=== PATIENT | female | born 1965 | race Caucasian/White ===

== ENCOUNTER 2017-06-06 01:33 | Inpatient (IN) | payer OTHER ==
[~2017-06-06] VITALS: Ht 157.5 cm; Wt 84.0 kg
[~2017-06-06 01:33] MED LIST: ASPI81EC; CLIN150 PO; ENAL10; IBUP600 PO; LOVA40 PO; METH10; METO50; NAPR500ERA; OLAN2.5 PO; TRAZ100 PO; VENL75ER PO; Vibramycin100 MG PO
[2017-06-06 02:34] LABS: Ethanol (Alcohol), Blood, Med 35 mg/dL
[2017-06-06 02:35] LABS: BASOPHILS ABSOLUTE AUTO 0.01 K/mm3 (0.00-0.23); BASOPHILS PERCENT AUTO 0 % (0-2); EOSINOPHILS ABSOLUTE AUTO 0.03 K/mm3 (0.00-0.68); EOSINOPHILS PERCENT AUTO 0 % (0-6); Hematocrit 29.1 % (33.0-51.0); Hemoglobin 10.6 g/dL (11.5-16.0); IMMATURE GRAN ABSOLUTE AUTO 0.11 K/mm3 (0.00-0.10); IMMATURE GRAN PERCENT AUTO 1 % (0-1); LYMPHOCYTES ABSOLUTE AUTO 2.21 K/mm3 (0.84-5.20); LYMPHOCYTES PERCENT AUTO 14 % (21-46); MONOCYTES PERCENT AUTO 8 % (4-13); Mean Corpuscular HGB 36.3 pg (26.0-34.0); Mean Corpuscular HGB Conc 36.4 g/dL (31.5-36.5); Mean Platelet Volume 10.1 fL (9.1-12.4); NEUTROPHILS ABSOLUTE AUTO 12.05 K/mm3 (1.96-9.15); NEUTROPHILS PERCENT AUTO 77 % (41-73); Platelet Count 172 K/mm3 (150-400); RDW Coefficient Variation 13.8 % (11.7-14.2); RDW Standard Deviation 50.2 fL (35.1-46.3); Red Blood Cell Count 2.92 M/mm3 (3.80-5.20); White Blood Cell Count 15.61 K/mm3 (4.00-11.30)
[2017-06-06 02:38] LABS: Mean Corpuscular Volume 100 fL (80-100)
[2017-06-06 02:41] LABS: Alanine Aminotransfer (ALT/SGP 41 U/L (12-78); Albumin, Blood 2.7 g/dL (3.4-5.0); Albumin/Globulin Ratio 0.6 (0.8-1.8); Alk Phos 157 U/L (50-136); Anion Gap 13 mmol/L (6-16); Aspartate Aminotrans (AST/SGOT 81 U/L (12-37); Blood Urea Nitrogen 4 mg/dL (8-24); Bun/Creatinine Ratio 10.6 (12.0-20.0); CO2, Blood 19 mmol/L (21-32); Calcium, Blood 8.1 mg/dL (8.5-10.1); Chloride, Blood 80 mmol/L (98-108); Creatinine, Blood 0.38 mg/dL (0.40-1.00); Globulin, Blood 4.7 g/dL (2.2-4.0); Glomerular Filtration Rate >60 (60-); Glucose, Blood 97 mg/dL (70-99); Potassium, Blood 3.7 mmol/L (3.5-5.5); Sodium, Blood 112 mmol/L (136-145); Total Protein, Blood 7.4 g/dL (6.4-8.2)
[2017-06-06 10:10] LABS: BASOPHILS ABSOLUTE AUTO 0.01 K/mm3 (0.00-0.23); BASOPHILS PERCENT AUTO 0 % (0-2); EOSINOPHILS ABSOLUTE AUTO 0.04 K/mm3 (0.00-0.68); EOSINOPHILS PERCENT AUTO 0 % (0-6); Hematocrit 28.7 % (33.0-51.0); Hemoglobin 10.4 g/dL (11.5-16.0); IMMATURE GRAN PERCENT AUTO 1 % (0-1); LYMPHOCYTES ABSOLUTE AUTO 1.84 K/mm3 (0.84-5.20); LYMPHOCYTES PERCENT AUTO 12 % (21-46); MONOCYTES ABSOLUTE AUTO 1.22 K/mm3 (0.16-1.47); MONOCYTES PERCENT AUTO 8 % (4-13); Mean Corpuscular HGB 36.4 pg (26.0-34.0); Mean Corpuscular HGB Conc 36.2 g/dL (31.5-36.5); Mean Corpuscular Volume 100 fL (80-100); NEUTROPHILS ABSOLUTE AUTO 11.89 K/mm3 (1.96-9.15); NEUTROPHILS PERCENT AUTO 79 % (41-73); NRBC ABSOLUTE 0.02 K/mm3 (0.00-0.02); NRBC Auto 0.1 /100 WBC (0.0-0.2); Platelet Count 170 K/mm3 (150-400); RDW Coefficient Variation 14.1 % (11.7-14.2); Red Blood Cell Count 2.86 M/mm3 (3.80-5.20)
[2017-06-06 10:34] LABS: Alanine Aminotransfer (ALT/SGP 48 U/L (12-78); Albumin, Blood 2.6 g/dL (3.4-5.0); Albumin/Globulin Ratio 0.6 (0.8-1.8); Alk Phos 150 U/L (50-136); Aspartate Aminotrans (AST/SGOT 82 U/L (12-37); Bilirubin, Total 3.1 mg/dL (0.1-1.0); Blood Urea Nitrogen 4 mg/dL (8-24); Bun/Creatinine Ratio 12.1 (12.0-20.0); CO2, Blood 21 mmol/L (21-32); Calcium, Blood 7.7 mg/dL (8.5-10.1); Chloride, Blood 81 mmol/L (98-108); Creatinine, Blood 0.33 mg/dL (0.40-1.00); Globulin, Blood 4.6 g/dL (2.2-4.0); Glomerular Filtration Rate >60 (60-); Glucose, Blood 122 mg/dL (70-99); Potassium, Blood 3.7 mmol/L (3.5-5.5); Total Protein, Blood 7.2 g/dL (6.4-8.2)
[2017-06-06 10:36] LABS: Anion Gap 10 mmol/L (6-16); Sodium, Blood 112 mmol/L (136-145)
[2017-06-06 12:47] LABS: Uric Acid, Blood 2.9 mg/dL (2.6-6.0)
[2017-06-06 13:12] LABS: Source, Urine Clean Catch
[2017-06-06 13:22] LABS: Bilirubin, Urine Neg (Neg); Blood, Urine 1+ (Neg); Glucose Qualitative, Urine Neg (Neg); Ketones, Urine Neg (Neg); Leukocyte Esterase, Urine 2+ (Neg); Nitrite, Urine Pos (Neg); Protein, Urine Neg (Neg); Urobilinogen, Urine 1+ (Normal)
[2017-06-06 13:40] LABS: Urea Nitrogen, Urine, Random 541 mg/dL (350-1000)
[2017-06-06 13:42] LABS: Sodium, Urine, Random <5 mmol/L (20-110)
[2017-06-06 13:50] LABS: Appearance, Urine Hazy (Clear); Color, Urine Yellow (P-Yellow)
[2017-06-06 13:51] LABS: White Blood Cells, Urine 50-100 /hpf (0-5)
[2017-06-06 13:52] LABS: Bacteria Many /hpf; Squamous Epithelial Cells Few /hpf (Few)
[2017-06-06 13:58] LABS: U Amphetamine Screen Not Detected; U Barbituate Screen Not Detected; U Benzodiazapine Screen DETECTED; U Buprenorphine Screen Not Detected; U Cannabinoids Screen Not Detected; U Cocaine Screen Not Detected; U Methadone Screen Not Detected; U Methamphetamine Screen Not Detected; U Opiates Screen Not Detected; U Oxycodone Screen Not Detected; U Phencyclidine Screen Not Detected; U Propoxyphene Screen Not Detected
[2017-06-06 15:09] LABS: Osmolality, Urine 480 mos/kg (15-1400)
[2017-06-06 15:53] LABS: PCO2 Arterial 30.7 mmHg (35-45); PO2 Arterial 83.8 mmHg (80-100); pH Blood Arterial 7.47 (7.35-7.45)
[2017-06-06 17:09] LABS: Anion Gap 9 mmol/L (6-16); Blood Urea Nitrogen 4 mg/dL (8-24); Bun/Creatinine Ratio 11.5 (12.0-20.0); CO2, Blood 20 mmol/L (21-32); Calcium, Blood 7.6 mg/dL (8.5-10.1); Chloride, Blood 84 mmol/L (98-108); Creatinine, Blood 0.35 mg/dL (0.40-1.00); Glomerular Filtration Rate >60 (60-); Glucose, Blood 93 mg/dL (70-99); Potassium, Blood 4.2 mmol/L (3.5-5.5); Sodium, Blood 113 mmol/L (136-145)
[2017-06-07 00:26] LABS: Magnesium, Blood 1.7 mg/dL (1.6-2.4)
[2017-06-07 02:24] LABS: Hematocrit 26.2 % (33.0-51.0); Hemoglobin 9.5 g/dL (11.5-16.0)
[2017-06-07 02:40] LABS: Albumin, Blood 2.2 g/dL (3.4-5.0); Anion Gap 10 mmol/L (6-16); Blood Urea Nitrogen 5 mg/dL (8-24); Bun/Creatinine Ratio 9.7 (12.0-20.0); CO2, Blood 23 mmol/L (21-32); Chloride, Blood 90 mmol/L (98-108); Creatinine, Blood 0.51 mg/dL (0.40-1.00); Glomerular Filtration Rate >60 (60-); Glucose, Blood 81 mg/dL (70-99); Magnesium, Blood 1.8 mg/dL (1.6-2.4); Phosphorus, Blood 1.7 mg/dL (2.5-4.9); Potassium, Blood 3.9 mmol/L (3.5-5.5); Sodium, Blood 123 mmol/L (136-145)
[2017-06-07 08:46] LABS: Anion Gap 9 mmol/L (6-16); Blood Urea Nitrogen 6 mg/dL (8-24); Bun/Creatinine Ratio 11.3 (12.0-20.0); CO2, Blood 23 mmol/L (21-32); Calcium, Blood 7.8 mg/dL (8.5-10.1); Chloride, Blood 92 mmol/L (98-108); Creatinine, Blood 0.53 mg/dL (0.40-1.00); Glomerular Filtration Rate >60 (60-); Glucose, Blood 82 mg/dL (70-99); Potassium, Blood 3.6 mmol/L (3.5-5.5); Sodium, Blood 124 mmol/L (136-145)
[2017-06-07 18:02] LABS: Magnesium, Blood 1.6 mg/dL (1.6-2.4); Phosphorus, Blood 2.9 mg/dL (2.5-4.9); Potassium, Blood 3.4 mmol/L (3.5-5.5)
[2017-06-07 21:24] LABS: Potassium, Blood 3.6 mmol/L (3.5-5.5)
[2017-06-08 04:31] LABS: BASOPHILS ABSOLUTE AUTO 0.01 K/mm3 (0.00-0.23); BASOPHILS PERCENT AUTO 0 % (0-2); EOSINOPHILS ABSOLUTE AUTO 0.09 K/mm3 (0.00-0.68); EOSINOPHILS PERCENT AUTO 1 % (0-6); Hematocrit 25.7 % (33.0-51.0); Hemoglobin 9.1 g/dL (11.5-16.0); IMMATURE GRAN ABSOLUTE AUTO 0.04 K/mm3 (0.00-0.10); IMMATURE GRAN PERCENT AUTO 0 % (0-1); LYMPHOCYTES ABSOLUTE AUTO 2.66 K/mm3 (0.84-5.20); LYMPHOCYTES PERCENT AUTO 25 % (21-46); MONOCYTES ABSOLUTE AUTO 1.29 K/mm3 (0.16-1.47); MONOCYTES PERCENT AUTO 12 % (4-13); Mean Corpuscular HGB 36.1 pg (26.0-34.0); Mean Corpuscular HGB Conc 35.4 g/dL (31.5-36.5); Mean Corpuscular Volume 102 fL (80-100); Mean Platelet Volume 10.2 fL (9.1-12.4); NEUTROPHILS ABSOLUTE AUTO 6.54 K/mm3 (1.96-9.15); NEUTROPHILS PERCENT AUTO 62 % (41-73); Platelet Count 118 K/mm3 (150-400); RDW Coefficient Variation 15.3 % (11.7-14.2); RDW Standard Deviation 55.4 fL (35.1-46.3); Red Blood Cell Count 2.52 M/mm3 (3.80-5.20); White Blood Cell Count 10.63 K/mm3 (4.00-11.30)
[2017-06-08 04:44] LABS: International Normalized Ratio 1.37; Prothrombin Time Results 14.4 Sec (9.7-11.5)
[2017-06-08 04:52] LABS: Alanine Aminotransfer (ALT/SGP 37 U/L (12-78); Albumin, Blood 2.1 g/dL (3.4-5.0); Albumin/Globulin Ratio 0.6 (0.8-1.8); Alk Phos 122 U/L (50-136); Anion Gap 8 mmol/L (6-16); Aspartate Aminotrans (AST/SGOT 77 U/L (12-37); Bilirubin, Total 2.6 mg/dL (0.1-1.0); Blood Urea Nitrogen 8 mg/dL (8-24); Bun/Creatinine Ratio 10.7 (12.0-20.0); CO2, Blood 23 mmol/L (21-32); Chloride, Blood 97 mmol/L (98-108); Creatinine, Blood 0.75 mg/dL (0.40-1.00); Globulin, Blood 3.8 g/dL (2.2-4.0); Glomerular Filtration Rate >60 (60-); Glucose, Blood 71 mg/dL (70-99); Magnesium, Blood 1.7 mg/dL (1.6-2.4); Phosphorus, Blood 2.8 mg/dL (2.5-4.9); Potassium, Blood 3.4 mmol/L (3.5-5.5); Sodium, Blood 128 mmol/L (136-145); Total Protein, Blood 5.9 g/dL (6.4-8.2)
[2017-06-09 03:45] LABS: BASOPHILS ABSOLUTE AUTO 0.02 K/mm3 (0.00-0.23); BASOPHILS PERCENT AUTO 0 % (0-2); EOSINOPHILS ABSOLUTE AUTO 0.05 K/mm3 (0.00-0.68); EOSINOPHILS PERCENT AUTO 1 % (0-6); Hematocrit 26.4 % (33.0-51.0); Hemoglobin 9.3 g/dL (11.5-16.0); IMMATURE GRAN ABSOLUTE AUTO 0.03 K/mm3 (0.00-0.10); IMMATURE GRAN PERCENT AUTO 0 % (0-1); LYMPHOCYTES ABSOLUTE AUTO 2.98 K/mm3 (0.84-5.20); LYMPHOCYTES PERCENT AUTO 29 % (21-46); MONOCYTES ABSOLUTE AUTO 1.74 K/mm3 (0.16-1.47); MONOCYTES PERCENT AUTO 17 % (4-13); Mean Corpuscular HGB Conc 35.2 g/dL (31.5-36.5); Mean Corpuscular Volume 102 fL (80-100); Mean Platelet Volume 9.7 fL (9.1-12.4); NEUTROPHILS ABSOLUTE AUTO 5.56 K/mm3 (1.96-9.15); NEUTROPHILS PERCENT AUTO 54 % (41-73); Platelet Count 120 K/mm3 (150-400); RDW Coefficient Variation 16.3 % (11.7-14.2); RDW Standard Deviation 59.7 fL (35.1-46.3); Red Blood Cell Count 2.58 M/mm3 (3.80-5.20); White Blood Cell Count 10.38 K/mm3 (4.00-11.30)
[2017-06-09 03:58] LABS: International Normalized Ratio 1.38; Prothrombin Time Results 14.5 Sec (9.7-11.5)
[2017-06-09 04:05] LABS: Alanine Aminotransfer (ALT/SGP 42 U/L (12-78); Albumin, Blood 2.3 g/dL (3.4-5.0); Albumin/Globulin Ratio 0.6 (0.8-1.8); Alk Phos 136 U/L (50-136); Anion Gap 9 mmol/L (6-16); Aspartate Aminotrans (AST/SGOT 77 U/L (12-37); Bilirubin, Total 2.3 mg/dL (0.1-1.0); Blood Urea Nitrogen 7 mg/dL (8-24); Bun/Creatinine Ratio 11.2 (12.0-20.0); CO2, Blood 23 mmol/L (21-32); Calcium, Blood 8.9 mg/dL (8.5-10.1); Chloride, Blood 104 mmol/L (98-108); Creatinine, Blood 0.63 mg/dL (0.40-1.00); Globulin, Blood 4.1 g/dL (2.2-4.0); Glomerular Filtration Rate >60 (60-); Glucose, Blood 83 mg/dL (70-99); Lactate Dehydrogenase (Ld),Bld 269 U/L (100-240); Magnesium, Blood 1.6 mg/dL (1.6-2.4); Potassium, Blood 3.6 mmol/L (3.5-5.5); Sodium, Blood 136 mmol/L (136-145); Total Protein, Blood 6.4 g/dL (6.4-8.2)
[2017-06-09 05:20] LABS: PO2 Arterial 74.2 mmHg (80-100); pH Blood Arterial 7.53 (7.35-7.45)
[2017-06-09 12:20] LABS: Automated BF WBC Count 0.116 K/mm3 (0-999); Body Fluid WBC Count 116 /mm3 (0-999)
[2017-06-09 12:30] LABS: Appearance, Body Fluid Clear (Clear); Color, Body Fluid Yellow (None-Yellow); RBC Count, Body Fluid 42 /mm3 (0-0)
[2017-06-09 12:46] LABS: Glucose, Body Fluid 91 mg/dL; Lactate Dehydrogenase, Body Fl 48 U/L; Protein, Body Fluid 0.9 g/dL
[2017-06-09 12:47] LABS: Total Cell Count, Body Fluid 100
[2017-06-09 17:45] LABS: Magnesium, Blood 1.6 mg/dL (1.6-2.4)
[2017-06-09 17:46] LABS: Phosphorus, Blood 3.6 mg/dL (2.5-4.9); Potassium, Blood 3.4 mmol/L (3.5-5.5)
[2017-06-10 04:41] LABS: Hematocrit 26.7 % (33.0-51.0); Hemoglobin 9.2 g/dL (11.5-16.0)
[2017-06-10 04:59] LABS: Albumin, Blood 2.4 g/dL (3.4-5.0); Anion Gap 12 mmol/L (6-16); Blood Urea Nitrogen 5 mg/dL (8-24); CO2, Blood 21 mmol/L (21-32); Calcium, Blood 8.7 mg/dL (8.5-10.1); Chloride, Blood 104 mmol/L (98-108); Creatinine, Blood 0.63 mg/dL (0.40-1.00); Glomerular Filtration Rate >60 (60-); Glucose, Blood 97 mg/dL (70-99); Magnesium, Blood 1.9 mg/dL (1.6-2.4); Sodium, Blood 137 mmol/L (136-145)
[2017-06-11 06:02] LABS: Hematocrit 28.2 % (33.0-51.0); Hemoglobin 9.8 g/dL (11.5-16.0)
[2017-06-11 06:16] LABS: International Normalized Ratio 1.28; Prothrombin Time Results 13.4 Sec (9.7-11.5)
[2017-06-11 06:21] LABS: Alanine Aminotransfer (ALT/SGP 44 U/L (12-78); Albumin, Blood 2.5 g/dL (3.4-5.0); Albumin/Globulin Ratio 0.6 (0.8-1.8); Alk Phos 148 U/L (50-136); Anion Gap 8 mmol/L (6-16); Aspartate Aminotrans (AST/SGOT 78 U/L (12-37); Bilirubin, Direct 1.5 mg/dL (0.0-0.3); Bilirubin, Indirect 1.9 mg/dL (0.1-0.7); Bilirubin, Total 3.4 mg/dL (0.1-1.0); Blood Urea Nitrogen 5 mg/dL (8-24); Bun/Creatinine Ratio 9.2 (12.0-20.0); CO2, Blood 24 mmol/L (21-32); Chloride, Blood 103 mmol/L (98-108); Creatinine, Blood 0.54 mg/dL (0.40-1.00); Globulin, Blood 4.3 g/dL (2.2-4.0); Glomerular Filtration Rate >60 (60-); Glucose, Blood 102 mg/dL (70-99); Phosphorus, Blood 3.6 mg/dL (2.5-4.9); Potassium, Blood 3.9 mmol/L (3.5-5.5); Sodium, Blood 135 mmol/L (136-145); Total Protein, Blood 6.8 g/dL (6.4-8.2)
[2017-06-12 04:55] LABS: Hematocrit 28.1 % (33.0-51.0); Hemoglobin 9.3 g/dL (11.5-16.0)
[2017-06-12 05:17] LABS: Albumin, Blood 2.5 g/dL (3.4-5.0); Anion Gap 10 mmol/L (6-16); Blood Urea Nitrogen 6 mg/dL (8-24); Bun/Creatinine Ratio 10.5 (12.0-20.0); CO2, Blood 24 mmol/L (21-32); Calcium, Blood 8.6 mg/dL (8.5-10.1); Chloride, Blood 101 mmol/L (98-108); Creatinine, Blood 0.57 mg/dL (0.40-1.00); Glomerular Filtration Rate >60 (60-); Glucose, Blood 120 mg/dL (70-99); Phosphorus, Blood 2.8 mg/dL (2.5-4.9); Potassium, Blood 3.7 mmol/L (3.5-5.5); Sodium, Blood 135 mmol/L (136-145)
[2017-06-13 05:25] LABS: Hematocrit 26.2 % (33.0-51.0); Hemoglobin 8.8 g/dL (11.5-16.0)
[2017-06-13 06:00] LABS: Magnesium, Blood 1.9 mg/dL (1.6-2.4)
[2017-06-13 06:01] LABS: Albumin, Blood 2.4 g/dL (3.4-5.0); Anion Gap 9 mmol/L (6-16); Blood Urea Nitrogen 6 mg/dL (8-24); Bun/Creatinine Ratio 11.1 (12.0-20.0); CO2, Blood 25 mmol/L (21-32); Calcium, Blood 8.4 mg/dL (8.5-10.1); Chloride, Blood 101 mmol/L (98-108); Creatinine, Blood 0.54 mg/dL (0.40-1.00); Glomerular Filtration Rate >60 (60-); Glucose, Blood 84 mg/dL (70-99); Phosphorus, Blood 3.3 mg/dL (2.5-4.9); Potassium, Blood 3.6 mmol/L (3.5-5.5); Sodium, Blood 135 mmol/L (136-145)
[2017-06-13] MEDS ORDERED: ALBU90OI INH (14:43)
[2017-06-13] MEDS ORDERED: LISI20 PO (14:44)
[2017-06-13] MEDS ORDERED: Metoprolol Succ25 MG PO (14:44)
[2017-06-13] MEDS ORDERED: LACT10SY PO (14:45)
[2017-06-13] MEDS ORDERED: MAGOXI400 PO (14:46)
[2017-06-13] MEDS ORDERED: NITR100CA PO (14:47)
[2017-09-16] MEDS ORDERED: FURO40 PO (13:14)
[2017-09-16] MEDS ORDERED: MAGOXI400 PO (13:15)
[2017-09-16] MEDS ORDERED: LEVFLO500 PO (13:16)
[2017-09-28] MEDS ORDERED: LORATADINE PO (20:31)
[2017-10-24] MEDS ORDERED: PANT40 PO (15:12)
[2017-10-30] MEDS ORDERED: LOVA40 PO (00:42)
[2017-10-30] MEDS ORDERED: ALBU90OI INH (00:43)
[2017-10-30] MEDS ORDERED: FURO40 PO (00:43)
[2017-11-07] MEDS ORDERED: LISI20 PO (22:50)
[2017-11-07] MEDS ORDERED: Neurontin600 MG PO (22:52)
[2017-11-07] MEDS ORDERED: Dicyclomine HCl10 MG PO (22:52)
[2017-11-07] MEDS ORDERED: Ipratr-Albuterol3 ML UD (22:54)
[2017-11-07] MEDS ORDERED: LACT10SY PO (22:55)
[2017-11-07] MEDS ORDERED: Aldactone50 MG PO (22:56)
[2017-11-07] MEDS ORDERED: POTA20PAC PO (22:59)
[2017-11-11] MEDS ORDERED: LEVFLO500 (08:19)
[2018-01-19] MEDS ORDERED: LOVA40 PO (21:14)
[2018-01-22] MEDS ORDERED: LACTULOSE20 GM/30 M PO (10:54)
[2018-01-22] MEDS ORDERED: DOXY100 PO (10:59)
[2018-03-17] MEDS ORDERED: LISI5 PO (12:45)
[2018-03-17] MEDS ORDERED: ONDA4ODT MM (12:47)
[2018-03-17] MEDS ORDERED: SUMA25 PO (12:49)
== END 2017-06-13 16:19 | disposition home or self-care (01) | DRG 896 ==
LOC: ER 01:33 → ICUW 03:14 → MEDS 03:14 → PCU 03:14 → ICUW 14:17 → ICUE 18:57 → MEDS 06-10 13:42
PROVIDERS: Emergency Medicine; Internal Medicine; Internal Medicine Critical Care Medicine; Internal Medicine Nephrology
PROC: 5A09357 Assistance with Respiratory Ventilation, Less than 24 Consecutive Hours, Continuous Positive Airway Pressure (ICD-10-PCS; 2017-06-06)
PROC: 02HV33Z Insertion of Infusion Device into Superior Vena Cava, Percutaneous Approach (ICD-10-PCS; 2017-06-06)
PROC: 0W993ZX Drainage of Right Pleural Cavity, Percutaneous Approach, Diagnostic (ICD-10-PCS; principal; 2017-06-09)
PROC: 0W993ZZ Drainage of Right Pleural Cavity, Percutaneous Approach (ICD-10-PCS; 2017-06-09)
DX: F10.231 Alcohol dependence with withdrawal delirium (principal); G93.41 Metabolic encephalopathy; J96.01 Acute respiratory failure with hypoxia; I47.2 Ventricular tachycardia; E87.3 Alkalosis; E72.20 Disorder of urea cycle metabolism, unspecified; J90 Pleural effusion, not elsewhere classified; D68.9 Coagulation defect, unspecified; I95.9 Hypotension, unspecified; E87.1 Hypo-osmolality and hyponatremia; N39.0 Urinary tract infection, site not specified; K70.10 Alcoholic hepatitis without ascites; I27.20 Pulmonary hypertension, unspecified; F32.9 Major depressive disorder, single episode, unspecified; N18.2 Chronic kidney disease, stage 2 (mild); E87.6 Hypokalemia; E83.39 Other disorders of phosphorus metabolism; E87.70 Fluid overload, unspecified; R00.1 Bradycardia, unspecified; E88.09 Other disorders of plasma-protein metabolism, not elsewhere classified; D64.9 Anemia, unspecified; R31.29 Other microscopic hematuria; E83.42 Hypomagnesemia; M62.81 Muscle weakness (generalized); D69.6 Thrombocytopenia, unspecified; E66.9 Obesity, unspecified; G47.30 Sleep apnea, unspecified; Z88.1 Allergy status to other antibiotic agents; Z79.899 Other long term (current) drug therapy; Z88.5 Allergy status to narcotic agent; Z88.0 Allergy status to penicillin; Z88.2 Allergy status to sulfonamides; Z68.35 Body mass index [BMI] 35.0-35.9, adult
CPT/HCPCS: 32555; 36415; 36569; 36600; 71045; 76700; 80048; 80053; 80069; 81001; 82140; 82248; 82330; 82570; 82803; 82945; 83615; 83735; 83930; 83935; 84100; 84132; 84157; 84295; 84300; 84540; 84550; 85014; 85018; 85025; 85060; 85610; 85730; 87070; 87077; 87086; 87186; 87205; 89051; 93005; 93010; 93306; 93970; 94640; 94660; 94762; 96360; 97110; 97116; 97162; 99285; C1751; G0480; G8978; G8979; J0360; J0610; J1650; J1940; J1956; J2060; J2405; J3411; J3475; J3480; J7030; J7040; J7042; J7120

== ENCOUNTER 2017-06-25 02:34 | Inpatient (IN) | payer OTHER ==
[~2017-06-25] VITALS: Ht 160 cm; Wt 83.5 kg
[~2017-06-25 02:34] MED LIST changes: +ALBU90OI INH; +LACT10SY PO; +LISI20 PO; +MAGOXI400 PO; +Metoprolol Succ25 MG PO; +NITR100CA PO
[2017-06-25 03:09] LABS: BASOPHILS ABSOLUTE AUTO 0.06 K/mm3 (0.00-0.23); BASOPHILS PERCENT AUTO 0 % (0-2); EOSINOPHILS ABSOLUTE AUTO 0.14 K/mm3 (0.00-0.68); EOSINOPHILS PERCENT AUTO 1 % (0-6); Hematocrit 30.4 % (33.0-51.0); IMMATURE GRAN ABSOLUTE AUTO 0.12 K/mm3 (0.00-0.10); IMMATURE GRAN PERCENT AUTO 1 % (0-1); LYMPHOCYTES ABSOLUTE AUTO 3.34 K/mm3 (0.84-5.20); LYMPHOCYTES PERCENT AUTO 21 % (21-46); MONOCYTES ABSOLUTE AUTO 1.79 K/mm3 (0.16-1.47); MONOCYTES PERCENT AUTO 11 % (4-13); Mean Corpuscular HGB Conc 32.9 g/dL (31.5-36.5); Mean Corpuscular Volume 106 fL (80-100); Mean Platelet Volume 10.2 fL (9.1-12.4); NEUTROPHILS ABSOLUTE AUTO 10.79 K/mm3 (1.96-9.15); NEUTROPHILS PERCENT AUTO 66 % (41-73); Platelet Count 303 K/mm3 (150-400); RDW Coefficient Variation 16.1 % (11.7-14.2); RDW Standard Deviation 62.8 fL (35.1-46.3); Red Blood Cell Count 2.86 M/mm3 (3.80-5.20); White Blood Cell Count 16.24 K/mm3 (4.00-11.30)
[2017-06-25 03:13] LABS: PCO2 Arterial 32.7 mmHg (35-45); PO2 Arterial 66.8 mmHg (80-100); pH Blood Arterial 7.55 (7.35-7.45)
[2017-06-25 03:30] LABS: Alanine Aminotransfer (ALT/SGP 43 U/L (12-78); Albumin, Blood 2.5 g/dL (3.4-5.0); Albumin/Globulin Ratio 0.5 (0.8-1.8); Alk Phos 147 U/L (50-136); Anion Gap 9 mmol/L (6-16); Aspartate Aminotrans (AST/SGOT 54 U/L (12-37); Bilirubin, Total 2.2 mg/dL (0.1-1.0); Blood Urea Nitrogen 6 mg/dL (8-24); Bun/Creatinine Ratio 8.7 (12.0-20.0); CO2, Blood 27 mmol/L (21-32); Chloride, Blood 104 mmol/L (98-108); Creatinine, Blood 0.69 mg/dL (0.40-1.00); Globulin, Blood 4.9 g/dL (2.2-4.0); Glomerular Filtration Rate >60 (60-); Glucose, Blood 90 mg/dL (70-99); Potassium, Blood 3.2 mmol/L (3.5-5.5); Sodium, Blood 140 mmol/L (136-145); Total Protein, Blood 7.4 g/dL (6.4-8.2); Troponin I <0.015 ng/mL (0.000-0.040)
[2017-06-25 05:35] LABS: Hematocrit 30.9 % (33.0-51.0); Hemoglobin 10.3 g/dL (11.5-16.0); Mean Corpuscular HGB 35.2 pg (26.0-34.0); Mean Corpuscular HGB Conc 33.3 g/dL (31.5-36.5); Mean Corpuscular Volume 106 fL (80-100); Mean Platelet Volume 10.4 fL (9.1-12.4); Platelet Count 317 K/mm3 (150-400); RDW Coefficient Variation 16.2 % (11.7-14.2); Red Blood Cell Count 2.93 M/mm3 (3.80-5.20)
[2017-06-25 05:48] LABS: International Normalized Ratio 1.26; Prothrombin Time Results 13.2 Sec (9.7-11.5)
[2017-06-25 12:36] LABS: Albumin, Blood 2.5 g/dL (3.4-5.0)
[2017-06-26 06:00] LABS: BASOPHILS ABSOLUTE AUTO 0.07 K/mm3 (0.00-0.23); BASOPHILS PERCENT AUTO 1 % (0-2); EOSINOPHILS ABSOLUTE AUTO 0.16 K/mm3 (0.00-0.68); EOSINOPHILS PERCENT AUTO 1 % (0-6); Hemoglobin 9.3 g/dL (11.5-16.0); IMMATURE GRAN ABSOLUTE AUTO 0.07 K/mm3 (0.00-0.10); IMMATURE GRAN PERCENT AUTO 1 % (0-1); LYMPHOCYTES ABSOLUTE AUTO 3.81 K/mm3 (0.84-5.20); LYMPHOCYTES PERCENT AUTO 26 % (21-46); MONOCYTES ABSOLUTE AUTO 1.67 K/mm3 (0.16-1.47); MONOCYTES PERCENT AUTO 11 % (4-13); Mean Corpuscular HGB Conc 33.2 g/dL (31.5-36.5); Mean Corpuscular Volume 105 fL (80-100); Mean Platelet Volume 10.2 fL (9.1-12.4); NEUTROPHILS ABSOLUTE AUTO 9.06 K/mm3 (1.96-9.15); NEUTROPHILS PERCENT AUTO 61 % (41-73); Platelet Count 275 K/mm3 (150-400); RDW Coefficient Variation 16.5 % (11.7-14.2); RDW Standard Deviation 62.9 fL (35.1-46.3); Red Blood Cell Count 2.66 M/mm3 (3.80-5.20); White Blood Cell Count 14.84 K/mm3 (4.00-11.30)
[2017-06-26 06:22] LABS: Albumin, Blood 2.2 g/dL (3.4-5.0); Anion Gap 7 mmol/L (6-16); Blood Urea Nitrogen 4 mg/dL (8-24); Bun/Creatinine Ratio 6.2 (12.0-20.0); CO2, Blood 28 mmol/L (21-32); Calcium, Blood 8.6 mg/dL (8.5-10.1); Chloride, Blood 107 mmol/L (98-108); Creatinine, Blood 0.65 mg/dL (0.40-1.00); Glomerular Filtration Rate >60 (60-); Glucose, Blood 75 mg/dL (70-99); Phosphorus, Blood 3.5 mg/dL (2.5-4.9); Potassium, Blood 4.2 mmol/L (3.5-5.5); Sodium, Blood 142 mmol/L (136-145)
[2017-06-26] MEDS ORDERED: SPIR50 PO (11:34)
[2017-06-26] MEDS ORDERED: SACC250C PO (11:35)
[2017-06-26] MEDS ORDERED: FURO40 PO (11:35)
[2017-06-26] MEDS ORDERED: LEVO750 PO (11:37)
[2017-06-26] MEDS ORDERED: POTCHL20ER PO (12:45)
[2017-09-16] MEDS ORDERED: FURO40 PO (13:14)
[2017-09-16] MEDS ORDERED: MAGOXI400 PO (13:15)
[2017-09-16] MEDS ORDERED: LEVFLO500 PO (13:16)
[2017-09-28] MEDS ORDERED: LORATADINE PO (20:31)
[2017-10-24] MEDS ORDERED: PANT40 PO (15:12)
[2017-10-30] MEDS ORDERED: LOVA40 PO (00:42)
[2017-10-30] MEDS ORDERED: ALBU90OI INH (00:43)
[2017-10-30] MEDS ORDERED: FURO40 PO (00:43)
[2017-11-07] MEDS ORDERED: LISI20 PO (22:50)
[2017-11-07] MEDS ORDERED: Dicyclomine HCl10 MG PO (22:52)
[2017-11-07] MEDS ORDERED: Neurontin600 MG PO (22:52)
[2017-11-07] MEDS ORDERED: Ipratr-Albuterol3 ML UD (22:54)
[2017-11-07] MEDS ORDERED: LACT10SY PO (22:55)
[2017-11-07] MEDS ORDERED: Aldactone50 MG PO (22:56)
[2017-11-07] MEDS ORDERED: POTA20PAC PO (22:59)
[2017-11-11] MEDS ORDERED: LEVFLO500 (08:19)
[2018-01-19] MEDS ORDERED: LOVA40 PO (21:14)
[2018-01-22] MEDS ORDERED: LACTULOSE20 GM/30 M PO (10:54)
[2018-01-22] MEDS ORDERED: DOXY100 PO (10:59)
[2018-03-17] MEDS ORDERED: LISI5 PO (12:45)
[2018-03-17] MEDS ORDERED: ONDA4ODT MM (12:47)
[2018-03-17] MEDS ORDERED: SUMA25 PO (12:49)
== END 2017-06-26 16:17 | disposition home or self-care (01) | DRG 871 ==
LOC: ER 02:34 → MEDS 04:00 → ENPENDDIS 06-26 11:00 → MEDS 06-26 16:17
PROVIDERS: Emergency Medicine; Family Medicine; Internal Medicine
PROC: 0W993ZX Drainage of Right Pleural Cavity, Percutaneous Approach, Diagnostic (ICD-10-PCS; principal; 2017-06-25)
DX: A41.9 Sepsis, unspecified organism (principal); J96.01 Acute respiratory failure with hypoxia; I47.2 Ventricular tachycardia; J90 Pleural effusion, not elsewhere classified; L03.115 Cellulitis of right lower limb; K70.30 Alcoholic cirrhosis of liver without ascites; D63.8 Anemia in other chronic diseases classified elsewhere; I27.20 Pulmonary hypertension, unspecified; R65.20 Severe sepsis without septic shock; G47.30 Sleep apnea, unspecified; I10 Essential (primary) hypertension; E66.9 Obesity, unspecified; E87.6 Hypokalemia; F32.9 Major depressive disorder, single episode, unspecified; Z68.32 Body mass index [BMI] 32.0-32.9, adult; Z88.5 Allergy status to narcotic agent; Z88.0 Allergy status to penicillin; Z88.2 Allergy status to sulfonamides; Z88.8 Allergy status to other drugs, medicaments and biological substances; Z79.899 Other long term (current) drug therapy
CPT/HCPCS: 32555; 36415; 36600; 51702; 71045; 71046; 80053; 80069; 82040; 82140; 82803; 82947; 83605; 83615; 83690; 84155; 84484; 85025; 85027; 85610; 87040; 93005; 93010; 93971; 94761; 94762; 96374; 99285; J1940; J1956; J3370; J3480; J7030

== ENCOUNTER 2017-09-05 12:26 | Inpatient (IN) | payer OTHER ==
[~2017-09-05] VITALS: Ht 167.6 cm; Wt 69.1 kg
[~2017-09-05 12:26] MED LIST changes: +FURO40 PO; +LEVO750 PO; +POTCHL20ER PO; +SACC250C PO; +SPIR50 PO; +TRAZ50 PO
[2017-09-05 13:43] LABS: BASOPHILS ABSOLUTE AUTO 0.04 K/mm3 (0.00-0.23); BASOPHILS PERCENT AUTO 1 % (0-2); EOSINOPHILS ABSOLUTE AUTO 0.17 K/mm3 (0.00-0.68); EOSINOPHILS PERCENT AUTO 2 % (0-6); Hematocrit 26.9 % (33.0-51.0); Hemoglobin 9.1 g/dL (11.5-16.0); IMMATURE GRAN ABSOLUTE AUTO 0.02 K/mm3 (0.00-0.10); IMMATURE GRAN PERCENT AUTO 0 % (0-1); LYMPHOCYTES ABSOLUTE AUTO 2.41 K/mm3 (0.84-5.20); LYMPHOCYTES PERCENT AUTO 27 % (21-46); MONOCYTES PERCENT AUTO 13 % (4-13); Mean Corpuscular HGB 31.2 pg (26.0-34.0); Mean Corpuscular HGB Conc 33.8 g/dL (31.5-36.5); Mean Corpuscular Volume 92 fL (80-100); NEUTROPHILS ABSOLUTE AUTO 5.08 K/mm3 (1.96-9.15); NEUTROPHILS PERCENT AUTO 58 % (41-73); Platelet Count 243 K/mm3 (150-400); RDW Coefficient Variation 17.3 % (11.7-14.2); RDW Standard Deviation 58.3 fL (35.1-46.3); Red Blood Cell Count 2.92 M/mm3 (3.80-5.20); White Blood Cell Count 8.82 K/mm3 (4.00-11.30)
[2017-09-05 13:53] LABS: Albumin, Blood 2.2 g/dL (3.4-5.0); Albumin/Globulin Ratio 0.4 (0.8-1.8); Bilirubin, Total 1.7 mg/dL (0.1-1.0); Bun/Creatinine Ratio 14.1 (12.0-20.0); Calcium, Blood 8.7 mg/dL (8.5-10.1); Creatinine, Blood 1.35 mg/dL (0.40-1.00); Potassium, Blood 4.8 mmol/L (3.5-5.5); Total Protein, Blood 7.2 g/dL (6.4-8.2)
[2017-09-05 13:55] LABS: International Normalized Ratio 1.16; Prothrombin Time Results 12.1 Sec (9.7-11.5)
[2017-09-05 15:18] LABS: Source, Urine Catheter
[2017-09-05 15:31] LABS: Appearance, Urine Clear (Clear); Bilirubin, Urine Neg (Neg); Blood, Urine Neg (Neg); Color, Urine Yellow (P-Yellow); Glucose Qualitative, Urine Neg (Neg); Ketones, Urine Neg (Neg); Leukocyte Esterase, Urine Neg (Neg); Nitrite, Urine Neg (Neg); Protein, Urine Neg (Neg); Specific Gravity, Urine 1.005 (1.003-1.022); Urobilinogen, Urine NORM (Normal)
[2017-09-05 15:48] LABS: U Amphetamine Screen Not Detected; U Barbituate Screen Not Detected; U Benzodiazapine Screen Not Detected; U Buprenorphine Screen Not Detected; U Cannabinoids Screen Not Detected; U Cocaine Screen Not Detected; U Methadone Screen Not Detected; U Methamphetamine Screen Not Detected; U Opiates Screen Not Detected; U Oxycodone Screen Not Detected; U Phencyclidine Screen Not Detected; U Propoxyphene Screen Not Detected
[2017-09-06 06:14] LABS: Hematocrit 21.4 % (33.0-51.0); Mean Corpuscular HGB 30.6 pg (26.0-34.0); Mean Corpuscular HGB Conc 32.7 g/dL (31.5-36.5); Mean Corpuscular Volume 93 fL (80-100); Mean Platelet Volume 10.2 fL (9.1-12.4); Platelet Count 223 K/mm3 (150-400); RDW Coefficient Variation 17.5 % (11.7-14.2); RDW Standard Deviation 59.3 fL (35.1-46.3); Red Blood Cell Count 2.29 M/mm3 (3.80-5.20); White Blood Cell Count 12.69 K/mm3 (4.00-11.30)
[2017-09-06 06:39] LABS: Anion Gap 9 mmol/L (6-16); Blood Urea Nitrogen 15 mg/dL (8-24); Bun/Creatinine Ratio 16.4 (12.0-20.0); CO2, Blood 22 mmol/L (21-32); Calcium, Blood 8.8 mg/dL (8.5-10.1); Chloride, Blood 108 mmol/L (98-108); Creatinine, Blood 0.92 mg/dL (0.40-1.00); Glomerular Filtration Rate >60 (60-); Glucose, Blood 81 mg/dL (70-99); Potassium, Blood 4.3 mmol/L (3.5-5.5); Sodium, Blood 139 mmol/L (136-145)
[2017-09-07 08:02] LABS: BASOPHILS ABSOLUTE AUTO 0.05 K/mm3 (0.00-0.23); BASOPHILS PERCENT AUTO 0 % (0-2); EOSINOPHILS ABSOLUTE AUTO 0.44 K/mm3 (0.00-0.68); EOSINOPHILS PERCENT AUTO 4 % (0-6); Hematocrit 25.7 % (33.0-51.0); Hemoglobin 8.9 g/dL (11.5-16.0); IMMATURE GRAN ABSOLUTE AUTO 0.04 K/mm3 (0.00-0.10); IMMATURE GRAN PERCENT AUTO 0 % (0-1); LYMPHOCYTES ABSOLUTE AUTO 3.08 K/mm3 (0.84-5.20); LYMPHOCYTES PERCENT AUTO 27 % (21-46); MONOCYTES ABSOLUTE AUTO 1.53 K/mm3 (0.16-1.47); MONOCYTES PERCENT AUTO 13 % (4-13); Mean Corpuscular HGB Conc 34.6 g/dL (31.5-36.5); Mean Corpuscular Volume 92 fL (80-100); Mean Platelet Volume 9.7 fL (9.1-12.4); NEUTROPHILS ABSOLUTE AUTO 6.35 K/mm3 (1.96-9.15); NEUTROPHILS PERCENT AUTO 55 % (41-73); Platelet Count 192 K/mm3 (150-400); RDW Coefficient Variation 17.7 % (11.7-14.2); RDW Standard Deviation 58.7 fL (35.1-46.3); Red Blood Cell Count 2.78 M/mm3 (3.80-5.20); White Blood Cell Count 11.49 K/mm3 (4.00-11.30)
[2017-09-07] MEDS ORDERED: Ferrous Sulfat325 M2 PO (09:23)
== END 2017-09-07 15:21 | disposition home or self-care (01) | DRG 71 ==
LOC: ER 12:26 → MEDS 16:50
PROVIDERS: Emergency Medicine; Hospitalist; Internal Medicine
DX: G93.40 Encephalopathy, unspecified (principal); J90 Pleural effusion, not elsewhere classified; K70.30 Alcoholic cirrhosis of liver without ascites; B19.20 Unspecified viral hepatitis C without hepatic coma; I10 Essential (primary) hypertension; D50.9 Iron deficiency anemia, unspecified; F10.20 Alcohol dependence, uncomplicated; R33.9 Retention of urine, unspecified
CPT/HCPCS: 36415; 51702; 70450; 71046; 76700; 80048; 80053; 81003; 82140; 83605; 83690; 85025; 85027; 85610; 85730; 86850; 86900; 86901; 86923; 94640; 94760; 96365; 96366; 96368; 99285; G0480; J0696; J1650; J3411; J3475; J7042; P9016

== ENCOUNTER 2017-09-28 19:39 | Observation (INO) | payer OTHER ==
[~2017-09-28] VITALS: Ht 160 cm; Wt 72.0 kg
[~2017-09-28 19:39] MED LIST changes: +Ferrous Sulfat325 M2 PO; +LEVFLO500 PO
[2017-09-28 20:05] LABS: BASOPHILS ABSOLUTE AUTO 0.02 K/mm3 (0.00-0.23); BASOPHILS PERCENT AUTO 0 % (0-2); EOSINOPHILS ABSOLUTE AUTO 0.25 K/mm3 (0.00-0.68); EOSINOPHILS PERCENT AUTO 2 % (0-6); IMMATURE GRAN ABSOLUTE AUTO 0.08 K/mm3 (0.00-0.10); IMMATURE GRAN PERCENT AUTO 1 % (0-1); LYMPHOCYTES ABSOLUTE AUTO 2.07 K/mm3 (0.84-5.20); LYMPHOCYTES PERCENT AUTO 15 % (21-46); MONOCYTES ABSOLUTE AUTO 1.75 K/mm3 (0.16-1.47); MONOCYTES PERCENT AUTO 13 % (4-13); Mean Corpuscular HGB 32.4 pg (26.0-34.0); Mean Corpuscular HGB Conc 34.7 g/dL (31.5-36.5); Mean Platelet Volume 9.4 fL (9.1-12.4); NEUTROPHILS ABSOLUTE AUTO 9.47 K/mm3 (1.96-9.15); NEUTROPHILS PERCENT AUTO 70 % (41-73); Platelet Count 246 K/mm3 (150-400); Red Blood Cell Count 1.85 M/mm3 (3.80-5.20); White Blood Cell Count 13.64 K/mm3 (4.00-11.30)
[2017-09-28 20:06] LABS: Mean Corpuscular Volume 94 fL (80-100)
[2017-09-28 20:09] LABS: Hematocrit 17.3 % (33.0-51.0)
[2017-09-28 20:20] LABS: Albumin, Blood 2.3 g/dL (3.4-5.0); Albumin/Globulin Ratio 0.6 (0.8-1.8); Bilirubin, Total 0.9 mg/dL (0.1-1.0); Bun/Creatinine Ratio 20.8 (12.0-20.0); Calcium, Blood 8.2 mg/dL (8.5-10.1); Creatinine, Blood 1.3 mg/dL (0.40-1.00); Globulin, Blood 3.7 g/dL (2.2-4.0); Potassium, Blood 3.5 mmol/L (3.5-5.5)
[2017-09-28] MEDS ORDERED: BUDE6HFA INH (20:29)
[2017-09-28] MEDS ORDERED: ALBU90OI INH (20:29)
[2017-09-28] MEDS ORDERED: GABA600 PO (20:30)
[2017-09-28] MEDS ORDERED: LORA1SY PO (20:31)
[2017-09-28] MEDS ORDERED: Bentyl10 MG PO (20:32)
[2017-09-28] MEDS ORDERED: OXYB5 PO (20:33)
[2017-09-28] MEDS ORDERED: MONT10T PO (20:33)
[2017-09-28] MEDS ORDERED: PANT40 PO (20:35)
[2017-09-29 01:13] LABS: International Normalized Ratio 1.18
[2017-09-29 03:05] LABS: Source, Urine Clean Catch
[2017-09-29 03:06] LABS: Bilirubin, Urine Neg (Neg); Blood, Urine Neg (Neg); Glucose Qualitative, Urine Neg (Neg); Ketones, Urine Neg (Neg); Leukocyte Esterase, Urine 3+ (Neg); Nitrite, Urine Neg (Neg); Protein, Urine Neg (Neg); Specific Gravity, Urine 1.005 (1.003-1.022); Urobilinogen, Urine NORM (Normal); pH, Urine 6.5 (5.0-8.0)
[2017-09-29 03:20] LABS: Appearance, Urine Clear (Clear); Color, Urine Yellow (P-Yellow); Red Blood Cells, Urine 0-2 /hpf (0-2)
[2017-09-29 03:21] LABS: Bacteria Many /hpf; Squamous Epithelial Cells Few /hpf (Few)
[2017-09-29 07:22] LABS: BASOPHILS ABSOLUTE AUTO 0.04 K/mm3 (0.00-0.23); BASOPHILS PERCENT AUTO 0 % (0-2); EOSINOPHILS ABSOLUTE AUTO 0.23 K/mm3 (0.00-0.68); EOSINOPHILS PERCENT AUTO 2 % (0-6); Hematocrit 26.6 % (33.0-51.0); Hemoglobin 9.4 g/dL (11.5-16.0); IMMATURE GRAN ABSOLUTE AUTO 0.04 K/mm3 (0.00-0.10); IMMATURE GRAN PERCENT AUTO 0 % (0-1); LYMPHOCYTES ABSOLUTE AUTO 2.24 K/mm3 (0.84-5.20); LYMPHOCYTES PERCENT AUTO 21 % (21-46); MONOCYTES ABSOLUTE AUTO 1.22 K/mm3 (0.16-1.47); MONOCYTES PERCENT AUTO 11 % (4-13); Mean Corpuscular HGB 32.3 pg (26.0-34.0); Mean Corpuscular HGB Conc 35.3 g/dL (31.5-36.5); Mean Platelet Volume 9.4 fL (9.1-12.4); NEUTROPHILS ABSOLUTE AUTO 6.89 K/mm3 (1.96-9.15); NEUTROPHILS PERCENT AUTO 65 % (41-73); Platelet Count 229 K/mm3 (150-400); RDW Coefficient Variation 17.3 % (11.7-14.2); RDW Standard Deviation 54.9 fL (35.1-46.3); Red Blood Cell Count 2.91 M/mm3 (3.80-5.20); White Blood Cell Count 10.66 K/mm3 (4.00-11.30)
[2017-09-29 07:25] LABS: Mean Corpuscular Volume 91 fL (80-100)
[2017-09-29 07:37] LABS: Anion Gap 10 mmol/L (6-16); Blood Urea Nitrogen 22 mg/dL (8-24); Bun/Creatinine Ratio 24.7 (12.0-20.0); CO2, Blood 28 mmol/L (21-32); Calcium, Blood 8.6 mg/dL (8.5-10.1); Chloride, Blood 99 mmol/L (98-108); Creatinine, Blood 0.89 mg/dL (0.40-1.00); Glomerular Filtration Rate >60 (60-); Glucose, Blood 100 mg/dL (70-99); Potassium, Blood 3.2 mmol/L (3.5-5.5); Sodium, Blood 137 mmol/L (136-145)
[2017-09-29 17:25] LABS: Hematocrit 28.5 % (33.0-51.0)
[2017-09-30 00:58] LABS: Hematocrit 25.7 % (33.0-51.0); Hemoglobin 8.7 g/dL (11.5-16.0); Mean Corpuscular HGB 31.4 pg (26.0-34.0); Mean Corpuscular HGB Conc 33.9 g/dL (31.5-36.5); Mean Corpuscular Volume 93 fL (80-100); Platelet Count 205 K/mm3 (150-400); RDW Coefficient Variation 18.5 % (11.7-14.2); RDW Standard Deviation 59.5 fL (35.1-46.3); Red Blood Cell Count 2.77 M/mm3 (3.80-5.20); White Blood Cell Count 9.24 K/mm3 (4.00-11.30)
[2017-09-30 01:11] LABS: Anion Gap 8 mmol/L (6-16); Blood Urea Nitrogen 15 mg/dL (8-24); Bun/Creatinine Ratio 18.2 (12.0-20.0); CO2, Blood 30 mmol/L (21-32); Calcium, Blood 8.2 mg/dL (8.5-10.1); Chloride, Blood 101 mmol/L (98-108); Creatinine, Blood 0.82 mg/dL (0.40-1.00); Glomerular Filtration Rate >60 (60-); Glucose, Blood 125 mg/dL (70-99); Sodium, Blood 139 mmol/L (136-145)
[2017-10-01 04:56] LABS: BASOPHILS ABSOLUTE AUTO 0.03 K/mm3 (0.00-0.23); BASOPHILS PERCENT AUTO 0 % (0-2); EOSINOPHILS PERCENT AUTO 3 % (0-6); Hematocrit 26.8 % (33.0-51.0); Hemoglobin 9.1 g/dL (11.5-16.0); IMMATURE GRAN ABSOLUTE AUTO 0.04 K/mm3 (0.00-0.10); IMMATURE GRAN PERCENT AUTO 0 % (0-1); LYMPHOCYTES ABSOLUTE AUTO 1.82 K/mm3 (0.84-5.20); LYMPHOCYTES PERCENT AUTO 17 % (21-46); MONOCYTES ABSOLUTE AUTO 1.38 K/mm3 (0.16-1.47); MONOCYTES PERCENT AUTO 13 % (4-13); Mean Corpuscular HGB 31.8 pg (26.0-34.0); Mean Corpuscular Volume 94 fL (80-100); Mean Platelet Volume 9.2 fL (9.1-12.4); NEUTROPHILS ABSOLUTE AUTO 7.12 K/mm3 (1.96-9.15); NEUTROPHILS PERCENT AUTO 67 % (41-73); Platelet Count 219 K/mm3 (150-400); RDW Coefficient Variation 18.8 % (11.7-14.2); RDW Standard Deviation 61.9 fL (35.1-46.3); Red Blood Cell Count 2.86 M/mm3 (3.80-5.20); White Blood Cell Count 10.69 K/mm3 (4.00-11.30)
[2017-10-01 05:15] LABS: Anion Gap 9 mmol/L (6-16); Blood Urea Nitrogen 9 mg/dL (8-24); Bun/Creatinine Ratio 13.1 (12.0-20.0); CO2, Blood 29 mmol/L (21-32); Calcium, Blood 8.2 mg/dL (8.5-10.1); Chloride, Blood 103 mmol/L (98-108); Creatinine, Blood 0.69 mg/dL (0.40-1.00); Glomerular Filtration Rate >60 (60-); Glucose, Blood 96 mg/dL (70-99); Potassium, Blood 3.8 mmol/L (3.5-5.5); Sodium, Blood 141 mmol/L (136-145)
== END 2017-10-01 11:07 | disposition home or self-care (01) ==
LOC: ER 19:39 → PCU 09-29 00:03 → ER 09-29 00:03 → PCU 09-29 00:03 → MEDS 09-30 17:34 → ENPENDDIS 10-01 10:00 → MEDS 10-01 11:07
PROVIDERS: Emergency Medicine; Family Medicine; Hospitalist; Internal Medicine; Internal Medicine Gastroenterology
PROC: 0DJ08ZZ Inspection of Upper Intestinal Tract, Via Natural or Artificial Opening Endoscopic (ICD-10-PCS; principal; 2017-09-29 16:30)
DX: K26.4 Chronic or unspecified duodenal ulcer with hemorrhage (principal); D50.0 Iron deficiency anemia secondary to blood loss (chronic); B19.20 Unspecified viral hepatitis C without hepatic coma; N17.9 Acute kidney failure, unspecified; K70.30 Alcoholic cirrhosis of liver without ascites; N39.0 Urinary tract infection, site not specified; E87.1 Hypo-osmolality and hyponatremia; E87.6 Hypokalemia; R60.9 Edema, unspecified; L53.9 Erythematous condition, unspecified; F32.9 Major depressive disorder, single episode, unspecified; G47.30 Sleep apnea, unspecified; Z88.0 Allergy status to penicillin; Z88.5 Allergy status to narcotic agent; Z88.6 Allergy status to analgesic agent; Z88.2 Allergy status to sulfonamides; Z79.899 Other long term (current) drug therapy; Z88.1 Allergy status to other antibiotic agents; Z91.041 Radiographic dye allergy status; I10 Essential (primary) hypertension; Z87.01 Personal history of pneumonia (recurrent)
CPT/HCPCS: 36415; 36430; 74176; 76705; 80048; 80053; 81001; 82140; 82272; 83690; 83880; 84145; 85014; 85018; 85025; 85027; 85610; 86850; 86900; 86901; 86923; 87077; 87086; 87186; 93005; 93010; 93971; 94640; 94760; 94762; 96365; 96366; 96367; 96375; 96376; 99285; C9113; G0378; J1940; J1956; J2001; J2250; J2405; J3010; J3480; J7030; J7050; J7120; P9016

== ENCOUNTER 2017-10-13 19:19 | Inpatient (IN) | payer OTHER ==
[~2017-10-13] VITALS: Ht 160 cm; Wt 75.4 kg
[~2017-10-13 19:19] MED LIST changes: +BUDE6HFA INH; +Bentyl10 MG PO; +GABA600 PO; +LORATADINE PO; +MONT10T PO; +OXYB5 PO; +PANT40 PO
[2017-10-13 19:44] LABS: BASOPHILS ABSOLUTE AUTO 0.01 K/mm3 (0.00-0.23); BASOPHILS PERCENT AUTO 0 % (0-2); EOSINOPHILS ABSOLUTE AUTO 0.19 K/mm3 (0.00-0.68); EOSINOPHILS PERCENT AUTO 1 % (0-6); Hematocrit 27.2 % (33.0-51.0); Hemoglobin 9.4 g/dL (11.5-16.0); IMMATURE GRAN PERCENT AUTO 1 % (0-1); LYMPHOCYTES ABSOLUTE AUTO 2.57 K/mm3 (0.84-5.20); LYMPHOCYTES PERCENT AUTO 15 % (21-46); MONOCYTES ABSOLUTE AUTO 2.45 K/mm3 (0.16-1.47); MONOCYTES PERCENT AUTO 15 % (4-13); Mean Corpuscular HGB 32.8 pg (26.0-34.0); Mean Corpuscular HGB Conc 34.6 g/dL (31.5-36.5); Mean Platelet Volume 9.8 fL (9.1-12.4); NEUTROPHILS ABSOLUTE AUTO 11.33 K/mm3 (1.96-9.15); NEUTROPHILS PERCENT AUTO 68 % (41-73); Platelet Count 255 K/mm3 (150-400); RDW Coefficient Variation 16.7 % (11.7-14.2); RDW Standard Deviation 58.1 fL (35.1-46.3); Red Blood Cell Count 2.87 M/mm3 (3.80-5.20); White Blood Cell Count 16.65 K/mm3 (4.00-11.30)
[2017-10-13 19:46] LABS: Mean Corpuscular Volume 95 fL (80-100)
[2017-10-13 20:09] LABS: Alanine Aminotransfer (ALT/SGP 42 U/L (12-78); Albumin, Blood 2.8 g/dL (3.4-5.0); Albumin/Globulin Ratio 0.7 (0.8-1.8); Alk Phos 142 U/L (50-136); Anion Gap 10 mmol/L (6-16); Aspartate Aminotrans (AST/SGOT 65 U/L (12-37); Bilirubin, Total 1.4 mg/dL (0.1-1.0); Blood Urea Nitrogen 28 mg/dL (8-24); Bun/Creatinine Ratio 24.1 (12.0-20.0); CO2, Blood 27 mmol/L (21-32); Calcium, Blood 8.7 mg/dL (8.5-10.1); Chloride, Blood 91 mmol/L (98-108); Creatinine, Blood 1.16 mg/dL (0.40-1.00); Glomerular Filtration Rate 52 (60-); Glucose, Blood 83 mg/dL (70-99); Potassium, Blood 4.2 mmol/L (3.5-5.5); Sodium, Blood 128 mmol/L (136-145); Total Protein, Blood 6.8 g/dL (6.4-8.2); Troponin I <0.015 ng/mL (0.000-0.040)
[2017-10-13 22:06] LABS: Source, Urine Voided
[2017-10-13 22:09] LABS: Bilirubin, Urine Neg (Neg); Blood, Urine Neg (Neg); Glucose Qualitative, Urine Neg (Neg); Ketones, Urine Neg (Neg); Leukocyte Esterase, Urine 1+ (Neg); Nitrite, Urine Neg (Neg); Protein, Urine Neg (Neg); Urobilinogen, Urine NORM (Normal); pH, Urine 6.5 (5.0-8.0)
[2017-10-13 22:14] LABS: Appearance, Urine Hazy (Clear); Color, Urine Yellow (P-Yellow); Red Blood Cells, Urine Not Seen /hpf (0-2)
[2017-10-13 22:15] LABS: Bacteria Many /hpf; Squamous Epithelial Cells Few /hpf (Few)
[2017-10-14] MEDS ORDERED: BENTYL PO (00:07)
[2017-10-14] MEDS ORDERED: LOVA40 PO (01:01)
[2017-10-14] MEDS ORDERED: BUME1 (01:10)
[2017-10-14 04:55] LABS: BASOPHILS ABSOLUTE AUTO 0.01 K/mm3 (0.00-0.23); BASOPHILS PERCENT AUTO 0 % (0-2); EOSINOPHILS ABSOLUTE AUTO 0.34 K/mm3 (0.00-0.68); EOSINOPHILS PERCENT AUTO 2 % (0-6); Hematocrit 24.1 % (33.0-51.0); Hemoglobin 8.2 g/dL (11.5-16.0); IMMATURE GRAN ABSOLUTE AUTO 0.09 K/mm3 (0.00-0.10); IMMATURE GRAN PERCENT AUTO 1 % (0-1); LYMPHOCYTES ABSOLUTE AUTO 2.13 K/mm3 (0.84-5.20); LYMPHOCYTES PERCENT AUTO 15 % (21-46); MONOCYTES ABSOLUTE AUTO 2.37 K/mm3 (0.16-1.47); MONOCYTES PERCENT AUTO 17 % (4-13); Mean Corpuscular Volume 94 fL (80-100); Mean Platelet Volume 9.8 fL (9.1-12.4); NEUTROPHILS ABSOLUTE AUTO 9.38 K/mm3 (1.96-9.15); NEUTROPHILS PERCENT AUTO 65 % (41-73); Platelet Count 207 K/mm3 (150-400); RDW Coefficient Variation 16.8 % (11.7-14.2); Red Blood Cell Count 2.56 M/mm3 (3.80-5.20); White Blood Cell Count 14.32 K/mm3 (4.00-11.30)
[2017-10-14 05:16] LABS: Albumin, Blood 2.2 g/dL (3.4-5.0); Albumin/Globulin Ratio 0.7 (0.8-1.8); Bilirubin, Total 1.3 mg/dL (0.1-1.0); Bun/Creatinine Ratio 25.5 (12.0-20.0); Calcium, Blood 8.1 mg/dL (8.5-10.1); Creatinine, Blood 1.1 mg/dL (0.40-1.00); Globulin, Blood 3.3 g/dL (2.2-4.0); Potassium, Blood 4.2 mmol/L (3.5-5.5); Total Protein, Blood 5.5 g/dL (6.4-8.2)
[2017-10-15 05:12] LABS: BASOPHILS ABSOLUTE AUTO 0.02 K/mm3 (0.00-0.23); BASOPHILS PERCENT AUTO 0 % (0-2); EOSINOPHILS ABSOLUTE AUTO 0.36 K/mm3 (0.00-0.68); EOSINOPHILS PERCENT AUTO 3 % (0-6); Hemoglobin 9.1 g/dL (11.5-16.0); IMMATURE GRAN ABSOLUTE AUTO 0.07 K/mm3 (0.00-0.10); IMMATURE GRAN PERCENT AUTO 1 % (0-1); LYMPHOCYTES ABSOLUTE AUTO 2.06 K/mm3 (0.84-5.20); LYMPHOCYTES PERCENT AUTO 14 % (21-46); MONOCYTES ABSOLUTE AUTO 1.73 K/mm3 (0.16-1.47); MONOCYTES PERCENT AUTO 12 % (4-13); Mean Corpuscular HGB Conc 33.7 g/dL (31.5-36.5); Mean Corpuscular Volume 95 fL (80-100); Mean Platelet Volume 9.7 fL (9.1-12.4); NEUTROPHILS ABSOLUTE AUTO 10.21 K/mm3 (1.96-9.15); NEUTROPHILS PERCENT AUTO 71 % (41-73); Platelet Count 218 K/mm3 (150-400); RDW Coefficient Variation 17.1 % (11.7-14.2); RDW Standard Deviation 58.8 fL (35.1-46.3); Red Blood Cell Count 2.84 M/mm3 (3.80-5.20); White Blood Cell Count 14.45 K/mm3 (4.00-11.30)
[2017-10-15 05:48] LABS: Alanine Aminotransfer (ALT/SGP 37 U/L (12-78); Albumin, Blood 2.5 g/dL (3.4-5.0); Albumin/Globulin Ratio 0.6 (0.8-1.8); Alk Phos 102 U/L (50-136); Anion Gap 8 mmol/L (6-16); Aspartate Aminotrans (AST/SGOT 49 U/L (12-37); Bilirubin, Total 1.5 mg/dL (0.1-1.0); Blood Urea Nitrogen 17 mg/dL (8-24); Bun/Creatinine Ratio 21.5 (12.0-20.0); CO2, Blood 28 mmol/L (21-32); Calcium, Blood 8.9 mg/dL (8.5-10.1); Chloride, Blood 101 mmol/L (98-108); Creatinine, Blood 0.79 mg/dL (0.40-1.00); Globulin, Blood 3.9 g/dL (2.2-4.0); Glomerular Filtration Rate >60 (60-); Glucose, Blood 95 mg/dL (70-99); Potassium, Blood 4.7 mmol/L (3.5-5.5); Sodium, Blood 137 mmol/L (136-145); Total Protein, Blood 6.4 g/dL (6.4-8.2)
[2017-10-16 04:50] LABS: BASOPHILS ABSOLUTE AUTO 0.03 K/mm3 (0.00-0.23); BASOPHILS PERCENT AUTO 0 % (0-2); EOSINOPHILS PERCENT AUTO 3 % (0-6); Hematocrit 25.5 % (33.0-51.0); Hemoglobin 8.6 g/dL (11.5-16.0); IMMATURE GRAN ABSOLUTE AUTO 0.12 K/mm3 (0.00-0.10); IMMATURE GRAN PERCENT AUTO 1 % (0-1); LYMPHOCYTES ABSOLUTE AUTO 1.87 K/mm3 (0.84-5.20); LYMPHOCYTES PERCENT AUTO 12 % (21-46); MONOCYTES ABSOLUTE AUTO 1.74 K/mm3 (0.16-1.47); MONOCYTES PERCENT AUTO 11 % (4-13); Mean Corpuscular HGB 33.1 pg (26.0-34.0); Mean Corpuscular HGB Conc 33.7 g/dL (31.5-36.5); Mean Platelet Volume 9.8 fL (9.1-12.4); NEUTROPHILS ABSOLUTE AUTO 11.73 K/mm3 (1.96-9.15); NEUTROPHILS PERCENT AUTO 73 % (41-73); Platelet Count 206 K/mm3 (150-400); RDW Coefficient Variation 17.6 % (11.7-14.2); RDW Standard Deviation 63.1 fL (35.1-46.3); White Blood Cell Count 15.99 K/mm3 (4.00-11.30)
[2017-10-16 04:52] LABS: Mean Corpuscular Volume 98 fL (80-100)
[2017-10-16 05:09] LABS: Alanine Aminotransfer (ALT/SGP 34 U/L (12-78); Albumin, Blood 2.3 g/dL (3.4-5.0); Albumin/Globulin Ratio 0.6 (0.8-1.8); Alk Phos 98 U/L (50-136); Anion Gap 9 mmol/L (6-16); Aspartate Aminotrans (AST/SGOT 48 U/L (12-37); Bilirubin, Total 1.2 mg/dL (0.1-1.0); Blood Urea Nitrogen 14 mg/dL (8-24); Bun/Creatinine Ratio 17.3 (12.0-20.0); CO2, Blood 26 mmol/L (21-32); Calcium, Blood 8.5 mg/dL (8.5-10.1); Chloride, Blood 102 mmol/L (98-108); Creatinine, Blood 0.81 mg/dL (0.40-1.00); Globulin, Blood 3.6 g/dL (2.2-4.0); Glomerular Filtration Rate >60 (60-); Glucose, Blood 110 mg/dL (70-99); Potassium, Blood 4.9 mmol/L (3.5-5.5); Sodium, Blood 137 mmol/L (136-145); Total Protein, Blood 5.9 g/dL (6.4-8.2)
[2017-10-16] MEDS ORDERED: CLARITIN10 MG PO (14:53)
[2017-10-16] MEDS ORDERED: LEVFLO500 PO (14:53)
== END 2017-10-16 15:29 | disposition home or self-care (01) | DRG 441 ==
LOC: ER 19:19 → MEDS 19:20
PROVIDERS: Emergency Medicine; Family Medicine; Internal Medicine
DX: K72.90 Hepatic failure, unspecified without coma (principal); K65.2 Spontaneous bacterial peritonitis; J18.9 Pneumonia, unspecified organism; N17.9 Acute kidney failure, unspecified; J90 Pleural effusion, not elsewhere classified; E72.20 Disorder of urea cycle metabolism, unspecified; E87.1 Hypo-osmolality and hyponatremia; N39.0 Urinary tract infection, site not specified; B96.1 Klebsiella pneumoniae [K. pneumoniae] as the cause of diseases classified elsewhere; K70.31 Alcoholic cirrhosis of liver with ascites; I10 Essential (primary) hypertension; D63.8 Anemia in other chronic diseases classified elsewhere; S90.32XA Contusion of left foot, initial encounter; F25.9 Schizoaffective disorder, unspecified; F32.9 Major depressive disorder, single episode, unspecified; J44.9 Chronic obstructive pulmonary disease, unspecified; R60.1 Generalized edema; D72.829 Elevated white blood cell count, unspecified; E66.9 Obesity, unspecified; R06.00 Dyspnea, unspecified; Z90.49 Acquired absence of other specified parts of digestive tract; Z88.6 Allergy status to analgesic agent; Z88.1 Allergy status to other antibiotic agents; Z88.5 Allergy status to narcotic agent; Z88.0 Allergy status to penicillin; Z88.2 Allergy status to sulfonamides; Z88.8 Allergy status to other drugs, medicaments and biological substances; Z79.899 Other long term (current) drug therapy; Z86.19 Personal history of other infectious and parasitic diseases; Z68.31 Body mass index [BMI] 31.0-31.9, adult; W19.XXXA Unspecified fall, initial encounter
CPT/HCPCS: 36415; 71046; 73630; 76705; 80053; 81001; 82140; 83605; 83880; 84484; 85025; 87040; 87077; 87081; 87086; 87186; 93005; 93010; 94640; 94760; 96374; 99285-25; J1940; J1956; J2185; J7030

== ENCOUNTER 2017-10-23 14:31 | Observation (INO) | payer OTHER ==
[~2017-10-23] VITALS: Ht 160 cm; Wt 71.2 kg
[~2017-10-23 14:31] MED LIST changes: +BENTYL PO; +BUME1; +CLARITIN10 MG PO; -TRAZ50 PO
[2017-10-23 15:26] LABS: BASOPHILS ABSOLUTE AUTO 0.02 K/mm3 (0.00-0.23); BASOPHILS PERCENT AUTO 0 % (0-2); EOSINOPHILS ABSOLUTE AUTO 0.11 K/mm3 (0.00-0.68); EOSINOPHILS PERCENT AUTO 1 % (0-6); Hematocrit 22.7 % (33.0-51.0); Hemoglobin 7.9 g/dL (11.5-16.0); IMMATURE GRAN ABSOLUTE AUTO 0.05 K/mm3 (0.00-0.10); IMMATURE GRAN PERCENT AUTO 0 % (0-1); LYMPHOCYTES PERCENT AUTO 16 % (21-46); MONOCYTES ABSOLUTE AUTO 2.29 K/mm3 (0.16-1.47); MONOCYTES PERCENT AUTO 20 % (4-13); Mean Corpuscular HGB 32.6 pg (26.0-34.0); Mean Corpuscular HGB Conc 34.8 g/dL (31.5-36.5); Mean Platelet Volume 10.2 fL (9.1-12.4); NEUTROPHILS ABSOLUTE AUTO 7.03 K/mm3 (1.96-9.15); NEUTROPHILS PERCENT AUTO 62 % (41-73); Platelet Count 201 K/mm3 (150-400); RDW Coefficient Variation 16.1 % (11.7-14.2); RDW Standard Deviation 55.4 fL (35.1-46.3); Red Blood Cell Count 2.42 M/mm3 (3.80-5.20)
[2017-10-23 15:29] LABS: Mean Corpuscular Volume 94 fL (80-100)
[2017-10-23 16:01] LABS: Albumin, Blood 2.5 g/dL (3.4-5.0); Albumin/Globulin Ratio 0.7 (0.8-1.8); Bilirubin, Total 1.6 mg/dL (0.1-1.0); Bun/Creatinine Ratio 20.9 (12.0-20.0); Calcium, Blood 8.5 mg/dL (8.5-10.1); Creatinine, Blood 1.82 mg/dL (0.40-1.00); Globulin, Blood 3.6 g/dL (2.2-4.0); Total Protein, Blood 6.1 g/dL (6.4-8.2)
[2017-10-24 00:24] LABS: Source, Urine Catheter
[2017-10-24 00:27] LABS: Bilirubin, Urine Neg (Neg); Blood, Urine Neg (Neg); Glucose Qualitative, Urine Neg (Neg); Ketones, Urine Neg (Neg); Leukocyte Esterase, Urine Neg (Neg); Nitrite, Urine Neg (Neg); Protein, Urine Neg (Neg); Urobilinogen, Urine NORM (Normal)
[2017-10-24 00:29] LABS: Appearance, Urine Clear (Clear); Color, Urine Yellow (P-Yellow)
[2017-10-24 02:27] LABS: BASOPHILS ABSOLUTE AUTO 0.03 K/mm3 (0.00-0.23); BASOPHILS PERCENT AUTO 0 % (0-2); EOSINOPHILS ABSOLUTE AUTO 0.29 K/mm3 (0.00-0.68); EOSINOPHILS PERCENT AUTO 3 % (0-6); Hematocrit 27.3 % (33.0-51.0); Hemoglobin 9.5 g/dL (11.5-16.0); IMMATURE GRAN ABSOLUTE AUTO 0.03 K/mm3 (0.00-0.10); IMMATURE GRAN PERCENT AUTO 0 % (0-1); LYMPHOCYTES ABSOLUTE AUTO 1.75 K/mm3 (0.84-5.20); LYMPHOCYTES PERCENT AUTO 20 % (21-46); MONOCYTES PERCENT AUTO 18 % (4-13); Mean Corpuscular HGB 32.8 pg (26.0-34.0); Mean Corpuscular HGB Conc 34.8 g/dL (31.5-36.5); Mean Corpuscular Volume 94 fL (80-100); Mean Platelet Volume 9.8 fL (9.1-12.4); NEUTROPHILS ABSOLUTE AUTO 5.04 K/mm3 (1.96-9.15); NEUTROPHILS PERCENT AUTO 58 % (41-73); Platelet Count 177 K/mm3 (150-400); RDW Standard Deviation 54.6 fL (35.1-46.3); White Blood Cell Count 8.74 K/mm3 (4.00-11.30)
[2017-10-24 02:44] LABS: Albumin, Blood 2.4 g/dL (3.4-5.0); Albumin/Globulin Ratio 0.6 (0.8-1.8); Bilirubin, Total 2.9 mg/dL (0.1-1.0); Bun/Creatinine Ratio 23.8 (12.0-20.0); Calcium, Blood 8.8 mg/dL (8.5-10.1); Creatinine, Blood 1.26 mg/dL (0.40-1.00); Globulin, Blood 3.7 g/dL (2.2-4.0); Potassium, Blood 4.6 mmol/L (3.5-5.5); Total Protein, Blood 6.1 g/dL (6.4-8.2)
[2017-10-24 07:43] LABS: Hematocrit 27.4 % (33.0-51.0); Hemoglobin 9.5 g/dL (11.5-16.0)
[2017-10-24] MEDS ORDERED: PANT40 (15:12)
[2017-10-24 15:49] LABS: Hematocrit 27.3 % (33.0-51.0); Hemoglobin 9.4 g/dL (11.5-16.0)
[2017-10-30] MEDS ORDERED: ALBU90OI61 (00:43)
== END 2017-10-24 16:31 | disposition home or self-care (01) ==
LOC: ER 14:31 → MEDS 14:32 → ER 19:13 → MEDS 19:13 → EDPENDDIS 10-24 14:02 → ENPENDDIS 10-24 14:02 → MEDS 10-24 16:31
PROVIDERS: Emergency Medicine; Internal Medicine
PROC: 30233N1 Transfusion of Nonautologous Red Blood Cells into Peripheral Vein, Percutaneous Approach (ICD-10-PCS; principal; 2017-10-23)
DX: K72.90 Hepatic failure, unspecified without coma (principal); K25.4 Chronic or unspecified gastric ulcer with hemorrhage; N17.9 Acute kidney failure, unspecified; E87.0 Hyperosmolality and hypernatremia; K70.9 Alcoholic liver disease, unspecified; F32.9 Major depressive disorder, single episode, unspecified; B18.2 Chronic viral hepatitis C; K70.30 Alcoholic cirrhosis of liver without ascites; Z91.81 History of falling; R33.9 Retention of urine, unspecified; G47.30 Sleep apnea, unspecified; J45.909 Unspecified asthma, uncomplicated; E86.0 Dehydration; I10 Essential (primary) hypertension; F25.9 Schizoaffective disorder, unspecified; R34 Anuria and oliguria
CPT/HCPCS: 36415; 36430; 51798; 73620; 80053; 81003; 82140; 82272; 83690; 85014; 85018; 85025; 86850; 86900; 86901; 86923; 87493; 94640; 94760; 96361; 96374; 97162; 97166; 97530; 97535; 99285-25; C9113; G0378; G8978; G8979; G8987; G8988; J7030; J7120; P9016

== ENCOUNTER 2017-10-29 23:02 | Observation (INO) | payer OTHER ==
[~2017-10-29] VITALS: Ht 162.6 cm; Wt 72.0 kg
[~2017-10-29 23:02] MED LIST changes: +PANT40
[2017-10-29 23:40] LABS: BASOPHILS ABSOLUTE AUTO 0.04 K/mm3 (0.00-0.23); BASOPHILS PERCENT AUTO 0 % (0-2); EOSINOPHILS ABSOLUTE AUTO 0.58 K/mm3 (0.00-0.68); EOSINOPHILS PERCENT AUTO 6 % (0-6); Hematocrit 28.6 % (33.0-51.0); Hemoglobin 9.6 g/dL (11.5-16.0); IMMATURE GRAN ABSOLUTE AUTO 0.04 K/mm3 (0.00-0.10); IMMATURE GRAN PERCENT AUTO 0 % (0-1); LYMPHOCYTES ABSOLUTE AUTO 1.82 K/mm3 (0.84-5.20); LYMPHOCYTES PERCENT AUTO 18 % (21-46); MONOCYTES ABSOLUTE AUTO 1.27 K/mm3 (0.16-1.47); MONOCYTES PERCENT AUTO 13 % (4-13); Mean Corpuscular HGB 32.5 pg (26.0-34.0); Mean Corpuscular HGB Conc 33.6 g/dL (31.5-36.5); Mean Corpuscular Volume 97 fL (80-100); Mean Platelet Volume 10.1 fL (9.1-12.4); NEUTROPHILS ABSOLUTE AUTO 6.32 K/mm3 (1.96-9.15); NEUTROPHILS PERCENT AUTO 63 % (41-73); Platelet Count 172 K/mm3 (150-400); RDW Coefficient Variation 15.7 % (11.7-14.2); RDW Standard Deviation 55.6 fL (35.1-46.3); Red Blood Cell Count 2.95 M/mm3 (3.80-5.20); White Blood Cell Count 10.07 K/mm3 (4.00-11.30)
[2017-10-29 23:58] LABS: Albumin, Blood 2.6 g/dL (3.4-5.0); Albumin/Globulin Ratio 0.7 (0.8-1.8); Bilirubin, Total 0.9 mg/dL (0.1-1.0); Bun/Creatinine Ratio 15.8 (12.0-20.0); Calcium, Blood 8.5 mg/dL (8.5-10.1); Creatinine, Blood 1.58 mg/dL (0.40-1.00); Globulin, Blood 3.8 g/dL (2.2-4.0); Potassium, Blood 5.1 mmol/L (3.5-5.5); Total Protein, Blood 6.4 g/dL (6.4-8.2)
[2017-10-30] MEDS ORDERED: SPIR50 PO (00:40)
[2017-10-30] MEDS ORDERED: METO25ER PO (00:41)
[2017-10-30] MEDS ORDERED: POTBIC25 PO (00:41)
[2017-10-30] MEDS ORDERED: CLARITIN10 MG PO (00:42)
[2017-10-30] MEDS ORDERED: LOVA40 (00:42)
[2017-10-30] MEDS ORDERED: ALBU90OI61 INH (00:43)
[2017-10-30] MEDS ORDERED: GABA600 (00:43)
[2017-10-30] MEDS ORDERED: LISI20 PO (00:43)
[2017-10-30] MEDS ORDERED: FURO40 (00:43)
[2017-10-30 02:01] LABS: Source, Urine Clean Catch
[2017-10-30 02:22] LABS: Appearance, Urine Clear (Clear); Bilirubin, Urine Neg (Neg); Blood, Urine Neg (Neg); Color, Urine Pale Yellow (P-Yellow); Glucose Qualitative, Urine Neg (Neg); Ketones, Urine Neg (Neg); Leukocyte Esterase, Urine 1+ (Neg); Nitrite, Urine Neg (Neg); Protein, Urine Neg (Neg); Specific Gravity, Urine 1.005 (1.003-1.022); Urobilinogen, Urine NORM (Normal)
[2017-10-30 02:23] LABS: Bacteria Few /hpf; Red Blood Cells, Urine Not Seen /hpf (0-2); Squamous Epithelial Cells Not Seen /hpf (Few); White Blood Cells, Urine 0-2 /hpf (0-5)
[2017-10-30 05:33] LABS: Bun/Creatinine Ratio 20.2 (12.0-20.0); Calcium, Blood 8.8 mg/dL (8.5-10.1); Creatinine, Blood 1.14 mg/dL (0.40-1.00); Potassium, Blood 4.9 mmol/L (3.5-5.5)
[2017-10-30] MEDS ORDERED: MELO7.5 PO (17:46)
[2017-10-30] MEDS ORDERED: VITAMIN D50000 UNIT PO (17:47)
[2017-10-30] MEDS ORDERED: Imitrex100 MG PO (17:49)
[2017-10-30] MEDS ORDERED: ONDA4ODT MM (17:50)
[2017-10-30] MEDS ORDERED: DOK100 MG PO (17:50)
[2017-10-30] MEDS ORDERED: Vitamin D2000 UNIT PO (17:51)
[2017-10-30] MEDS ORDERED: BUME2 PO (17:52)
== END 2017-10-31 13:23 | disposition home or self-care (01) ==
LOC: ER 23:02 → MEDS 23:03 → ENPENDDIS 10-31 10:25 → MEDS 10-31 13:23
PROVIDERS: Emergency Medicine; Internal Medicine
DX: K72.90 Hepatic failure, unspecified without coma (principal); K59.00 Constipation, unspecified; K70.30 Alcoholic cirrhosis of liver without ascites; D64.9 Anemia, unspecified; N17.9 Acute kidney failure, unspecified; R33.9 Retention of urine, unspecified; G47.33 Obstructive sleep apnea (adult) (pediatric); F32.9 Major depressive disorder, single episode, unspecified; E66.9 Obesity, unspecified; J45.909 Unspecified asthma, uncomplicated; Z88.5 Allergy status to narcotic agent; Z88.1 Allergy status to other antibiotic agents; Z88.6 Allergy status to analgesic agent; Z88.8 Allergy status to other drugs, medicaments and biological substances; Z88.2 Allergy status to sulfonamides; Z79.899 Other long term (current) drug therapy
CPT/HCPCS: 36415; 74019; 74176; 80048; 80053; 81001; 82140; 82947; 85025; 87077; 87086; 87186; 94640; 94760; 99285-25; G0378; J7030

== ENCOUNTER 2017-11-26 20:15 | Observation (INO) | payer OTHER ==
[~2017-11-26] VITALS: Ht 160 cm; Wt 69.9 kg
[~2017-11-26 20:15] MED LIST changes: +ALBU90OI61 INH; +Aldactone50 MG PO; +BUME2 PO; +DOK100 MG PO; +Dicyclomine HCl10 MG PO; +GABA600; +Imitrex100 MG PO; +Ipratr-Albuterol3 ML UD; +LEVFLO500; +MELO7.5 PO; +METO25ER PO; +Neurontin600 MG PO; +ONDA4ODT MM; -PANT40; +POTA20PAC PO; +POTBIC25 PO; +VITAMIN D50000 UNIT PO; +Vitamin D2000 UNIT PO
[2017-11-26 20:43] LABS: BASOPHILS ABSOLUTE AUTO 0.03 K/mm3 (0.00-0.23); BASOPHILS PERCENT AUTO 0 % (0-2); EOSINOPHILS ABSOLUTE AUTO 0.52 K/mm3 (0.00-0.68); EOSINOPHILS PERCENT AUTO 5 % (0-6); Hematocrit 25.5 % (33.0-51.0); Hemoglobin 8.4 g/dL (11.5-16.0); IMMATURE GRAN ABSOLUTE AUTO 0.03 K/mm3 (0.00-0.10); IMMATURE GRAN PERCENT AUTO 0 % (0-1); LYMPHOCYTES ABSOLUTE AUTO 1.94 K/mm3 (0.84-5.20); LYMPHOCYTES PERCENT AUTO 20 % (21-46); MONOCYTES ABSOLUTE AUTO 1.31 K/mm3 (0.16-1.47); MONOCYTES PERCENT AUTO 14 % (4-13); Mean Corpuscular HGB 33.1 pg (26.0-34.0); Mean Corpuscular HGB Conc 32.9 g/dL (31.5-36.5); Mean Corpuscular Volume 100 fL (80-100); Mean Platelet Volume 10.3 fL (9.1-12.4); NEUTROPHILS ABSOLUTE AUTO 5.76 K/mm3 (1.96-9.15); NEUTROPHILS PERCENT AUTO 60 % (41-73); Platelet Count 197 K/mm3 (150-400); RDW Coefficient Variation 15.3 % (11.7-14.2); RDW Standard Deviation 55.7 fL (35.1-46.3); Red Blood Cell Count 2.54 M/mm3 (3.80-5.20); White Blood Cell Count 9.59 K/mm3 (4.00-11.30)
[2017-11-26 21:08] LABS: Alanine Aminotransfer (ALT/SGP 32 U/L (12-78); Albumin, Blood 2.6 g/dL (3.4-5.0); Albumin/Globulin Ratio 0.6 (0.8-1.8); Alk Phos 114 U/L (50-136); Anion Gap 8 mmol/L (6-16); Aspartate Aminotrans (AST/SGOT 51 U/L (12-37); Bilirubin, Total 0.8 mg/dL (0.1-1.0); Blood Urea Nitrogen 27 mg/dL (8-24); Bun/Creatinine Ratio 15.3 (12.0-20.0); CO2, Blood 22 mmol/L (21-32); Calcium, Blood 8.8 mg/dL (8.5-10.1); Chloride, Blood 104 mmol/L (98-108); Creatinine, Blood 1.77 mg/dL (0.40-1.00); Globulin, Blood 4.1 g/dL (2.2-4.0); Glomerular Filtration Rate 32 (60-); Glucose, Blood 85 mg/dL (70-99); Potassium, Blood 5.1 mmol/L (3.5-5.5); Sodium, Blood 134 mmol/L (136-145); Total Protein, Blood 6.7 g/dL (6.4-8.2)
[2017-11-26 23:32] LABS: Troponin I <0.015 ng/mL (0.000-0.040)
[2017-11-27 00:21] LABS: Source, Urine Clean Catch
[2017-11-27 00:31] LABS: Bilirubin, Urine Neg (Neg); Blood, Urine Neg (Neg); Glucose Qualitative, Urine Neg (Neg); Ketones, Urine Neg (Neg); Leukocyte Esterase, Urine Neg (Neg); Nitrite, Urine Neg (Neg); Protein, Urine Neg (Neg); Specific Gravity, Urine 1.015 (1.003-1.022); Urobilinogen, Urine NORM (Normal)
[2017-11-27 00:37] LABS: Appearance, Urine Clear (Clear); Color, Urine Yellow (P-Yellow)
[2017-11-27] MEDS ORDERED: BUME1 PO (04:06)
[2017-11-27] MEDS ORDERED: SUMA25 PO (04:10)
[2017-11-27 10:06] LABS: Hematocrit 25.6 % (33.0-51.0); Hemoglobin 8.3 g/dL (11.5-16.0); Mean Corpuscular HGB Conc 32.4 g/dL (31.5-36.5); Mean Corpuscular Volume 99 fL (80-100); Mean Platelet Volume 10.5 fL (9.1-12.4); Platelet Count 180 K/mm3 (150-400); RDW Coefficient Variation 15.2 % (11.7-14.2); RDW Standard Deviation 54.9 fL (35.1-46.3); Red Blood Cell Count 2.59 M/mm3 (3.80-5.20); White Blood Cell Count 8.26 K/mm3 (4.00-11.30)
[2017-11-27 10:23] LABS: Alanine Aminotransfer (ALT/SGP 35 U/L (12-78); Albumin, Blood 2.2 g/dL (3.4-5.0); Albumin/Globulin Ratio 0.5 (0.8-1.8); Alk Phos 104 U/L (50-136); Anion Gap 8 mmol/L (6-16); Aspartate Aminotrans (AST/SGOT 45 U/L (12-37); Bilirubin, Total 1.1 mg/dL (0.1-1.0); Blood Urea Nitrogen 21 mg/dL (8-24); Bun/Creatinine Ratio 21.8 (12.0-20.0); CO2, Blood 20 mmol/L (21-32); Calcium, Blood 8.4 mg/dL (8.5-10.1); Chloride, Blood 110 mmol/L (98-108); Creatinine, Blood 0.96 mg/dL (0.40-1.00); Globulin, Blood 4.3 g/dL (2.2-4.0); Glomerular Filtration Rate >60 (60-); Glucose, Blood 116 mg/dL (70-99); Potassium, Blood 5.1 mmol/L (3.5-5.5); Sodium, Blood 138 mmol/L (136-145); Total Protein, Blood 6.5 g/dL (6.4-8.2)
[2017-11-27] MEDS ORDERED: Aluminum H320 MG/5 M PO (16:02)
== END 2017-11-27 17:28 | disposition home or self-care (01) ==
LOC: ER 20:15 → MEDS 20:16 → ENPENDDIS 11-27 13:30 → MEDS 11-27 17:28
PROVIDERS: Emergency Medicine; Internal Medicine
DX: N17.9 Acute kidney failure, unspecified (principal); E86.0 Dehydration; I95.9 Hypotension, unspecified; R09.1 Pleurisy; G93.40 Encephalopathy, unspecified; K74.60 Unspecified cirrhosis of liver; Z79.899 Other long term (current) drug therapy; Z88.1 Allergy status to other antibiotic agents; Z88.5 Allergy status to narcotic agent; Z88.6 Allergy status to analgesic agent; Z88.8 Allergy status to other drugs, medicaments and biological substances
CPT/HCPCS: 36415; 71046; 80053; 81003; 83605; 84145; 84484; 85025; 85027; 87040; 93005; 93010; 94640; 94760; 96361; 96372; 96374; 99285-25; G0378; J1650; J1956; J7030

== ENCOUNTER 2017-12-14 10:53 | Emergency (ER) | payer OTHER ==
[~2017-12-14] VITALS: Ht 162.6 cm; Wt 99.8 kg
[~2017-12-14 10:53] MED LIST changes: +Aluminum H320 MG/5 M PO; +BUME1 PO; +SUMA25 PO
[2017-12-14] MEDS ORDERED: Kristalose20 GM PO (11:07)
[2017-12-15] MEDS ORDERED: FERSU90EL PO (15:10)
== END 2017-12-14 11:14 | disposition home or self-care (01) ==
LOC: ER 10:53
DX: Z76.0 Encounter for issue of repeat prescription (principal); F32.9 Major depressive disorder, single episode, unspecified; Z88.1 Allergy status to other antibiotic agents; Z88.0 Allergy status to penicillin; Z91.018 Allergy to other foods; Z88.5 Allergy status to narcotic agent; Z88.6 Allergy status to analgesic agent; Z88.8 Allergy status to other drugs, medicaments and biological substances; Z79.899 Other long term (current) drug therapy
CPT/HCPCS: 99281

== ENCOUNTER 2017-12-15 14:48 | Observation (INO) | payer OTHER ==
[~2017-12-15] VITALS: Ht 160 cm; Wt 69.2 kg
[~2017-12-15 14:48] MED LIST changes: +Kristalose20 GM PO
[2017-12-15] MEDS ORDERED: FERSU90EL PO (15:10)
[2017-12-15 15:30] LABS: BASOPHILS ABSOLUTE AUTO 0.03 K/mm3 (0.00-0.23); BASOPHILS PERCENT AUTO 0 % (0-2); EOSINOPHILS PERCENT AUTO 3 % (0-6); Hematocrit 29.1 % (33.0-51.0); Hemoglobin 9.5 g/dL (11.5-16.0); IMMATURE GRAN ABSOLUTE AUTO 0.02 K/mm3 (0.00-0.10); IMMATURE GRAN PERCENT AUTO 0 % (0-1); LYMPHOCYTES ABSOLUTE AUTO 1.04 K/mm3 (0.84-5.20); LYMPHOCYTES PERCENT AUTO 10 % (21-46); MONOCYTES ABSOLUTE AUTO 1.23 K/mm3 (0.16-1.47); MONOCYTES PERCENT AUTO 12 % (4-13); Mean Corpuscular HGB 31.6 pg (26.0-34.0); Mean Corpuscular HGB Conc 32.6 g/dL (31.5-36.5); Mean Corpuscular Volume 97 fL (80-100); Mean Platelet Volume 10.4 fL (9.1-12.4); NEUTROPHILS ABSOLUTE AUTO 7.53 K/mm3 (1.96-9.15); NEUTROPHILS PERCENT AUTO 74 % (41-73); Platelet Count 193 K/mm3 (150-400); RDW Coefficient Variation 17.4 % (11.7-14.2); RDW Standard Deviation 60.1 fL (35.1-46.3); Red Blood Cell Count 3.01 M/mm3 (3.80-5.20); White Blood Cell Count 10.15 K/mm3 (4.00-11.30)
[2017-12-15 15:51] LABS: Albumin, Blood 2.6 g/dL (3.4-5.0); Albumin/Globulin Ratio 0.6 (0.8-1.8); Bilirubin, Total 1.1 mg/dL (0.1-1.0); Calcium, Blood 8.5 mg/dL (8.5-10.1); Creatinine, Blood 1.74 mg/dL (0.40-1.00); Globulin, Blood 4.1 g/dL (2.2-4.0); Potassium, Blood 4.6 mmol/L (3.5-5.5); Total Protein, Blood 6.7 g/dL (6.4-8.2)
[2017-12-15 18:01] LABS: Source, Urine Clean Catch
[2017-12-15 18:20] LABS: Appearance, Urine Clear (Clear); Bilirubin, Urine Neg (Neg); Blood, Urine Neg (Neg); Color, Urine Yellow (P-Yellow); Glucose Qualitative, Urine Neg (Neg); Ketones, Urine Neg (Neg); Leukocyte Esterase, Urine Neg (Neg); Nitrite, Urine Neg (Neg); Protein, Urine Neg (Neg); Urobilinogen, Urine NORM (Normal)
[2017-12-16 05:15] LABS: Bun/Creatinine Ratio 24.3 (12.0-20.0); Calcium, Blood 8.1 mg/dL (8.5-10.1); Creatinine, Blood 1.11 mg/dL (0.40-1.00); Potassium, Blood 4.7 mmol/L (3.5-5.5)
[2017-12-16] MEDS ORDERED: BUDE6HFA INH (13:54)
== END 2017-12-16 14:55 | disposition short-term general hospital (02) ==
LOC: ER 14:48 → MEDS 14:49
PROVIDERS: Emergency Medicine; Internal Medicine
DX: K72.90 Hepatic failure, unspecified without coma (principal); N17.9 Acute kidney failure, unspecified; K70.30 Alcoholic cirrhosis of liver without ascites; D64.9 Anemia, unspecified; I10 Essential (primary) hypertension; G47.33 Obstructive sleep apnea (adult) (pediatric); F32.9 Major depressive disorder, single episode, unspecified; J45.909 Unspecified asthma, uncomplicated; I47.1 Supraventricular tachycardia; E66.9 Obesity, unspecified; Z91.018 Allergy to other foods; Z88.0 Allergy status to penicillin; Z88.2 Allergy status to sulfonamides; Z86.19 Personal history of other infectious and parasitic diseases; Z88.1 Allergy status to other antibiotic agents; Z88.5 Allergy status to narcotic agent; Z91.041 Radiographic dye allergy status; Z88.8 Allergy status to other drugs, medicaments and biological substances; Z79.899 Other long term (current) drug therapy
CPT/HCPCS: 36415; 51701; 80048; 80053; 81003; 82140; 85025; 93005; 93010; 94640; 94760; 96360; 96361; 99285-25; G0378; J7030

== ENCOUNTER 2018-01-05 15:33 | Inpatient (IN) | payer OTHER ==
[~2018-01-05] VITALS: Ht 160 cm; Wt 68.1 kg
[~2018-01-05 15:33] MED LIST changes: +FERSU90EL PO
[2018-01-05 16:38] LABS: BASOPHILS ABSOLUTE AUTO 0.03 K/mm3 (0.00-0.23); BASOPHILS PERCENT AUTO 0 % (0-2); EOSINOPHILS ABSOLUTE AUTO 0.12 K/mm3 (0.00-0.68); EOSINOPHILS PERCENT AUTO 1 % (0-6); Hematocrit 21.9 % (33.0-51.0); Hemoglobin 6.5 g/dL (11.5-16.0); IMMATURE GRAN ABSOLUTE AUTO 0.03 K/mm3 (0.00-0.10); IMMATURE GRAN PERCENT AUTO 0 % (0-1); LYMPHOCYTES ABSOLUTE AUTO 1.36 K/mm3 (0.84-5.20); LYMPHOCYTES PERCENT AUTO 13 % (21-46); MONOCYTES ABSOLUTE AUTO 1.57 K/mm3 (0.16-1.47); MONOCYTES PERCENT AUTO 15 % (4-13); Mean Corpuscular HGB 31.9 pg (26.0-34.0); Mean Corpuscular HGB Conc 29.7 g/dL (31.5-36.5); Mean Corpuscular Volume 107 fL (80-100); Mean Platelet Volume 9.9 fL (9.1-12.4); NEUTROPHILS ABSOLUTE AUTO 7.28 K/mm3 (1.96-9.15); NEUTROPHILS PERCENT AUTO 70 % (41-73); Platelet Count 276 K/mm3 (150-400); RDW Coefficient Variation 17.4 % (11.7-14.2); RDW Standard Deviation 69.1 fL (35.1-46.3); Red Blood Cell Count 2.04 M/mm3 (3.80-5.20); White Blood Cell Count 10.39 K/mm3 (4.00-11.30)
[2018-01-05 17:12] LABS: Albumin, Blood 2.7 g/dL (3.4-5.0); Albumin/Globulin Ratio 0.6 (0.8-1.8); Bilirubin, Total 0.9 mg/dL (0.1-1.0); Bun/Creatinine Ratio 15.7 (12.0-20.0); Calcium, Blood 8.9 mg/dL (8.5-10.1); Creatinine, Blood 1.27 mg/dL (0.40-1.00); Globulin, Blood 4.5 g/dL (2.2-4.0); Potassium, Blood 4.7 mmol/L (3.5-5.5); Total Protein, Blood 7.2 g/dL (6.4-8.2)
[2018-01-05 18:39] LABS: International Normalized Ratio 1.18
[2018-01-05] MEDS ORDERED: MELO7.5 PO (19:46)
[2018-01-05] MEDS ORDERED: DOK100 MG PO (19:47)
[2018-01-05 23:39] LABS: Source, Urine Catheter
[2018-01-05 23:41] LABS: Bilirubin, Urine Neg (Neg); Blood, Urine Neg (Neg); Glucose Qualitative, Urine Neg (Neg); Ketones, Urine Neg (Neg); Leukocyte Esterase, Urine 1+ (Neg); Nitrite, Urine Neg (Neg); Protein, Urine Neg (Neg); Specific Gravity, Urine 1.015 (1.003-1.022); Urobilinogen, Urine NORM (Normal)
[2018-01-05 23:53] LABS: Appearance, Urine Clear (Clear); Color, Urine Yellow (P-Yellow)
[2018-01-05 23:54] LABS: Bacteria Many /hpf; Hyaline Casts 0-2 /lpf (0-2); Red Blood Cells, Urine 0-2 /hpf (0-2); Squamous Epithelial Cells Few /hpf (Few)
[2018-01-06 04:38] LABS: BASOPHILS ABSOLUTE AUTO 0.04 K/mm3 (0.00-0.23); BASOPHILS PERCENT AUTO 0 % (0-2); EOSINOPHILS ABSOLUTE AUTO 0.55 K/mm3 (0.00-0.68); EOSINOPHILS PERCENT AUTO 5 % (0-6); Hematocrit 25.3 % (33.0-51.0); IMMATURE GRAN ABSOLUTE AUTO 0.03 K/mm3 (0.00-0.10); IMMATURE GRAN PERCENT AUTO 0 % (0-1); LYMPHOCYTES ABSOLUTE AUTO 1.41 K/mm3 (0.84-5.20); LYMPHOCYTES PERCENT AUTO 14 % (21-46); MONOCYTES ABSOLUTE AUTO 1.97 K/mm3 (0.16-1.47); MONOCYTES PERCENT AUTO 19 % (4-13); Mean Corpuscular HGB 30.2 pg (26.0-34.0); Mean Corpuscular HGB Conc 31.6 g/dL (31.5-36.5); Mean Platelet Volume 10.9 fL (9.1-12.4); NEUTROPHILS ABSOLUTE AUTO 6.44 K/mm3 (1.96-9.15); NEUTROPHILS PERCENT AUTO 62 % (41-73); Platelet Count 217 K/mm3 (150-400); RDW Coefficient Variation 21.1 % (11.7-14.2); RDW Standard Deviation 72.1 fL (35.1-46.3); Red Blood Cell Count 2.65 M/mm3 (3.80-5.20); White Blood Cell Count 10.44 K/mm3 (4.00-11.30)
[2018-01-06 04:42] LABS: Mean Corpuscular Volume 96 fL (80-100)
[2018-01-06 05:55] LABS: Albumin, Blood 2.2 g/dL (3.4-5.0); Albumin/Globulin Ratio 0.6 (0.8-1.8); Bilirubin, Direct 0.7 mg/dL (0.0-0.3); Bilirubin, Indirect 4.7 mg/dL (0.1-0.7); Bilirubin, Total 5.4 mg/dL (0.1-1.0); Globulin, Blood 3.6 g/dL (2.2-4.0); Total Protein, Blood 5.8 g/dL (6.4-8.2)
[2018-01-06 11:43] LABS: Alanine Aminotransfer (ALT/SGP 43 U/L (12-78); Albumin, Blood 2.8 g/dL (3.4-5.0); Albumin/Globulin Ratio 0.8 (0.8-1.8); Alk Phos 113 U/L (50-136); Anion Gap 11 mmol/L (6-16); Aspartate Aminotrans (AST/SGOT 56 U/L (12-37); Blood Urea Nitrogen 17 mg/dL (8-24); Bun/Creatinine Ratio 18.9 (12.0-20.0); CO2, Blood 16 mmol/L (21-32); Calcium, Blood 8.2 mg/dL (8.5-10.1); Chloride, Blood 113 mmol/L (98-108); Globulin, Blood 3.7 g/dL (2.2-4.0); Glomerular Filtration Rate >60 (60-); Glucose, Blood 86 mg/dL (70-99); Potassium, Blood 4.4 mmol/L (3.5-5.5); Sodium, Blood 140 mmol/L (136-145); Total Protein, Blood 6.5 g/dL (6.4-8.2)
[2018-01-07 05:24] LABS: BASOPHILS ABSOLUTE AUTO 0.02 K/mm3 (0.00-0.23); BASOPHILS PERCENT AUTO 0 % (0-2); EOSINOPHILS ABSOLUTE AUTO 0.32 K/mm3 (0.00-0.68); EOSINOPHILS PERCENT AUTO 4 % (0-6); Hematocrit 22.9 % (33.0-51.0); Hemoglobin 7.3 g/dL (11.5-16.0); IMMATURE GRAN ABSOLUTE AUTO 0.03 K/mm3 (0.00-0.10); IMMATURE GRAN PERCENT AUTO 0 % (0-1); LYMPHOCYTES ABSOLUTE AUTO 1.16 K/mm3 (0.84-5.20); LYMPHOCYTES PERCENT AUTO 15 % (21-46); MONOCYTES PERCENT AUTO 15 % (4-13); Mean Corpuscular HGB 30.9 pg (26.0-34.0); Mean Corpuscular HGB Conc 31.9 g/dL (31.5-36.5); Mean Corpuscular Volume 97 fL (80-100); Mean Platelet Volume 10.1 fL (9.1-12.4); NEUTROPHILS ABSOLUTE AUTO 5.07 K/mm3 (1.96-9.15); NEUTROPHILS PERCENT AUTO 65 % (41-73); Platelet Count 162 K/mm3 (150-400); RDW Coefficient Variation 21.2 % (11.7-14.2); RDW Standard Deviation 73.7 fL (35.1-46.3); Red Blood Cell Count 2.36 M/mm3 (3.80-5.20)
[2018-01-08 06:28] LABS: Hematocrit 27.9 % (33.0-51.0); Hemoglobin 8.9 g/dL (11.5-16.0); Mean Corpuscular HGB 30.2 pg (26.0-34.0); Mean Corpuscular HGB Conc 31.9 g/dL (31.5-36.5); Mean Corpuscular Volume 95 fL (80-100); Mean Platelet Volume 10.3 fL (9.1-12.4); Platelet Count 178 K/mm3 (150-400); RDW Coefficient Variation 21.1 % (11.7-14.2); RDW Standard Deviation 72.5 fL (35.1-46.3); Red Blood Cell Count 2.95 M/mm3 (3.80-5.20); White Blood Cell Count 10.59 K/mm3 (4.00-11.30)
[2018-01-08 07:02] LABS: Anion Gap 8 mmol/L (6-16); Blood Urea Nitrogen 15 mg/dL (8-24); CO2, Blood 19 mmol/L (21-32); Calcium, Blood 8.5 mg/dL (8.5-10.1); Chloride, Blood 116 mmol/L (98-108); Creatinine, Blood 0.63 mg/dL (0.40-1.00); Glomerular Filtration Rate >60 (60-); Glucose, Blood 86 mg/dL (70-99); Potassium, Blood 4.6 mmol/L (3.5-5.5); Sodium, Blood 143 mmol/L (136-145)
[2018-01-08] MEDS ORDERED: Ferrous Sulfat325 M2 PO (11:24)
[2018-01-08] MEDS ORDERED: CIPR500 PO (11:28)
[2018-01-08] MEDS ORDERED: Inderal 20 mg T20 MG PO (11:31)
== END 2018-01-08 13:51 | disposition home or self-care (01) | DRG 442 ==
LOC: ER 15:33 → ICUW 18:05 → PCU 18:05 → ICUW 18:57 → ICUE 01-06 17:00 → MEDS 01-06 22:05 → ENPENDDIS 01-08 12:00 → MEDS 01-08 13:51
PROVIDERS: Emergency Medicine; Internal Medicine; Internal Medicine Gastroenterology; Nurse Practitioner Acute Care
PROC: 30233N1 Transfusion of Nonautologous Red Blood Cells into Peripheral Vein, Percutaneous Approach (ICD-10-PCS; 2018-01-05)
PROC: 0W994ZX Drainage of Right Pleural Cavity, Percutaneous Endoscopic Approach, Diagnostic (ICD-10-PCS; 2018-01-06)
PROC: 0DJ08ZZ Inspection of Upper Intestinal Tract, Via Natural or Artificial Opening Endoscopic (ICD-10-PCS; principal; 2018-01-06 17:00)
DX: K76.6 Portal hypertension (principal); J90 Pleural effusion, not elsewhere classified; D62 Acute posthemorrhagic anemia; N17.9 Acute kidney failure, unspecified; G47.30 Sleep apnea, unspecified; J45.909 Unspecified asthma, uncomplicated; K70.30 Alcoholic cirrhosis of liver without ascites; F10.20 Alcohol dependence, uncomplicated; B19.20 Unspecified viral hepatitis C without hepatic coma; I10 Essential (primary) hypertension; F32.9 Major depressive disorder, single episode, unspecified; M79.7 Fibromyalgia; F25.9 Schizoaffective disorder, unspecified
CPT/HCPCS: 32555; 36415; 36430; 51702; 71046; 80048; 80053; 80076; 81001; 82140; 82272; 85025; 85027; 85610; 86850; 86900; 86901; 86923; 87077; 87081; 87086; 87186; 93005; 93010; 94640; 94644; 94760; 96374; 99285-25; C1751; C9113; J2250; J2370; J7040; J7120; P9016; P9041

== ENCOUNTER 2018-02-14 19:02 | Inpatient (IN) | payer OTHER ==
[~2018-02-14] VITALS: Ht 162.6 cm; Wt 71.7 kg
[~2018-02-14 19:02] MED LIST changes: -ALBU90OI61 INH; +CIPR500 PO; +DOXY100 PO; +Inderal 20 mg T20 MG PO; +LACTULOSE20 GM/30 M PO
[2018-02-14 19:44] LABS: BASOPHILS ABSOLUTE AUTO 0.04 K/mm3 (0.00-0.23); BASOPHILS PERCENT AUTO 0 % (0-2); EOSINOPHILS ABSOLUTE AUTO 0.46 K/mm3 (0.00-0.68); EOSINOPHILS PERCENT AUTO 4 % (0-6); Hematocrit 26.8 % (33.0-51.0); Hemoglobin 7.9 g/dL (11.5-16.0); IMMATURE GRAN ABSOLUTE AUTO 0.03 K/mm3 (0.00-0.10); IMMATURE GRAN PERCENT AUTO 0 % (0-1); LYMPHOCYTES PERCENT AUTO 14 % (21-46); MONOCYTES ABSOLUTE AUTO 1.32 K/mm3 (0.16-1.47); MONOCYTES PERCENT AUTO 12 % (4-13); Mean Corpuscular HGB 32.6 pg (26.0-34.0); Mean Corpuscular HGB Conc 29.5 g/dL (31.5-36.5); Mean Corpuscular Volume 111 fL (80-100); Mean Platelet Volume 11.1 fL (9.1-12.4); NEUTROPHILS ABSOLUTE AUTO 7.51 K/mm3 (1.96-9.15); NEUTROPHILS PERCENT AUTO 69 % (41-73); Platelet Count 204 K/mm3 (150-400); RDW Coefficient Variation 18.3 % (11.7-14.2); RDW Standard Deviation 75.7 fL (35.1-46.3); Red Blood Cell Count 2.42 M/mm3 (3.80-5.20); White Blood Cell Count 10.86 K/mm3 (4.00-11.30)
[2018-02-14 19:45] LABS: Calcium, Ionized (POC) 1.26 mmol/L (1.10-1.46); Chloride (POC) 115 mmol/L (98-108); Creatinine (POC) 3.1 mg/dL (0.6-1.0); Glucose (ISTAT POC) 96 mg/dL (70-99); Hemoglobin (POC) 8.2 g/dL (12.0-16.0); Potassium (POC) 4.8 mmol/L (3.5-5.5); Sodium (POC) 136 mmol/L (135-148); Total CO2 (POC) 12 mmol/L (21-32)
[2018-02-14 20:00] LABS: Albumin, Blood 2.7 g/dL (3.4-5.0); Albumin/Globulin Ratio 0.7 (0.8-1.8); Bilirubin, Total 0.5 mg/dL (0.1-1.0); Bun/Creatinine Ratio 17.4 (12.0-20.0); Calcium, Blood 8.5 mg/dL (8.5-10.1); Creatinine, Blood 2.87 mg/dL (0.40-1.00); Globulin, Blood 3.8 g/dL (2.2-4.0); Potassium, Blood 4.9 mmol/L (3.5-5.5); Total Protein, Blood 6.5 g/dL (6.4-8.2)
[2018-02-14] MEDS ORDERED: METO25ER PO (22:59)
[2018-02-14] MEDS ORDERED: TRAZ100 PO (23:01)
[2018-02-14] MEDS ORDERED: LISI20 PO (23:04)
[2018-02-14] MEDS ORDERED: LORPSEER24 (23:07)
[2018-02-14] MEDS ORDERED: Bentyl10 MG PO (23:08)
[2018-02-14] MEDS ORDERED: PANT40 PO (23:12)
[2018-02-14] MEDS ORDERED: SPIR50 PO (23:14)
[2018-02-14] MEDS ORDERED: FURO40 PO (23:16)
[2018-02-14] MEDS ORDERED: OXYB5 PO (23:16)
[2018-02-14] MEDS ORDERED: POTA20PAC PO (23:17)
[2018-02-14] MEDS ORDERED: MAGOXI400 PO (23:17)
[2018-02-14 23:46] LABS: Source, Urine Clean Catch
[2018-02-14 23:49] LABS: Bilirubin, Urine Neg (Neg); Blood, Urine Neg (Neg); Glucose Qualitative, Urine Neg (Neg); Ketones, Urine Neg (Neg); Leukocyte Esterase, Urine 1+ (Neg); Nitrite, Urine Neg (Neg); Protein, Urine Neg (Neg); Specific Gravity, Urine 1.015 (1.003-1.022); Urobilinogen, Urine NORM (Normal)
[2018-02-14 23:55] LABS: Appearance, Urine Clear (Clear); Color, Urine Yellow (P-Yellow)
[2018-02-14 23:57] LABS: Bacteria Rare /hpf; Red Blood Cells, Urine Rare /hpf (0-2); Squamous Epithelial Cells Few /hpf (Few); White Blood Cells, Urine 0-2 /hpf (0-5)
[2018-02-15 01:38] LABS: Adenovirus F 40/41 Not Detected (NOT DETECT); Astrovirus Not Detected (NOT DETECT); Campylobacter Sp Not Detected (NOT DETECT); Cryptosporidium Not Detected (NOT DETECT); Cyclospora Cayetanensis Not Detected (NOT DETECT); E. Coli O157 Not Detected (NOT DETECT); Entamoeba Histolytica Not Detected (NOT DETECT); Enteroaggregative E. coli-EAEC Not Detected (NOT DETECT); Enteropathogenic E. coli-EPEC Not Detected (NOT DETECT); Enterotoxigenic E. coli-ETEC Not Detected (NOT DETECT); Giardia Lamblia Not Detected (NOT DETECT); Norovirus GI/GII Not Detected (NOT DETECT); Plesiomonas Shigelloides Not Detected (NOT DETECT); Rotavirus A Not Detected (NOT DETECT); Salmonella Sp Not Detected (NOT DETECT); Sapovirus Not Detected (NOT DETECT); Shiga Toxin-prod E. coli-STEC Not Detected (NOT DETECT); Shigella/Enteroin E. coli-EIEC Not Detected (NOT DETECT); Vibrio Cholerae Not Detected (NOT DETECT); Vibrio Sp Not Detected (NOT DETECT); Yersinia Enterocolitica Not Detected (NOT DETECT)
[2018-02-15 05:26] LABS: Hematocrit 25.6 % (33.0-51.0); Hemoglobin 7.7 g/dL (11.5-16.0); Mean Corpuscular HGB 32.1 pg (26.0-34.0); Mean Corpuscular HGB Conc 30.1 g/dL (31.5-36.5); Mean Corpuscular Volume 107 fL (80-100); Mean Platelet Volume 11.1 fL (9.1-12.4); Platelet Count 169 K/mm3 (150-400); RDW Coefficient Variation 18.2 % (11.7-14.2); RDW Standard Deviation 71.5 fL (35.1-46.3); White Blood Cell Count 9.97 K/mm3 (4.00-11.30)
[2018-02-15 05:52] LABS: Albumin, Blood 2.9 g/dL (3.4-5.0); Albumin/Globulin Ratio 0.8 (0.8-1.8); Bilirubin, Total 0.5 mg/dL (0.1-1.0); Bun/Creatinine Ratio 20.5 (12.0-20.0); Calcium, Blood 8.1 mg/dL (8.5-10.1); Globulin, Blood 3.8 g/dL (2.2-4.0); Potassium, Blood 5.4 mmol/L (3.5-5.5); Total Protein, Blood 6.7 g/dL (6.4-8.2)
[2018-02-15 08:31] LABS: PCO2 Arterial 28.6 mmHg (35-45); PO2 Arterial 90.8 mmHg (80-100)
[2018-02-15 08:32] LABS: pH Blood Arterial 7.24 (7.35-7.45)
[2018-02-16 05:58] LABS: BASOPHILS ABSOLUTE AUTO 0.02 K/mm3 (0.00-0.23); BASOPHILS PERCENT AUTO 0 % (0-2); EOSINOPHILS ABSOLUTE AUTO 0.25 K/mm3 (0.00-0.68); EOSINOPHILS PERCENT AUTO 4 % (0-6); Hematocrit 22.9 % (33.0-51.0); Hemoglobin 7.5 g/dL (11.5-16.0); IMMATURE GRAN ABSOLUTE AUTO 0.02 K/mm3 (0.00-0.10); IMMATURE GRAN PERCENT AUTO 0 % (0-1); LYMPHOCYTES ABSOLUTE AUTO 1.19 K/mm3 (0.84-5.20); LYMPHOCYTES PERCENT AUTO 17 % (21-46); MONOCYTES ABSOLUTE AUTO 0.81 K/mm3 (0.16-1.47); MONOCYTES PERCENT AUTO 11 % (4-13); Mean Corpuscular HGB 32.8 pg (26.0-34.0); Mean Corpuscular HGB Conc 32.8 g/dL (31.5-36.5); Mean Platelet Volume 11.1 fL (9.1-12.4); NEUTROPHILS ABSOLUTE AUTO 4.91 K/mm3 (1.96-9.15); NEUTROPHILS PERCENT AUTO 68 % (41-73); Platelet Count 138 K/mm3 (150-400); RDW Coefficient Variation 18.6 % (11.7-14.2); RDW Standard Deviation 68.2 fL (35.1-46.3); Red Blood Cell Count 2.29 M/mm3 (3.80-5.20)
[2018-02-16 06:09] LABS: Mean Corpuscular Volume 100 fL (80-100)
[2018-02-16 06:24] LABS: Alanine Aminotransfer (ALT/SGP 36 U/L (12-78); Albumin, Blood 2.4 g/dL (3.4-5.0); Albumin/Globulin Ratio 0.8 (0.8-1.8); Alk Phos 98 U/L (50-136); Anion Gap 6 mmol/L (6-16); Aspartate Aminotrans (AST/SGOT 37 U/L (12-37); Bilirubin, Total 1.4 mg/dL (0.1-1.0); Blood Urea Nitrogen 38 mg/dL (8-24); Bun/Creatinine Ratio 23.6 (12.0-20.0); CO2, Blood 22 mmol/L (21-32); Calcium, Blood 7.8 mg/dL (8.5-10.1); Chloride, Blood 109 mmol/L (98-108); Creatinine, Blood 1.61 mg/dL (0.40-1.00); Globulin, Blood 3.1 g/dL (2.2-4.0); Glomerular Filtration Rate 35 (60-); Glucose, Blood 97 mg/dL (70-99); Magnesium, Blood 2.2 mg/dL (1.6-2.4); Phosphorus, Blood 2.4 mg/dL (2.5-4.9); Potassium, Blood 4.7 mmol/L (3.5-5.5); Sodium, Blood 137 mmol/L (136-145); Total Protein, Blood 5.5 g/dL (6.4-8.2)
[2018-02-16 15:54] LABS: Source, Urine Clean Catch
[2018-02-16 15:58] LABS: Appearance, Urine Hazy (Clear); Bilirubin, Urine Neg (Neg); Blood, Urine 2+ (Neg); Color, Urine Yellow (P-Yellow); Glucose Qualitative, Urine Neg (Neg); Ketones, Urine Neg (Neg); Leukocyte Esterase, Urine 2+ (Neg); Nitrite, Urine Neg (Neg); Protein, Urine Neg (Neg); Specific Gravity, Urine 1.015 (1.003-1.022); Urobilinogen, Urine NORM (Normal)
[2018-02-16 16:08] LABS: White Blood Cells, Urine 25-50 /hpf (0-5)
[2018-02-16 16:09] LABS: Bacteria Mod /hpf; Squamous Epithelial Cells Many /hpf (Few)
[2018-02-16 17:41] LABS: Source, Urine Catheter
[2018-02-16 17:48] LABS: Appearance, Urine Clear (Clear); Bilirubin, Urine Neg (Neg); Blood, Urine Neg (Neg); Color, Urine Yellow (P-Yellow); Glucose Qualitative, Urine Neg (Neg); Ketones, Urine Neg (Neg); Leukocyte Esterase, Urine Neg (Neg); Nitrite, Urine Neg (Neg); Protein, Urine Neg (Neg); Urobilinogen, Urine NORM (Normal)
[2018-02-17 04:55] LABS: Hematocrit 24.9 % (33.0-51.0); Hemoglobin 8.1 g/dL (11.5-16.0)
[2018-02-17 05:24] LABS: Albumin, Blood 2.4 g/dL (3.4-5.0); Anion Gap 9 mmol/L (6-16); Blood Urea Nitrogen 29 mg/dL (8-24); Bun/Creatinine Ratio 26.1 (12.0-20.0); CO2, Blood 21 mmol/L (21-32); Calcium, Blood 7.8 mg/dL (8.5-10.1); Chloride, Blood 112 mmol/L (98-108); Creatinine, Blood 1.11 mg/dL (0.40-1.00); Glomerular Filtration Rate 54 (60-); Glucose, Blood 88 mg/dL (70-99); Phosphorus, Blood 2.3 mg/dL (2.5-4.9); Potassium, Blood 5.1 mmol/L (3.5-5.5); Sodium, Blood 142 mmol/L (136-145)
[2018-02-18 05:10] LABS: Hematocrit 25.2 % (33.0-51.0); Hemoglobin 7.9 g/dL (11.5-16.0)
[2018-02-18 05:21] LABS: Albumin, Blood 2.5 g/dL (3.4-5.0); Anion Gap 7 mmol/L (6-16); Blood Urea Nitrogen 23 mg/dL (8-24); CO2, Blood 21 mmol/L (21-32); Calcium, Blood 8.1 mg/dL (8.5-10.1); Chloride, Blood 115 mmol/L (98-108); Creatinine, Blood 0.88 mg/dL (0.40-1.00); Glomerular Filtration Rate >60 (60-); Glucose, Blood 81 mg/dL (70-99); Magnesium, Blood 1.8 mg/dL (1.6-2.4); Phosphorus, Blood 2.5 mg/dL (2.5-4.9); Potassium, Blood 5.1 mmol/L (3.5-5.5); Sodium, Blood 143 mmol/L (136-145)
== END 2018-02-18 15:47 | disposition home or self-care (01) | DRG 683 ==
LOC: ER 19:02 → MEDS 19:03 → ENPENDDIS 02-18 11:14 → MEDS 02-18 15:47
PROVIDERS: Emergency Medicine; Internal Medicine; Internal Medicine Nephrology
PROC: 30233N1 Transfusion of Nonautologous Red Blood Cells into Peripheral Vein, Percutaneous Approach (ICD-10-PCS; principal; 2018-02-15)
DX: N17.9 Acute kidney failure, unspecified (principal); E87.2 Acidosis; K70.30 Alcoholic cirrhosis of liver without ascites; G47.30 Sleep apnea, unspecified; N18.9 Chronic kidney disease, unspecified; E86.9 Volume depletion, unspecified; E87.5 Hyperkalemia; F25.9 Schizoaffective disorder, unspecified; E88.09 Other disorders of plasma-protein metabolism, not elsewhere classified; R19.7 Diarrhea, unspecified; I12.9 Hypertensive chronic kidney disease with stage 1 through stage 4 chronic kidney disease, or unspecified chronic kidney disease; E83.39 Other disorders of phosphorus metabolism; R33.9 Retention of urine, unspecified; K72.90 Hepatic failure, unspecified without coma; B19.20 Unspecified viral hepatitis C without hepatic coma
CPT/HCPCS: 36415; 36600; 71046; 76770; 80047; 80053; 80069; 81001; 81003; 82140; 82803; 83735; 85014; 85018; 85025; 85027; 86850; 86900; 86901; 86923; 87077; 87081; 87086; 87186; 87507; 93005; 93010; 94640; 94760; 96360; 96361; 96365; 96366; 96367; 96372; 96375; 97161; 97530; 99285-25; G0378; G0480; G8978; G8979; G8980; J0881; J1650; J2405; J7030; J7050; J7060; J7070; P9016; P9041

== ENCOUNTER 2018-06-17 01:24 | Inpatient (IN) | payer OTHER ==
[~2018-06-17] VITALS: Ht 162.6 cm; Wt 74.0 kg
[~2018-06-17 01:24] MED LIST changes: +LISI5 PO; +LORPSEER24 PO; -OLAN2.5 PO; +Prinivil10 MG PO; +SUCR1 PO; -VENL75ER PO; +Venlafaxine HCl75 MG PO
[2018-06-17 02:08] LABS: Base Excess Venous -8.6 mmol/L; Bicarbonate Venous 17.5 mmol/L (24.0-30.0); PCO2 Venous 32.7 mmHg (38-42); PO2 Venous 28.7 mmHg (38-42); pH Blood Venous 7.33 (7.34-7.37)
[2018-06-17 02:30] LABS: BASOPHILS ABSOLUTE AUTO 0.01 K/mm3 (0.00-0.23); BASOPHILS PERCENT AUTO 0 % (0-2); EOSINOPHILS ABSOLUTE AUTO 0.22 K/mm3 (0.00-0.68); EOSINOPHILS PERCENT AUTO 2 % (0-6); IMMATURE GRAN ABSOLUTE AUTO 0.03 K/mm3 (0.00-0.10); IMMATURE GRAN PERCENT AUTO 0 % (0-1); LYMPHOCYTES ABSOLUTE AUTO 1.13 K/mm3 (0.84-5.20); LYMPHOCYTES PERCENT AUTO 8 % (21-46); MONOCYTES ABSOLUTE AUTO 1.62 K/mm3 (0.16-1.47); MONOCYTES PERCENT AUTO 12 % (4-13); Mean Corpuscular HGB 32.1 pg (26.0-34.0); Mean Corpuscular Volume 107 fL (80-100); Mean Platelet Volume 10.3 fL (9.1-12.4); NEUTROPHILS ABSOLUTE AUTO 10.65 K/mm3 (1.96-9.15); NEUTROPHILS PERCENT AUTO 78 % (41-73); NRBC ABSOLUTE 0.02 K/mm3 (0.00-0.02); NRBC Auto 0.1 /100 WBC (0.0-0.2); Platelet Count 295 K/mm3 (150-400); RDW Coefficient Variation 22.5 % (11.7-14.2); RDW Standard Deviation 82.3 fL (35.1-46.3); Red Blood Cell Count 1.31 M/mm3 (3.80-5.20); White Blood Cell Count 13.66 K/mm3 (4.00-11.30)
[2018-06-17 02:39] LABS: Hemoglobin 4.2 g/dL (11.5-16.0)
[2018-06-17 02:58] LABS: Alanine Aminotransfer (ALT/SGP 22 U/L (12-78); Albumin, Blood 2.4 g/dL (3.4-5.0); Albumin/Globulin Ratio 0.6 (0.8-1.8); Alk Phos 129 U/L (50-136); Anion Gap 11 mmol/L (6-16); Aspartate Aminotrans (AST/SGOT 40 U/L (12-37); Bilirubin, Total 0.6 mg/dL (0.1-1.0); Blood Urea Nitrogen 23 mg/dL (8-24); Bun/Creatinine Ratio 27.4 (12.0-20.0); CO2, Blood 18 mmol/L (21-32); Calcium, Blood 7.8 mg/dL (8.5-10.1); Chloride, Blood 112 mmol/L (98-108); Creatinine, Blood 0.84 mg/dL (0.40-1.00); Globulin, Blood 3.8 g/dL (2.2-4.0); Glomerular Filtration Rate >60 (60-); Glucose, Blood 114 mg/dL (70-99); Potassium, Blood 4.4 mmol/L (3.5-5.5); Sodium, Blood 141 mmol/L (136-145); Total Protein, Blood 6.2 g/dL (6.4-8.2); Troponin I <0.015 ng/mL (0.000-0.040)
[2018-06-17] MEDS ORDERED: MELO7.5 PO (03:16)
[2018-06-17] MEDS ORDERED: Dicyclomine HCl10 MG PO (03:16)
[2018-06-17] MEDS ORDERED: SPIR50 PO (03:16)
[2018-06-17] MEDS ORDERED: FURO40 PO (03:17)
[2018-06-17] MEDS ORDERED: POTCHL20ER PO (03:17)
[2018-06-17] MEDS ORDERED: BUME2 PO (03:18)
[2018-06-17 04:44] LABS: BASOPHILS PERCENT AUTO 0 % (0-2); EOSINOPHILS ABSOLUTE AUTO 0.18 K/mm3 (0.00-0.68); EOSINOPHILS PERCENT AUTO 1 % (0-6); IMMATURE GRAN ABSOLUTE AUTO 0.06 K/mm3 (0.00-0.10); IMMATURE GRAN PERCENT AUTO 0 % (0-1); LYMPHOCYTES ABSOLUTE AUTO 1.55 K/mm3 (0.84-5.20); LYMPHOCYTES PERCENT AUTO 11 % (21-46); MONOCYTES ABSOLUTE AUTO 1.62 K/mm3 (0.16-1.47); MONOCYTES PERCENT AUTO 11 % (4-13); Mean Corpuscular Volume 107 fL (80-100); Mean Platelet Volume 10.1 fL (9.1-12.4); NEUTROPHILS ABSOLUTE AUTO 10.75 K/mm3 (1.96-9.15); NEUTROPHILS PERCENT AUTO 76 % (41-73); NRBC ABSOLUTE 0.02 K/mm3 (0.00-0.02); NRBC Auto 0.1 /100 WBC (0.0-0.2); Platelet Count 308 K/mm3 (150-400); RDW Coefficient Variation 22.5 % (11.7-14.2); Red Blood Cell Count 1.45 M/mm3 (3.80-5.20); White Blood Cell Count 14.16 K/mm3 (4.00-11.30)
[2018-06-17 04:46] LABS: Hematocrit 15.5 % (33.0-51.0); Hemoglobin 4.5 g/dL (11.5-16.0)
[2018-06-17 06:25] LABS: International Normalized Ratio 1.19; Prothrombin Time Results 12.4 Sec (9.7-11.5)
[2018-06-17 07:51] LABS: Source, Urine Clean Catch
[2018-06-17 07:56] LABS: Appearance, Urine Clear (Clear); Bilirubin, Urine Neg (Neg); Blood, Urine 1+ (Neg); Color, Urine Yellow (P-Yellow); Glucose Qualitative, Urine Neg (Neg); Ketones, Urine Neg (Neg); Leukocyte Esterase, Urine 1+ (Neg); Nitrite, Urine Neg (Neg); Protein, Urine Neg (Neg); Specific Gravity, Urine 1.015 (1.003-1.022); Urobilinogen, Urine NORM (Normal)
[2018-06-17 08:20] LABS: Bacteria Few /hpf; Red Blood Cells, Urine 0-2 /hpf (0-2); Squamous Epithelial Cells Mod /hpf (Few)
[2018-06-17] MEDS ORDERED: ASCO500 PO (13:09)
[2018-06-17] MEDS ORDERED: Imitrex100 MG PO (13:12)
[2018-06-17] MEDS ORDERED: OLAN2.5 PO (13:13)
[2018-06-17] MEDS ORDERED: LOVA40 PO (13:13)
[2018-06-17] MEDS ORDERED: MAGOXI400 PO (13:15)
[2018-06-17] MEDS ORDERED: VITAMIN D250000 UNIT PO (13:33)
[2018-06-17 14:45] LABS: Hematocrit 27.8 % (33.0-51.0); Hemoglobin 8.8 g/dL (11.5-16.0)
--- NOTE | 2018-06-17 17:48 | NUR ---
Initial Visit: Palliative Care Consult for Advance Care Planning. Pt is A&Ox4 and report 7/10 pain in her right abdomen. She also reports 7/7 dyspnea and 7/7 anxiety. Pt reports oxygen is managing her dyspnea and pain is managed with current regimen. Engaged in therapeutic conversation about goals of care. Pt lives at home in [place] with her sons and duaghters (John, Wilver, and Jimena). Pt and family do not have access to transportation. Pt reports that she is of [employer]ae[employer] kunal. Discussed POLST/AD with Pt and she expresses interest in completing a POLST. She states that she would like some assistance completing POLST tomorrow. During visit and educating on POLST Pt demonstrates limited comprehension of education and other topics of discussion. Pt reports her main goals at this time are to received assistance with caregivers at home and assistance with transportation to obtain food boxes. Spoke with Pt's ED nurse and she expresses concerns of Pt's level of understanding as well. No other concerns reported at this time. Plan: Will place social service consult for assistance with caregivers and resources for transportation. F/U will be needed to assist with education of completing POLST.
[2018-06-17] MEDS ORDERED: ACET500 PO (18:44)
--- NOTE | 2018-06-17 19:15 | NUR ---
SHIFT SUMMARY 1800 PT RECEIVED FROM ER. ALERT AND ORIENTED X3. VSS. C/O 11/21 RIGHT SIDE / "LIVER" PAIN, MEDICATED WITH PRN PAIN MEDS. AMBULATED TO BATHROOM WITH 1 PERSON ASSIST. LUNG SOUNDS DIMINISHED THROUGHOUT, NSR RATE 70s PER TELE. 1+ PITTING EDEMA TO BLE. WILL CONTINUE TO MONITOR.
[2018-06-18 04:12] LABS: Hematocrit 23.1 % (33.0-51.0); Hemoglobin 7.4 g/dL (11.5-16.0)
--- NOTE | 2018-06-18 04:43 | NUR ---
SHIFT SUMMARY: GI CONSULT COMPLETED, NEW ORDERS RECIEVED. PATIENTS HGB DROPPED TO 7.4, MD MUNOZ MADE AWARE, ORDERS RECIEVED. PATIENT RECIEVED 2 MORE UNITS OF BLOOD THIS SHIFT, POWERGLIDE PLACED IN JOSE LUIS. PATIENT HAD EPISODES OF BRADYCARDIA WHILE SLEEPING, ONE EPISODE DOCUMENTED IN GRAPHS D/T VERY LOW RATE. PATIENT ASYMPTOMATIC AND VSS. BP DROPPING PERIODICALLY DURING TRANSFUSIONS, SPONTANEOUS RESOLUTION EACH EPISODE, MONITORING CLOSELY.
[2018-06-18 06:44] LABS: Hematocrit 27.6 % (33.0-51.0)
[2018-06-18 10:10] LABS: Hematocrit 29.9 % (33.0-51.0); Hemoglobin 9.7 g/dL (11.5-16.0)
--- NOTE | 2018-06-18 12:41 | NUR ---
Assumed Care: Assumed care of pt at approx 0700. VSS. In no apparent sign of distress. Pt is A&Ox4. Calls appropriately and repositions self. Denies any pain or any acute complaints/requests at this time. Dr. Rocha called this AM and changed NPO start time to 1200 today for EGD later this afternoon. See shift assessment for detailed assessment. Pt on clear liquids this AM until made NPO at 1200. Dr. Hanna in to round on pt this AM and discussed c/o possible sleep apnea and possible need for sleep study prior to DC home, but this will be followed-up on by pt PCP upon DC per Dr. Hanna. No further orders at this time. Pt currently resting in bed with call light within reach. Denies any further questions, complaints or requests at this time.
--- NOTE | 2018-06-18 15:37 | NUR ---
06/18/18 1537 Jaida Samuel PATIENT CONFIRMS NPO STATUS AND AGREES WITH SCHEDULED PROCEDURE. MONITOR INTACT WITH CONTINUOUS PULSE OXIMETRY AND INTERMITTENT BP. O2 VIA N/C INTACT THROUGHOUT SEDATION/PROCEDURE. 3-LEAD EKG REVIEWED WITH PHYSICIAN PRIOR TO START OF PROCEDURE. Bite Block Placed.
--- NOTE | 2018-06-18 20:02 | NUR ---
Shift Summary No acute changes since initial shift assessment. VSS. In no apparent sign of distress. Pt is A&Ox4. Calls appropriately. Denies any pain. Pt felt that her stomach was "on fire", but this sensation resolved after pt had some ice chips. Pt denies any other acute complaints, requests or complaints at this time. Completed EGD today with findings of GAVE and cauterization. Pt currently resting in bed with call light within reach. Report given to isma Barksdale.
[2018-06-19 09:05] LABS: Hematocrit 28.6 % (33.0-51.0); Hemoglobin 9.3 g/dL (11.5-16.0)
--- NOTE | 2018-06-19 13:33 | NUR ---
Pt is in bed repoerts doing well, had a good surgery and responding fdine encouraged pt. and prayed for her.
[2018-06-19] MEDS ORDERED: PANT40 PO (16:32)
[2018-06-19] MEDS ORDERED: Inderal 20 mg T20 MG PO (16:37)
[2018-06-19] MEDS ORDERED: VENL75ER PO (16:52)
[2018-06-19] MEDS ORDERED: SPIR50 PO (16:52)
--- NOTE | 2018-06-19 20:35 | NUR ---
DISCHARGE SUMMARY PT A&Ox4, CALM AND COOPERATIVE WITH CARE. PT 1 PERSON SBA TO BSC. PT RESTING IN BED DURING SHIFT, APPEARS TO BE SLEEPING INTERMITTENTLY. PT HAD THORACENTESIS THIS AM, PER REPORT, 1.4 L DRAINED, PT NOT ABLE TO TOLERATE MORE. PT REPORTS CHEST PAIN WHEN TAKING A DEEP BREATH THIS AFTERNOON, NOTIFIED DR WILSON, NO NEW ORDERS. MEDICATED PT X1 WITH TRAMADOL FOR RIB/BREATHING PAIN. PT DENIES SOB, LS DIM IN BASES, >90% ON RA. PT DENIES N/V DURING SHIFT. VSS. NO OTHER ACUTE CHANGES NOTED DURING SHIFT. PT EDUCATED ON DISCHARGE INSTRUCTIONS, MEDICATIONS, FOLLOW UP LAB DRAW AND FOLLOW UP APPOINTMENTS. MEDICATIONS FAXED TO [facility] PER PT REQUEST. PT LEFT ROOM VIA WHEELCHAIR AT 1813. PT STABLE UPON REQUEST.
== END 2018-06-19 18:13 | disposition home or self-care (01) | DRG 378 ==
LOC: ER 01:24 → ERHOLD 03:10 → PCU 05:34
PROVIDERS: Emergency Medicine; Internal Medicine; ADMIT Hospitalist
PROC: 30233N1 Transfusion of Nonautologous Red Blood Cells into Peripheral Vein, Percutaneous Approach (ICD-10-PCS; principal; 2018-06-17)
PROC: 0W3P8ZZ Control Bleeding in Gastrointestinal Tract, Via Natural or Artificial Opening Endoscopic (ICD-10-PCS; 2018-06-18)
DX: K31.811 Angiodysplasia of stomach and duodenum with bleeding (principal); K76.6 Portal hypertension; D62 Acute posthemorrhagic anemia; R18.8 Other ascites; K70.30 Alcoholic cirrhosis of liver without ascites; F32.9 Major depressive disorder, single episode, unspecified; F20.9 Schizophrenia, unspecified; M79.7 Fibromyalgia; B19.20 Unspecified viral hepatitis C without hepatic coma; N18.9 Chronic kidney disease, unspecified; I12.9 Hypertensive chronic kidney disease with stage 1 through stage 4 chronic kidney disease, or unspecified chronic kidney disease; J44.9 Chronic obstructive pulmonary disease, unspecified; G43.909 Migraine, unspecified, not intractable, without status migrainosus
CPT/HCPCS: 32555; 36415; 36430; 71045; 71046; 71250; 80053; 81001; 82803; 83690; 84484; 85014; 85018; 85025; 85610; 86850; 86900; 86901; 86923; 87077; 87086; 87186; 90686; 93005; 93010; 94640; 94760; 96365; 96375; 96376; 97161; 97530; 99285-25; C1751; C9113; G0008; J1940; J7030; J7120; P9016

== ENCOUNTER 2018-08-04 17:03 | Inpatient (IN) | payer OTHER ==
[~2018-08-04] VITALS: Ht 157.5 cm; Wt 69.5 kg
[~2018-08-04 17:03] MED LIST changes: +ACET500 PO; +ASCO500 PO; +OLAN2.5 PO; +VENL75ER PO; +VITAMIN D250000 UNIT PO
[2018-08-04 17:48] LABS: BASOPHILS ABSOLUTE AUTO 0.04 K/mm3 (0.00-0.23); BASOPHILS PERCENT AUTO 1 % (0-2); EOSINOPHILS ABSOLUTE AUTO 0.32 K/mm3 (0.00-0.68); EOSINOPHILS PERCENT AUTO 5 % (0-6); Hematocrit 21.3 % (33.0-51.0); Hemoglobin 6.1 g/dL (11.5-16.0); IMMATURE GRAN ABSOLUTE AUTO 0.01 K/mm3 (0.00-0.10); IMMATURE GRAN PERCENT AUTO 0 % (0-1); LYMPHOCYTES ABSOLUTE AUTO 1.31 K/mm3 (0.84-5.20); LYMPHOCYTES PERCENT AUTO 20 % (21-46); MONOCYTES ABSOLUTE AUTO 1.09 K/mm3 (0.16-1.47); MONOCYTES PERCENT AUTO 17 % (4-13); Mean Corpuscular HGB 28.8 pg (26.0-34.0); Mean Corpuscular HGB Conc 28.6 g/dL (31.5-36.5); Mean Corpuscular Volume 101 fL (80-100); Mean Platelet Volume 9.6 fL (9.1-12.4); NEUTROPHILS ABSOLUTE AUTO 3.71 K/mm3 (1.96-9.15); NEUTROPHILS PERCENT AUTO 57 % (41-73); Platelet Count 311 K/mm3 (150-400); RDW Coefficient Variation 17.6 % (11.7-14.2); RDW Standard Deviation 63.8 fL (35.1-46.3); Red Blood Cell Count 2.12 M/mm3 (3.80-5.20); White Blood Cell Count 6.48 K/mm3 (4.00-11.30)
[2018-08-04 18:13] LABS: Alanine Aminotransfer (ALT/SGP 17 U/L (12-78); Albumin, Blood 2.5 g/dL (3.4-5.0); Albumin/Globulin Ratio 0.5 (0.8-1.8); Alk Phos 122 U/L (50-136); Anion Gap 6 mmol/L (6-16); Aspartate Aminotrans (AST/SGOT 28 U/L (12-37); Bilirubin, Total 0.7 mg/dL (0.1-1.0); Blood Urea Nitrogen 11 mg/dL (8-24); Bun/Creatinine Ratio 14.1 (12.0-20.0); CO2, Blood 24 mmol/L (21-32); Calcium, Blood 8.3 mg/dL (8.5-10.1); Chloride, Blood 108 mmol/L (98-108); Creatinine, Blood 0.78 mg/dL (0.40-1.00); Globulin, Blood 4.9 g/dL (2.2-4.0); Glomerular Filtration Rate >60 (60-); Glucose, Blood 93 mg/dL (70-99); Potassium, Blood 3.5 mmol/L (3.5-5.5); Sodium, Blood 138 mmol/L (136-145); Total Protein, Blood 7.4 g/dL (6.4-8.2)
[2018-08-04 18:18] LABS: International Normalized Ratio 1.13; Prothrombin Time Results 11.8 Sec (9.7-11.5)
[2018-08-04] MEDS ORDERED: POTCHL20ER PO (19:23)
[2018-08-04] MEDS ORDERED: Inderal 20 mg T20 MG PO (19:24)
[2018-08-04] MEDS ORDERED: Vitamin D2000 UNIT PO (19:25)
[2018-08-04] MEDS ORDERED: LOVA40 PO (19:26)
[2018-08-04] MEDS ORDERED: Prinivil10 MG PO (19:27)
[2018-08-04] MEDS ORDERED: FURO40 PO (19:27)
[2018-08-04] MEDS ORDERED: GABA600 PO (19:28)
[2018-08-04] MEDS ORDERED: Aldactone25 MG PO (19:29)
[2018-08-04] MEDS ORDERED: LACT10SY PO (19:56)
[2018-08-04] MEDS ORDERED: LACT PO (19:57)
[2018-08-04] MEDS ORDERED: PYRI100 PO (20:05)
[2018-08-04] MEDS ORDERED: SUCR1 PO (21:53)
[2018-08-05 01:25] LABS: Hematocrit 25.7 % (33.0-51.0); Hemoglobin 8.1 g/dL (11.5-16.0)
[2018-08-05 01:44] LABS: Alanine Aminotransfer (ALT/SGP 15 U/L (12-78); Albumin, Blood 2.2 g/dL (3.4-5.0); Albumin/Globulin Ratio 0.5 (0.8-1.8); Alk Phos 99 U/L (50-136); Anion Gap 5 mmol/L (6-16); Aspartate Aminotrans (AST/SGOT 26 U/L (12-37); Blood Urea Nitrogen 10 mg/dL (8-24); Bun/Creatinine Ratio 15.3 (12.0-20.0); CO2, Blood 26 mmol/L (21-32); Calcium, Blood 8.3 mg/dL (8.5-10.1); Chloride, Blood 112 mmol/L (98-108); Creatinine, Blood 0.65 mg/dL (0.40-1.00); Globulin, Blood 4.1 g/dL (2.2-4.0); Glomerular Filtration Rate >60 (60-); Glucose, Blood 82 mg/dL (70-99); Potassium, Blood 3.8 mmol/L (3.5-5.5); Sodium, Blood 143 mmol/L (136-145); Total Protein, Blood 6.3 g/dL (6.4-8.2)
--- NOTE | 2018-08-05 02:08 | NUR ---
ASSUMED CARE PT ARRIVED TO UNIT APPROX. 2145 FROM ED VIA GURNEY. PT ABLE TO TRANSFER FROM [facility] TO BED. PT REPORTS SLIGHT DIZZINESS BEFORE TRANSFERING, BUT THIS WENT AWAY AFTER SITTING UP BEFORE MOVING. PT ARRIVED TO UNIT RECIVED FIRST UNIT OF PRBC'S. NO S/SX OF REACTION OR ACUTE DISTRESS. LUNG SOUNDS CLEAR. BLE +2 EDEMA NOTED PT REPORTS THIS TO HAVE BEEN THERE BEFORE COMING TO HOSPITAL. OREITNED PT TO ROOM, UNIT, POLICIES AND PROCEDURES. ADDMISSION PROCESS COMPLETED. ASSESSMENT COMPLETED. VITAL SIGNS STABLE. PT HEART RHYTHM SINUS BRADYCARDIA 48. PT DAUGHTER AT BEDSIDE. BED IN LOW POSITION, CALL LIGHT IN REACH AND PT DENIES ANY NEEDS AT THIS TIME. WILL CONTINUE TO MONITOR.
--- NOTE | 2018-08-05 05:51 | NUR ---
SHIFT SUMMARY PT PLEASANT, COOPERATIVE AND USES CALL LIGHT APPROPRIATELY. PT REMAINS A&O X4. ASSESSMENT FINDINGS REMAIN UNCHANGED SINCE ADMISSION. PT RECEIVED TOTAL OF 2 UNITS PRBC'S PER ORDERS. VITAL SIGNS MONITORED PER PROTOCOL AND REMAINED STABLE. NO S/SX OF ACUTE DISTREE DURING AND AFTER COMPLETION OF BLOOD. PT ABLE TO REST MOST OF SHIFT. PT HAS BEEN NPO SINCE MIDNIGHT. ABLE TO AMUBLATE TO BEDSIDE COMMODE NEEDED. BED IN LOW POSITION, CALL LIGHT IN REACH AND PT DENIES ANY NEEDS AT THI TIME. WILL CONTINUE TO MONITOR UNTIL HANDOFF TO DAYSHIFT RN.
--- NOTE | 2018-08-05 07:53 | NUR ---
ASSUMED CARE AT 0700. PT LYING IN BED WATCHING TV. PT ALERT AND ORIENTED. C/O TINGLING IN TOWS AND FINGERS. ON TELE, NSR AT 66, HEART SOUNDS REGULAR. PULSES STRONG. EDEMA BLE 2+. PT STATES HAVING SOB WHEN LYING AND USED AN EXTRA PILLOW OVER NIGHT. LUNG SONDS ABSENT R SIDE. PLAN FOR THOROCENTESIS TODAY @ 0930. ABDOMEN MILDLY DISTENDED AND SOFT. PT C/O PAIN ON RUQ. SCHEDULED FOR ENDOSCOPY THIS AFTERNOON. IV INFUSING IN BOTH AC'S. PT IS ACTIVE IN CARE. DAUGHTER IN ROOM. WILL CONTINUE TO MONITOR. CALL LIGHT IN REACH, BED IN LOWEST POSTION.
--- NOTE | 2018-08-05 15:42 | NUR ---
[facility]. PT A&0X3. REPORTS 9/10 "HEADACHE" PAIN. PT SOMULENT-DRIFTS OFF TO SLEEP WHEN NOT DISTURBED. LUNGS DIMINISHED IN THE BASES R>L. PT HAD RIGHT THORACENTESIS THIS AM. BAND AIDE IN PLACE. PT REPORTS 9/10 DISCOMFORT "WHEN THEY TOOK THE FLUID FROM MY LUNG." SATS>90% ON RA. NO NOTED SOB. PT STATES THAT IT IS HARD TO TAKE A FULL DEEP BREATH. NPO STATUS CONFIRMED. HISTORY AND ALLERGIES REVIEWED. PT SKIN APPEARS SLIGHTLY JAUNDICED. IN CONTACT ISOLATION FOR HISTORY OF ESBL.
--- NOTE | 2018-08-05 16:28 | NUR ---
08/05/18 1628 Sandor Stern Bite Block Placed3-LEAD EKG REVIEWED WITH PHYSICIAN PRIOR TO START OF PROCEDURE.Patient to ENDO 1History, Chart, Medications and Allergies reviewed before start of procedure.MONITOR INTACT WITH CONTINUOUS PULSE OXIMETRY AND INTERMITTENT BP.O2 VIA N/C INTACT THROUGHOUT SEDATION/PROCEDURE.See Anesthesia record
--- NOTE | 2018-08-05 17:56 | NUR ---
PT HAD HER THOROCENTESIS AT 0930. PT C/O PAIN IN LUNG AFTERWARDS. REQUESTED PAIN MEDICATION FROM PMD AND RECEIVED IT. PT NPO UNTIL ENOSCOPY AT 1600. PT RETURNED FROM ENDO AT 1520. THE BURSE WHO RETURNED HER SAID THAT SHE HAD MANY ABLASIONS. PICTURES IN CHARTS. DOCTOR ORDERED CLEAR LIQUID DIEST. PT LETHARGIC BUT EASILY AWOKEN VS NORMAL. PT CONTINUES TO SLEEP PEACEFULLY. WILL CONTINUE TO MONITOR UNTIL NEXT SHIFT. BED IN [id number] POSITION. CALL LIGHT WITHIN REACH.
--- NOTE | 2018-08-05 22:01 | NUR ---
PCU NIGHTSHIFT ASSUMED CARE OF PT APPROX. 1900. PT A&O X4. PT SITTING UP EATING DINNER AT THIS TIME AND TOLERATING WELL. ASSESMENT COMPLETED. VITAL SIGNS STABLE WITH HEART RATE IN 50'S. BLE +2 EDEMA NOTED. PT REPORTS PAIN IN RT KNEE, RT LUNG AND HEADACHE. PRN PAIN MEDICATION GIVEN FOR THIS. NO S/SX OF ACUTE DISTRESS. BED IN LOW POSITION, CALL LIGHT IN REACH AND PT DENIES ANY NEEDS AT THIS TIME. WILL CONTINUE TO MONITOR.
[2018-08-06 03:54] LABS: BASOPHILS PERCENT AUTO 0 % (0-2); EOSINOPHILS PERCENT AUTO 0 % (0-6); Hematocrit 25.7 % (33.0-51.0); Hemoglobin 7.8 g/dL (11.5-16.0); IMMATURE GRAN ABSOLUTE AUTO 0.02 K/mm3 (0.00-0.10); IMMATURE GRAN PERCENT AUTO 0 % (0-1); LYMPHOCYTES PERCENT AUTO 17 % (21-46); MONOCYTES ABSOLUTE AUTO 0.89 K/mm3 (0.16-1.47); MONOCYTES PERCENT AUTO 15 % (4-13); Mean Corpuscular HGB 28.9 pg (26.0-34.0); Mean Corpuscular HGB Conc 30.4 g/dL (31.5-36.5); Mean Platelet Volume 10.5 fL (9.1-12.4); NEUTROPHILS ABSOLUTE AUTO 4.13 K/mm3 (1.96-9.15); NEUTROPHILS PERCENT AUTO 68 % (41-73); Platelet Count 231 K/mm3 (150-400); RDW Coefficient Variation 17.2 % (11.7-14.2); White Blood Cell Count 6.04 K/mm3 (4.00-11.30)
[2018-08-06 03:58] LABS: Mean Corpuscular Volume 95 fL (80-100)
[2018-08-06 04:14] LABS: Alanine Aminotransfer (ALT/SGP 13 U/L (12-78); Albumin/Globulin Ratio 0.5 (0.8-1.8); Alk Phos 94 U/L (50-136); Anion Gap 5 mmol/L (6-16); Aspartate Aminotrans (AST/SGOT 20 U/L (12-37); Bilirubin, Total 1.2 mg/dL (0.1-1.0); Blood Urea Nitrogen 13 mg/dL (8-24); Bun/Creatinine Ratio 17.6 (12.0-20.0); CO2, Blood 24 mmol/L (21-32); Calcium, Blood 8.1 mg/dL (8.5-10.1); Chloride, Blood 113 mmol/L (98-108); Creatinine, Blood 0.74 mg/dL (0.40-1.00); Globulin, Blood 4.1 g/dL (2.2-4.0); Glomerular Filtration Rate >60 (60-); Glucose, Blood 155 mg/dL (70-99); Sodium, Blood 142 mmol/L (136-145); Total Protein, Blood 6.1 g/dL (6.4-8.2)
--- NOTE | 2018-08-06 05:20 | NUR ---
SHIFT SUMMARY PT PLEASANT, COOPERATIVE AND USES CALL LIGHT APPROPRAITELY. AT TIMES DURING SHIFT PT LETHARGIC AND EXCESSIVELY TIRED BUT REMAINED ARROUSABLE. PT DID FALL ASLEEP WHILE TALKING WITH STAFF A COUPLE OF TIMES. PT REPORTS JUST FEELING SO TIRED FROM EVENTS OF YESTERDAY 08/05/18. PT VITAL SIGNS REMAIN STABLE. PT AWAKE AND MUCH MORE ALERT AT THIS TIME. SHE REPORTS SHE WOULD LIKE TO BE AWAKE FOR THE DAY AT THIS TIME. PT ABLE TO REST MOST OF SHIFT. BED IN LOW POSITION, BED ALARM ON, CALL LIGHT IN REACH AND PT DENIES ANY NEEDS AT THIS TIME. WILL CONTINUE TO MONITOR UNTIL HANDOFF TO DAYSHIFT RN.
--- NOTE | 2018-08-06 07:35 | NUR ---
NURSING PCU DAYSHIFT: Assumed care of pt at approx 0700. A/O, cooperative w/care, mildly anxious. Skin is intact, several healed scars noted to LFA d/t hx of self cutting, no current wounds or breakdown noted. C/O 7/10 pain in knees, R side, and ROSS, treating w/meds and rest. Tele in place, SB, SBP 90's, no c/o CP/pressure, trace to 1+ BLE edema. L/S fairly cta though dim in R mid and lower lobes, O2 sat mid 90's on RA, respirations shallow, occ dry/PRINT MANAGER cough. Abd SNT, BT+, remains in FL diet at this time, voiding w/o difficulty per pt. PIV x2, s/l. No s/s of acute distress at this time. Pt OOB for shower before breakfast, tolerated well. Pt is requesting pain management w/oral medications, will discuss w/PMD. Call light in reach, cont to monitor for any changes.
--- NOTE | 2018-08-06 14:38 | NUR ---
NURSING PCU DAYSHIFT TRANSFER SUMMARY: No acute changes noted t/o the shift. Seen by PMD, new d/o received. PRBC's x1 adminstered, pt tolerated well. Spoke w/GI, cleared from GI standpoint. Diet upgraded to low sodium/soft, pt tolerating diet advances well. Changed to medical status w/o tele, bed assignment received. Telephone report provided to accepting RN, will xfer via w/c. Pt denies any questions/concerns at this time, cont to monitor until xfer is completed.
--- NOTE | 2018-08-06 18:13 | NUR ---
TRANSFER/SHIFT SUMMARY RECEIVED REPORT FROM RICHAR VALLE RN IN PCU. PT TO ROOM VIA WC AT 1542. PT SBA/IND TRANSFERED TO BED. PT ORIENTED TO ROOM AND CALL LIGHT. PT A&O, FORGETFUL AT TIMES. PT RESTING IN BED DUIRNG SHIFT. UP IND TO ROOM. PT REPORTS PAIN IN R SIDE, KNEES AND ROSS, MEDICATED PER EMAR. PT DENIES SOB AND N/V DURING SHIFT. LS DIM IN RML AND RLL. HEART SOUNDS REGULAR. VSS. ESBL R/O SPECIMEN SENT, RECTAL SPECIMEN, NO CATH AND NO WOUNDS PRESENT. VSS. NO OTHER ACUTE CHANGES NOTED DURING SHIFT. WILL CONTINUE TO MONITOR UNTIL REPORT GIVEN TO ONCOMING RN.
--- NOTE | 2018-08-07 04:07 | NUR ---
SHIFT SUMMARY PATIENT HAD NO ACUTE CHANGES OBSERVED DURING THE SHIFT. AXO X 3 BUT FORGETFUL AT TIMES. INDEPENDENT IN THE ROOM. LOOSE STOOLS ON ENULOSE. VSS/AFEBRILE. REPORTS RS CHEST AND BACK PAIN AND RECEIVED OXY 10 MG PER EMAR PRN. PIV REMAINS INTACT. DENIES SOB AND N/V. CONTACT PRECAUTIONS. COOPERATIVE WITH CARE. CALL LIGHT IN REACH. BED IN LOWEST POSITION. WILL CONTINUE TO MONITOR UNTIL DAY SHIFT NURSE ASSUMES CARE.
[2018-08-07 05:07] LABS: BASOPHILS ABSOLUTE AUTO 0.02 K/mm3 (0.00-0.23); BASOPHILS PERCENT AUTO 0 % (0-2); EOSINOPHILS ABSOLUTE AUTO 0.14 K/mm3 (0.00-0.68); EOSINOPHILS PERCENT AUTO 1 % (0-6); Hematocrit 31.2 % (33.0-51.0); Hemoglobin 9.5 g/dL (11.5-16.0); IMMATURE GRAN ABSOLUTE AUTO 0.03 K/mm3 (0.00-0.10); IMMATURE GRAN PERCENT AUTO 0 % (0-1); LYMPHOCYTES ABSOLUTE AUTO 1.47 K/mm3 (0.84-5.20); LYMPHOCYTES PERCENT AUTO 13 % (21-46); MONOCYTES ABSOLUTE AUTO 1.63 K/mm3 (0.16-1.47); MONOCYTES PERCENT AUTO 15 % (4-13); Mean Corpuscular HGB 28.9 pg (26.0-34.0); Mean Corpuscular HGB Conc 30.4 g/dL (31.5-36.5); Mean Corpuscular Volume 95 fL (80-100); Mean Platelet Volume 10.7 fL (9.1-12.4); NEUTROPHILS ABSOLUTE AUTO 7.78 K/mm3 (1.96-9.15); NEUTROPHILS PERCENT AUTO 70 % (41-73); Platelet Count 244 K/mm3 (150-400); RDW Coefficient Variation 17.6 % (11.7-14.2); RDW Standard Deviation 59.9 fL (35.1-46.3); Red Blood Cell Count 3.29 M/mm3 (3.80-5.20); White Blood Cell Count 11.07 K/mm3 (4.00-11.30)
[2018-08-07 05:51] LABS: Alanine Aminotransfer (ALT/SGP 15 U/L (12-78); Albumin, Blood 2.3 g/dL (3.4-5.0); Albumin/Globulin Ratio 0.5 (0.8-1.8); Alk Phos 102 U/L (50-136); Anion Gap 5 mmol/L (6-16); Aspartate Aminotrans (AST/SGOT 25 U/L (12-37); Bilirubin, Total 1.8 mg/dL (0.1-1.0); Blood Urea Nitrogen 9 mg/dL (8-24); Bun/Creatinine Ratio 11.8 (12.0-20.0); CO2, Blood 24 mmol/L (21-32); Calcium, Blood 8.6 mg/dL (8.5-10.1); Chloride, Blood 112 mmol/L (98-108); Creatinine, Blood 0.77 mg/dL (0.40-1.00); Globulin, Blood 4.4 g/dL (2.2-4.0); Glomerular Filtration Rate >60 (60-); Glucose, Blood 96 mg/dL (70-99); Potassium, Blood 3.8 mmol/L (3.5-5.5); Sodium, Blood 141 mmol/L (136-145); Total Protein, Blood 6.7 g/dL (6.4-8.2)
--- NOTE | 2018-08-07 14:21 | NUR ---
Metn pt lying in bed resting Pt. is doing much btter from P C U to 3rd floorm , encouraged pt. and prayed for her.
[2018-08-07] MEDS ORDERED: OMEPRAZOLE MAGN20 MG PO (15:08)
[2018-08-07] MEDS ORDERED: ROXICODONE5 MG PO (15:09)
--- NOTE | 2018-08-07 17:27 | NUR ---
DISCHARGE SUMMARY PATIENT HAS BEEN GIVEN ALL INFORMATION. TRANSPORTATION HAS BEEN SET UP FOR THE PATIENT. IVS HAVE BEEN REMOVED.
== END 2018-08-07 17:06 | disposition home or self-care (01) | DRG 812 ==
LOC: ER 17:03 → PCU 18:37 → MEDS 08-06 15:38
PROVIDERS: Emergency Medicine; Internal Medicine; Internal Medicine Gastroenterology; Nurse Practitioner Acute Care; ADMIT Hospitalist
PROC: 0W993ZZ Drainage of Right Pleural Cavity, Percutaneous Approach (ICD-10-PCS; 2018-08-05)
PROC: 0D568ZZ Destruction of Stomach, Via Natural or Artificial Opening Endoscopic (ICD-10-PCS; 2018-08-05)
PROC: 0DD68ZX Extraction of Stomach, Via Natural or Artificial Opening Endoscopic, Diagnostic (ICD-10-PCS; 2018-08-05)
PROC: 30233N1 Transfusion of Nonautologous Red Blood Cells into Peripheral Vein, Percutaneous Approach (ICD-10-PCS; principal; 2018-08-05 16:00)
DX: D62 Acute posthemorrhagic anemia (principal); J94.8 Other specified pleural conditions; K76.6 Portal hypertension; J90 Pleural effusion, not elsewhere classified; K31.819 Angiodysplasia of stomach and duodenum without bleeding; R13.10 Dysphagia, unspecified; B19.20 Unspecified viral hepatitis C without hepatic coma; F20.9 Schizophrenia, unspecified; M79.7 Fibromyalgia; G47.33 Obstructive sleep apnea (adult) (pediatric); K70.30 Alcoholic cirrhosis of liver without ascites; J45.40 Moderate persistent asthma, uncomplicated; F41.8 Other specified anxiety disorders; Z87.891 Personal history of nicotine dependence
CPT/HCPCS: 32555; 36415; 36430; 71045; 80053; 82140; 82272; 83735; 85014; 85018; 85025; 85610; 86850; 86900; 86901; 86923; 87081; 88305; 88342; 93005; 93010; 94640; 94760; 96365; 96366; 99285-25; C9113; J2250; J2704; J2930; J3010; J7030; J7120; P9016

== ENCOUNTER 2018-09-03 13:47 | Day surgery (SDC) | payer OTHER ==
[~2018-09-03] VITALS: Ht 157.5 cm; Wt 63.7 kg
[~2018-09-03 13:47] MED LIST changes: +Aldactone25 MG PO; +LACT PO; +OMEPRAZOLE MAGN20 MG PO; +POTCHL10ER PO; +PYRI100 PO; +ROXICODONE5 MG PO
--- NOTE | 2018-09-03 15:22 | NUR ---
09/03/18 1522 Mera Arreaga 1ST IV ATTEMPT IN RIGHT HAND BY RN 2ND IV ATTEMPT IN RIGHT FOREARM BY CIRILO
--- NOTE | 2018-09-03 17:02 | NUR ---
09/03/18 1702 Mary Mcgraw (Debby 10ML SALINE INJECTED FOR EMR/POLYPECTOMY.
== END 2018-09-03 16:51 | disposition home or self-care (01) ==
LOC: ORSCSDS 13:47
PROVIDERS: Internal Medicine Gastroenterology
PROC: 0DBL8ZX Excision of Transverse Colon, Via Natural or Artificial Opening Endoscopic, Diagnostic (ICD-10-PCS; principal; 2018-09-03 15:15)
PROC: 0DBM8ZX Excision of Descending Colon, Via Natural or Artificial Opening Endoscopic, Diagnostic (ICD-10-PCS; principal; 2018-09-03 15:15)
PROC: 0DBH8ZX Excision of Cecum, Via Natural or Artificial Opening Endoscopic, Diagnostic (ICD-10-PCS; principal; 2018-09-03 15:15)
DX: R19.4 Change in bowel habit (principal); R10.9 Unspecified abdominal pain; D12.0 Benign neoplasm of cecum; D12.3 Benign neoplasm of transverse colon; D12.4 Benign neoplasm of descending colon; J44.9 Chronic obstructive pulmonary disease, unspecified; G47.33 Obstructive sleep apnea (adult) (pediatric); I12.9 Hypertensive chronic kidney disease with stage 1 through stage 4 chronic kidney disease, or unspecified chronic kidney disease; N18.9 Chronic kidney disease, unspecified; K74.60 Unspecified cirrhosis of liver; Z79.899 Other long term (current) drug therapy
CPT/HCPCS: 88305; J2704; J7120

== ENCOUNTER 2018-09-09 09:46 | Observation (INO) | payer OTHER ==
[~2018-09-09] VITALS: Ht 157.5 cm; Wt 64.4 kg
[2018-09-09 10:22] LABS: BASOPHILS ABSOLUTE AUTO 0.02 K/mm3 (0.00-0.23); BASOPHILS PERCENT AUTO 0 % (0-2); EOSINOPHILS ABSOLUTE AUTO 0.29 K/mm3 (0.00-0.68); EOSINOPHILS PERCENT AUTO 5 % (0-6); Hematocrit 20.8 % (33.0-51.0); IMMATURE GRAN ABSOLUTE AUTO 0.01 K/mm3 (0.00-0.10); IMMATURE GRAN PERCENT AUTO 0 % (0-1); LYMPHOCYTES ABSOLUTE AUTO 1.53 K/mm3 (0.84-5.20); LYMPHOCYTES PERCENT AUTO 25 % (21-46); MONOCYTES ABSOLUTE AUTO 1.24 K/mm3 (0.16-1.47); MONOCYTES PERCENT AUTO 21 % (4-13); Mean Corpuscular HGB 29.1 pg (26.0-34.0); Mean Corpuscular HGB Conc 28.8 g/dL (31.5-36.5); Mean Corpuscular Volume 101 fL (80-100); Mean Platelet Volume 10.9 fL (9.1-12.4); NEUTROPHILS ABSOLUTE AUTO 2.96 K/mm3 (1.96-9.15); NEUTROPHILS PERCENT AUTO 49 % (41-73); Platelet Count 229 K/mm3 (150-400); RDW Coefficient Variation 17.5 % (11.7-14.2); RDW Standard Deviation 64.2 fL (35.1-46.3); Red Blood Cell Count 2.06 M/mm3 (3.80-5.20); White Blood Cell Count 6.05 K/mm3 (4.00-11.30)
[2018-09-09 10:58] LABS: Alanine Aminotransfer (ALT/SGP 17 U/L (12-78); Albumin, Blood 2.4 g/dL (3.4-5.0); Albumin/Globulin Ratio 0.6 (0.8-1.8); Alk Phos 132 U/L (50-136); Anion Gap 6 mmol/L (6-16); Aspartate Aminotrans (AST/SGOT 28 U/L (12-37); Bilirubin, Total 0.6 mg/dL (0.1-1.0); Blood Urea Nitrogen 10 mg/dL (8-24); Bun/Creatinine Ratio 12.7 (12.0-20.0); CO2, Blood 25 mmol/L (21-32); Calcium, Blood 8.4 mg/dL (8.5-10.1); Chloride, Blood 109 mmol/L (98-108); Creatinine, Blood 0.79 mg/dL (0.40-1.00); Globulin, Blood 4.2 g/dL (2.2-4.0); Glomerular Filtration Rate >60 (60-); Glucose, Blood 102 mg/dL (70-99); Potassium, Blood 3.9 mmol/L (3.5-5.5); Sodium, Blood 140 mmol/L (136-145); Total Protein, Blood 6.6 g/dL (6.4-8.2)
[2018-09-09 11:30] LABS: International Normalized Ratio 1.07; Prothrombin Time Results 11.3 Sec (9.7-11.5)
--- NOTE | 2018-09-09 13:15 | NUR ---
ASSUMED CARE OF PATIENT RECEIVED REPORT FROM CELSO KERR, ED. PATIENT A/O AND SETTLED TO ROOM WITH FIRST UNIT OF BLOOD GOING. WILL CONTINUE TO MONITOR.
[2018-09-09] MEDS ORDERED: Bentyl10 MG PO (13:35)
[2018-09-09] MEDS ORDERED: SUCR1 PO (14:49)
[2018-09-09] MEDS ORDERED: OXYC5 PO (14:58)
--- NOTE | 2018-09-09 17:57 | NUR ---
Shift Summary A/O and cooperative with care. 1 SBA to bathroom. Steady gait. Pt received 2 units of blood this shift, tolerated well, VSS t/o transfusion, lung sounds have been cleared. C/O of chronic pain in bilateral lower joints, no N/V/D. Will continue to monitor until shift report handed off to abbey KERR.
--- NOTE | 2018-09-09 18:02 | NUR ---
STUDENT HAD PT CARE TODAY,PLEASE REFER TO STUDENT NOTES FOR SHIFT SUMMARY.
--- NOTE | 2018-09-10 01:53 | NUR ---
SHIFT SUMMARY PT WAS AWAKE DURING SHIFT REPORT; A&O, PLEASANT. ADMITTED FOR GIB, BUT CAME INTO ER AFTER RUNNING OUT OF PAIN MEDICATION FOR SHOULDER AND KNEE D/T FALL AT HOME. RADIOLOGY TO AT HS FOR XRAY. PER SHIFT REPORT, PT RECEIVED 2 UNITS PRBC'S FOR H&H AT 6.0. PT WITH HX OF CIRRHOSIS, ASCITES, HEP C+, CKD, AND GIB'S. DR CROWE CONSULTED FOR ANEMIA. PT HAS BEEN RESTING QUIETLY MOST OF SHIFT. REPORTED MIGRAINE AT HS. MEDICATED PER EMAR. NO FURTHER C/O PAIN. PT CALLS FOR ASSIST TO BTHRM NEEDED WITH IV PUMP. LOOSE STOOL SINCE LACTULOSE AT HS. IN CONTACT ISO FOR HX OF ESBL IN URINE. HX OF SCHIZOPHRENIA. SCD'S ON SINCE START OF SHIFT; PT TOLERATING WELL. CALL LT IN REACH. ABLE TO MAKE NEEDS KNOWN.
[2018-09-10 05:33] LABS: Hematocrit 25.9 % (33.0-51.0); Hemoglobin 8.3 g/dL (11.5-16.0); Mean Platelet Volume 10.6 fL (9.1-12.4); Platelet Count 206 K/mm3 (150-400); RDW Coefficient Variation 19.2 % (11.7-14.2); RDW Standard Deviation 64.4 fL (35.1-46.3); Red Blood Cell Count 2.86 M/mm3 (3.80-5.20); White Blood Cell Count 6.23 K/mm3 (4.00-11.30)
[2018-09-10 05:45] LABS: Mean Corpuscular Volume 91 fL (80-100)
[2018-09-10 06:17] LABS: Anion Gap 8 mmol/L (6-16); Blood Urea Nitrogen 7 mg/dL (8-24); Bun/Creatinine Ratio 10.2 (12.0-20.0); CO2, Blood 23 mmol/L (21-32); Calcium, Blood 8.6 mg/dL (8.5-10.1); Chloride, Blood 114 mmol/L (98-108); Creatinine, Blood 0.69 mg/dL (0.40-1.00); Glomerular Filtration Rate >60 (60-); Glucose, Blood 76 mg/dL (70-99); Potassium, Blood 3.8 mmol/L (3.5-5.5); Sodium, Blood 145 mmol/L (136-145)
[2018-09-10 11:13] LABS: Stool Occult Bld Immuno 1 Positive (NEGATIVE)
--- NOTE | 2018-09-10 14:03 | NUR ---
BROUGHT TO [facility] FROM MED FLOOR. ADMISSION TO UNIT STARTED PATIENT VERIFIES NPO
--- NOTE | 2018-09-10 14:29 | NUR ---
09/10/18 1429 Sandor Stern Bite Block Placed3-LEAD EKG REVIEWED WITH PHYSICIAN PRIOR TO START OF PROCEDURE.Patient to ENDO 1. MONITOR INTACT WITH CONTINUOUS PULSE OXIMETRY AND INTERMITTENT BP.O2 VIA N/C INTACT THROUGHOUT SEDATION/PROCEDURE.See Anesthesia record.
--- NOTE | 2018-09-10 16:27 | NUR ---
PATIENT A/OX3, FORGETFUL AT TIMES. VSS THIS SHIFT. HAD A R THORACENTESIS WITH BAND-AID IN PLACE THAT REMAINS C/D/I. PATIENT ALSO HAD AN ENDOSCOPY THIS AFTERNOON WITH NO SIGNIFICANT FINDINGS. DIET HAS BEEN ADVANCED TO LOW NA+ DIET. PATIENT IS CONTINENT OF URINE AND STOOL THIS SHIFT. REPORTS ROSS AND TYLENOL GIVEN TO TREAT. UP WITH SBA TO RESTROOM. LUNGS CLEAR, ON RA.
--- NOTE | 2018-09-10 17:11 | NUR ---
Per admit trigger, I attmepted to meet with Nic regarding an Advanced Directive for her. This trigger is placed on nearly every one of Nic's admissions. In the past she has been quite clear about her desire to remain a full code. She is still legally (although ) and she would like her spouse to remain as her MPOA. Today, Nic is far too groggy from conversation. In fact, she could not stay awake enough to complete a sentence. [employer] will remain available. Father Mike will continue to visit Nic as she is Shinto.
--- NOTE | 2018-09-11 07:36 | NUR ---
SUMMARY: POD 1 ENDOSCOPY, EGD WITH ABLATION AND THORACENTESIS FOLLOWED BY DR. CROWE AND ON HOSPITALIST SERVICE. NO ACUTE CHANGES THIS SHIFT. VSS, AFEBRILE, ROOM AIR, TOLERATING PO INTAKE, VOIDING AND HAVING LOOSE STOOLS. PT DENIES REFLUX, OR ABD PAIN. MILD THROAT IRRITATION WELL CONTROLLED WITH PO TYLENOL. PT REMAINS IN [facility] [employer] AND ANTICIPATE DC HOME LATER THIS DAY.
[2018-09-11 09:12] LABS: Hematocrit 29.5 % (33.0-51.0)
[2018-09-11] MEDS ORDERED: LACTULOSE20 GM/30 M PO (12:57)
--- NOTE | 2018-09-11 15:17 | NUR ---
Pt. is doing much better and is sent home ,
--- NOTE | 2018-09-11 15:29 | NUR ---
DISCHARGE NOTE IV DC'D WNL. DISCHARGE PRESCRIPTIONS FAXED TO PREFERED PHARMACY. PT PROVIDED WITH HARDCOPY AND VERBAL INSTRUCTIONS FOR DISCHARGE INCLUDING: DIAGNOSES, MEDICATIONS, FOLLOW UP APPOINTMENTS. PT HAD NO FURTHER QUESTIONS. TRANSPORTATION ARRANGED FOR BY CHARGE NURSE. PT ACCOMPANIED TO TRANSPORT BY [employer] VIA WHEELCHAIR.
== END 2018-09-11 14:49 | disposition home or self-care (01) ==
LOC: ER 09:46 → MEDS 09:47 → ER 13:35 → ENPENDDIS 09-11 11:18 → MEDS 09-11 14:49
PROVIDERS: Emergency Medicine; Internal Medicine Gastroenterology; Physician Assistant; ADMIT Internal Medicine
PROC: 0W3P8ZZ Control Bleeding in Gastrointestinal Tract, Via Natural or Artificial Opening Endoscopic (ICD-10-PCS; principal; 2018-09-10 14:30)
DX: K31.819 Angiodysplasia of stomach and duodenum without bleeding (principal); K44.9 Diaphragmatic hernia without obstruction or gangrene; D50.0 Iron deficiency anemia secondary to blood loss (chronic); M19.90 Unspecified osteoarthritis, unspecified site; K76.6 Portal hypertension; K70.31 Alcoholic cirrhosis of liver with ascites; K31.89 Other diseases of stomach and duodenum; B18.2 Chronic viral hepatitis C; K59.00 Constipation, unspecified; I12.9 Hypertensive chronic kidney disease with stage 1 through stage 4 chronic kidney disease, or unspecified chronic kidney disease; N18.3 Chronic kidney disease, stage 3 (moderate); F20.9 Schizophrenia, unspecified; F32.9 Major depressive disorder, single episode, unspecified; F41.9 Anxiety disorder, unspecified; G43.909 Migraine, unspecified, not intractable, without status migrainosus; Z88.0 Allergy status to penicillin; Z88.1 Allergy status to other antibiotic agents; Z91.041 Radiographic dye allergy status; Z88.2 Allergy status to sulfonamides; Z79.899 Other long term (current) drug therapy
CPT/HCPCS: 32555; 36415; 36430; 71045; 73030; 73562-RT; 73700; 74018; 76705; 80048; 80053; 82105; 82140; 82274; 83690; 85014; 85018; 85025; 85027; 85610; 86850; 86900; 86901; 86923; 94640; 94760; 96361; 96374; 96375; 96376; 99285-25; C9113; G0378; J0744; J1200; J2704; J2765; J7030; J7120; P9016

== ENCOUNTER 2018-10-25 09:34 | Inpatient (IN) | payer OTHER ==
[~2018-10-25] VITALS: Ht 157.5 cm; Wt 65.0 kg
[~2018-10-25 09:34] MED LIST changes: +OXYC5 PO
[2018-10-25 10:32] LABS: BASOPHILS ABSOLUTE AUTO 0.03 K/mm3 (0.00-0.23); BASOPHILS PERCENT AUTO 0 % (0-2); EOSINOPHILS ABSOLUTE AUTO 0.15 K/mm3 (0.00-0.68); EOSINOPHILS PERCENT AUTO 2 % (0-6); Hematocrit 22.8 % (33.0-51.0); Hemoglobin 6.4 g/dL (11.5-16.0); IMMATURE GRAN ABSOLUTE AUTO 0.02 K/mm3 (0.00-0.10); IMMATURE GRAN PERCENT AUTO 0 % (0-1); LYMPHOCYTES ABSOLUTE AUTO 1.57 K/mm3 (0.84-5.20); LYMPHOCYTES PERCENT AUTO 21 % (21-46); MONOCYTES ABSOLUTE AUTO 1.08 K/mm3 (0.16-1.47); MONOCYTES PERCENT AUTO 15 % (4-13); Mean Corpuscular HGB 25.1 pg (26.0-34.0); Mean Corpuscular HGB Conc 28.1 g/dL (31.5-36.5); Mean Corpuscular Volume 89 fL (80-100); Mean Platelet Volume 9.7 fL (9.1-12.4); NEUTROPHILS PERCENT AUTO 62 % (41-73); Platelet Count 241 K/mm3 (150-400); RDW Coefficient Variation 17.7 % (11.7-14.2); RDW Standard Deviation 58.4 fL (35.1-46.3); Red Blood Cell Count 2.55 M/mm3 (3.80-5.20); White Blood Cell Count 7.45 K/mm3 (4.00-11.30)
[2018-10-25 10:44] LABS: International Normalized Ratio 1.14; Prothrombin Time Results 11.9 Sec (9.7-11.5)
[2018-10-25 10:49] LABS: Alanine Aminotransfer (ALT/SGP 23 U/L (12-78); Albumin, Blood 2.3 g/dL (3.4-5.0); Albumin/Globulin Ratio 0.5 (0.8-1.8); Alk Phos 113 U/L (50-136); Anion Gap 5 mmol/L (6-16); Aspartate Aminotrans (AST/SGOT 22 U/L (12-37); Bilirubin, Total 0.6 mg/dL (0.1-1.0); Blood Urea Nitrogen 10 mg/dL (8-24); Bun/Creatinine Ratio 13.4 (12.0-20.0); CO2, Blood 25 mmol/L (21-32); Calcium, Blood 8.3 mg/dL (8.5-10.1); Chloride, Blood 113 mmol/L (98-108); Creatinine, Blood 0.75 mg/dL (0.40-1.00); Globulin, Blood 4.6 g/dL (2.2-4.0); Glomerular Filtration Rate >60 (60-); Glucose, Blood 88 mg/dL (70-99); Potassium, Blood 4.1 mmol/L (3.5-5.5); Sodium, Blood 143 mmol/L (136-145); Total Protein, Blood 6.9 g/dL (6.4-8.2)
[2018-10-25] MEDS ORDERED: Colace100 MG PO (12:05)
[2018-10-25] MEDS ORDERED: MAGOXI400 PO (12:08)
--- NOTE | 2018-10-25 14:30 | NUR ---
Patient arrived from ER post report from Stevenson KERR. She ambulated from gurney to bathroom when getting into PCU 6, she then independently ambulated to bed. She arrived with Cipro infusing and 1 unit PRBC infusing. VS done and admission assessment. Started new IV in RFA as the one in her LAC was bothering her. VSS Patient alert and oriented and independent in room . Call light within reach of patient.
[2018-10-25 17:35] LABS: Source, Urine Voided
[2018-10-25 17:45] LABS: Bilirubin, Urine Neg (Neg); Blood, Urine 3+ (Neg); Glucose Qualitative, Urine Neg (Neg); Ketones, Urine Neg (Neg); Leukocyte Esterase, Urine Neg (Neg); Nitrite, Urine Neg (Neg); Protein, Urine Neg (Neg); Specific Gravity, Urine 1.005 (1.003-1.022); Urobilinogen, Urine NORM (Normal)
--- NOTE | 2018-10-25 17:50 | NUR ---
[place] done by Elmer KERR. She has been up with one assist to bathroom. @nd unit blood started and about and just finished. She is alert and oriented. Called Dr Gu and got order fro Cortisporin for ear pain in right ear. Dr Villavicencio called and he will follow up. LR at 75ml/hr started.
[2018-10-25 17:58] LABS: Appearance, Urine Clear (Clear); Color, Urine Yellow (P-Yellow)
[2018-10-25 17:59] LABS: Squamous Epithelial Cells Few /hpf (Few)
[2018-10-25 18:02] LABS: Bacteria Mod /hpf; White Blood Cells, Urine Rare /hpf (0-5)
[2018-10-25 18:03] LABS: Hematocrit 29.4 % (33.0-51.0); Mean Corpuscular HGB 27.3 pg (26.0-34.0); Mean Corpuscular HGB Conc 30.6 g/dL (31.5-36.5); Mean Corpuscular Volume 89 fL (80-100); Mean Platelet Volume 10.4 fL (9.1-12.4); Platelet Count 219 K/mm3 (150-400); RDW Coefficient Variation 16.9 % (11.7-14.2)
[2018-10-26 04:59] LABS: Hematocrit 29.2 % (33.0-51.0); Mean Corpuscular HGB 26.6 pg (26.0-34.0); Mean Corpuscular HGB Conc 30.8 g/dL (31.5-36.5); Mean Corpuscular Volume 86 fL (80-100); Mean Platelet Volume 10.4 fL (9.1-12.4); Platelet Count 228 K/mm3 (150-400); RDW Coefficient Variation 17.4 % (11.7-14.2); Red Blood Cell Count 3.38 M/mm3 (3.80-5.20); White Blood Cell Count 8.06 K/mm3 (4.00-11.30)
[2018-10-26 05:20] LABS: Alanine Aminotransfer (ALT/SGP 21 U/L (12-78); Albumin, Blood 2.3 g/dL (3.4-5.0); Albumin/Globulin Ratio 0.6 (0.8-1.8); Alk Phos 104 U/L (50-136); Anion Gap 6 mmol/L (6-16); Aspartate Aminotrans (AST/SGOT 21 U/L (12-37); Bilirubin, Total 2.3 mg/dL (0.1-1.0); Blood Urea Nitrogen 8 mg/dL (8-24); Bun/Creatinine Ratio 11.7 (12.0-20.0); CO2, Blood 22 mmol/L (21-32); Calcium, Blood 8.2 mg/dL (8.5-10.1); Chloride, Blood 114 mmol/L (98-108); Creatinine, Blood 0.68 mg/dL (0.40-1.00); Globulin, Blood 4.1 g/dL (2.2-4.0); Glomerular Filtration Rate >60 (60-); Glucose, Blood 67 mg/dL (70-99); Potassium, Blood 4.2 mmol/L (3.5-5.5); Sodium, Blood 142 mmol/L (136-145); Total Protein, Blood 6.4 g/dL (6.4-8.2)
--- NOTE | 2018-10-26 06:54 | NUR ---
SHIFT SUMMARY PT HAS REMAINED AOX4 THROUGHOUT SHIFT. VSS. PLEASANT AND COOPERATIVE WITH CARE. PT CONTINUES TO AMBULATE WITH STANDBY ASSIST TO RESTROOM WITH MINIMAL DIFFICULTY. MEDICATED MULTIPLE TIMES FOR PAIN THROUGHOUT THE NIGHT THAT DECREASES WITH ORDERED MEDICATIONS. PT CONTINUES TO REPORT PAIN TO R LOWER ABDOMEN. PT HAS HAD NO S/SX OF BLEEDING, STOOL HAS BEEN BROWN, NO BLOOD PRESENT. HAS REMAINED NPO EXCEPT FOR SIPS OF WATER WITH MEDICATIONS AND ICE CHIPS. NO OTHER CHANGES FROM INITIAL ASSESSMENT. WILL CONTINUE TO MONITOR AND REPORT TO ONCOMING SHIFT RN. BED IN LOW POSITION, CALL LIGHT IN REACH.
--- NOTE | 2018-10-26 07:30 | NUR ---
PCU DAYSHIFT ASSUMED CARE OF PT APPROX. 0700. PT A&OX4. ASSESSMENT COMPLETED. VITAL SIGNS STABLE. PT REPROTS PAIN IN RIGHT SIDE OF ABDOMEN. PT REPORTS THIS IS NORMALLY THERE BUT NOT SEVERE. PT REPROTS IT IS CURRENLTY TOLERABLE AT THIS TIME. WILL GIVE PRN PAIN MEDICATION NEEDED. PT DENIES ANY N/V/ AT THIS TIME. PT ABLE TO AMBULATE TO BATHROOM AND TOELRATED WELL. SPOKE WITH Karin PHYSICIAN THIS AM AND PHYSICIAN WILL BE IN TO SEE PT THIS AFTER NOON. PHYSICIAN STATES PT CAN HAVE CLEAR LIQUID DIET FOR BREAKFAST AND LUNCH. BED IN LOW POSITION, CALL LIGHT IN REACH AND PT DENIES ANY NEEDS AT THIS TIME.
--- NOTE | 2018-10-26 14:30 | NUR ---
NOTE DAY SURGERY RN ARRIVED WITH RAFAELA TO TAKE PT TO DAY SURGERY FOR ENDOSCOPY TO BE DONE BY DR. CROWE. PT ABLE TO AMBUALTE TO BATHROOM BEFORE PROCEDURE. PT DENIES N/V AND PAIN CURRENTLY TOERABLE. PT ESCORTED BY DAY SURGERY RN VIA RAFA[facility]A TO DAY SURGERY.
--- NOTE | 2018-10-26 14:32 | NUR ---
Ambulatory in PCU FROM BED TO GURNEY, GAIT STABLE, History, Chart, Medications and Allergies reviewed before start of procedure.Lungs clear T/O to Auscultation. Patient confirms NPO status and agrees with scheduled surgery. Pre-Op teaching done. Pt verbalizes understanding.
--- NOTE | 2018-10-26 15:17 | NUR ---
10/26/18 1517 Joni Mayo 3-LEAD EKG REVIEWED WITH PHYSICIAN PRIOR TO START OF PROCEDURE.PATIENT CONFIRMS NPO STATUS AND AGREES WITH SCHEDULED PROCEDURE.History, Chart, Medications and Allergies reviewed before start of procedure. MONITOR INTACT WITH CONTINUOUS PULSE OXIMETRY AND INTERMITTENT BP. O2 VIA N/C INTACT THROUGHOUT SEDATION/PROCEDURE. Bite Block Placed
--- NOTE | 2018-10-26 16:23 | NUR ---
NOTE PT RETURNED BACK FROM DAY SURGERY. PT TRANSFER FROM [facility] TO BED VIA STAFF. APPROX. 15 MINUTES AFTER RETURNING PT AMBULATED TO BATHROOM AND TOELRATED WELL. PT DENIES ANY DIZZINESS AND LIGHTHEADEDNESS WITH THIS. ASSESSED PT. VTIAL SIGNS STABLE. BEGAN MONTIORING PER PROTOCOL. PT REPORTS FEELING HUNGRY. PHYSCIAN OKAYED PT TO EAT TOLERATED. PT CURRENTLY SITTING UP IN BED EATING AT THIS TIME. G.I. PHYSICIAN REPROTS PT CAN GO HOME FAR HE IS CONCERNED. NOTIFIED HOSPITALIST OF THIS.
--- NOTE | 2018-10-26 16:32 | NUR ---
NOTE RECIEVED DISCHARGE ORDERS. WILL BEGIN TO COMPLETE PROCESS. NEW MEDICIAOTNS TO BE CALLED INTO PHARMACY.
--- NOTE | 2018-10-26 17:31 | NUR ---
DISCHARGE REVIEWED DISCHARGE INFORMATION WITH PATIENT. ANSWERED QUESTIONS. REMOVED IV'S. PT AWAITING RIDE FROM [facility]. WILL CONTINUE TO MONITOR [facility] PT TO BE ESCORTS BY [facility] STAFF AND TAKEN HOME.
== END 2018-10-26 17:48 | disposition home or self-care (01) | DRG 378 ==
LOC: ER 09:34 → ERHOLD 12:00 → PCU 12:00
PROVIDERS: Emergency Medicine; Internal Medicine Gastroenterology; ADMIT Internal Medicine
PROC: 30233N1 Transfusion of Nonautologous Red Blood Cells into Peripheral Vein, Percutaneous Approach (ICD-10-PCS; 2018-10-26)
PROC: 0W3P8ZZ Control Bleeding in Gastrointestinal Tract, Via Natural or Artificial Opening Endoscopic (ICD-10-PCS; principal; 2018-10-26 07:30)
DX: K31.811 Angiodysplasia of stomach and duodenum with bleeding (principal); K76.6 Portal hypertension; D62 Acute posthemorrhagic anemia; K70.30 Alcoholic cirrhosis of liver without ascites; B18.2 Chronic viral hepatitis C; M79.7 Fibromyalgia; J44.9 Chronic obstructive pulmonary disease, unspecified; N18.3 Chronic kidney disease, stage 3 (moderate); G43.909 Migraine, unspecified, not intractable, without status migrainosus; F20.9 Schizophrenia, unspecified; K44.9 Diaphragmatic hernia without obstruction or gangrene; G31.84 Mild cognitive impairment of uncertain or unknown etiology; I12.9 Hypertensive chronic kidney disease with stage 1 through stage 4 chronic kidney disease, or unspecified chronic kidney disease
CPT/HCPCS: 36415; 36430; 71046; 74176; 80053; 81001; 83690; 85025; 85027; 85610; 86850; 86900; 86901; 86923; 87086; 93005; 93010; 94640; 94760; 96374; 99285-25; C1751; C9113; J0171; J0744; J2250; J2704; J3010; J7030; J7120; P9016

== ENCOUNTER 2018-11-09 14:34 | Emergency (ER) | payer OTHER ==
[~2018-11-09] VITALS: Ht 152.4 cm; Wt 63.5 kg
[~2018-11-09 14:34] MED LIST changes: +Colace100 MG PO
[2018-11-09 15:24] LABS: BASOPHILS ABSOLUTE AUTO 0.01 K/mm3 (0.00-0.23); BASOPHILS PERCENT AUTO 0 % (0-2); EOSINOPHILS ABSOLUTE AUTO 0.39 K/mm3 (0.00-0.68); EOSINOPHILS PERCENT AUTO 3 % (0-6); Hematocrit 36.8 % (33.0-51.0); Hemoglobin 10.8 g/dL (11.5-16.0); IMMATURE GRAN ABSOLUTE AUTO 0.07 K/mm3 (0.00-0.10); IMMATURE GRAN PERCENT AUTO 1 % (0-1); LYMPHOCYTES ABSOLUTE AUTO 1.01 K/mm3 (0.84-5.20); LYMPHOCYTES PERCENT AUTO 7 % (21-46); MONOCYTES ABSOLUTE AUTO 1.41 K/mm3 (0.16-1.47); MONOCYTES PERCENT AUTO 10 % (4-13); Mean Corpuscular HGB 27.8 pg (26.0-34.0); Mean Corpuscular HGB Conc 29.3 g/dL (31.5-36.5); Mean Corpuscular Volume 95 fL (80-100); Mean Platelet Volume 10.2 fL (9.1-12.4); NEUTROPHILS ABSOLUTE AUTO 10.94 K/mm3 (1.96-9.15); NEUTROPHILS PERCENT AUTO 79 % (41-73); Platelet Count 242 K/mm3 (150-400); RDW Coefficient Variation 21.2 % (11.7-14.2); RDW Standard Deviation 72.3 fL (35.1-46.3); Red Blood Cell Count 3.89 M/mm3 (3.80-5.20); White Blood Cell Count 13.83 K/mm3 (4.00-11.30)
[2018-11-09 15:42] LABS: Alanine Aminotransfer (ALT/SGP 41 U/L (12-78); Albumin/Globulin Ratio 0.7 (0.8-1.8); Alk Phos 125 U/L (50-136); Anion Gap 4 mmol/L (6-16); Aspartate Aminotrans (AST/SGOT 36 U/L (12-37); Bilirubin, Total 1.2 mg/dL (0.1-1.0); Blood Urea Nitrogen 13 mg/dL (8-24); Bun/Creatinine Ratio 16.7 (12.0-20.0); CO2, Blood 27 mmol/L (21-32); Calcium, Blood 8.5 mg/dL (8.5-10.1); Chloride, Blood 107 mmol/L (98-108); Creatinine, Blood 0.78 mg/dL (0.40-1.00); Globulin, Blood 4.3 g/dL (2.2-4.0); Glomerular Filtration Rate >60 (60-); Glucose, Blood 126 mg/dL (70-99); Potassium, Blood 3.5 mmol/L (3.5-5.5); Sodium, Blood 138 mmol/L (136-145); Total Protein, Blood 7.3 g/dL (6.4-8.2)
[2018-11-09 17:10] LABS: Source, Urine Clean Catch
[2018-11-09 17:29] LABS: Bilirubin, Urine Neg (Neg); Blood, Urine 4+ (Neg); Glucose Qualitative, Urine Neg (Neg); Ketones, Urine 1+ (Neg); Leukocyte Esterase, Urine Neg (Neg); Nitrite, Urine Neg (Neg); Protein, Urine Neg (Neg); Urobilinogen, Urine NORM (Normal); pH, Urine 6.5 (5.0-8.0)
[2018-11-09 18:03] LABS: Appearance, Urine Clear (Clear); Color, Urine Yellow (P-Yellow)
[2018-11-09 18:04] LABS: Bacteria Not Seen /hpf; Squamous Epithelial Cells Rare /hpf (Few); White Blood Cells, Urine 0-2 /hpf (0-5)
== END 2018-11-09 18:45 | disposition home or self-care (01) ==
LOC: ER 14:34
PROVIDERS: Physician Assistant
DX: K92.2 Gastrointestinal hemorrhage, unspecified (principal); K59.00 Constipation, unspecified; R51 Headache; Z88.0 Allergy status to penicillin; Z88.1 Allergy status to other antibiotic agents; Z88.8 Allergy status to other drugs, medicaments and biological substances; Z88.6 Allergy status to analgesic agent; Z79.899 Other long term (current) drug therapy; F32.9 Major depressive disorder, single episode, unspecified; N18.3 Chronic kidney disease, stage 3 (moderate); J44.9 Chronic obstructive pulmonary disease, unspecified
CPT/HCPCS: 36415; 74022; 80053; 81001; 82272; 85025; 85730; 86850; 86900; 86901; 93005; 93010; 96374; 96375; 99284-25; J0780; J1200; J3010; J7030; P9612

== ENCOUNTER 2018-11-25 10:25 | Emergency (ER) | payer OTHER ==
[~2018-11-25] VITALS: Ht 157.5 cm; Wt 64.4 kg
[2018-11-25] MEDS ORDERED: CLIN300 PO (10:56)
== END 2018-11-25 11:03 | disposition home or self-care (01) ==
LOC: ER 10:25
DX: K08.89 Other specified disorders of teeth and supporting structures (principal); Z88.8 Allergy status to other drugs, medicaments and biological substances; Z88.0 Allergy status to penicillin; Z88.1 Allergy status to other antibiotic agents; Z88.2 Allergy status to sulfonamides; Z88.6 Allergy status to analgesic agent; Z79.899 Other long term (current) drug therapy; F32.9 Major depressive disorder, single episode, unspecified; J44.9 Chronic obstructive pulmonary disease, unspecified; I12.9 Hypertensive chronic kidney disease with stage 1 through stage 4 chronic kidney disease, or unspecified chronic kidney disease; N18.3 Chronic kidney disease, stage 3 (moderate)
CPT/HCPCS: 99282

== ENCOUNTER 2018-12-04 16:20 | Emergency (ER) | payer OTHER ==
[~2018-12-04] VITALS: Ht 157.5 cm; Wt 64.0 kg
[~2018-12-04 16:20] MED LIST changes: +CLIN300 PO
[2018-12-04] MEDS ORDERED: HYDR1TAB94 PO (18:58)
[2018-12-04 19:05] LABS: Source, Urine Clean Catch
[2018-12-04 19:07] LABS: Bilirubin, Urine Neg (Neg); Blood, Urine 4+ (Neg); Glucose Qualitative, Urine Neg (Neg); Ketones, Urine Neg (Neg); Leukocyte Esterase, Urine Neg (Neg); Nitrite, Urine Neg (Neg); Protein, Urine Neg (Neg); Urobilinogen, Urine 1+ (Normal)
[2018-12-04 19:14] LABS: Appearance, Urine Clear (Clear); Bacteria Rare /hpf; Color, Urine Yellow (P-Yellow); Squamous Epithelial Cells Mod /hpf (Few); White Blood Cells, Urine 0-2 /hpf (0-5)
== END 2018-12-04 19:14 | disposition home or self-care (01) ==
LOC: ER 16:20
PROVIDERS: Physician Assistant
DX: S20.221A Contusion of right back wall of thorax, initial encounter (principal); F32.9 Major depressive disorder, single episode, unspecified; J44.9 Chronic obstructive pulmonary disease, unspecified; I10 Essential (primary) hypertension; G43.909 Migraine, unspecified, not intractable, without status migrainosus; Z79.899 Other long term (current) drug therapy; Z88.0 Allergy status to penicillin; Z88.2 Allergy status to sulfonamides; W18.30XA Fall on same level, unspecified, initial encounter
CPT/HCPCS: 71100; 71250; 74176; 81001; 99284-25

== ENCOUNTER 2019-01-08 15:08 | Emergency (ER) | payer OTHER ==
[~2019-01-08] VITALS: Ht 157.5 cm; Wt 64.0 kg
[~2019-01-08 15:08] MED LIST changes: +HYDR1TAB94 PO
[2019-01-08] MEDS ORDERED: Norco 5-325 Ta1 EACH PO (17:36)
== END 2019-01-08 18:00 | disposition home or self-care (01) ==
LOC: ER 15:08
DX: S80.01XA Contusion of right knee, initial encounter (principal); F32.9 Major depressive disorder, single episode, unspecified; J44.9 Chronic obstructive pulmonary disease, unspecified; I12.9 Hypertensive chronic kidney disease with stage 1 through stage 4 chronic kidney disease, or unspecified chronic kidney disease; N18.3 Chronic kidney disease, stage 3 (moderate); D50.9 Iron deficiency anemia, unspecified; Z88.8 Allergy status to other drugs, medicaments and biological substances; Z88.0 Allergy status to penicillin; Z88.1 Allergy status to other antibiotic agents; Z88.2 Allergy status to sulfonamides; Z88.5 Allergy status to narcotic agent; Z79.899 Other long term (current) drug therapy; W50.0XXA Accidental hit or strike by another person, initial encounter
CPT/HCPCS: 73562-RT; 99283-25; A9270-GY

== ENCOUNTER 2019-01-22 09:28 | Emergency (ER) | payer OTHER ==
[~2019-01-22] VITALS: Ht 157.5 cm; Wt 64.0 kg
[~2019-01-22 09:28] MED LIST changes: +Norco 5-325 Ta1 EACH PO
[2019-01-22] MEDS ORDERED: Voltaren100 GM TOP (10:27)
[2019-01-22] MEDS ORDERED: Roxicodone5 MG PO (10:27)
== END 2019-01-22 10:42 | disposition home or self-care (01) ==
LOC: ER 09:28
DX: M17.11 Unilateral primary osteoarthritis, right knee (principal); I12.9 Hypertensive chronic kidney disease with stage 1 through stage 4 chronic kidney disease, or unspecified chronic kidney disease; N18.3 Chronic kidney disease, stage 3 (moderate); J44.9 Chronic obstructive pulmonary disease, unspecified; F32.9 Major depressive disorder, single episode, unspecified; D50.9 Iron deficiency anemia, unspecified; Z88.8 Allergy status to other drugs, medicaments and biological substances; Z88.1 Allergy status to other antibiotic agents; Z88.0 Allergy status to penicillin; Z88.2 Allergy status to sulfonamides; Z79.899 Other long term (current) drug therapy
CPT/HCPCS: 99283-25

== ENCOUNTER 2019-02-04 13:04 | Inpatient (IN) | payer OTHER ==
[~2019-02-04] VITALS: Ht 157.5 cm; Wt 68.5 kg
[~2019-02-04 13:04] MED LIST changes: -ACIDOPHILUS1 EACH PO; -Altoprev40 MG PO; -BENADRYL25 MG PO; -GRALISE600 MG PO; -OLAN7.5 PO; -VENLAFAXINE HCL75 MG PO; -VOLTAREN100 GM TOP
[2019-02-04 13:58] LABS: BASOPHILS ABSOLUTE AUTO 0.05 K/mm3 (0.00-0.23); BASOPHILS PERCENT AUTO 1 % (0-2); EOSINOPHILS ABSOLUTE AUTO 0.27 K/mm3 (0.00-0.68); EOSINOPHILS PERCENT AUTO 3 % (0-6); Hematocrit 23.4 % (33.0-51.0); Hemoglobin 7.1 g/dL (11.5-16.0); IMMATURE GRAN ABSOLUTE AUTO 0.04 K/mm3 (0.00-0.10); IMMATURE GRAN PERCENT AUTO 0 % (0-1); LYMPHOCYTES ABSOLUTE AUTO 1.59 K/mm3 (0.84-5.20); LYMPHOCYTES PERCENT AUTO 15 % (21-46); MONOCYTES ABSOLUTE AUTO 1.68 K/mm3 (0.16-1.47); MONOCYTES PERCENT AUTO 16 % (4-13); Mean Corpuscular HGB 28.9 pg (26.0-34.0); Mean Corpuscular HGB Conc 30.3 g/dL (31.5-36.5); Mean Corpuscular Volume 95 fL (80-100); Mean Platelet Volume 9.8 fL (9.1-12.4); NEUTROPHILS ABSOLUTE AUTO 7.22 K/mm3 (1.96-9.15); NEUTROPHILS PERCENT AUTO 66 % (41-73); Platelet Count 259 K/mm3 (150-400); RDW Coefficient Variation 16.5 % (11.7-14.2); RDW Standard Deviation 57.4 fL (35.1-46.3); Red Blood Cell Count 2.46 M/mm3 (3.80-5.20); White Blood Cell Count 10.85 K/mm3 (4.00-11.30)
[2019-02-04 14:17] LABS: Alanine Aminotransfer (ALT/SGP 17 U/L (12-78); Albumin, Blood 2.5 g/dL (3.4-5.0); Albumin/Globulin Ratio 0.6 (0.8-1.8); Alk Phos 127 U/L (50-136); Anion Gap 4 mmol/L (6-16); Aspartate Aminotrans (AST/SGOT 25 U/L (12-37); Bilirubin, Total 0.7 mg/dL (0.1-1.0); Blood Urea Nitrogen 10 mg/dL (8-24); Bun/Creatinine Ratio 11.9 (12.0-20.0); CO2, Blood 27 mmol/L (21-32); Calcium, Blood 8.2 mg/dL (8.5-10.1); Chloride, Blood 109 mmol/L (98-108); Creatinine, Blood 0.84 mg/dL (0.40-1.00); Globulin, Blood 4.1 g/dL (2.2-4.0); Glomerular Filtration Rate >60 (60-); Glucose, Blood 65 mg/dL (70-99); Potassium, Blood 3.4 mmol/L (3.5-5.5); Sodium, Blood 140 mmol/L (136-145); Total Protein, Blood 6.6 g/dL (6.4-8.2)
[2019-02-04] MEDS ORDERED: Altoprev40 MG PO (15:11)
[2019-02-04] MEDS ORDERED: VENLAFAXINE HCL75 MG PO (15:21)
[2019-02-04] MEDS ORDERED: OLAN7.5 PO (15:21)
[2019-02-04] MEDS ORDERED: TRAZ100 PO (15:28)
[2019-02-04] MEDS ORDERED: GRALISE600 MG PO (15:29)
[2019-02-04 16:06] LABS: IMMATURE RETIC FRACTION 28.6 % (2.3-16.0); RETIC HGB EQUIVALENT 22.3 pg (28.20-36.60); RETICULOCYTE COUNT PERCENT 3.31 % (0.50-2.50)
[2019-02-04 17:56] LABS: International Normalized Ratio 1.08; Prothrombin Time Results 11.4 Sec (9.7-11.5)
--- NOTE | 2019-02-04 18:25 | NUR ---
PATIENT ADMITTED TO ROOM FROM ER AT THIS TIME. PATIENT RECENTLY D/C'D FROM THIS FACILITY; STATES UNDERSTANDING OF ROOM, CALL LIGHT, ETC. VSS. DENIES NAUSEA, CP, SOB. STATES HX OF R KNEE PAIN, "I'M SUPPOSED TO HAVE KNEE SURGERY IN FEBRUARY." MEDICATIONS INFUSING TO PIV X 3 AT THIS TIME. PT STATES IV WITH POTASSIUM INFUSING IS 'BURNING.' IV INFUSION SLOWED WITH GOOD RESULTS PER PATIENT. CONT TO MONITOR.
--- NOTE | 2019-02-04 19:15 | NUR ---
Assumed care Pt presenting in bed, breathing easy and unlabored, appears comfortable. Pt jovial and conversive with staff. Alert and oriented, VSS, able to make needs known. Plan is to give 1 unit of PRBC per orders, pt aware, consent signed, pt educated on blood transfusion. Will continue to assess and monitor
--- NOTE | 2019-02-04 19:20 | NUR ---
PATIENT UP TO BS, HAD XL BROWN FORMED BM, NO EVIDENCE OF BLOOD. VOIDED. BACK TO BED. REPORT TO NOC RN.
--- NOTE | 2019-02-04 22:00 | NUR ---
Blood Transfusion Lungs clear, diminished to bilat bases before transfusion. VSS and as documented. Will continue to monitor. Pt educated on s/sx allergic rxn. Denies s/sx at this time.
[2019-02-04] MEDS ORDERED: ACIDOPHILUS1 EACH PO (22:25)
[2019-02-04] MEDS ORDERED: OXYC5 PO (22:26)
--- NOTE | 2019-02-04 22:40 | NUR ---
Dr Rocha at bedside Blood currently infusing. Protonix gtt to be DC per orders, Sandostatin to be DC per orders. Plan for EGD 02/05. Pt regular diet until 0800; at 0800 water and ice chips; [address] Rocha. Pt with no further questions or concerns about plan of care
--- NOTE | 2019-02-05 02:00 | NUR ---
Blood transfusion complete Lung sounds remain unchanged from initial assessment, VSS, pt denies s/sx allergic rxn. Pt breathing remain easy, even and unlabored, denies SOB. Pt s/l at this time. Lasix given per orders and H&H to be collected in 1 hour per orders. Will continue to monitor.
[2019-02-05 03:10] LABS: BASOPHILS ABSOLUTE AUTO 0.05 K/mm3 (0.00-0.23); BASOPHILS PERCENT AUTO 1 % (0-2); EOSINOPHILS ABSOLUTE AUTO 0.25 K/mm3 (0.00-0.68); EOSINOPHILS PERCENT AUTO 3 % (0-6); Hematocrit 26.6 % (33.0-51.0); Hemoglobin 8.2 g/dL (11.5-16.0); IMMATURE GRAN ABSOLUTE AUTO 0.02 K/mm3 (0.00-0.10); IMMATURE GRAN PERCENT AUTO 0 % (0-1); LYMPHOCYTES ABSOLUTE AUTO 1.84 K/mm3 (0.84-5.20); LYMPHOCYTES PERCENT AUTO 19 % (21-46); MONOCYTES ABSOLUTE AUTO 1.58 K/mm3 (0.16-1.47); MONOCYTES PERCENT AUTO 16 % (4-13); Mean Corpuscular HGB 28.6 pg (26.0-34.0); Mean Corpuscular HGB Conc 30.8 g/dL (31.5-36.5); Mean Corpuscular Volume 93 fL (80-100); Mean Platelet Volume 10.1 fL (9.1-12.4); NEUTROPHILS ABSOLUTE AUTO 6.22 K/mm3 (1.96-9.15); NEUTROPHILS PERCENT AUTO 62 % (41-73); Platelet Count 262 K/mm3 (150-400); RDW Coefficient Variation 16.8 % (11.7-14.2); RDW Standard Deviation 57.4 fL (35.1-46.3); Red Blood Cell Count 2.87 M/mm3 (3.80-5.20); White Blood Cell Count 9.96 K/mm3 (4.00-11.30)
[2019-02-05 03:36] LABS: Alanine Aminotransfer (ALT/SGP 18 U/L (12-78); Albumin, Blood 2.3 g/dL (3.4-5.0); Albumin/Globulin Ratio 0.6 (0.8-1.8); Alk Phos 120 U/L (50-136); Anion Gap 6 mmol/L (6-16); Aspartate Aminotrans (AST/SGOT 23 U/L (12-37); Blood Urea Nitrogen 11 mg/dL (8-24); Bun/Creatinine Ratio 11.7 (12.0-20.0); CO2, Blood 26 mmol/L (21-32); Calcium, Blood 8.1 mg/dL (8.5-10.1); Chloride, Blood 107 mmol/L (98-108); Creatinine, Blood 0.94 mg/dL (0.40-1.00); Glomerular Filtration Rate >60 (60-); Glucose, Blood 137 mg/dL (70-99); Magnesium, Blood 1.6 mg/dL (1.6-2.4); Potassium, Blood 3.6 mmol/L (3.5-5.5); Sodium, Blood 139 mmol/L (136-145); Total Protein, Blood 6.3 g/dL (6.4-8.2)
--- NOTE | 2019-02-05 07:23 | NUR ---
Shift Summary No acute declines to note this shift. Events as previously documented. 1 unit of PRBC infused this shift. VSS, no apparent sign of distress. breathing remains easy, even, unlabored on RA. Pt able to sleep on and off for the second half of the shift. Calm and cooperative with cares. Up to BSC with SBA. Pt with one complaint of pain, medicated per emar and pain resolved with no further needs for pharmacological management. pt remains alert and oriented, no events noted on tele. Pt able to make needs known, uses call light appropriately, educated this shift on plan of care. EGD to be done this afternoon. Pt is to be water and ice chips only after 0800 and NPO after 1400. Handoff given to day RN who assumes care.
--- NOTE | 2019-02-05 11:21 | NUR ---
Spiritual care visit attempted. Patient is sitting up in bed and struggles to be alert, to focus and to articulate. I was able to steel pickler that patient did not want a spiritual care visit "at this time, but maybe later." I will continue to remain available to patient and family.
--- NOTE | 2019-02-05 16:24 | NUR ---
History, Chart, Medications and Allergies reviewed before start of procedure. Patient confirms NPO status and agrees with scheduled surgery.
--- NOTE | 2019-02-05 16:24 | NUR ---
PT TO DAY SURGERY
--- NOTE | 2019-02-05 16:51 | NUR ---
02/05/19 1651 Candi Soria PROCEDURE ROOM ENDO ROOM #1. MONITOR INTACT WITH CONTINUOUS PULSE OXIMETRY AND INTERMITTENT BP.
--- NOTE | 2019-02-05 17:00 | NUR ---
SHIFT NOTE PT INDEPENDANT AND AMBULATING TO AND FROM BATHROOM T/O THE DAY. PT HAS COMPLAINED OF PAIN TWICE DURING THIS SHIFT THAT WAS RELIEVED WELL WITH OXYCODONE. PT HAS BEEN RESTING WELL IN ROOM, AND HAS SLEPT T/O THE DAY. PT WAS TAKEN TO DAY SURGERY WHERE SHE REMAINS AT THIS TIME FOR ENDOSCOPY
[2019-02-05] MEDS ORDERED: VOLTAREN100 GM TOP ×2 (21:22→21:24)
[2019-02-05] MEDS ORDERED: BENADRYL25 MG PO (21:23)
--- NOTE | 2019-02-05 22:16 | NUR ---
ASSUMED CARE OF PATIENT AT APPROXIMATELY 1910 FROM STUART Mcadams RN. PATIENT ALERT AND ORIENTED X4; INDEPENDENT IN ROOM; PATIENT USES CANE AT BASELINE. PATIENT REPORTS CHRONIC PAIN IN RIGHT KNEE; WILL MEDICATE PER EMAR; REFUSES OTHER INTERVENTIONS; REPORTS USES CREAM AT HOME (VOLTAREN GEL NSAID); MED REC; PATIENT GI BLEED; PRINTED EDUCATED INFORMATION GIVEN TO PATIENT. PATIENT DENIES NUMBNESS, TINGLING, DIZZINESS AND NAUSEA; TOLERATING 2G LOW SODIUM DIET WELL; S/P EGD W/ REPORTED INTERVENTIONS. 2X PIV S/L. PATIENT HAS RED BECKIE ON LEFT FOREARM THAT PATIENT REPORTS IS A BUG BITE PROBABLY A SPIDER BITE; CALLED QING HARE; ORDERS FOR BENADRYL CREAM RECIEVED. PATIENT CURRENTLY RESTING IN BED; CALL LIGHT IN REACH; BED IN LOWEST POSISTION; WILL CONTINUE TO MONITOR AND ASSESS UNTIL END OF SHIFT.
[2019-02-06 03:25] LABS: Hematocrit 28.5 % (33.0-51.0); Hemoglobin 8.8 g/dL (11.5-16.0); Mean Corpuscular HGB 28.2 pg (26.0-34.0); Mean Corpuscular HGB Conc 30.9 g/dL (31.5-36.5); Mean Corpuscular Volume 91 fL (80-100); Mean Platelet Volume 10.1 fL (9.1-12.4); Platelet Count 272 K/mm3 (150-400); RDW Coefficient Variation 16.7 % (11.7-14.2); RDW Standard Deviation 55.6 fL (35.1-46.3); Red Blood Cell Count 3.12 M/mm3 (3.80-5.20); White Blood Cell Count 9.73 K/mm3 (4.00-11.30)
[2019-02-06 03:44] LABS: Albumin, Blood 2.5 g/dL (3.4-5.0); Anion Gap 5 mmol/L (6-16); Blood Urea Nitrogen 13 mg/dL (8-24); Bun/Creatinine Ratio 14.2 (12.0-20.0); CO2, Blood 30 mmol/L (21-32); Calcium, Blood 8.2 mg/dL (8.5-10.1); Chloride, Blood 103 mmol/L (98-108); Creatinine, Blood 0.92 mg/dL (0.40-1.00); Glomerular Filtration Rate >60 (60-); Glucose, Blood 96 mg/dL (70-99); Phosphorus, Blood 2.9 mg/dL (2.5-4.9); Potassium, Blood 3.2 mmol/L (3.5-5.5); Sodium, Blood 138 mmol/L (136-145)
--- NOTE | 2019-02-06 06:58 | NUR ---
PATIENT SLEPT ABOUT NINE HOURS; VSS. NO ACUTE CHANGES TO REPORT. WILL CONTINUE TO MONITOR AND ASSESS UNTIL END OF SHIFT.
--- NOTE | 2019-02-06 13:30 | NUR ---
PT D/C HOME AFTER EXTENSIVE EDUCATION ABOUT D/C PLAN, AND MEDICATION CHANGE PT DENIES FURTHER NEEDS OR QUESTIONS. PT WHEELED TO WHATTI VIA PCT. PT OTD c ALL BELONGINGS
== END 2019-02-06 13:22 | disposition home or self-care (01) | DRG 378 ==
LOC: ER 13:04 → PCU 17:19
PROVIDERS: Emergency Medicine; Internal Medicine Gastroenterology; Nurse Practitioner Acute Care; ADMIT Internal Medicine
PROC: 0W3P8ZZ Control Bleeding in Gastrointestinal Tract, Via Natural or Artificial Opening Endoscopic (ICD-10-PCS; principal; 2019-02-05 16:15)
DX: K31.811 Angiodysplasia of stomach and duodenum with bleeding (principal); K76.6 Portal hypertension; D62 Acute posthemorrhagic anemia; J44.9 Chronic obstructive pulmonary disease, unspecified; F32.9 Major depressive disorder, single episode, unspecified; I12.9 Hypertensive chronic kidney disease with stage 1 through stage 4 chronic kidney disease, or unspecified chronic kidney disease; N18.3 Chronic kidney disease, stage 3 (moderate); G43.909 Migraine, unspecified, not intractable, without status migrainosus; K74.60 Unspecified cirrhosis of liver; J45.40 Moderate persistent asthma, uncomplicated; E78.5 Hyperlipidemia, unspecified; F20.9 Schizophrenia, unspecified; Z87.891 Personal history of nicotine dependence; K44.9 Diaphragmatic hernia without obstruction or gangrene; B19.20 Unspecified viral hepatitis C without hepatic coma
CPT/HCPCS: 36415; 71045; 80053; 80069; 82140; 82272; 82947; 83735; 85025; 85027; 85045; 85610; 86850; 86900; 86901; 86923; 94640; 94760; 96365; 96366; 96368; 96375; 96376; 99285-25; C9113; J1940; J2354; J2704; J3480; J7030; J7050; J7120; P9016

== ENCOUNTER → 2019-02-04 | Outpatient (CLI) | payer OTHER ==
[~2019-02-04] MED LIST changes: +ACIDOPHILUS1 EACH PO; +Altoprev40 MG PO; +BENADRYL25 MG PO; +GRALISE600 MG PO; +OLAN7.5 PO; +Roxicodone5 MG PO; +VENLAFAXINE HCL75 MG PO; +VOLTAREN100 GM TOP; +Voltaren100 GM TOP
[2019-02-04 09:48] LABS: Hemoglobin 7.6 g/dL (11.5-16.0)
[2019-02-04 10:01] LABS: Percent Saturation 4.9 % (15.0-50.0)
== END | disposition home or self-care (01) ==
LOC: LAB 08:18 → LAB SHORT 08:18
PROVIDERS: Nurse Practitioner Family
DX: D64.9 Anemia, unspecified (principal)
CPT/HCPCS: 82607; 82728; 82746; 83540; 83550; 85014; 85018

== ENCOUNTER 2019-02-21 07:39 | Inpatient (IN) | payer OTHER ==
[~2019-02-21] VITALS: Ht 157.5 cm; Wt 68.8 kg
[~2019-02-21 07:39] MED LIST changes: +ACIDOPHILUS1 EACH PO; +Altoprev40 MG PO; +BENADRYL25 MG PO; +GRALISE600 MG PO; +OLAN7.5 PO; +VENLAFAXINE HCL75 MG PO; +VOLTAREN100 GM TOP
[2019-02-21 09:13] LABS: BASOPHILS ABSOLUTE AUTO 0.02 K/mm3 (0.00-0.23); BASOPHILS PERCENT AUTO 0 % (0-2); EOSINOPHILS ABSOLUTE AUTO 0.02 K/mm3 (0.00-0.68); EOSINOPHILS PERCENT AUTO 0 % (0-6); Hematocrit 25.4 % (33.0-51.0); Hemoglobin 7.7 g/dL (11.5-16.0); IMMATURE GRAN ABSOLUTE AUTO 0.06 K/mm3 (0.00-0.10); IMMATURE GRAN PERCENT AUTO 1 % (0-1); LYMPHOCYTES ABSOLUTE AUTO 1.03 K/mm3 (0.84-5.20); LYMPHOCYTES PERCENT AUTO 9 % (21-46); MONOCYTES ABSOLUTE AUTO 1.35 K/mm3 (0.16-1.47); MONOCYTES PERCENT AUTO 11 % (4-13); Mean Corpuscular HGB 28.7 pg (26.0-34.0); Mean Corpuscular HGB Conc 30.3 g/dL (31.5-36.5); Mean Corpuscular Volume 95 fL (80-100); Mean Platelet Volume 9.4 fL (9.1-12.4); NEUTROPHILS ABSOLUTE AUTO 9.48 K/mm3 (1.96-9.15); NEUTROPHILS PERCENT AUTO 79 % (41-73); NRBC ABSOLUTE 0.02 K/mm3 (0.00-0.02); NRBC Auto 0.2 /100 WBC (0.0-0.2); Platelet Count 304 K/mm3 (150-400); RDW Coefficient Variation 18.3 % (11.7-14.2); Red Blood Cell Count 2.68 M/mm3 (3.80-5.20); White Blood Cell Count 11.96 K/mm3 (4.00-11.30)
[2019-02-21 09:31] LABS: Alanine Aminotransfer (ALT/SGP 38 U/L (12-78); Albumin, Blood 2.5 g/dL (3.4-5.0); Albumin/Globulin Ratio 0.7 (0.8-1.8); Alk Phos 103 U/L (50-136); Anion Gap 7 mmol/L (6-16); Aspartate Aminotrans (AST/SGOT 38 U/L (12-37); Bilirubin, Total 1.1 mg/dL (0.1-1.0); Blood Urea Nitrogen 15 mg/dL (8-24); Bun/Creatinine Ratio 16.2 (12.0-20.0); CO2, Blood 24 mmol/L (21-32); Calcium, Blood 8.4 mg/dL (8.5-10.1); Chloride, Blood 107 mmol/L (98-108); Creatinine, Blood 0.93 mg/dL (0.40-1.00); Globulin, Blood 3.6 g/dL (2.2-4.0); Glomerular Filtration Rate >60 (60-); Glucose, Blood 86 mg/dL (70-99); Potassium, Blood 3.7 mmol/L (3.5-5.5); Sodium, Blood 138 mmol/L (136-145); Total Protein, Blood 6.1 g/dL (6.4-8.2)
[2019-02-21 11:16] LABS: International Normalized Ratio 1.08; Prothrombin Time Results 11.4 Sec (9.7-11.5)
[2019-02-21 11:24] LABS: Acetaminophen, Random <2.0 ug/mL (10.0-30.0); Magnesium, Blood 1.6 mg/dL (1.6-2.4)
[2019-02-21 11:25] LABS: Thyroid Stimulating Hormone 0.624 uIU/mL (0.360-4.800)
[2019-02-21] MEDS ORDERED: VENL150ER PO (12:04)
[2019-02-21] MEDS ORDERED: IRON150C PO (12:05)
[2019-02-21] MEDS ORDERED: LOSARTAN POTASS25 M2 PO (12:05)
[2019-02-21] MEDS ORDERED: Protonix40 MG PO (12:07)
[2019-02-21] MEDS ORDERED: MAGOX 400400 MG PO (12:10)
[2019-02-21] MEDS ORDERED: TRAZ100 PO (12:10)
[2019-02-21] MEDS ORDERED: D3-20002000 UNIT PO (12:11)
[2019-02-21] MEDS ORDERED: Minipress1 MG PO (12:11)
[2019-02-21] MEDS ORDERED: FURO40 PO (12:11)
[2019-02-21] MEDS ORDERED: GABA300 PO (12:12)
[2019-02-21] MEDS ORDERED: OXYC5 PO (12:17)
--- NOTE | 2019-02-21 12:26 | NUR ---
ASSUMED CARE PT. ARRIVES FROM ER, TRANSFERRED TO ICU BED. PT. ABLE TO ANSWER QUESTIONS. UNSURE ON LAST HOME MEDICATION DOSES. PT. REPORTS THAT SHE IS A RECOVERING ALCOHOLIC AND DID HAVE 2 SHOTS OF VODKA TODAY.PT. REPORTS FEELING WEAK AT HOME WITH MULTIPLE FALLS RECENTLY. PT. CHEEKS FLUSHED, LOW GRADE TEMP NOTED, PT. BLANKETS REMOVED AND FAN PLACED AT BEDSIDE. PT.PROVIDED WITH GLASSES AND PHONE. PT. REPORTS PAIN TO LEFT SIDE SINCE FALL, REPORTS PAIN TO LEFT RIBS AND LEFT FOREARM. ABRASION NOTED TO LEFT ARM AND SCATTERED SCABS ON FOREHEAD AND T/O BODY. PT. VSS UPON ARRIVAL, CURRENTLY ON RA. PT. ABD DISTENDED, SOFT PT STATES NORMAL. CALL LIGHT IN REACH, BED IN LOW POSITION.
--- NOTE | 2019-02-21 12:53 | NUR ---
CALL TO DR. MONK FOR ORDER CLARIFICATION PT ALERT AND ORIENTED. HAVING FULL CONVERSATIONS WITH THIS RN. PT. ASSISTED UP TO BEDSIDE TOILET. PT WEAK, HOWEVER ABLE TO TRANSFER WITH STAND BY ASSIST. PER DR. MONK D/C LACTULOSE ENEMA AT THIS TIME. PT TO TRANSFER TO PCU STATUS. PT. PROVIDED WITH WATER PER REQUEST. CRYPTOLOGIC TECHNICIAN OPERATOR/ANALYST CALLED TO ARRANGE TIME FOR XRAY AND CT
[2019-02-21 16:18] LABS: Source, Urine Catheter
[2019-02-21 16:20] LABS: Bilirubin, Urine Neg (Neg); Blood, Urine 2+ (Neg); Glucose Qualitative, Urine Neg (Neg); Ketones, Urine Neg (Neg); Leukocyte Esterase, Urine Neg (Neg); Nitrite, Urine Pos (Neg); Protein, Urine Neg (Neg); Urobilinogen, Urine NORM (Normal)
--- NOTE | 2019-02-21 16:20 | NUR ---
UPDATE PT. UP TO BEDSIDE COMMODE WITH STAND BY ASSIST. URINE SAMPLE COLLECTED AND SENT TO LAB. TONA LONGO IN TO ASSESS PT. PLANS FOR TRANSFER TO MEDICAL FLOOR WITH TELE. PT. REMAINS ALERT AND ORIENTED. TOLERATING PO FLUIDS WELL, ADVANCING TO REGULAR DIET FOR DINNER. ORAL TEMP TAKEN, 98.3. PT. VITALS REMAIN STABLE.
[2019-02-21 16:24] LABS: Appearance, Urine Clear (Clear); Color, Urine Yellow (P-Yellow)
[2019-02-21 16:28] LABS: Bacteria Many /hpf; Red Blood Cells, Urine 0-2 /hpf (0-2); Squamous Epithelial Cells Rare /hpf (Few); White Blood Cells, Urine 0-2 /hpf (0-5)
[2019-02-21 16:31] LABS: U Amphetamine Screen Not Detected; U Barbituate Screen Not Detected; U Benzodiazapine Screen DETECTED; U Buprenorphine Screen Not Detected; U Cannabinoids Screen Not Detected; U Cocaine Screen Not Detected; U Methadone Screen Not Detected; U Methamphetamine Screen Not Detected; U Opiates Screen Not Detected; U Oxycodone Screen Not Detected; U Phencyclidine Screen Not Detected; U Propoxyphene Screen Not Detected
--- NOTE | 2019-02-21 17:48 | NUR ---
REPORT CALLED TO CHARLEEN KERR PT. TAKEN TO MEDICAL FLOOR VIA WHEELCHAIR. VSS UPON TRANSFER, ALL BELONGINGS SENT WITH PT.
--- NOTE | 2019-02-21 18:48 | NUR ---
SHIFT SUMMARY PT ARRIVED TO ROOM AT ABOUT 1750. PT TOLERATING REGULAR DIET. REQUESTING PAIN MEDICATION THOUGH THERE IS NOT PAIN COVERAGE AT ON EMAR AT THIS TIME. BED IN LOW POSITION, CALL LIGHT WITHIN REACH, BED ALARM ON.
[2019-02-22 03:56] LABS: BASOPHILS ABSOLUTE AUTO 0.02 K/mm3 (0.00-0.23); BASOPHILS PERCENT AUTO 0 % (0-2); EOSINOPHILS ABSOLUTE AUTO 0.08 K/mm3 (0.00-0.68); EOSINOPHILS PERCENT AUTO 1 % (0-6); Hematocrit 23.2 % (33.0-51.0); Hemoglobin 7.1 g/dL (11.5-16.0); IMMATURE GRAN ABSOLUTE AUTO 0.16 K/mm3 (0.00-0.10); IMMATURE GRAN PERCENT AUTO 1 % (0-1); LYMPHOCYTES ABSOLUTE AUTO 1.22 K/mm3 (0.84-5.20); LYMPHOCYTES PERCENT AUTO 9 % (21-46); MONOCYTES ABSOLUTE AUTO 1.87 K/mm3 (0.16-1.47); MONOCYTES PERCENT AUTO 14 % (4-13); Mean Corpuscular HGB 28.9 pg (26.0-34.0); Mean Corpuscular HGB Conc 30.6 g/dL (31.5-36.5); Mean Corpuscular Volume 94 fL (80-100); Mean Platelet Volume 9.7 fL (9.1-12.4); NEUTROPHILS ABSOLUTE AUTO 10.28 K/mm3 (1.96-9.15); NEUTROPHILS PERCENT AUTO 75 % (41-73); Platelet Count 236 K/mm3 (150-400); RDW Coefficient Variation 17.9 % (11.7-14.2); Red Blood Cell Count 2.46 M/mm3 (3.80-5.20); White Blood Cell Count 13.63 K/mm3 (4.00-11.30)
[2019-02-22 04:15] LABS: Alanine Aminotransfer (ALT/SGP 30 U/L (12-78); Albumin, Blood 2.1 g/dL (3.4-5.0); Albumin/Globulin Ratio 0.6 (0.8-1.8); Alk Phos 97 U/L (50-136); Anion Gap 9 mmol/L (6-16); Aspartate Aminotrans (AST/SGOT 38 U/L (12-37); Bilirubin, Total 0.8 mg/dL (0.1-1.0); Blood Urea Nitrogen 13 mg/dL (8-24); Bun/Creatinine Ratio 14.7 (12.0-20.0); CO2, Blood 21 mmol/L (21-32); Chloride, Blood 105 mmol/L (98-108); Creatinine, Blood 0.89 mg/dL (0.40-1.00); Globulin, Blood 3.4 g/dL (2.2-4.0); Glomerular Filtration Rate >60 (60-); Glucose, Blood 110 mg/dL (70-99); Sodium, Blood 135 mmol/L (136-145); Total Protein, Blood 5.5 g/dL (6.4-8.2)
--- NOTE | 2019-02-22 05:06 | NUR ---
PAIN PT HAS BEEN COMPLAINING OF PAIN IN HER FACE, AND SIDE R/T TO FALL. SHE IS ALSO COMPLAINING OF A HEADACHE 7 (0-10). HEATING PAD PROVIDED AN ALTERNATIVE TO PHARM INTERVENTION, BUT THIS HAS NOT BEEN ADEQUATE FOR PAIN CONTROL. PT REQUESTS PHARM INTERVENTION FOR PAIN. DR. REYES CALLED AND NOTIFIED. DR. REYES NOTIFIED OF PT BACKGROUND AND REASON FOR ADMISSION. HER HX OF OPIOD ABUSE, ESLD, AND GI BLEEDING/ESOPHOGEAL VARICES. TRAMODOL 50 MG Q6HR ORDERED.
--- NOTE | 2019-02-22 05:55 | NUR ---
SHIFT SUMMARY PT ICU TRANSFER SHORTLY BEFORE CHANGE OF SHIFT. SHE HAS RESTED ON AND OFF T/O THE NIGHT. PT IS A/OX4. CIWA'S HAVE REMAINED UNDER 8. SHE COMPLAINS OF RIB PAIN, AND FACIAL PAIN RELATED TO FALL. SHE ALSO COMPLAINS OF ROSS. TRAMADOL ORDERED FOR PAIN RELIEF. VITALS HAVE BEEN STABLE. PT NSR ON TELE. HGB 7.1 THIS AM, A DROP FROM 7.7 DR. TO BE CALLED AND NOTIFIED. NO BM PRODUCED TO SEND SAMPLE THIS SHIFT. NO S/S OF BLEEDING THIS SHIFT, OR COFFEE GROUND EMESIS. PT DENIES N/V. ABD DISTENDED FIRM, AND NON TENDER. PT 1 PA OOB. BANANA BAG INFUSING ORDERED. IV ABX INFUSED. NO OTHER CHANGES TO REPORT. BED IN LOWEST POSITION, CALL LIGHT WITHIN REACH. WILL CONTINUE TO MONITOR AND REPORT TO ONCOMING RN.
--- NOTE | 2019-02-22 10:31 | NUR ---
PATIENT FINISHED RECIEVING ONE UNIT OF BLOOD. NO TRANSFUSION REACTIONS NOTED. FREQUESNT VITALS CHECKED DURING ADMINISTRATION.
--- NOTE | 2019-02-22 13:55 | NUR ---
SENT A REQUEST TO [employer] REGARDING PATIENTS VURRENT MEDICATION LIST. AWAITING REPLY.
--- NOTE | 2019-02-22 15:23 | NUR ---
PATIENT'S MED REQ COMPLETED USING [employer] PRESCRIPTION LIST FAXED OVER.
--- NOTE | 2019-02-22 15:51 | NUR ---
SHIFT SUMMARY THE PATIENT HAS BEEN PLEASANT AND COOPERATIVE WITH STAFF. VITALS STABLE, EVEN DURING BLOOD TRANSFUSION. PATIENT IS ALERT AND ORIENTED WITH NOTED CONFUSION. CONTINUES ON IV ABX WITHOUT NOTED ADVERSE REACTIONS. THE PATIENT HAS HAD NO OTHER ACUTE CHANGES TO REPORT ON THIS SHIFT. WILL CONTINUE TO MONITOR AND PROVIDE CARE NEEDED.
--- NOTE | 2019-02-22 15:53 | NUR ---
Spiritual Care inital note: Nic is well-known to me from previous hospitalizations over the years. She is sleepy today, but pleasant. She has been estranged from her for many years. They are still legally maried. Nic's adult children live with her and "try to help out." Per admit trigger, I was tasked to speak to Nic about advanced care planning. I have attempted this conversation on many of her previous admissions. I don't beleive Nic is mentally capable of understanding the implications of these decisions. When asked who she trusts to make decisions for her when she cannot, she says, "I don't know." When asked about CPR and mechanical interventions, "I don't know." These questions do not appear to bother her, she simply is unable to answer. No family was present at time of visit. Nic does appreciate prayer and spiritual encouragement, and I was happy to provide these. I will remain available.
[2019-02-22 21:29] LABS: Hematocrit 28.6 % (33.0-51.0); Hemoglobin 9.1 g/dL (11.5-16.0)
[2019-02-23 01:15] LABS: Hematocrit 29.1 % (33.0-51.0); Hemoglobin 9.1 g/dL (11.5-16.0)
[2019-02-23 04:42] LABS: BASOPHILS ABSOLUTE AUTO 0.03 K/mm3 (0.00-0.23); BASOPHILS PERCENT AUTO 0 % (0-2); EOSINOPHILS ABSOLUTE AUTO 0.16 K/mm3 (0.00-0.68); EOSINOPHILS PERCENT AUTO 1 % (0-6); Hematocrit 28.3 % (33.0-51.0); Hemoglobin 8.7 g/dL (11.5-16.0); IMMATURE GRAN ABSOLUTE AUTO 0.07 K/mm3 (0.00-0.10); IMMATURE GRAN PERCENT AUTO 1 % (0-1); LYMPHOCYTES PERCENT AUTO 10 % (21-46); MONOCYTES ABSOLUTE AUTO 1.81 K/mm3 (0.16-1.47); MONOCYTES PERCENT AUTO 14 % (4-13); Mean Corpuscular HGB 28.3 pg (26.0-34.0); Mean Corpuscular HGB Conc 30.7 g/dL (31.5-36.5); Mean Corpuscular Volume 92 fL (80-100); Mean Platelet Volume 9.6 fL (9.1-12.4); NEUTROPHILS ABSOLUTE AUTO 9.97 K/mm3 (1.96-9.15); NEUTROPHILS PERCENT AUTO 75 % (41-73); Platelet Count 206 K/mm3 (150-400); RDW Coefficient Variation 18.8 % (11.7-14.2); RDW Standard Deviation 63.2 fL (35.1-46.3); Red Blood Cell Count 3.07 M/mm3 (3.80-5.20); White Blood Cell Count 13.34 K/mm3 (4.00-11.30)
[2019-02-23 05:12] LABS: Albumin, Blood 2.3 g/dL (3.4-5.0); Anion Gap 8 mmol/L (6-16); Blood Urea Nitrogen 10 mg/dL (8-24); Bun/Creatinine Ratio 11.4 (12.0-20.0); CO2, Blood 22 mmol/L (21-32); Calcium, Blood 8.4 mg/dL (8.5-10.1); Chloride, Blood 110 mmol/L (98-108); Creatinine, Blood 0.87 mg/dL (0.40-1.00); Glomerular Filtration Rate >60 (60-); Glucose, Blood 85 mg/dL (70-99); Phosphorus, Blood 3.4 mg/dL (2.5-4.9); Potassium, Blood 3.8 mmol/L (3.5-5.5); Sodium, Blood 140 mmol/L (136-145)
--- NOTE | 2019-02-23 06:27 | NUR ---
SHIFT SUMMARY PT HAS RESTED MOST OF THE NIGHT. PT PAIN HAS BEEN MUCH BETTER CONTROLLED THIS SHIFT. PT STILL HAS SOME FACIAL SWELLING BUT IT HAS DECREASED SINCE ADMISSION. PT HAS REMAINED A/0X4, CIWA AT 0, PT HAS NO S/S OF WITHDRAWAL. PT RECEIVED LACTULOSE THIS SHIFT AND STILL HAS NOT BEEN ABLE TO PRODUCE A BOWEL MOVEMENT FOR SAMPLE. THERE HAVE BEEN NO S/S OF BLEEDING THIS SHIFT. SERIAL H&H HAS BEEN PERFORMED THIS SHIFT, HGB HAS REMAINED ABOVE 8. UNIT OF PRBC'S READY FOR HGB BELOW 8. VITALS ARE STABLE. PLAN IS FOR SCOPE TODAY. CLEAR LIQUID DIET, NPO AFTER BREAKFAST FOR PROCEDURE AT 1300. PT IS AWARE OF CURRENT PLAN. PT EXPRESSED TO ME THAT SHE HOPES TO DC TODAY AFTER SCOPE, SHE HAS TIME SENSITIVE PAPERWORK REGARDING HER HOUSING THAT NEEDS TO BE TURNED IN. PT AMBULATING WITH A 1 PA. ASSESSMENT OTHERWISE UNCHANGED. BED IN LOWEST POSITON, CALL LIGHT WITHIN REACH. WILL CONTINUE TO MONITOR AND REPORT TO ONCOMING RN.
--- NOTE | 2019-02-23 11:59 | NUR ---
FACIAL REDDNESS REPORTED TO DR. CALZADA NEW ORDERS RECEIVED FOR COOL WASH CLOTHES.
--- NOTE | 2019-02-23 12:36 | NUR ---
History, Chart, Medications and Allergies reviewed before start of procedure. Patient confirms NPO status and agrees with scheduled surgery. Alert and oriented x4. Breathing RA. FACE FLUSHED TO CHEEKS BILAT AND UPPER LIP. REPORT FROM MEDICAL FLOOR RN THAT IT IS KNOWN TO PHYSICIAN OVERSEEING PATIENT CARE.
--- NOTE | 2019-02-23 13:11 | NUR ---
02/23/19 1311 Candi Soria MONITOR INTACT WITH CONTINUOUS PULSE OXIMETRY AND INTERMITTENT BP.
--- NOTE | 2019-02-23 13:12 | NUR ---
TRANSFER OF CARE REPORT GIVEN TO CIRILO RIVERA.
--- NOTE | 2019-02-23 13:41 | NUR ---
PATIENT CARE TRANSFERED TO DONNA TAM RN FOR TRANSPORT BACK TO ROOM 312. REPORT TO MEDICAL FLOOR RN, MIGUEL SMITH RN, TO BE GIVEN AT BEDSIDE.
--- NOTE | 2019-02-23 14:44 | NUR ---
BACK FROM EGD AND PER RN NO ACTIVE BLEED. PER DR. EDWARDS CAN EAT NOW. PATIENT CONFUSED. TAKES OFF CLOTHES AND PUTS ON HOME CLOTHES AND SAYS"I HAVE TO GO HOME AND HELP CLEAN." CHANGED BACK INTO HOSPITAL CLOTHES AND TELE ON. LEFT ARM CLEANED WITH SHURCLENS, ANTIBIOTIC OINTMENT PLACED, 4X4 THEN KERLIX. COBAN AND TUBEX PLACED. NOT COOPERATIVE.. COMBATIVE.
--- NOTE | 2019-02-23 15:15 | NUR ---
CODE GENNARO CALLED. PATIENT TALKS TO FRIEND , MIGUEL GLASS,[phone] AND SEEMS TO BE WILLING TO STAY TILL SOMEONE COMES IN AND TALKS TO HER. SON'S # [phone], LEFT MESSAGE ANS HUSBANDS # [phone], SANTIAGO ALSO LEFT MESSAGE.
--- NOTE | 2019-02-23 16:46 | NUR ---
PATIENT LEFT AMA AT 1630. IV TAKEN OUT BY KANIKA. REVIEWS AMA WITH PATIENT. AMBULATORY WITH BELONGINGS BAG.
[2019-02-23] MEDS ORDERED: Mupirocin22 GM TOP (19:40)
== END 2019-02-23 16:28 | disposition left against medical advice (07) | DRG 689 ==
LOC: ER 07:39 → MEDS 07:40 → ICUW 07:40 → MEDS 07:40 → ICUE 12:00 → MEDS 17:47
PROVIDERS: Emergency Medicine; Internal Medicine; Nurse Practitioner Acute Care; Student in an Organized Health Care Education/Training Program; ADMIT Internal Medicine
PROC: 0DJ08ZZ Inspection of Upper Intestinal Tract, Via Natural or Artificial Opening Endoscopic (ICD-10-PCS; principal; 2019-02-23 13:00)
DX: N39.0 Urinary tract infection, site not specified (principal); G92 Toxic encephalopathy; K76.6 Portal hypertension; L03.114 Cellulitis of left upper limb; I85.00 Esophageal varices without bleeding; J44.9 Chronic obstructive pulmonary disease, unspecified; N18.3 Chronic kidney disease, stage 3 (moderate); I10 Essential (primary) hypertension; I12.9 Hypertensive chronic kidney disease with stage 1 through stage 4 chronic kidney disease, or unspecified chronic kidney disease; G43.909 Migraine, unspecified, not intractable, without status migrainosus; F10.20 Alcohol dependence, uncomplicated; K70.30 Alcoholic cirrhosis of liver without ascites; F20.9 Schizophrenia, unspecified; Z87.891 Personal history of nicotine dependence; S09.90XA Unspecified injury of head, initial encounter; B19.20 Unspecified viral hepatitis C without hepatic coma; G47.33 Obstructive sleep apnea (adult) (pediatric); E78.5 Hyperlipidemia, unspecified; T14.8XXA Other injury of unspecified body region, initial encounter; K31.819 Angiodysplasia of stomach and duodenum without bleeding; R45.1 Restlessness and agitation; B95.62 Methicillin resistant Staphylococcus aureus infection as the cause of diseases classified elsewhere; W19.XXXA Unspecified fall, initial encounter; Y92.9 Unspecified place or not applicable
CPT/HCPCS: 36415; 70450; 71100; 80053; 80069; 81001; 82140; 82550; 83735; 84443; 85014; 85018; 85025; 85610; 86850; 86900; 86901; 86923; 87077; 87086; 87147; 87186; 93005; 93010; 94640; 94760; 94762; 96365; 96366; 96374; 96375; 96376; 99284-25; C9113; G0378; G0480; J1200; J1940; J1956; J2001; J2310; J2704; J3411; J3475; J7042; J7120; P9016

== ENCOUNTER 2019-02-27 15:33 | Observation (INO) | payer OTHER ==
[~2019-02-27] VITALS: Ht 160 cm; Wt 73.4 kg
[~2019-02-27 15:33] MED LIST changes: +D3-20002000 UNIT PO; +GABA300 PO; +IRON150C PO; +LOSARTAN POTASS25 M2 PO; +MAGOX 400400 MG PO; +Minipress1 MG PO; +Mupirocin22 GM TOP; -POTCHL10ER PO; +Protonix40 MG PO; +VENL150ER PO
[2019-02-27 16:03] LABS: BASOPHILS ABSOLUTE AUTO 0.06 K/mm3 (0.00-0.23); BASOPHILS PERCENT AUTO 0 % (0-2); EOSINOPHILS ABSOLUTE AUTO 0.54 K/mm3 (0.00-0.68); EOSINOPHILS PERCENT AUTO 3 % (0-6); Hematocrit 29.2 % (33.0-51.0); Hemoglobin 8.4 g/dL (11.5-16.0); IMMATURE GRAN ABSOLUTE AUTO 0.26 K/mm3 (0.00-0.10); IMMATURE GRAN PERCENT AUTO 2 % (0-1); LYMPHOCYTES ABSOLUTE AUTO 1.79 K/mm3 (0.84-5.20); LYMPHOCYTES PERCENT AUTO 11 % (21-46); MONOCYTES ABSOLUTE AUTO 1.61 K/mm3 (0.16-1.47); MONOCYTES PERCENT AUTO 10 % (4-13); Mean Corpuscular HGB 27.9 pg (26.0-34.0); Mean Corpuscular HGB Conc 28.8 g/dL (31.5-36.5); NEUTROPHILS ABSOLUTE AUTO 11.94 K/mm3 (1.96-9.15); NEUTROPHILS PERCENT AUTO 74 % (41-73); Platelet Count 230 K/mm3 (150-400); RDW Coefficient Variation 19.7 % (11.7-14.2); RDW Standard Deviation 68.4 fL (35.1-46.3); Red Blood Cell Count 3.01 M/mm3 (3.80-5.20)
[2019-02-27 16:12] LABS: Mean Corpuscular Volume 97 fL (80-100)
[2019-02-27 16:18] LABS: International Normalized Ratio 1.08; Prothrombin Time Results 11.4 Sec (9.7-11.5)
[2019-02-27 16:30] LABS: Alanine Aminotransfer (ALT/SGP 31 U/L (12-78); Albumin, Blood 2.3 g/dL (3.4-5.0); Albumin/Globulin Ratio 0.6 (0.8-1.8); Alk Phos 151 U/L (50-136); Anion Gap 9 mmol/L (6-16); Aspartate Aminotrans (AST/SGOT 31 U/L (12-37); Bilirubin, Total 0.5 mg/dL (0.1-1.0); Blood Urea Nitrogen 10 mg/dL (8-24); Bun/Creatinine Ratio 11.9 (12.0-20.0); CO2, Blood 17 mmol/L (21-32); Calcium, Blood 7.8 mg/dL (8.5-10.1); Chloride, Blood 114 mmol/L (98-108); Creatinine, Blood 0.84 mg/dL (0.40-1.00); Ethanol (Alcohol), Blood, Med 213 mg/dL; Globulin, Blood 3.6 g/dL (2.2-4.0); Glomerular Filtration Rate >60 (60-); Glucose, Blood 133 mg/dL (70-99); Potassium, Blood 3.4 mmol/L (3.5-5.5); Sodium, Blood 140 mmol/L (136-145); Total Protein, Blood 5.9 g/dL (6.4-8.2)
[2019-02-27 17:29] LABS: Source, Urine Clean Catch
[2019-02-27 17:40] LABS: Appearance, Urine Clear (Clear); Bilirubin, Urine Neg (Neg); Blood, Urine Neg (Neg); Color, Urine Yellow (P-Yellow); Glucose Qualitative, Urine Neg (Neg); Ketones, Urine Neg (Neg); Leukocyte Esterase, Urine 1+ (Neg); Nitrite, Urine Neg (Neg); Protein, Urine Neg (Neg); Urobilinogen, Urine NORM (Normal)
[2019-02-27] MEDS ORDERED: CYCL10 PO (17:48)
[2019-02-27] MEDS ORDERED: Mupirocin22 GM TOP (17:49)
[2019-02-27] MEDS ORDERED: OXYC5 PO (17:50)
[2019-02-27] MEDS ORDERED: IRON150C PO (17:50)
[2019-02-27] MEDS ORDERED: LOSARTAN POTASS25 M2 PO (17:51)
[2019-02-27] MEDS ORDERED: VENLAFAXINE HCL75 MG PO (17:52)
[2019-02-27] MEDS ORDERED: Spironolactone25 MG PO (17:53)
[2019-02-27] MEDS ORDERED: POTCHL10ER PO (17:53)
[2019-02-27 17:54] LABS: U Amphetamine Screen Not Detected; U Barbituate Screen Not Detected; U Benzodiazapine Screen DETECTED; U Buprenorphine Screen Not Detected; U Cannabinoids Screen Not Detected; U Cocaine Screen Not Detected; U Methadone Screen Not Detected; U Methamphetamine Screen Not Detected; U Opiates Screen Not Detected; U Oxycodone Screen Not Detected; U Phencyclidine Screen Not Detected; U Propoxyphene Screen Not Detected
[2019-02-27] MEDS ORDERED: PANTOPRAZOLE SO40 M2 PO (17:55)
[2019-02-27] MEDS ORDERED: BUDE6HFA INH (17:56)
[2019-02-27] MEDS ORDERED: Ventolin/Prove6.7 GM INH (17:56)
[2019-02-27] MEDS ORDERED: MONTELUKAST SOD10 MG PO (17:58)
[2019-02-27 18:03] LABS: Bacteria Mod /hpf; Red Blood Cells, Urine 0-2 /hpf (0-2); Squamous Epithelial Cells Mod /hpf (Few)
[2019-02-27 18:04] LABS: Hyaline Casts 0-2 /lpf (0-2)
[2019-02-27] MEDS ORDERED: OLAN7.5 PO (18:06)
[2019-02-27] MEDS ORDERED: MAGNESIUM OXID400 M2 PO (18:07)
[2019-02-27] MEDS ORDERED: TRAZ100 PO (18:07)
[2019-02-27] MEDS ORDERED: IMITREX100 MG PO (19:15)
[2019-02-27] MEDS ORDERED: VITAMIN D350 MCG PO (19:17)
[2019-02-27] MEDS ORDERED: SUCRALFATE1 GM PO (19:17)
[2019-02-27] MEDS ORDERED: PRAZOSIN HCL1 MG PO (19:18)
[2019-02-27] MEDS ORDERED: LOVASTATIN40 MG PO (19:20)
--- NOTE | 2019-02-27 20:14 | NUR ---
DENIES SUICIDAL THOUGHTS
--- NOTE | 2019-02-28 03:22 | NUR ---
53 YR OLD FEMALE ADMITTED TO FLOOR FROM THE ED POST FALL AND POSSIBLE ANEBRIATED FROM HOME. IVF INFUSING PER ME ORDERS. ALERT AND ORIENTED. NOTE CONTUSIONS AND ABRASIONS - SEE DOC FLOW SHEETS FOR DETAILS. CALL LIGHT IN REACH.
[2019-02-28 04:51] LABS: BASOPHILS ABSOLUTE AUTO 0.06 K/mm3 (0.00-0.23); BASOPHILS PERCENT AUTO 0 % (0-2); EOSINOPHILS ABSOLUTE AUTO 0.58 K/mm3 (0.00-0.68); EOSINOPHILS PERCENT AUTO 4 % (0-6); Hematocrit 28.1 % (33.0-51.0); Hemoglobin 8.4 g/dL (11.5-16.0); IMMATURE GRAN ABSOLUTE AUTO 0.16 K/mm3 (0.00-0.10); IMMATURE GRAN PERCENT AUTO 1 % (0-1); LYMPHOCYTES ABSOLUTE AUTO 1.58 K/mm3 (0.84-5.20); LYMPHOCYTES PERCENT AUTO 10 % (21-46); MONOCYTES ABSOLUTE AUTO 1.44 K/mm3 (0.16-1.47); MONOCYTES PERCENT AUTO 9 % (4-13); Mean Corpuscular HGB 29.1 pg (26.0-34.0); Mean Corpuscular HGB Conc 29.9 g/dL (31.5-36.5); Mean Corpuscular Volume 97 fL (80-100); NEUTROPHILS ABSOLUTE AUTO 11.95 K/mm3 (1.96-9.15); NEUTROPHILS PERCENT AUTO 76 % (41-73); Platelet Count 223 K/mm3 (150-400); RDW Coefficient Variation 19.6 % (11.7-14.2); RDW Standard Deviation 67.9 fL (35.1-46.3); Red Blood Cell Count 2.89 M/mm3 (3.80-5.20); White Blood Cell Count 15.77 K/mm3 (4.00-11.30)
[2019-02-28 05:12] LABS: Alanine Aminotransfer (ALT/SGP 28 U/L (12-78); Albumin, Blood 2.2 g/dL (3.4-5.0); Albumin/Globulin Ratio 0.6 (0.8-1.8); Alk Phos 161 U/L (50-136); Anion Gap 7 mmol/L (6-16); Aspartate Aminotrans (AST/SGOT 28 U/L (12-37); Bilirubin, Total 0.7 mg/dL (0.1-1.0); Blood Urea Nitrogen 11 mg/dL (8-24); Bun/Creatinine Ratio 14.5 (12.0-20.0); CO2, Blood 21 mmol/L (21-32); Calcium, Blood 7.7 mg/dL (8.5-10.1); Chloride, Blood 114 mmol/L (98-108); Creatinine, Blood 0.76 mg/dL (0.40-1.00); Globulin, Blood 3.7 g/dL (2.2-4.0); Glomerular Filtration Rate >60 (60-); Glucose, Blood 83 mg/dL (70-99); Potassium, Blood 4.4 mmol/L (3.5-5.5); Sodium, Blood 142 mmol/L (136-145); Total Protein, Blood 5.9 g/dL (6.4-8.2)
--- NOTE | 2019-02-28 06:21 | NUR ---
NEURO CHECK DONE, PUPILS 3MM BILAT AND ROUND. HAND CONTINUOUS IMPROVEMENT BLACK BELT EQUAL AND STRONG. PLANTER AND DORSI FLEXION STRONG. SENSATION REMAINS DECREASED IN LLE. PT STATES THIS IS NORMAL FOR HER.
--- NOTE | 2019-02-28 17:28 | NUR ---
SHIFT SUMMARY: NO ACUTE CHANGES TO REPORT THIS SHIFT. PT A&O; CALM AND COOPERATIVE WITH CARE. MEDICATED FOR NECK & L SIDE PAIN PER EMAR. TELE IN PLACE; SR @ 68 PER BUSINESS MANAGER.GONZALEZ IN PLACE; PATENT AND DRAINING. ABRASIONS TO L FA; DRESSING CHANGED THIS SHIFT; HEALING WNL. IV FLUIDS & IV ABX CONTINUING. WCTM.
[2019-02-28 19:20] LABS: Vancomycin, Trough 21.3 ug/mL (5.0-10.0)
--- NOTE | 2019-03-01 05:14 | NUR ---
REGIONAL TRAINER SUMMARY NO ACUTE CHANGES THIS SHIFT. PT AAOX3 AND PLEASANT/COOPERATIVE. 1 ASSIST TO BSC. PT REFUSED NIGHT TIME DOSE OF LACTULOSE, PT STATED "I'VE HAD PROBABLY 4-5 BOWEL MOVEMENTS ALREADY TODAY". HAD CRITICAL HIGH VANCO TROUGH AT START OF SHIFT SO DID NOT RECIEVE BEDTIME DOSE OF VANCO. VANCO MANAGED BY PHARMACY, NEXT DOSE AT 0600 TODAY. NO OTHER COMPLAINTS FROM PT. WILL CONTINUE TO MONITOR.
--- NOTE | 2019-03-01 08:00 | NUR ---
PT PLEASANT COOP A/O X3. STATES SOME PAIN IN NECK, NO MEDS AVAIL. WILL ASK DR WHEN IN. H/R REG, NO MURMER NOTED. NOTE THAT HEART IS LOUD AND IS NOTICEABLE FULL UPPER CHEST LEFT TO RIGHT. DR NOTIFIED. PER TELE NSR AT 77. LUNGS CLEAR, RESP EASY, UNLABORED. ON R.A. BT X4 LAST BM YEST. SOFT. ABD IS SOFT NONTENDER, LARGE. VOIDS PER GONZALEZ CATH,. IS CLEAR YELLOW FLUID DRAINING. 1 ASST WITH FWW. BED IN LOW POSITION, CALL LITE IN REACH, CALLS APPROP
[2019-03-01 08:11] LABS: BASOPHILS ABSOLUTE AUTO 0.04 K/mm3 (0.00-0.23); BASOPHILS PERCENT AUTO 0 % (0-2); EOSINOPHILS ABSOLUTE AUTO 0.38 K/mm3 (0.00-0.68); EOSINOPHILS PERCENT AUTO 4 % (0-6); Hematocrit 25.3 % (33.0-51.0); Hemoglobin 7.6 g/dL (11.5-16.0); IMMATURE GRAN ABSOLUTE AUTO 0.07 K/mm3 (0.00-0.10); IMMATURE GRAN PERCENT AUTO 1 % (0-1); LYMPHOCYTES ABSOLUTE AUTO 1.24 K/mm3 (0.84-5.20); LYMPHOCYTES PERCENT AUTO 12 % (21-46); MONOCYTES ABSOLUTE AUTO 1.32 K/mm3 (0.16-1.47); MONOCYTES PERCENT AUTO 12 % (4-13); Mean Corpuscular HGB 28.3 pg (26.0-34.0); Mean Corpuscular Volume 94 fL (80-100); Mean Platelet Volume 9.9 fL (9.1-12.4); NEUTROPHILS ABSOLUTE AUTO 7.66 K/mm3 (1.96-9.15); NEUTROPHILS PERCENT AUTO 72 % (41-73); Platelet Count 189 K/mm3 (150-400); RDW Coefficient Variation 19.7 % (11.7-14.2); RDW Standard Deviation 66.9 fL (35.1-46.3); Red Blood Cell Count 2.69 M/mm3 (3.80-5.20); White Blood Cell Count 10.71 K/mm3 (4.00-11.30)
[2019-03-01 08:29] LABS: Anion Gap 6 mmol/L (6-16); Blood Urea Nitrogen 15 mg/dL (8-24); Bun/Creatinine Ratio 19.5 (12.0-20.0); CO2, Blood 22 mmol/L (21-32); Calcium, Blood 8.2 mg/dL (8.5-10.1); Chloride, Blood 112 mmol/L (98-108); Creatinine, Blood 0.77 mg/dL (0.40-1.00); Glomerular Filtration Rate >60 (60-); Glucose, Blood 100 mg/dL (70-99); Magnesium, Blood 2.1 mg/dL (1.6-2.4); Potassium, Blood 4.3 mmol/L (3.5-5.5); Sodium, Blood 140 mmol/L (136-145)
[2019-03-01] MEDS ORDERED: FOLI1 PO (11:11)
[2019-03-01] MEDS ORDERED: LACT10SY PO (11:12)
[2019-03-01] MEDS ORDERED: B-1100 MG PO (11:15)
[2019-03-01] MEDS ORDERED: DOXY100 PO (11:17)
--- NOTE | 2019-03-01 12:00 | NUR ---
D/Beny GONZALEZ PRIOR TO D.C
--- NOTE | 2019-03-01 12:53 | NUR ---
DISCHARGE REVIEWED WITH PT. SHE VERBALIZED UNDERSTANDING OF MEDS AND INSTR. DR BARBOZA TOMORROW. IV REMOVED INTACT. TELE REMOVED. TP DRESSED AND PREPARED TO GO HOME.
--- NOTE | 2019-03-01 13:59 | NUR ---
PT OUT DOOR WITH AIDE AT 4218
== END 2019-03-01 14:12 | disposition home or self-care (01) ==
LOC: ER 15:33 → MEDS 15:34 → ENPENDDIS 03-01 11:07 → MEDS 03-01 14:12
PROVIDERS: Emergency Medicine; Physician Assistant; ADMIT Internal Medicine
DX: A41.02 Sepsis due to Methicillin resistant Staphylococcus aureus (principal); R65.21 Severe sepsis with septic shock; N39.0 Urinary tract infection, site not specified; E87.6 Hypokalemia; K74.60 Unspecified cirrhosis of liver; B18.2 Chronic viral hepatitis C; G47.33 Obstructive sleep apnea (adult) (pediatric); J44.9 Chronic obstructive pulmonary disease, unspecified; I10 Essential (primary) hypertension; E78.5 Hyperlipidemia, unspecified; F10.10 Alcohol abuse, uncomplicated; K72.90 Hepatic failure, unspecified without coma; D50.0 Iron deficiency anemia secondary to blood loss (chronic); F25.1 Schizoaffective disorder, depressive type; Z90.49 Acquired absence of other specified parts of digestive tract; Z88.6 Allergy status to analgesic agent; Z88.1 Allergy status to other antibiotic agents; Z88.0 Allergy status to penicillin; Z88.4 Allergy status to anesthetic agent; Z88.2 Allergy status to sulfonamides; Z91.041 Radiographic dye allergy status; Z88.8 Allergy status to other drugs, medicaments and biological substances; Z91.19 Patient's noncompliance with other medical treatment and regimen; Z79.51 Long term (current) use of inhaled steroids; Z79.899 Other long term (current) drug therapy; Y90.7 Blood alcohol level of 200-239 mg/100 ml
CPT/HCPCS: 36415; 51702; 70450; 72125; 80048; 80053; 80202; 81001; 82140; 83605; 83735; 85025; 85610; 87040; 87077; 87086; 87186; 93005; 93010; 94640; 94760; 96361; 96361-59; 96365; 96366; 96374; 96374-59; 96375; 96376; 97161; 97165; 97530; 97535; 99285-25; G0378; G0480; J1885; J3370; J7030; J7050; J7120

== ENCOUNTER 2019-03-19 13:02 | Emergency (ER) | payer OTHER ==
[~2019-03-19] VITALS: Ht 167.6 cm; Wt 68.0 kg
[~2019-03-19 13:02] MED LIST changes: +B-1100 MG PO; +CYCL10 PO; +FOLI1 PO; +IMITREX100 MG PO; +LOVASTATIN40 MG PO; +MAGNESIUM OXID400 M2 PO; +MONTELUKAST SOD10 MG PO; +PANTOPRAZOLE SO40 M2 PO; +POTCHL10ER PO; +PRAZOSIN HCL1 MG PO; +SUCRALFATE1 GM PO; +Spironolactone25 MG PO; +VITAMIN D350 MCG PO; +Ventolin/Prove6.7 GM INH
[2019-03-19] MEDS ORDERED: CYCL10 PO (15:31)
[2019-03-19] MEDS ORDERED: SPIRONOLACTONE25 MG PO (15:31)
[2019-03-19] MEDS ORDERED: FUROSEMIDE40 MG PO (15:32)
[2019-03-19] MEDS ORDERED: Inderal 20 mg T20 MG PO (15:32)
== END 2019-03-19 21:26 | disposition home or self-care (01) ==
LOC: ER 13:02
DX: K92.2 Gastrointestinal hemorrhage, unspecified (principal); J90 Pleural effusion, not elsewhere classified; D64.9 Anemia, unspecified; F32.9 Major depressive disorder, single episode, unspecified; J44.9 Chronic obstructive pulmonary disease, unspecified; I10 Essential (primary) hypertension; G43.909 Migraine, unspecified, not intractable, without status migrainosus; I12.9 Hypertensive chronic kidney disease with stage 1 through stage 4 chronic kidney disease, or unspecified chronic kidney disease; N18.3 Chronic kidney disease, stage 3 (moderate); Z88.0 Allergy status to penicillin; Z88.2 Allergy status to sulfonamides; Z79.899 Other long term (current) drug therapy; R06.02 Shortness of breath
CPT/HCPCS: 36415; 36430; 71046; 80053; 83880; 84484; 85025; 86850; 86900; 86901; 86923; 93005; 93010; 99284-25; J7030; P9016

== ENCOUNTER 2019-04-01 23:32 | Emergency (ER) | payer OTHER ==
[~2019-04-01] VITALS: Ht 157.5 cm; Wt 68.5 kg
[~2019-04-01 23:32] MED LIST changes: +FUROSEMIDE40 MG PO; +SPIRONOLACTONE25 MG PO
[2019-04-01] MEDS ORDERED: Robaxin-750750 MG PO (23:48)
== END 2019-04-02 01:27 | disposition home or self-care (01) ==
LOC: ER 23:32
DX: S16.1XXA Strain of muscle, fascia and tendon at neck level, initial encounter (principal); G89.29 Other chronic pain; M54.6 Pain in thoracic spine; F32.9 Major depressive disorder, single episode, unspecified; Z79.899 Other long term (current) drug therapy; X58.XXXA Exposure to other specified factors, initial encounter
CPT/HCPCS: 99283

== ENCOUNTER 2019-04-15 00:41 | Observation (INO) | payer OTHER ==
[~2019-04-15] VITALS: Ht 157.5 cm; Wt 76.4 kg
[~2019-04-15 00:41] MED LIST changes: +Robaxin-750750 MG PO
[2019-04-15 01:59] LABS: BASOPHILS ABSOLUTE AUTO 0.04 K/mm3 (0.00-0.23); BASOPHILS PERCENT AUTO 0 % (0-2); EOSINOPHILS ABSOLUTE AUTO 0.08 K/mm3 (0.00-0.68); EOSINOPHILS PERCENT AUTO 1 % (0-6); Hematocrit 24.7 % (33.0-51.0); Hemoglobin 7.3 g/dL (11.5-16.0); IMMATURE GRAN ABSOLUTE AUTO 0.03 K/mm3 (0.00-0.10); IMMATURE GRAN PERCENT AUTO 0 % (0-1); LYMPHOCYTES ABSOLUTE AUTO 1.19 K/mm3 (0.84-5.20); LYMPHOCYTES PERCENT AUTO 8 % (21-46); MONOCYTES ABSOLUTE AUTO 0.84 K/mm3 (0.16-1.47); MONOCYTES PERCENT AUTO 6 % (4-13); Mean Corpuscular HGB 31.3 pg (26.0-34.0); Mean Corpuscular HGB Conc 29.6 g/dL (31.5-36.5); Mean Corpuscular Volume 106 fL (80-100); Mean Platelet Volume 10.1 fL (9.1-12.4); NEUTROPHILS ABSOLUTE AUTO 13.08 K/mm3 (1.96-9.15); NEUTROPHILS PERCENT AUTO 86 % (41-73); Platelet Count 267 K/mm3 (150-400); RDW Coefficient Variation 24.3 % (11.7-14.2); RDW Standard Deviation 90.2 fL (35.1-46.3); Red Blood Cell Count 2.33 M/mm3 (3.80-5.20); White Blood Cell Count 15.26 K/mm3 (4.00-11.30)
[2019-04-15 02:11] LABS: Alanine Aminotransfer (ALT/SGP 32 U/L (12-78); Albumin, Blood 2.4 g/dL (3.4-5.0); Albumin/Globulin Ratio 0.6 (0.8-1.8); Alk Phos 107 U/L (50-136); Anion Gap 8 mmol/L (6-16); Aspartate Aminotrans (AST/SGOT 40 U/L (12-37); Bilirubin, Total 1.1 mg/dL (0.1-1.0); Blood Urea Nitrogen 16 mg/dL (8-24); Bun/Creatinine Ratio 17.8 (12.0-20.0); CO2, Blood 23 mmol/L (21-32); Calcium, Blood 8.4 mg/dL (8.5-10.1); Chloride, Blood 109 mmol/L (98-108); Globulin, Blood 3.9 g/dL (2.2-4.0); Glomerular Filtration Rate >60 (60-); Glucose, Blood 100 mg/dL (70-99); Potassium, Blood 4.2 mmol/L (3.5-5.5); Sodium, Blood 140 mmol/L (136-145); Total Protein, Blood 6.3 g/dL (6.4-8.2)
[2019-04-15 04:43] LABS: Lactate Dehydrogenase (Ld),Bld 293 U/L (100-240)
--- NOTE | 2019-04-15 06:17 | NUR ---
ADMISSION: PATIENT IS RECIEVED FROM ER VIA STRETCHER, ALERT AND ORIENTED TO SELF, PLACE, SITUATION, DISORIENTED TO TIME. VS ARE STABLE, PATIENT IS ASSISTED TO BSC X2 FOR LIQUID STOOL AND URINE. LAB HAS CALLED AND REPORTED NO UNRINE SAMPLE WAS OBTAINED IN ER. UNABLE TO SEND THIS VOID, MIXED WITH STOOL. PATIENT IS ORIENTED TO ROOM AND CALL FAITH. BED ALARM IS ON FOR SAFETY.
[2019-04-15 07:02] LABS: International Normalized Ratio 1.07; Prothrombin Time Results 11.3 Sec (9.7-11.5)
--- NOTE | 2019-04-15 07:42 | NUR ---
HOME SAFETY: DURING ADMISSION PATIENT REPORTS TO AUTOCAD OPERATOR THAT IF HER DAUGHTER, WHO IS HER PRIMARY SEWING MACHINE OPERATOR FLOORPERSON, GETS MAD AT HER SHE DOES NOT GIVE HER HER MEDICATIONS. "BUT I DON'T WANT TO GET HER IN TROUBLE".
--- NOTE | 2019-04-15 18:02 | NUR ---
PATIENT HAD 2 UNITS PRBC THIS SHIFT. TOLERATED WELL. PATIENT HAS CONTINUED TO HAVE SWELLING TO ABDOMEN THIS SHIFT WITH 2+ PITTING EDEMA TO BI LAT LOWER EXTREMITIES. PATIENT HAD BLADDER SCAN DONE AFTER REPORTING NO OUTPUT. 134 NOTED ON SCAN. DOCTOR NOTIFIED OF CHANGES. CALL LIGHT WITHIN REACH.
[2019-04-15] MEDS ORDERED: Voltaren100 GM TOP (22:50)
--- NOTE | 2019-04-16 01:24 | NUR ---
PAIN: PATIENT REPORTS R KNEE PAIN AND THAT SHE USES DICLOFENAC OITMENT FOR KNEE PAIN AT HOME, PATIENT HAS THIS MEDICATION AT BEDSIDE. PAYAM MINAYA NP IS NOTIFIED AND AN ORDER FOR PATIENT TO USE OWN MEDICATION FOR KNEE PAIN IS OBTAINED. MEDICATION IS SENT TO PHARMACY FOR VERIFICATION.
[2019-04-16 05:22] LABS: Hematocrit 25.8 % (33.0-51.0); Hemoglobin 8.2 g/dL (11.5-16.0); Mean Corpuscular HGB 30.6 pg (26.0-34.0); Mean Corpuscular HGB Conc 31.8 g/dL (31.5-36.5); Platelet Count 135 K/mm3 (150-400); Red Blood Cell Count 2.68 M/mm3 (3.80-5.20); White Blood Cell Count 12.64 K/mm3 (4.00-11.30)
[2019-04-16 05:27] LABS: Mean Corpuscular Volume 96 fL (80-100)
[2019-04-16 05:44] LABS: Albumin, Blood 1.9 g/dL (3.4-5.0); Anion Gap 8 mmol/L (6-16); Blood Urea Nitrogen 19 mg/dL (8-24); Bun/Creatinine Ratio 20.6 (12.0-20.0); CO2, Blood 21 mmol/L (21-32); Chloride, Blood 109 mmol/L (98-108); Creatinine, Blood 0.92 mg/dL (0.40-1.00); Glomerular Filtration Rate >60 (60-); Glucose, Blood 87 mg/dL (70-99); Phosphorus, Blood 2.8 mg/dL (2.5-4.9); Potassium, Blood 3.6 mmol/L (3.5-5.5); Sodium, Blood 138 mmol/L (136-145)
--- NOTE | 2019-04-16 06:05 | NUR ---
SHIFT SUMMARY: PATIENT HAS SLEPT WELL THIS SHIFT AFTER SCHEDULED TRAZADONE WAS GIVEN. AT TIMES PATIENT DOES NOT USE CALL FAITH FOR ASSIST OOB. A STEADY GAIT IS OBSERVED, PATIENT IS A SBA WITH WALKER. BED ALARM IS ON FOR SAFETY, PATIENT HAS A HISTORY OF MULTIPLE FALLS.
--- NOTE | 2019-04-16 17:39 | NUR ---
NO ACUTE CHANGES TO PT. HER STOMACH IS LESS DISTENDED THAN LAST SHIFT. SHE HAS BEEN ABLE TO PASS URINE. SHE HAS SLEPT MOST OF THE AFTERNOON AFTER BEING GIVEN PAIN MEDICATION. SHE HAS HAD NO COMPLAINTS. PT HAS BEEN AMBULATING TO THE RESTROOM ON HER OWN THIS SHIFT. SHE IS ALERT AND ORIENTED AND ABLE TO EXPRESS HER NEEDS.
--- NOTE | 2019-04-17 04:42 | NUR ---
SHIFT SUMMARY- PT. A&OX3, INDEPENDENT IN ROOM. SLEPT WELL DURING THE NIGHT, NO APPARENT DISTRESS NOTED. DENIED ANY PAIN OR DISCOMFORT T/O THE SHIFT. PT. ANTICIPATING D/C TODAY. NO ACUTE CHANGES TO CONDITION. CALL LIGHT WITHIN REACH, SIDE RAILS UP X2, AND BED IN LOW POSITION. WILL CONT TO MONITOR.
[2019-04-17 05:19] LABS: Hematocrit 23.4 % (33.0-51.0); Hemoglobin 7.2 g/dL (11.5-16.0); Mean Corpuscular HGB 30.1 pg (26.0-34.0); Mean Corpuscular HGB Conc 30.8 g/dL (31.5-36.5); Mean Corpuscular Volume 98 fL (80-100); Mean Platelet Volume 10.1 fL (9.1-12.4); Platelet Count 140 K/mm3 (150-400); RDW Coefficient Variation 23.9 % (11.7-14.2); Red Blood Cell Count 2.39 M/mm3 (3.80-5.20)
[2019-04-17 05:44] LABS: Albumin, Blood 1.8 g/dL (3.4-5.0); Anion Gap 7 mmol/L (6-16); Blood Urea Nitrogen 13 mg/dL (8-24); Bun/Creatinine Ratio 18.1 (12.0-20.0); CO2, Blood 21 mmol/L (21-32); Calcium, Blood 8.1 mg/dL (8.5-10.1); Chloride, Blood 110 mmol/L (98-108); Creatinine, Blood 0.72 mg/dL (0.40-1.00); Glomerular Filtration Rate >60 (60-); Glucose, Blood 95 mg/dL (70-99); Phosphorus, Blood 3.1 mg/dL (2.5-4.9); Sodium, Blood 138 mmol/L (136-145)
[2019-04-17 10:06] LABS: Hemoglobin 7.5 g/dL (11.5-16.0)
[2019-04-17 16:47] LABS: Hematocrit 30.6 % (33.0-51.0); Hemoglobin 9.8 g/dL (11.5-16.0)
--- NOTE | 2019-04-17 17:01 | NUR ---
DISCHARGE SUMMARY PT DISCHARGED TO HOME, A HOTEL. PT LEFT ROOM VIA WHEELCHAIR AT THIS TIME WITH SHRIMPING BOAT CAPTAIN ESCORT. [facility] TRANSPORTING PT HOME. IV DC'D AND BELONGINGS RETURNED. PT EDUCATED ON DISCHARGE INSTRUCTIONS AND MEDICATIONS. PT AGREES TO FOLLOW UP WITH PCP ORDERED.
--- NOTE | 2019-04-18 19:48 | NUR ---
LOOKED AT PT'S CONTACT INFO AND CALLED AND LEFT MESSAGE REGARDING HOME MEDICATION LEFT BEHIND. MED IS NOW IN PHARMACY FOR PT TO GLUE JOINTER OPERATOR.
== END 2019-04-17 17:06 | disposition home or self-care (01) ==
LOC: ER 00:41 → MEDS 00:42
PROVIDERS: Emergency Medicine; Internal Medicine; ADMIT Internal Medicine
PROC: 30243N1 Transfusion of Nonautologous Red Blood Cells into Central Vein, Percutaneous Approach (ICD-10-PCS; principal; 2019-04-15)
DX: K72.90 Hepatic failure, unspecified without coma (principal); K70.31 Alcoholic cirrhosis of liver with ascites; K76.6 Portal hypertension; K31.89 Other diseases of stomach and duodenum; D72.829 Elevated white blood cell count, unspecified; D63.8 Anemia in other chronic diseases classified elsewhere; F25.1 Schizoaffective disorder, depressive type; G47.33 Obstructive sleep apnea (adult) (pediatric); K70.10 Alcoholic hepatitis without ascites; I10 Essential (primary) hypertension; E78.5 Hyperlipidemia, unspecified; Z90.49 Acquired absence of other specified parts of digestive tract; Z88.0 Allergy status to penicillin; Z88.1 Allergy status to other antibiotic agents; Z88.2 Allergy status to sulfonamides; Z88.4 Allergy status to anesthetic agent; Z88.6 Allergy status to analgesic agent; Z88.8 Allergy status to other drugs, medicaments and biological substances; Z91.041 Radiographic dye allergy status; Z79.51 Long term (current) use of inhaled steroids; Z79.899 Other long term (current) drug therapy
CPT/HCPCS: 36415; 36430; 71046; 74176; 76705; 80053; 80069; 82140; 83615; 83690; 85014; 85018; 85025; 85027; 85610; 86850; 86900; 86901; 86923; 87081; 93005; 93010; 94640; 94760; 97162; 97165; 97530; 97535; 99285-25; G0378; J7050; P9016

== ENCOUNTER 2019-04-29 00:33 | Observation (INO) | payer OTHER ==
[~2019-04-29] VITALS: Ht 157.5 cm; Wt 67.7 kg
[2019-04-29 01:53] LABS: Source, Urine Clean Catch
[2019-04-29 01:56] LABS: Bilirubin, Urine Neg (Neg); Blood, Urine 2+ (Neg); Glucose Qualitative, Urine Neg (Neg); Ketones, Urine Neg (Neg); Leukocyte Esterase, Urine Neg (Neg); Nitrite, Urine Neg (Neg); Protein, Urine Neg (Neg); Urobilinogen, Urine NORM (Normal)
[2019-04-29 02:03] LABS: Appearance, Urine Clear (Clear); Color, Urine Yellow (P-Yellow)
[2019-04-29 02:05] LABS: Bacteria Rare /hpf; Squamous Epithelial Cells Few /hpf (Few); White Blood Cells, Urine Not Seen /hpf (0-5)
[2019-04-29 02:12] LABS: BASOPHILS ABSOLUTE AUTO 0.09 K/mm3 (0.00-0.23); BASOPHILS PERCENT AUTO 1 % (0-2); EOSINOPHILS ABSOLUTE AUTO 0.38 K/mm3 (0.00-0.68); EOSINOPHILS PERCENT AUTO 3 % (0-6); Hematocrit 37.1 % (33.0-51.0); Hemoglobin 11.4 g/dL (11.5-16.0); IMMATURE GRAN ABSOLUTE AUTO 0.04 K/mm3 (0.00-0.10); IMMATURE GRAN PERCENT AUTO 0 % (0-1); LYMPHOCYTES ABSOLUTE AUTO 1.94 K/mm3 (0.84-5.20); LYMPHOCYTES PERCENT AUTO 17 % (21-46); MONOCYTES ABSOLUTE AUTO 0.94 K/mm3 (0.16-1.47); MONOCYTES PERCENT AUTO 8 % (4-13); Mean Corpuscular HGB 31.1 pg (26.0-34.0); Mean Corpuscular HGB Conc 30.7 g/dL (31.5-36.5); Mean Platelet Volume 10.9 fL (9.1-12.4); NEUTROPHILS ABSOLUTE AUTO 8.23 K/mm3 (1.96-9.15); NEUTROPHILS PERCENT AUTO 71 % (41-73); Platelet Count 460 K/mm3 (150-400); RDW Coefficient Variation 19.8 % (11.7-14.2); RDW Standard Deviation 73.3 fL (35.1-46.3); Red Blood Cell Count 3.67 M/mm3 (3.80-5.20); White Blood Cell Count 11.62 K/mm3 (4.00-11.30)
[2019-04-29 02:13] LABS: Mean Corpuscular Volume 101 fL (80-100)
[2019-04-29 02:28] LABS: International Normalized Ratio 1.03
[2019-04-29 03:21] LABS: Alanine Aminotransfer (ALT/SGP 39 U/L (12-78); Albumin, Blood 2.8 g/dL (3.4-5.0); Albumin/Globulin Ratio 0.5 (0.8-1.8); Alk Phos 130 U/L (50-136); Anion Gap 5 mmol/L (6-16); Aspartate Aminotrans (AST/SGOT 85 U/L (12-37); Bilirubin, Total 0.8 mg/dL (0.1-1.0); Blood Urea Nitrogen 16 mg/dL (8-24); Bun/Creatinine Ratio 16.8 (12.0-20.0); CO2, Blood 27 mmol/L (21-32); Calcium, Blood 9.1 mg/dL (8.5-10.1); Chloride, Blood 107 mmol/L (98-108); Creatinine, Blood 0.95 mg/dL (0.40-1.00); Globulin, Blood 5.2 g/dL (2.2-4.0); Glomerular Filtration Rate >60 (60-); Glucose, Blood 71 mg/dL (70-99); Potassium, Blood 5.5 mmol/L (3.5-5.5); Sodium, Blood 139 mmol/L (136-145)
--- NOTE | 2019-04-29 06:24 | NUR ---
PATIENT IS A NEW ADMIT FROM THE ED. SBA TRANSFER FROM [facility] TO BED. AXOX 3 ON ROOM AIR. REPORTS TENDER ABDOMEN AND GENERAL BACK AND RIGHT KNEE PAIN. PIV INTACT. IV PROTONIX BROUGHT UP FROM ED AND STARTED HERE AT 10 mL/HR. PATIENT ORIENTED TO ROOM AND CALL LIGHT SYSTEM. USES A CANE SBA TO BR. REPORTS RECEIVING FLU VACCINE PRIOR TO ADMIT. CLEAR LIQUID DIET. CALL LIGHT IN REACH. WILL CONTINUE TO MONITOR UNTIL DAY RN ASSUMES CARE. BED IN LOWEST POSITION.
[2019-04-29 08:27] LABS: Hematocrit 32.7 % (33.0-51.0); Hemoglobin 10.2 g/dL (11.5-16.0); Mean Corpuscular HGB 31.4 pg (26.0-34.0); Mean Corpuscular HGB Conc 31.2 g/dL (31.5-36.5); Mean Corpuscular Volume 101 fL (80-100); Mean Platelet Volume 10.2 fL (9.1-12.4); Platelet Count 420 K/mm3 (150-400); RDW Coefficient Variation 19.7 % (11.7-14.2); RDW Standard Deviation 72.5 fL (35.1-46.3); Red Blood Cell Count 3.25 M/mm3 (3.80-5.20); White Blood Cell Count 11.79 K/mm3 (4.00-11.30)
[2019-04-29 08:47] LABS: Alanine Aminotransfer (ALT/SGP 30 U/L (12-78); Albumin, Blood 2.5 g/dL (3.4-5.0); Albumin/Globulin Ratio 0.6 (0.8-1.8); Alk Phos 109 U/L (50-136); Anion Gap 6 mmol/L (6-16); Aspartate Aminotrans (AST/SGOT 30 U/L (12-37); Bilirubin, Total 0.9 mg/dL (0.1-1.0); Blood Urea Nitrogen 18 mg/dL (8-24); CO2, Blood 26 mmol/L (21-32); Calcium, Blood 8.8 mg/dL (8.5-10.1); Chloride, Blood 109 mmol/L (98-108); Creatinine, Blood 0.95 mg/dL (0.40-1.00); Globulin, Blood 4.1 g/dL (2.2-4.0); Glomerular Filtration Rate >60 (60-); Glucose, Blood 74 mg/dL (70-99); Sodium, Blood 141 mmol/L (136-145); Total Protein, Blood 6.6 g/dL (6.4-8.2)
[2019-04-29 13:33] LABS: Hematocrit 28.9 % (33.0-51.0); Hemoglobin 8.9 g/dL (11.5-16.0)
--- NOTE | 2019-04-29 17:47 | NUR ---
SHIFT SUMMARY PT HAS HAD A DECREASE IN H&H DURING THIS SHIFT (SEE LABS). PT REPORTS HAVING MULTIPLE LOOSE STOOLS THIS SHIFT, TOLORATED CLEAR LIQUIDS. MEDICATED X1 FOR MUSCLE SPASMS. BED ALARM ON AND CALL LIGHT WITH IN REACH FOR SAFETY WILL REPORT TO ON COMING RN.
[2019-04-29 20:38] LABS: Hematocrit 28.7 % (33.0-51.0); Hemoglobin 8.7 g/dL (11.5-16.0)
--- NOTE | 2019-04-30 04:03 | NUR ---
SHIFT SUMMARY PATIENT HAD NO ACUTE CHANGES OBSERVED THIS SHIFT. AXO X 3 AND SBA W/CANE TO BR. PIV REMAINS INTACT. IV PROTONIX CONTINUOUS DC'D. REPORTED MUSCLE SPASM/PAIN AND ROBAXIN 750 MG GIVEN PER EMAR. VSS/AFBERILE. DENIES SOB AND N/V. COOPERATIVE WITH CARE. CALL LIGHT IN REACH. BED IN LOWEST POSITION. WILL CONTINUE TO MONITOR UNTIL DAY SHIFT NURSE ASSUMES CARE.
[2019-04-30 05:17] LABS: Hematocrit 26.7 % (33.0-51.0); Hemoglobin 8.3 g/dL (11.5-16.0)
[2019-04-30 10:21] LABS: BASOPHILS ABSOLUTE AUTO 0.06 K/mm3 (0.00-0.23); BASOPHILS PERCENT AUTO 1 % (0-2); EOSINOPHILS ABSOLUTE AUTO 0.26 K/mm3 (0.00-0.68); EOSINOPHILS PERCENT AUTO 3 % (0-6); Hematocrit 26.5 % (33.0-51.0); Hemoglobin 8.3 g/dL (11.5-16.0); IMMATURE GRAN ABSOLUTE AUTO 0.04 K/mm3 (0.00-0.10); IMMATURE GRAN PERCENT AUTO 0 % (0-1); LYMPHOCYTES ABSOLUTE AUTO 1.53 K/mm3 (0.84-5.20); LYMPHOCYTES PERCENT AUTO 16 % (21-46); MONOCYTES ABSOLUTE AUTO 1.05 K/mm3 (0.16-1.47); MONOCYTES PERCENT AUTO 11 % (4-13); Mean Corpuscular HGB 31.4 pg (26.0-34.0); Mean Corpuscular HGB Conc 31.3 g/dL (31.5-36.5); Mean Corpuscular Volume 100 fL (80-100); Mean Platelet Volume 9.9 fL (9.1-12.4); NEUTROPHILS ABSOLUTE AUTO 6.75 K/mm3 (1.96-9.15); NEUTROPHILS PERCENT AUTO 70 % (41-73); Platelet Count 350 K/mm3 (150-400); RDW Coefficient Variation 19.5 % (11.7-14.2); RDW Standard Deviation 71.6 fL (35.1-46.3); Red Blood Cell Count 2.64 M/mm3 (3.80-5.20); White Blood Cell Count 9.69 K/mm3 (4.00-11.30)
[2019-04-30 14:35] LABS: Hematocrit 29.8 % (33.0-51.0); Hemoglobin 9.2 g/dL (11.5-16.0)
--- NOTE | 2019-04-30 16:54 | NUR ---
DISCHARGE SUMMARY PATIENT TRANSPORT FACILITATED THROUGH CARE MANAGEMENT. NO ACUTE CONCERNS AT THIS TIME. ALL MEDICATIONS ARE TALKED ABOUT. PATIENT SETTLED WITH DISCHARGED. WALKED DOWN TO AWAIT TAX[facility] BY RN. CURRENTLY [facility] DID NOT SHOW UP. CARE MANAGEMENT IS CALLING THE TRANSPORT COMPANY.
== END 2019-04-30 16:06 | disposition home or self-care (01) ==
LOC: ER 00:33 → MEDS 00:34
PROVIDERS: Emergency Medicine; Hospitalist; ADMIT Internal Medicine
DX: K64.9 Unspecified hemorrhoids (principal); K31.819 Angiodysplasia of stomach and duodenum without bleeding; R19.7 Diarrhea, unspecified; K70.30 Alcoholic cirrhosis of liver without ascites; I12.9 Hypertensive chronic kidney disease with stage 1 through stage 4 chronic kidney disease, or unspecified chronic kidney disease; N18.9 Chronic kidney disease, unspecified; D63.1 Anemia in chronic kidney disease; J44.9 Chronic obstructive pulmonary disease, unspecified; G47.33 Obstructive sleep apnea (adult) (pediatric); F41.9 Anxiety disorder, unspecified; F32.9 Major depressive disorder, single episode, unspecified; G89.29 Other chronic pain; M54.9 Dorsalgia, unspecified; M79.7 Fibromyalgia; F20.9 Schizophrenia, unspecified; E78.5 Hyperlipidemia, unspecified; G47.00 Insomnia, unspecified; E66.3 Overweight; Z68.25 Body mass index [BMI] 25.0-25.9, adult; Z90.49 Acquired absence of other specified parts of digestive tract; Z88.0 Allergy status to penicillin; Z88.1 Allergy status to other antibiotic agents; Z88.2 Allergy status to sulfonamides; Z88.4 Allergy status to anesthetic agent; Z88.8 Allergy status to other drugs, medicaments and biological substances; Z91.041 Radiographic dye allergy status; Z79.899 Other long term (current) drug therapy; Z87.891 Personal history of nicotine dependence; Z79.51 Long term (current) use of inhaled steroids
CPT/HCPCS: 36415; 80053; 81001; 85014; 85018; 85025; 85027; 85610; 85730; 86850; 86900; 86901; 93005; 93010; 94640; 94760; 96365; 96376; 99285-25; C9113; G0378

== ENCOUNTER 2019-05-29 23:49 | Inpatient (IN) | payer OTHER ==
[~2019-05-29] VITALS: Ht 157.5 cm; Wt 72.1 kg
[~2019-05-29 23:49] MED LIST changes: +POTA10T PO; -POTCHL10ER PO; +Venlafaxine HC150 MG PO
[2019-05-30 00:55] LABS: BASOPHILS ABSOLUTE AUTO 0.01 K/mm3 (0.00-0.23); BASOPHILS PERCENT AUTO 0 % (0-2); EOSINOPHILS ABSOLUTE AUTO 0.28 K/mm3 (0.00-0.68); EOSINOPHILS PERCENT AUTO 4 % (0-6); IMMATURE GRAN ABSOLUTE AUTO 0.02 K/mm3 (0.00-0.10); IMMATURE GRAN PERCENT AUTO 0 % (0-1); LYMPHOCYTES ABSOLUTE AUTO 1.33 K/mm3 (0.84-5.20); LYMPHOCYTES PERCENT AUTO 16 % (21-46); MONOCYTES ABSOLUTE AUTO 1.35 K/mm3 (0.16-1.47); MONOCYTES PERCENT AUTO 17 % (4-13); Mean Corpuscular HGB 27.1 pg (26.0-34.0); Mean Corpuscular HGB Conc 28.1 g/dL (31.5-36.5); Mean Corpuscular Volume 97 fL (80-100); Mean Platelet Volume 11.1 fL (9.1-12.4); NEUTROPHILS PERCENT AUTO 63 % (41-73); Platelet Count 216 K/mm3 (150-400); RDW Coefficient Variation 17.6 % (11.7-14.2); RDW Standard Deviation 62.3 fL (35.1-46.3); Red Blood Cell Count 1.44 M/mm3 (3.80-5.20); White Blood Cell Count 8.09 K/mm3 (4.00-11.30)
[2019-05-30 00:56] LABS: Hematocrit 13.9 % (33.0-51.0); Hemoglobin 3.9 g/dL (11.5-16.0)
[2019-05-30 01:03] LABS: Source, Urine Clean Catch
[2019-05-30 01:04] LABS: Appearance, Urine Clear (Clear); Bilirubin, Urine Neg (Neg); Blood, Urine 1+ (Neg); Color, Urine Yellow (P-Yellow); Glucose Qualitative, Urine Neg (Neg); Ketones, Urine Neg (Neg); Leukocyte Esterase, Urine 2+ (Neg); Nitrite, Urine Neg (Neg); Protein, Urine Neg (Neg); Urobilinogen, Urine NORM (Normal); pH, Urine 6.5 (5.0-8.0)
[2019-05-30 01:10] LABS: Albumin, Blood 2.2 g/dL (3.4-5.0); Albumin/Globulin Ratio 0.7 (0.8-1.8); Bilirubin, Total 0.5 mg/dL (0.1-1.0); Bun/Creatinine Ratio 11.7 (12.0-20.0); Calcium, Blood 8.2 mg/dL (8.5-10.1); Creatinine, Blood 1.2 mg/dL (0.40-1.00); Globulin, Blood 3.3 g/dL (2.2-4.0); Potassium, Blood 3.8 mmol/L (3.5-5.5); Total Protein, Blood 5.5 g/dL (6.4-8.2)
[2019-05-30 01:12] LABS: Bacteria Many /hpf; Red Blood Cells, Urine 0-2 /hpf (0-2); Squamous Epithelial Cells Few /hpf (Few)
[2019-05-30 01:14] LABS: Magnesium, Blood 1.8 mg/dL (1.6-2.4); Troponin I <0.015 ng/mL (0.000-0.040)
[2019-05-30 02:51] LABS: International Normalized Ratio 1.07; Prothrombin Time Results 11.4 Sec (9.7-11.5)
[2019-05-30 09:22] LABS: Hematocrit 20.8 % (33.0-51.0); Hemoglobin 6.3 g/dL (11.5-16.0); Mean Corpuscular HGB 27.6 pg (26.0-34.0); Mean Corpuscular HGB Conc 30.3 g/dL (31.5-36.5); Mean Platelet Volume 10.7 fL (9.1-12.4); Platelet Count 176 K/mm3 (150-400); RDW Coefficient Variation 16.3 % (11.7-14.2); RDW Standard Deviation 53.4 fL (35.1-46.3); Red Blood Cell Count 2.28 M/mm3 (3.80-5.20)
[2019-05-30 09:24] LABS: Mean Corpuscular Volume 91 fL (80-100)
[2019-05-30 09:56] LABS: Alanine Aminotransfer (ALT/SGP 22 U/L (12-78); Albumin, Blood 2.1 g/dL (3.4-5.0); Albumin/Globulin Ratio 0.7 (0.8-1.8); Alk Phos 86 U/L (50-136); Anion Gap 4 mmol/L (6-16); Aspartate Aminotrans (AST/SGOT 28 U/L (12-37); Bilirubin, Total 2.9 mg/dL (0.1-1.0); Blood Urea Nitrogen 11 mg/dL (8-24); Bun/Creatinine Ratio 11.8 (12.0-20.0); CO2, Blood 25 mmol/L (21-32); Calcium, Blood 7.6 mg/dL (8.5-10.1); Chloride, Blood 106 mmol/L (98-108); Creatinine, Blood 0.93 mg/dL (0.40-1.00); Glomerular Filtration Rate >60 (60-); Glucose, Blood 162 mg/dL (70-99); Potassium, Blood 4.2 mmol/L (3.5-5.5); Sodium, Blood 135 mmol/L (136-145); Total Protein, Blood 5.1 g/dL (6.4-8.2)
[2019-05-30 13:15] LABS: Hematocrit 22.3 % (33.0-51.0); Hemoglobin 6.9 g/dL (11.5-16.0)
--- NOTE | 2019-05-30 18:26 | NUR ---
SHIFT SUMMARY PT ADMITTED TO PCU 6 THIS AFTERNOON AFTER C/O INCREASED WEAKNESS. PT FOUND TO HAVE SEVERE ANEMIA. IN THE ER PT RECEIVED 2 UNITS PRBC'S. ONE ADDITIONAL UNIT OF PRBC'S ORDERED AND STARTED. WILL CONTINUE TO INFUSE INTO NOC SHIFT. PT IS PALE AND REPORTING FEELING TIRED. TELEMETRY SHOWS PT TO BE IN NSR RATE IN 70'S. ALL VITALS HAVE REMAINED STABLE.
[2019-05-30 22:31] LABS: Hematocrit 25.6 % (33.0-51.0)
--- NOTE | 2019-05-31 03:52 | NUR ---
SHIFT SUMMARY PT A&O; COMPLIANT W/ CARE; 3RD UNIT RBC COMPLETE APPROXIMATELY @ 2109; HGB INCREASED TO 8.0; PROTONTIX AND OCLEOTIDE GTT INFUSING APPROPRIATELY; PT DENIES SOB; DENIES CHEST PAIN; VSS; O2 SATS >93 ON RA; PT SLEPT A FEW HOURS AND CURRENTLY AWAKE AND STATES SHE IS "BORED"; MAGAZINE AND NEWSPAPER BROUGHT TO PT; SBA TO BSC FOR CORD MANAGEMENT; PT TELEPHONED DAUGHTER THIS AM; DENIES NEEDS AT THIS TIME; CALL LIGHT IN REACH; BED IN LOWEST POSITION; WILL CONTINUE TO MONITOR CLOSELY UNTIL HAND OFF TO DAY SHIFT RN.
[2019-05-31 04:38] LABS: Hematocrit 22.9 % (33.0-51.0); Hemoglobin 7.1 g/dL (11.5-16.0)
[2019-05-31 11:21] LABS: Hematocrit 27.2 % (33.0-51.0); Hemoglobin 8.6 g/dL (11.5-16.0)
--- NOTE | 2019-05-31 15:02 | NUR ---
REPORT CALLED TO UZMA KERR ON MEDICAL. ALL QUESTIONS ANSWERED. BELONGINGS GATHERED AND SENT WITH PT. PT ESCORTED BY URBAN VELAZQUEZ VIA WHEELCHAIR.
--- NOTE | 2019-05-31 15:56 | NUR ---
History, Chart, Medications and Allergies reviewed before start of procedure.Patient confirms NPO status and agrees with scheduled surgery.
[2019-05-31] MEDS ORDERED: PRAZ1 PO (16:01)
[2019-05-31] MEDS ORDERED: Robaxin750 MG PO (16:05)
[2019-05-31] MEDS ORDERED: ONDA4ODT PO (16:05)
--- NOTE | 2019-05-31 16:06 | NUR ---
05/31/19 1606 Claudia Zee History, Chart, Medications and Allergies reviewed before start of procedure.MAC CASE WITH DR. ONEILL. SEE ANETHESIA RECORD FOR CARE
[2019-05-31] MEDS ORDERED: GABA600 PO (16:07)
[2019-05-31] MEDS ORDERED: MONT10T PO (16:08)
[2019-05-31] MEDS ORDERED: MAGNESIUM OXID500 MG PO (16:08)
--- NOTE | 2019-05-31 17:07 | NUR ---
SHIFT SUMMARY PT WAS ORIGINALLY A PCU TRANSFER BUT BEFORE SHE ARRIVED TO THE FLOOR SHE WAS TAKEN TO DAY SURGERY FOR A PROCEDURE. PT JUST NOW CAME TO THE FLOOR AFTER HER PROCEDURE. SHE IS A/O X 4 AND HAS NO C/O PAIN OR DISTRESS. PT WAS ORIENTED TO ROOM, CALL LIGHT AND NURSING STAFF. IV FLUIDS/MEDS INFUSING ORDERED WITH NO ISSUES OBSERVED. PT IS PLESANT AND COOPERATIVE WITH HER CARE. SHE IS ABLE TO MAKE HER NEEDS KNOWN AND CALLS FOR HELP WHEN NEEDED. CALL LIGHT IN REACH.
--- NOTE | 2019-06-01 02:51 | NUR ---
53 year old female with severe anemia ongoing problem since illness at ago 2 per PT report transferred to medical floor from PCU and had EGD which shwed no active bleeding on sandostatin GTT. PT in contact isolation for MRSA in [facility] 2019 visit. PT tolerating diet good appetite. PT has schitzoaffective disorder depressive type and alcoholic cirrhosis of the liver. CKD. She is pale and skin appears fragile. . Up to BSC with standby assist. On lactulose and had large liquid non bloody stool. Sleeping most of shift, cooperative when awake. Cooperative with medications.
[2019-06-01 05:03] LABS: BASOPHILS ABSOLUTE AUTO 0.04 K/mm3 (0.00-0.23); BASOPHILS PERCENT AUTO 1 % (0-2); EOSINOPHILS ABSOLUTE AUTO 0.24 K/mm3 (0.00-0.68); EOSINOPHILS PERCENT AUTO 4 % (0-6); Hematocrit 24.6 % (33.0-51.0); Hemoglobin 7.4 g/dL (11.5-16.0); IMMATURE GRAN ABSOLUTE AUTO 0.02 K/mm3 (0.00-0.10); IMMATURE GRAN PERCENT AUTO 0 % (0-1); LYMPHOCYTES ABSOLUTE AUTO 0.94 K/mm3 (0.84-5.20); LYMPHOCYTES PERCENT AUTO 15 % (21-46); MONOCYTES ABSOLUTE AUTO 1.12 K/mm3 (0.16-1.47); MONOCYTES PERCENT AUTO 18 % (4-13); Mean Corpuscular HGB 27.6 pg (26.0-34.0); Mean Corpuscular HGB Conc 30.1 g/dL (31.5-36.5); Mean Corpuscular Volume 92 fL (80-100); Mean Platelet Volume 10.6 fL (9.1-12.4); NEUTROPHILS ABSOLUTE AUTO 3.79 K/mm3 (1.96-9.15); NEUTROPHILS PERCENT AUTO 62 % (41-73); NRBC ABSOLUTE 0.02 K/mm3 (0.00-0.02); NRBC Auto 0.3 /100 WBC (0.0-0.2); Platelet Count 148 K/mm3 (150-400); RDW Coefficient Variation 17.2 % (11.7-14.2); RDW Standard Deviation 57.6 fL (35.1-46.3); Red Blood Cell Count 2.68 M/mm3 (3.80-5.20); White Blood Cell Count 6.15 K/mm3 (4.00-11.30)
[2019-06-01 05:33] LABS: Albumin, Blood 2.1 g/dL (3.4-5.0); Albumin/Globulin Ratio 0.7 (0.8-1.8); Bilirubin, Direct 0.5 mg/dL (0.0-0.3); Bilirubin, Indirect 0.5 mg/dL (0.1-0.7); Globulin, Blood 3.2 g/dL (2.2-4.0); Total Protein, Blood 5.3 g/dL (6.4-8.2)
--- NOTE | 2019-06-01 06:09 | NUR ---
Called DR CLAROS with [facility] and he ordered transfuse 1 unit PRBC now. There was a exhisting order from 05/30/19 and called blood bank to verify blood available. DC old order new order to transfuse . PT has alcoholic cirrosis stopped ETOH use 3 years ago. PT had hemiglobin of 3.9 on admit. She says she will be seeing DR Springer for iron transfusions.
[2019-06-01] MEDS ORDERED: Inderal 20 mg T20 MG PO (13:14)
[2019-06-01] MEDS ORDERED: TRAZ100 PO (13:16)
[2019-06-01] MEDS ORDERED: OMEP20ER PO (13:16)
--- NOTE | 2019-06-01 14:21 | NUR ---
PT DISCHARGED AT 1330 WITH TRANSPORT VIA [facility]. PT AO X4 AND COOPERATIVE OF CARE. PT RECIEVED ONE UNIT OF BLOOD TODAY PRIOR TO DISCHARGE. PT TOLERATED WELL. PT INDEPENDENT IN ROOM. NO DISTRESS NOTED. ALL PAPERWORK REVIEWED AND EDUCATIONAL MATERIAL SENT WITH PT. MEDICATION FAXED TO [facility] ON [facility]CEPC[facility]. ESCORTED OUT TO N ENTRANCE VIA WHEELCHAIR.
== END 2019-06-01 13:29 | disposition home or self-care (01) | DRG 442 ==
LOC: ER 23:49 → ERHOLD 05-30 01:28 → ER 05-30 01:28 → ERHOLD 05-30 01:59 → PCU 05-30 01:59 → ERHOLD 05-30 01:59 → PCU 05-30 14:30 → MEDS 05-31 15:20
PROVIDERS: Emergency Medicine; Hospitalist; Student in an Organized Health Care Education/Training Program; ADMIT Internal Medicine
PROC: 30233N1 Transfusion of Nonautologous Red Blood Cells into Peripheral Vein, Percutaneous Approach (ICD-10-PCS; 2019-05-30)
PROC: 0DJ08ZZ Inspection of Upper Intestinal Tract, Via Natural or Artificial Opening Endoscopic (ICD-10-PCS; principal; 2019-05-31 16:00)
DX: K76.6 Portal hypertension (principal); D62 Acute posthemorrhagic anemia; N17.9 Acute kidney failure, unspecified; K31.819 Angiodysplasia of stomach and duodenum without bleeding; Z87.891 Personal history of nicotine dependence; Z90.5 Acquired absence of kidney; G47.33 Obstructive sleep apnea (adult) (pediatric); F20.9 Schizophrenia, unspecified; B18.2 Chronic viral hepatitis C; I10 Essential (primary) hypertension; E78.5 Hyperlipidemia, unspecified; K70.30 Alcoholic cirrhosis of liver without ascites
CPT/HCPCS: 36415; 36430; 80053; 80076; 81001; 82140; 82272; 83690; 83735; 84484; 85014; 85018; 85025; 85027; 85610; 86850; 86900; 86901; 86923; 87086; 93005; 93010; 94640; 94760; 96365; 96366; 96367; 96376; 99285-25; C9113; G0378; J2354; J2704; J2916; J7030; J7040; J7050; J7120; P9016

== ENCOUNTER 2019-06-23 11:47 | Inpatient (IN) | payer OTHER ==
[~2019-06-23] VITALS: Ht 157.5 cm; Wt 69.4 kg
[~2019-06-23 11:47] MED LIST changes: -FUROSEMIDE40 MG PO; -IMITREX100 MG PO; -LOVASTATIN40 MG PO; -POTA10T PO; -SPIRONOLACTONE25 MG PO; -VITAMIN D350 MCG PO; -Venlafaxine HC150 MG PO; -Ventolin/Prove6.7 GM INH
[2019-06-23 12:56] LABS: BASOPHILS ABSOLUTE AUTO 0.02 K/mm3 (0.00-0.23); BASOPHILS PERCENT AUTO 0 % (0-2); EOSINOPHILS ABSOLUTE AUTO 0.19 K/mm3 (0.00-0.68); EOSINOPHILS PERCENT AUTO 2 % (0-6); Hemoglobin 6.9 g/dL (11.5-16.0); IMMATURE GRAN ABSOLUTE AUTO 0.02 K/mm3 (0.00-0.10); IMMATURE GRAN PERCENT AUTO 0 % (0-1); LYMPHOCYTES ABSOLUTE AUTO 1.12 K/mm3 (0.84-5.20); LYMPHOCYTES PERCENT AUTO 14 % (21-46); MONOCYTES ABSOLUTE AUTO 0.84 K/mm3 (0.16-1.47); MONOCYTES PERCENT AUTO 11 % (4-13); Mean Corpuscular HGB 30.9 pg (26.0-34.0); Mean Corpuscular Volume 103 fL (80-100); Mean Platelet Volume 10.7 fL (9.1-12.4); NEUTROPHILS PERCENT AUTO 72 % (41-73); Platelet Count 221 K/mm3 (150-400); RDW Coefficient Variation 20.9 % (11.7-14.2); RDW Standard Deviation 78.5 fL (35.1-46.3); Red Blood Cell Count 2.23 M/mm3 (3.80-5.20); White Blood Cell Count 7.79 K/mm3 (4.00-11.30)
[2019-06-23 13:18] LABS: International Normalized Ratio 1.07; Prothrombin Time Results 11.4 Sec (9.7-11.5)
[2019-06-23 13:19] LABS: Albumin, Blood 2.5 g/dL (3.4-5.0); Bun/Creatinine Ratio 17.1 (12.0-20.0); Calcium, Blood 8.7 mg/dL (8.5-10.1); Creatinine, Blood 1.17 mg/dL (0.40-1.00); Potassium, Blood 4.3 mmol/L (3.5-5.5)
[2019-06-23 13:21] LABS: Albumin/Globulin Ratio 0.6 (0.8-1.8); Bilirubin, Total 0.8 mg/dL (0.1-1.0); Total Protein, Blood 6.5 g/dL (6.4-8.2)
[2019-06-23] MEDS ORDERED: LOSARTAN POTASS25 M2 PO (13:46)
[2019-06-23] MEDS ORDERED: MAGNESIUM OXID500 MG PO (13:47)
[2019-06-23] MEDS ORDERED: SPIRONOLACTONE25 MG PO (13:47)
[2019-06-23] MEDS ORDERED: MONT10T PO (13:47)
[2019-06-23] MEDS ORDERED: LOVASTATIN40 MG PO (13:47)
[2019-06-23] MEDS ORDERED: PANT40 PO (13:48)
[2019-06-23] MEDS ORDERED: VENL75ER PO (13:51)
[2019-06-23] MEDS ORDERED: FUROSEMIDE40 MG PO (13:52)
[2019-06-23] MEDS ORDERED: TRAZ100 PO (13:52)
[2019-06-23] MEDS ORDERED: IMITREX100 MG PO (13:52)
[2019-06-23] MEDS ORDERED: OLAN7.5 PO (13:55)
[2019-06-23] MEDS ORDERED: Bentyl10 MG PO (13:56)
[2019-06-23] MEDS ORDERED: POTA10T PO (14:00)
[2019-06-23] MEDS ORDERED: BUDE6HFA INH (14:00)
[2019-06-23] MEDS ORDERED: Robaxin750 MG PO (14:01)
[2019-06-23] MEDS ORDERED: ONDA4ODT SL (14:01)
[2019-06-23] MEDS ORDERED: PRAZ1 PO (14:01)
[2019-06-23] MEDS ORDERED: Inderal 20 mg T20 MG PO (14:02)
[2019-06-23] MEDS ORDERED: GABA600 PO (14:04)
[2019-06-23] MEDS ORDERED: Ventolin/Prove6.7 GM INH (14:04)
[2019-06-23] MEDS ORDERED: VITAMIN D350 MCG PO (14:06)
--- NOTE | 2019-06-23 15:48 | NUR ---
ADMISSION PT TO BE ADMITTED TO ICU 16. REPORT RECEIVED FROM HOLLY ZAVALA RN.
--- NOTE | 2019-06-23 19:22 | NUR ---
SUMMARY PT ARRIVED TO ICU 16 THIS AFTERNOON WITH BLOOD INFUSING WELL PROTONIX DRIP. VITALS STABLE. PT SLEEPY, FORGETFUL. HAS TO THINK ABOUT QUESTIONS FOR LONG PERIODS OF TIMES AND SOMETIMES ANSWERS THEM AND OTHER TIMES DOESN'T SAY ANYTHING. AT ONE POINT PATIENT ABLE TO SAY SHE WAS AT [facility], AND SHE KNOWS HER NAME AND BIRTHDAY CONSISTENTLY, BUT OTHERWISE STATES, "I DON'T KNOW" TO QUESTIONS. PT ABLE TO ARTICULATE THAT SHE NEEDS TO USE BEDPAN. PT HAS HAD ONE STOOL AND URINE, LARGE, BUT UNMEASURED MIXED IN BEDPAN. SINCE THEN, PT HAS BEEN EXTREMELY DROWSY, WAKING UP AND FOLLOWING COMMANDS, BUT UNSAFE TO SWALLOW MEDS THIS AFTERNOON DUE TO DROWSINESS. SPOKE WITH DR. RITCHIE REGARDING BANANA BAG AND ELEVATED MAG, OK TO GIVE. REPORT TO CIRILO LOPEZ TO ASSUME CARE.
[2019-06-23 19:27] LABS: Hematocrit 21.9 % (33.0-51.0); Hemoglobin 6.6 g/dL (11.5-16.0)
--- NOTE | 2019-06-23 20:00 | NUR ---
ASSUMED CARE NOTE: ASSUMED CARE OF PT AT 1900, RECEVIED REPORT FROM DON KERR. PT IS DROWSY AND ORIENTED TO SELF AND PLACE . PT IS UNABLE TO RECALL DATE/TIME/RECENT EVENTS. PT IS HAVING EXPRESSIVE DYSPHASIA, AND IS SLOW TO RESPOND. ORAL MEDS WERE HELD DUE TO PT'S INABILTY TO STAY ALERT FOR 15 MINUTES AND HER INABILITY TO DEMONSTRATE A STRONG COUGH. CALLED REGARDING ORAL LACTALOSE MED, ORDERS GIVEN TO SWITCH TO RECTAL ENEMAS UNTIL MENTATION IMPROVES. PT IS ON RA WITH SPO2 ABOVE 90%, NO SOB NOTED. PT IS IN NSR WITH HR @ 68. PT DENIES ANY PAIN AT THIS TIME. ACTIVE BOWEL TONES HEARD IN ALL FOUR QUADRANTS. VITALS STABLE. SHANTI. WILL CONTINUE TO MONITOR PT T/O SHIFT. BED AT LOWEST LEVEL, CALL LIGHT WITHIN REACH
--- NOTE | 2019-06-23 22:17 | NUR ---
AT BEDSIDE. PT IS MORE ALERT AND ABLE TO ANSWER QUESTIONS. PT WAS ABLE TO SWALLOW WATER SAFELY. ADMINISTERED 20GM OF LACTOLOSE ORALLY. WANTS LACTOLOSE TO BE GIVEN BY MOUTH LONG PT IS ALERT ENOUGH TO SWALLOW SAFELY.
[2019-06-24 03:44] LABS: BASOPHILS ABSOLUTE AUTO 0.04 K/mm3 (0.00-0.23); BASOPHILS PERCENT AUTO 0 % (0-2); EOSINOPHILS ABSOLUTE AUTO 0.21 K/mm3 (0.00-0.68); EOSINOPHILS PERCENT AUTO 2 % (0-6); Hematocrit 23.9 % (33.0-51.0); Hemoglobin 7.1 g/dL (11.5-16.0); IMMATURE GRAN ABSOLUTE AUTO 0.04 K/mm3 (0.00-0.10); IMMATURE GRAN PERCENT AUTO 0 % (0-1); LYMPHOCYTES ABSOLUTE AUTO 1.54 K/mm3 (0.84-5.20); LYMPHOCYTES PERCENT AUTO 16 % (21-46); MONOCYTES ABSOLUTE AUTO 1.53 K/mm3 (0.16-1.47); MONOCYTES PERCENT AUTO 15 % (4-13); Mean Corpuscular HGB 30.7 pg (26.0-34.0); Mean Corpuscular HGB Conc 29.7 g/dL (31.5-36.5); Mean Corpuscular Volume 104 fL (80-100); Mean Platelet Volume 10.7 fL (9.1-12.4); NEUTROPHILS ABSOLUTE AUTO 6.58 K/mm3 (1.96-9.15); NEUTROPHILS PERCENT AUTO 66 % (41-73); NRBC ABSOLUTE 0.02 K/mm3 (0.00-0.02); NRBC Auto 0.2 /100 WBC (0.0-0.2); Platelet Count 194 K/mm3 (150-400); RDW Coefficient Variation 19.9 % (11.7-14.2); RDW Standard Deviation 75.8 fL (35.1-46.3); Red Blood Cell Count 2.31 M/mm3 (3.80-5.20); White Blood Cell Count 9.94 K/mm3 (4.00-11.30)
[2019-06-24 04:06] LABS: Alanine Aminotransfer (ALT/SGP 20 U/L (12-78); Albumin, Blood 2.1 g/dL (3.4-5.0); Albumin/Globulin Ratio 0.6 (0.8-1.8); Alk Phos 89 U/L (50-136); Anion Gap 6 mmol/L (6-16); Aspartate Aminotrans (AST/SGOT 28 U/L (12-37); Bilirubin, Total 2.9 mg/dL (0.1-1.0); Blood Urea Nitrogen 17 mg/dL (8-24); CO2, Blood 22 mmol/L (21-32); Calcium, Blood 8.1 mg/dL (8.5-10.1); Chloride, Blood 117 mmol/L (98-108); Creatinine, Blood 0.95 mg/dL (0.40-1.00); Globulin, Blood 3.6 g/dL (2.2-4.0); Glomerular Filtration Rate >60 (60-); Glucose, Blood 92 mg/dL (70-99); Magnesium, Blood 2.2 mg/dL (1.6-2.4); Potassium, Blood 3.9 mmol/L (3.5-5.5); Sodium, Blood 145 mmol/L (136-145); Total Protein, Blood 5.7 g/dL (6.4-8.2)
--- NOTE | 2019-06-24 05:44 | NUR ---
SHIFT SUMMARY: SEE PREVIOUS NOTES. PT'S MENTATION HAS IMPROVED T/O SHIFT, PT IS ALERT AND ORIENTED TO SELF, FAMILY, PLACE AND ABLE TO FOLLOW DIRECTIONS AND ADDRESS NEEDS W/O DIFICULITY. PT HAS BEEN DRINKING WATER W/O DIFFICULTY. PT REMAINS ON RA WITH SPO2 AT 99. PT DENIES ANY SOB AT THIS TIME. PT HAS BEEN IN SINUS RHYTHM WITH HR IN THE 80'S. PT BECOMING HYPERTENSIVE WILL GIVE BP MEDS SHORTLY. PT ALSO REPORT NAUSEA, MEDICATED PER EMAR. RECTAL TUBE IN PLACE DRAINING DARK BROWN STOOL, SMALL AMOUNTS OF ROLAND BLOOD NOTED. PT IS INCONTINENT OF URINE, ATTENDS IN PLACE, SKIN CARE PROVIDED. SPOKE TO REGARDING Hgb, ORDERS TO RECHECK AT 0800. WILL CONTINUE TO MONITOR PT UNTIL REPORT IS GIVEN TO ONCOMING SHIFT. BED AT LOWEST LEVEL, CALL LIGHT WITHIN REACH.
[2019-06-24 09:03] LABS: Hematocrit 24.3 % (33.0-51.0); Hemoglobin 7.4 g/dL (11.5-16.0)
[2019-06-24 13:11] LABS: Hematocrit 26.5 % (33.0-51.0)
--- NOTE | 2019-06-24 13:49 | NUR ---
ICU DAYSHIFT PATIENT REMAINED ALERT TO SELF AND LOCATION - CONFUSED TO SITUATION AND TIME/DATE. PATIENT HAS DIFFICULTY FOLLOWING DIRECTIONS DUE TO LETHARGY AND CONFUSION. PATIENT KEPT BEDREST WITH Q2 TURNS PERFORMED AND TOILETING ASSISTANCE IN BED. PATIENT HAS FLEXISEAL IN PLACE DRAINING LIQUID DARK GREEN STOOL - NO BLEEDING NOTED PER THIS RN RECTALLY OR OTHER. PATIENT ABLE TO SWALLOW PILLS WHOLE WITH THIN LIQUIDS AND TOLERATED WELL. VSS - NSR W/ NO CARDIAC EVENTS. ROOM AIR WITH NO RESPIRTORY ISSUES NOTED. PATIENT REMAINS DROWSY T/O SHIFT. NO ACUTE DISTRESS - VERY RESTFUL. REPORTED OFF TO SABINO Patiño [employer] DEVEL[employer]. CALL LIGHT W/I REACH AND BED ALARM ON.
--- NOTE | 2019-06-24 14:31 | NUR ---
ASSUMED CARE: RECEIVED REPORT FROM CIRILO SPIVEY. PT RESTING IN BED WITH EYES CLOSED. RECTAL TUBE DRAINING DARK GREEN FLUID. NO REQUESTS FROM PT AT THIS TIME. CONTINUE TO MONITOR.
--- NOTE | 2019-06-24 16:19 | NUR ---
SHIFT SUMMARY: PT HAS BEEN RESTING IN BED THIS AFTERNOON. SHE IS ALERT, ORIENTED TO PERSON ONLY. SHE GETS EASILY CONFUSED ON TIMES, BUT REMEMBERS SHE IS SUPPOSED TO HAVE AN EGD THIS EVENING. LUNGS CLEAR, RA. SR, BP STABLE. RECTAL TUBE PUTTING OUT GREEN FLUID. ATTENDS ON, INCONTINENT OF URINE. VOMITING, NAUSEA MEDS GIVEN. WAITING FOR EGD. CONTINUE TO MONITOR.
--- NOTE | 2019-06-24 18:34 | NUR ---
EGD PT HAD HER SCOPE WITH DR. VINES, TOLERATED WELL. RESTING QUIETLY ON HER L SIDE CURRENTLY. DR. VINES GAVE OK FOR PT TO BE MEDICAL FLOOR STATUS AFTER PT RECOVERS. CONTINUE TO MONITOR.
--- NOTE | 2019-06-24 20:13 | NUR ---
ASSUMED CARE NOTE: ASSUMED CARE OF PT @ 1900, RECEVIED REPORT FROM SABINO KERR. PT IS ALERT AND ORIENTED TO SELF, AND PLACE. PT IS ABLE TO FOLLOW DIRECTIONS. PT IS ON RA WITH SPO2 @ 97%, NO RESPRIATORY DISTRESS NOTED. PT IN SINUS RHYTHM WITH HR IN THE 80'S. PT IS C/O ABDOMINAL CRAMPING, HELD THE LACTULOSE MEDICATIO UNTIL MORNING. PT DENIES NAUSEA AT THIS TIME. RECTAL TUBE IN PLACE, DRAINING GREEN/BROWN LIQUID STOOL. PT TEMP 100.0, BLANKETS REMOVED, ORAL FLUIDS GIVEN. AT BEDSIDE, REGARDING FINDINGS OF THE EGD. ORDERS TO TRANSFER PT TO MED NO TELE GIVEN. WILL CONTINUE TO MONITOR PT T/O SHIFT. BED AT LOWEST LEVEL, BED ALARM ON.
--- NOTE | 2019-06-24 20:31 | NUR ---
06/24/192030 LUCA KIM LATE ENTRY 1800 History, Chart, Medications and Allergies reviewed before start of procedure. 3-LEAD EKG REVIEWED WITH PHYSICIAN PRIOR TO START OF PROCEDURE. O2 VIA N/C INTACT THROUGHOUT SEDATION/PROCEDURE. MONITOR INTACT WITH CONTINUOUS PULSE OXIMETRY AND INTERMITTENT BP.PATIENT DETERMINED TO BE ASA APPROPRIATE FOR PROPOFOL SEDATION PRIOR TO START OF PROCEDURE BY DR. VINES. DR. VINES WAS ADVISED BY RN THAT ACCORDING TO PROTOCOL THIS PT FITS THE CRITERIA FOR MODERATE SEDATION WITH VERSED AND FENTANYL OR SEDATION/CONSULT BY AN ANESTHESIOLOGIST. STATED ABOVE, DR. VINES DETERMINED PT TO BE APPROPRIATE FOR PROPOFOL SEDATION. AFTER ASSESSMENT, RN FELT COMFORTABLE ADMINISTERING PROPOFOL ORDERED BY DR. VINES. CLINICAL COORDINATOR INFORMED OF CASE. DR. VINES . DR. VINES
--- NOTE | 2019-06-24 22:27 | NUR ---
PT TRANSFERD TO MEDICAL FLOOR, RM 355 VIA BED. REPORT GIVEN TO JULITO KERR.
--- NOTE | 2019-06-24 22:30 | NUR ---
REPORT RECIEVED FROM SVITLANA LUCIANO AT 2150 AND PT T/F VIA BED AT 2215. PT DENIED PAIN AND ALL OTHER COMPLAINTS. PT ORIENTED TO ROOM AND CALL SYSTEM W/BED ALARM ARMED. RECTAL TUBE NOTED TO BE PATENT W/BROWN/GREEN LIQ STOOL OBSERVED. IV IS SL TO ALVARO. THIS RN AGREES TO PREVIOUS SHIFT ASSESSMENT FINDINGS. NO ACUTE CHANGES. WCTM AND MEDICATE PRN.
[2019-06-25 04:49] LABS: BASOPHILS ABSOLUTE AUTO 0.04 K/mm3 (0.00-0.23); BASOPHILS PERCENT AUTO 0 % (0-2); EOSINOPHILS ABSOLUTE AUTO 0.01 K/mm3 (0.00-0.68); EOSINOPHILS PERCENT AUTO 0 % (0-6); Hematocrit 21.3 % (33.0-51.0); Hemoglobin 6.6 g/dL (11.5-16.0); IMMATURE GRAN ABSOLUTE AUTO 0.21 K/mm3 (0.00-0.10); IMMATURE GRAN PERCENT AUTO 1 % (0-1); LYMPHOCYTES PERCENT AUTO 6 % (21-46); MONOCYTES PERCENT AUTO 8 % (4-13); Mean Corpuscular HGB 30.8 pg (26.0-34.0); Mean Corpuscular Volume 100 fL (80-100); Mean Platelet Volume 10.7 fL (9.1-12.4); NEUTROPHILS ABSOLUTE AUTO 21.41 K/mm3 (1.96-9.15); NEUTROPHILS PERCENT AUTO 84 % (41-73); NRBC ABSOLUTE 0.02 K/mm3 (0.00-0.02); NRBC Auto 0.1 /100 WBC (0.0-0.2); Platelet Count 215 K/mm3 (150-400); RDW Coefficient Variation 20.2 % (11.7-14.2); RDW Standard Deviation 73.4 fL (35.1-46.3); Red Blood Cell Count 2.14 M/mm3 (3.80-5.20); White Blood Cell Count 25.37 K/mm3 (4.00-11.30)
[2019-06-25 05:07] LABS: Anion Gap 8 mmol/L (6-16); Blood Urea Nitrogen 18 mg/dL (8-24); Bun/Creatinine Ratio 15.5 (12.0-20.0); CO2, Blood 20 mmol/L (21-32); Chloride, Blood 111 mmol/L (98-108); Creatinine, Blood 1.16 mg/dL (0.40-1.00); Glomerular Filtration Rate 51 (60-); Glucose, Blood 98 mg/dL (70-99); Phosphorus, Blood 3.6 mg/dL (2.5-4.9); Potassium, Blood 3.9 mmol/L (3.5-5.5); Sodium, Blood 139 mmol/L (136-145)
--- NOTE | 2019-06-25 05:30 | NUR ---
PT BECAME SUDDENLY NAUSEOUS W/BILE COLORED EMESIS. L.THUMB IV IS ONLY IV ACCESS AND PT ONLY HAS COMPAZINE IV. ALERTED AND ZOFRAN 4MG ODT RX'D AND RECIEVED AT 0524. PT CLEANED UP AND NEW LINEN PROVIDED.
--- NOTE | 2019-06-25 06:03 | NUR ---
SUMMARY: A/OX3 BUT HAS DELAYED RESPONSES AND SLOW SPEECH. SHE USES CALL LIGHT APPROPRIATELY TO SPECIFY NEEDS AND BED ALARM ON FOR POSSIBLE FORGETFULLNESS. RECTAL TUBE REMAINS INTACT W/GREEN/BROWN LIQUID STOOL OBSERVED. LACTULOSE WAS RECIEVED IN ICU PRIOR TO T/F FOR ELEVATED AMMONIA LEVEL IN ER. SHE CONT'S TO HAVE INTERMITTENT NAUSEA W/EMESIS WELL W/X1 EPISODE OCCURING AND NEW ORDER RECIEVED THIS SHIFT FOR ZOFRAN ODT, X1 DOSE RECIEVED FOR GOOD EFFECT. PT HAS IV TO L.THUMB AND WHILE APPEARING PATENT, IT'S EXTREMELY PAINFUL W/SMALL AMT OF NS FLUSH. THIS RN ATTEMPTED NEW IV BUT SHE IS A VERY DIFFICULT IV START W/LIMITED ACCESS. PG OR PICC MAY BE NEEDED IF ADDITIONAL BLOOD IS REQUIRED, AM LABS ARE PENDING. NO S/S OF ACTIVE BLEEDING OBSERVED AT THIS TIME. PROTONIX PO RECIEVED THIS AM AND PT DENIES DIZZYNESS/LIGHTHEADEDNESS AND S/S CARDIAC DISTRESS. ABDO IS SOFT/NONTENDER. VSS/AFEBRILE. WCTM AND REPORT TO DAY RN.
--- NOTE | 2019-06-25 06:44 | NUR ---
ALERTED OF HGB/HCT NOW 6.6 AND 21.3, WAS 8.0 AND 26.5. NEW ORDER RECIEVED FOR 1UNIT PRBC'S. PT WILL LIKELY NEED NEW IV ACCESS FOR TRANSFUSION. INSECTICIDE MAKER, JOE MONTILLA MADE AWARE.
--- NOTE | 2019-06-25 17:24 | NUR ---
PT IS AOX3 WITH SOME CONFUSION. PT HAS BEEN IN BED MOST OF THE DAY, BUT CAN AMBULATE ON HER OWN. PT RECTAL TUBE AT THIS TIME AND WOULD LIKE IT OUT, BUT HAS BEEN EXPLAIN TO WHY SHE NEEDS IT AT THIS TIME WITH HER EXTREMELY WATERY STOOL. PT WAS IMPULSIVE TWICE AND TRIED AMBULATE TO RESTROOM WITH RECTAL TUBE ATTACHED TO BED. RECTAL TUBE HAS BEEN READJUSTED X2 TODAY AND STOOL IS FLOWING WELL AT THIS TIME. PT RECIEVED ONE UNIT OF BLOOD TODAY AND DID WELL. PT RESTING COMFORTABLE AT THIS TIME, WILL CONTINUE TO MONITOR.
--- NOTE | 2019-06-25 20:29 | NUR ---
AMMONIA HAS IMPROVED TODAY, NOW 52 FROM 147 AND SHE'S HAD PERSISTENT DIARRHEA W/BROWN/GREEN LIQUID STOOL OBSERVED ENTIRETY OF THE DAY. LACTULOSE HELD AT THIS TIME RESULT.
--- NOTE | 2019-06-25 22:31 | NUR ---
ALERTED OF DIZZYNESS W/MOVEMENT AND HYPOTENSION, SBP WAS 80'S INITIALLY THEN RECHECKED TO BE SBP 120'S. PT ALSO DIDN'T HAVE LABS RECHECKED AFTER RECIEVING 1 UNIT PRBC'S ON DAY SHIFT FOR AM H&H THAT WAS 6.6/21.3. NEW ORDER RECIEVED FOR H&H NOW.
--- NOTE | 2019-06-25 23:50 | NUR ---
ALERTED TO HGB/HCT RESULTS NOW 7.. NEW ORDERS RECIEVED TO TRANSFUSE 1 UNIT PRBC'S.
--- NOTE | 2019-06-26 00:42 | NUR ---
1 UNIT PRBC'S VERIFIED W/RAHUL OLIVAREZ (2ND RN) AND COMMENCED AT 0039. VSS AND PT ASYMPTOMATIC OF ANY ACUTE DISTRESS UPON STARTING TRANSFUSION. SHE DENIED PAIN, SOB, DYSPNEA, NAUSEA AND ALL OTHER COMPLAINTS. WCTM FOR S/S ADVERSE REACTION AND NOTIFY PROVIDER PRN.
--- NOTE | 2019-06-26 03:40 | NUR ---
PT TOLERATED PRBC TRANSFUSION W/O ANY ADVERSE EVENT AND REMAINED AFEBRILE W/ STABLE VITALS T/O.
--- NOTE | 2019-06-26 04:40 | NUR ---
SUMMARY: PT A/OX3 BUT FORGETFULL AT TIMES AND OFTEN REQUIRES REMINDERS RE:SITUATION. MENTATION LIKELY BASELINE. BED ALARM ON FOR OCCASIONAL IMPULSIVITY. SHE USED BEDPAN FOR VOIDS AND CHUCKS CHANGED PRN FOR SELDOM RECTAL TUBE LEAKING. AMMONIA LEVEL HAD IMPROVED SO LACTULOSE WAS HELD FOR CONT'D DIARRHEA VIA RECTAL TUBE. BM OUTPUT SLOWED T/O SHIFT. PT BEGAN SHIFT SLIGHTLY HYPOTENSIVE W/COMPLAINTS OF DIZZYNESS DURING MOVEMENT. STAT H&H OBTAINED AFTER OBSERVING ONE HADN'T BEEN COMLETED FOLLOWING TRANSFUSION ON DAY SHIFT. H&H REMAINED LOW (7.0/22) W/NEW RX RECIEVED FOR 1 UNIT PRBC'S AND TRANSFUSION COMPLETED W/O ADVERSE REACTION. AM LABS PENDING. NO ACUTE CHANGES, VSS/AFEBRILE. WCTM AND REPORT TO DAY RN.
[2019-06-26 04:55] LABS: BASOPHILS ABSOLUTE AUTO 0.03 K/mm3 (0.00-0.23); BASOPHILS PERCENT AUTO 0 % (0-2); EOSINOPHILS ABSOLUTE AUTO 0.37 K/mm3 (0.00-0.68); EOSINOPHILS PERCENT AUTO 3 % (0-6); Hematocrit 23.8 % (33.0-51.0); Hemoglobin 7.7 g/dL (11.5-16.0); IMMATURE GRAN ABSOLUTE AUTO 0.06 K/mm3 (0.00-0.10); IMMATURE GRAN PERCENT AUTO 0 % (0-1); LYMPHOCYTES ABSOLUTE AUTO 1.25 K/mm3 (0.84-5.20); LYMPHOCYTES PERCENT AUTO 9 % (21-46); MONOCYTES ABSOLUTE AUTO 2.11 K/mm3 (0.16-1.47); MONOCYTES PERCENT AUTO 15 % (4-13); Mean Corpuscular HGB 30.4 pg (26.0-34.0); Mean Corpuscular HGB Conc 32.4 g/dL (31.5-36.5); Mean Platelet Volume 10.6 fL (9.1-12.4); NEUTROPHILS ABSOLUTE AUTO 9.85 K/mm3 (1.96-9.15); NEUTROPHILS PERCENT AUTO 72 % (41-73); NRBC ABSOLUTE 0.02 K/mm3 (0.00-0.02); NRBC Auto 0.1 /100 WBC (0.0-0.2); Platelet Count 134 K/mm3 (150-400); RDW Coefficient Variation 20.5 % (11.7-14.2); RDW Standard Deviation 67.6 fL (35.1-46.3); Red Blood Cell Count 2.53 M/mm3 (3.80-5.20); White Blood Cell Count 13.67 K/mm3 (4.00-11.30)
[2019-06-26 04:57] LABS: Mean Corpuscular Volume 94 fL (80-100)
--- NOTE | 2019-06-26 05:10 | NUR ---
H&H IMPROVED TO 7.7/23.8 AFTER 1 UNIT PRBC'S RECIEVED TONIGHT.
[2019-06-26 05:17] LABS: Albumin, Blood 1.7 g/dL (3.4-5.0); Anion Gap 6 mmol/L (6-16); Blood Urea Nitrogen 16 mg/dL (8-24); Bun/Creatinine Ratio 16.2 (12.0-20.0); CO2, Blood 22 mmol/L (21-32); Calcium, Blood 7.5 mg/dL (8.5-10.1); Chloride, Blood 111 mmol/L (98-108); Creatinine, Blood 0.99 mg/dL (0.40-1.00); Glomerular Filtration Rate >60 (60-); Glucose, Blood 73 mg/dL (70-99); Phosphorus, Blood 2.4 mg/dL (2.5-4.9); Potassium, Blood 3.3 mmol/L (3.5-5.5); Sodium, Blood 139 mmol/L (136-145)
--- NOTE | 2019-06-26 09:14 | NUR ---
RECTAL TUBE PT HAD A LARGE LOOSE STOOL AROUND THE RECTAL TUBE, PT UP TO THE COMMODE WITH 1P ASSIST, RECTAL TUBE REMOVED
[2019-06-26 12:33] LABS: Hemoglobin 7.8 g/dL (11.5-16.0)
--- NOTE | 2019-06-26 17:17 | NUR ---
SUMMARY PT RESTING IN BED WATCHING TV, PT'S RECTAL TUBE REMOVED FIRST THING THIS MORNING, PT HAS BEEN UP TO THE BEDSIDE COMMODE WITH ASSIST THEN INDEPENDENTLY, PT USES THE CALL LIGHT APPROPRIATELY, NO COMPLAINTS, HOPEFUL TO DC TO HOME IN AM, WILL CONT TO MONITOR
[2019-06-27 05:00] LABS: BASOPHILS ABSOLUTE AUTO 0.02 K/mm3 (0.00-0.23); BASOPHILS PERCENT AUTO 0 % (0-2); EOSINOPHILS PERCENT AUTO 4 % (0-6); Hematocrit 23.9 % (33.0-51.0); Hemoglobin 7.7 g/dL (11.5-16.0); IMMATURE GRAN ABSOLUTE AUTO 0.06 K/mm3 (0.00-0.10); IMMATURE GRAN PERCENT AUTO 1 % (0-1); LYMPHOCYTES PERCENT AUTO 13 % (21-46); MONOCYTES ABSOLUTE AUTO 1.82 K/mm3 (0.16-1.47); MONOCYTES PERCENT AUTO 18 % (4-13); Mean Corpuscular HGB Conc 32.2 g/dL (31.5-36.5); Mean Corpuscular Volume 96 fL (80-100); Mean Platelet Volume 10.8 fL (9.1-12.4); NEUTROPHILS ABSOLUTE AUTO 6.68 K/mm3 (1.96-9.15); NEUTROPHILS PERCENT AUTO 65 % (41-73); Platelet Count 143 K/mm3 (150-400); RDW Coefficient Variation 20.6 % (11.7-14.2); RDW Standard Deviation 69.2 fL (35.1-46.3); Red Blood Cell Count 2.48 M/mm3 (3.80-5.20); White Blood Cell Count 10.28 K/mm3 (4.00-11.30)
--- NOTE | 2019-06-27 05:30 | NUR ---
SHIFT SUMMARY PT DID NOT SLEEP AT ALL THIS EVENING. PT STATED THAT SHE HAD SLEPT MOST OF THE DAY AND THIS WAS WHY SHE WAS HAVING DIFFICULTY SLEEPING. PT DID BECOME INCREASINGLY CONFUSED THE NIGHT PROGRESSED. PERHAPS FROM LACTULOSE BEING HELD. LACTULOSE WAS HELD DUE TO PT REPORTING 4 BOWEL MOVEMENTS DURING THE DAY AND 1 MORE BEFORE EVENING MEDS, STOOL WAS LOOSE. NO BLOOD IN STOOL. PT FOUND WANDERING IN ROOM AT ONE POINT, WHEN ASKED IF WE COULD HELP SHE STATED THAT SHE WAS JUST LOOKING FOR HER COIN PURSE AND THAT SHE WAS HOPING THAT "ONE OF US GIRLS COULD GO GET HER A STEEL RESERVE". WHEN THIS RN TOLD THE PT SHE COULD NOT DRINK BEER IN THE HOSPITAL SHE SAID "I FIGURED YOU COULD SNEAK IT IN". PT STEADY ON HER FEET. AMBULATED INDEPENDENTLY IN HER ROOM TO THE BSC. VITAL SIGNS STABLE. WILL CONTINUE TO MONITOR.
[2019-06-27 05:35] LABS: Albumin, Blood 1.8 g/dL (3.4-5.0); Anion Gap 7 mmol/L (6-16); Blood Urea Nitrogen 13 mg/dL (8-24); Bun/Creatinine Ratio 14.5 (12.0-20.0); CO2, Blood 21 mmol/L (21-32); Calcium, Blood 7.5 mg/dL (8.5-10.1); Chloride, Blood 109 mmol/L (98-108); Glomerular Filtration Rate >60 (60-); Glucose, Blood 87 mg/dL (70-99); Phosphorus, Blood 2.8 mg/dL (2.5-4.9); Potassium, Blood 3.4 mmol/L (3.5-5.5); Sodium, Blood 137 mmol/L (136-145)
[2019-06-27] MEDS ORDERED: LACT10SY PO (13:13)
[2019-06-27] MEDS ORDERED: CIPR500 PO (13:13)
[2019-06-27] MEDS ORDERED: Florastor250 MG PO (13:14)
--- NOTE | 2019-06-27 14:57 | NUR ---
SUMMARY/DISCHARGE PT DISCHARGED TO HOME, PT VERBALIZED UNDERSTANDING OF DISCHARGE INSTRUCTIONS, PT STATES SHE WILL MAKE A FOLLOW UP APPOINTMENT WITH HER PCP ON FRIDAY, MEDS FAXED TO [facility], [facility]SP[facility], PT TAKEN DOWN SAFELY VIA WHEELCHAIR
== END 2019-06-27 14:59 | disposition home or self-care (01) | DRG 378 ==
LOC: ER 11:47 → ICUW 14:44 → MEDS 06-24 22:15 → ENPENDDIS 06-27 14:24 → MEDS 06-27 14:59
PROVIDERS: Emergency Medicine; Family Medicine; Hospitalist; Internal Medicine; Internal Medicine Gastroenterology; Nurse Practitioner Acute Care; ADMIT Internal Medicine
PROC: 0DJ08ZZ Inspection of Upper Intestinal Tract, Via Natural or Artificial Opening Endoscopic (ICD-10-PCS; principal; 2019-06-24 14:00)
DX: K31.811 Angiodysplasia of stomach and duodenum with bleeding (principal); D62 Acute posthemorrhagic anemia; N17.9 Acute kidney failure, unspecified; K76.6 Portal hypertension; K74.60 Unspecified cirrhosis of liver; B18.2 Chronic viral hepatitis C; F20.9 Schizophrenia, unspecified; D69.59 Other secondary thrombocytopenia; K31.89 Other diseases of stomach and duodenum
CPT/HCPCS: 36415; 36430; 71045; 80053; 80069; 82140; 82947; 83690; 83735; 85014; 85018; 85025; 85610; 86850; 86900; 86901; 86923; 93005; 93010; 94640; 94760; 96365; 96375; 96376; 99285-25; A9270; A9270-GY; C9113; G0480; J0171; J0780; J1430; J2250; J2310; J2405; J2704; J3010; J3411; J3475; J7030; J7042; P9016

== ENCOUNTER 2019-07-19 07:12 | Inpatient (IN) | payer OTHER ==
[~2019-07-19] VITALS: Ht 157.5 cm; Wt 74.4 kg
[~2019-07-19 07:12] MED LIST changes: +FUROSEMIDE40 MG PO; +Florastor250 MG PO; +IMITREX100 MG PO; +LOVASTATIN40 MG PO; +MAGNESIUM OXID500 MG PO; +ONDA4ODT SL; +POTA10T PO; +PRAZ1 PO; +Robaxin750 MG PO; +SPIRONOLACTONE25 MG PO; +VITAMIN D350 MCG PO; +Ventolin/Prove6.7 GM INH
[2019-07-19] MEDS ORDERED: ZOLP5 PO (08:22)
[2019-07-19] MEDS ORDERED: CIPR500 PO (08:22)
[2019-07-19] MEDS ORDERED: Probiotic (08:22)
[2019-07-19 08:25] LABS: BASOPHILS ABSOLUTE AUTO 0.01 K/mm3 (0.00-0.23); BASOPHILS PERCENT AUTO 0 % (0-2); EOSINOPHILS ABSOLUTE AUTO 0.27 K/mm3 (0.00-0.68); EOSINOPHILS PERCENT AUTO 4 % (0-6); IMMATURE GRAN ABSOLUTE AUTO 0.02 K/mm3 (0.00-0.10); IMMATURE GRAN PERCENT AUTO 0 % (0-1); LYMPHOCYTES ABSOLUTE AUTO 0.79 K/mm3 (0.84-5.20); LYMPHOCYTES PERCENT AUTO 12 % (21-46); MONOCYTES ABSOLUTE AUTO 0.88 K/mm3 (0.16-1.47); MONOCYTES PERCENT AUTO 14 % (4-13); Mean Corpuscular HGB 30.2 pg (26.0-34.0); Mean Corpuscular HGB Conc 29.6 g/dL (31.5-36.5); Mean Corpuscular Volume 102 fL (80-100); Mean Platelet Volume 10.8 fL (9.1-12.4); NEUTROPHILS ABSOLUTE AUTO 4.45 K/mm3 (1.96-9.15); NEUTROPHILS PERCENT AUTO 69 % (41-73); Platelet Count 174 K/mm3 (150-400); RDW Coefficient Variation 17.4 % (11.7-14.2); Red Blood Cell Count 1.59 M/mm3 (3.80-5.20); White Blood Cell Count 6.42 K/mm3 (4.00-11.30)
[2019-07-19 08:36] LABS: Hemoglobin 4.8 g/dL (11.5-16.0)
[2019-07-19 08:37] LABS: Bun/Creatinine Ratio 16.7 (12.0-20.0); Calcium, Blood 7.9 mg/dL (8.5-10.1); Creatinine, Blood 1.2 mg/dL (0.40-1.00); Hematocrit 16.2 % (33.0-51.0); Potassium, Blood 4.1 mmol/L (3.5-5.5)
[2019-07-19 10:54] LABS: Hematocrit 16.5 % (33.0-51.0)
[2019-07-19 21:44] LABS: Hematocrit 24.5 % (33.0-51.0); Hemoglobin 7.4 g/dL (11.5-16.0)
[2019-07-20 04:19] LABS: BASOPHILS ABSOLUTE AUTO 0.04 K/mm3 (0.00-0.23); BASOPHILS PERCENT AUTO 0 % (0-2); EOSINOPHILS ABSOLUTE AUTO 0.09 K/mm3 (0.00-0.68); EOSINOPHILS PERCENT AUTO 0 % (0-6); Hemoglobin 7.2 g/dL (11.5-16.0); IMMATURE GRAN ABSOLUTE AUTO 0.12 K/mm3 (0.00-0.10); IMMATURE GRAN PERCENT AUTO 1 % (0-1); LYMPHOCYTES ABSOLUTE AUTO 0.49 K/mm3 (0.84-5.20); LYMPHOCYTES PERCENT AUTO 2 % (21-46); MONOCYTES ABSOLUTE AUTO 1.08 K/mm3 (0.16-1.47); MONOCYTES PERCENT AUTO 5 % (4-13); Mean Corpuscular HGB 28.7 pg (26.0-34.0); Mean Corpuscular HGB Conc 31.3 g/dL (31.5-36.5); Mean Corpuscular Volume 92 fL (80-100); Mean Platelet Volume 10.8 fL (9.1-12.4); NEUTROPHILS ABSOLUTE AUTO 19.02 K/mm3 (1.96-9.15); NEUTROPHILS PERCENT AUTO 91 % (41-73); NRBC ABSOLUTE 0.05 K/mm3 (0.00-0.02); NRBC Auto 0.2 /100 WBC (0.0-0.2); Platelet Count 177 K/mm3 (150-400); RDW Coefficient Variation 21.1 % (11.7-14.2); RDW Standard Deviation 69.3 fL (35.1-46.3); Red Blood Cell Count 2.51 M/mm3 (3.80-5.20); White Blood Cell Count 20.84 K/mm3 (4.00-11.30)
[2019-07-20 04:40] LABS: Albumin, Blood 1.8 g/dL (3.4-5.0); Albumin/Globulin Ratio 0.7 (0.8-1.8); Bilirubin, Total 4.1 mg/dL (0.1-1.0); Bun/Creatinine Ratio 19.2 (12.0-20.0); Calcium, Blood 7.4 mg/dL (8.5-10.1); Creatinine, Blood 1.2 mg/dL (0.40-1.00); Globulin, Blood 2.7 g/dL (2.2-4.0); Potassium, Blood 4.6 mmol/L (3.5-5.5); Total Protein, Blood 4.5 g/dL (6.4-8.2)
[2019-07-20 10:09] LABS: Hematocrit 22.9 % (33.0-51.0); Hemoglobin 7.1 g/dL (11.5-16.0)
[2019-07-20 16:02] LABS: Hematocrit 21.8 % (33.0-51.0); Hemoglobin 6.8 g/dL (11.5-16.0)
[2019-07-20 21:44] LABS: Hematocrit 25.4 % (33.0-51.0)
[2019-07-21 04:10] LABS: BASOPHILS ABSOLUTE AUTO 0.04 K/mm3 (0.00-0.23); BASOPHILS PERCENT AUTO 0 % (0-2); EOSINOPHILS ABSOLUTE AUTO 0.43 K/mm3 (0.00-0.68); EOSINOPHILS PERCENT AUTO 4 % (0-6); Hematocrit 24.5 % (33.0-51.0); Hemoglobin 7.7 g/dL (11.5-16.0); IMMATURE GRAN ABSOLUTE AUTO 0.04 K/mm3 (0.00-0.10); IMMATURE GRAN PERCENT AUTO 0 % (0-1); LYMPHOCYTES ABSOLUTE AUTO 0.99 K/mm3 (0.84-5.20); LYMPHOCYTES PERCENT AUTO 10 % (21-46); MONOCYTES ABSOLUTE AUTO 1.62 K/mm3 (0.16-1.47); MONOCYTES PERCENT AUTO 17 % (4-13); Mean Corpuscular HGB 27.8 pg (26.0-34.0); Mean Corpuscular HGB Conc 31.4 g/dL (31.5-36.5); Mean Corpuscular Volume 88 fL (80-100); Mean Platelet Volume 10.9 fL (9.1-12.4); NEUTROPHILS ABSOLUTE AUTO 6.66 K/mm3 (1.96-9.15); NEUTROPHILS PERCENT AUTO 68 % (41-73); Platelet Count 130 K/mm3 (150-400); RDW Standard Deviation 68.4 fL (35.1-46.3); Red Blood Cell Count 2.77 M/mm3 (3.80-5.20); White Blood Cell Count 9.78 K/mm3 (4.00-11.30)
[2019-07-21 04:26] LABS: Anion Gap 5 mmol/L (6-16); Blood Urea Nitrogen 16 mg/dL (8-24); Bun/Creatinine Ratio 18.5 (12.0-20.0); CO2, Blood 24 mmol/L (21-32); Calcium, Blood 7.6 mg/dL (8.5-10.1); Chloride, Blood 114 mmol/L (98-108); Creatinine, Blood 0.87 mg/dL (0.40-1.00); Glomerular Filtration Rate >60 (60-); Glucose, Blood 99 mg/dL (70-99); Magnesium, Blood 1.6 mg/dL (1.6-2.4); Potassium, Blood 3.9 mmol/L (3.5-5.5); Sodium, Blood 143 mmol/L (136-145)
[2019-07-22 01:00] LABS: Hematocrit 31.5 % (33.0-51.0); Hemoglobin 10.2 g/dL (11.5-16.0)
[2019-07-22 08:24] LABS: Hematocrit 31.7 % (33.0-51.0); Hemoglobin 10.3 g/dL (11.5-16.0)
[2019-07-22 08:44] LABS: Creatinine, Blood 0.63 mg/dL (0.40-1.00); Vancomycin, Trough 5.9 ug/mL (5.0-10.0)
[2019-07-23 08:09] LABS: BASOPHILS ABSOLUTE AUTO 0.02 K/mm3 (0.00-0.23); BASOPHILS PERCENT AUTO 0 % (0-2); EOSINOPHILS PERCENT AUTO 0 % (0-6); IMMATURE GRAN ABSOLUTE AUTO 0.04 K/mm3 (0.00-0.10); IMMATURE GRAN PERCENT AUTO 0 % (0-1); LYMPHOCYTES ABSOLUTE AUTO 0.74 K/mm3 (0.84-5.20); LYMPHOCYTES PERCENT AUTO 7 % (21-46); MONOCYTES PERCENT AUTO 9 % (4-13); Mean Corpuscular HGB 28.6 pg (26.0-34.0); Mean Corpuscular HGB Conc 33.3 g/dL (31.5-36.5); Mean Corpuscular Volume 86 fL (80-100); Mean Platelet Volume 10.6 fL (9.1-12.4); NEUTROPHILS ABSOLUTE AUTO 9.51 K/mm3 (1.96-9.15); NEUTROPHILS PERCENT AUTO 84 % (41-73); Platelet Count 139 K/mm3 (150-400); RDW Coefficient Variation 19.6 % (11.7-14.2); RDW Standard Deviation 56.5 fL (35.1-46.3); White Blood Cell Count 11.31 K/mm3 (4.00-11.30)
[2019-07-23 08:19] LABS: Anion Gap 7 mmol/L (6-16); Blood Urea Nitrogen 13 mg/dL (8-24); Bun/Creatinine Ratio 17.6 (12.0-20.0); CO2, Blood 25 mmol/L (21-32); Calcium, Blood 7.7 mg/dL (8.5-10.1); Chloride, Blood 107 mmol/L (98-108); Creatinine, Blood 0.74 mg/dL (0.40-1.00); Glomerular Filtration Rate >60 (60-); Glucose, Blood 120 mg/dL (70-99); Magnesium, Blood 1.6 mg/dL (1.6-2.4); Potassium, Blood 3.6 mmol/L (3.5-5.5); Sodium, Blood 139 mmol/L (136-145)
[2019-07-24 05:01] LABS: Hematocrit 27.8 % (33.0-51.0); Hemoglobin 8.9 g/dL (11.5-16.0)
[2019-07-25 05:05] LABS: BASOPHILS ABSOLUTE AUTO 0.02 K/mm3 (0.00-0.23); BASOPHILS PERCENT AUTO 0 % (0-2); EOSINOPHILS ABSOLUTE AUTO 0.33 K/mm3 (0.00-0.68); EOSINOPHILS PERCENT AUTO 2 % (0-6); Hemoglobin 9.9 g/dL (11.5-16.0); IMMATURE GRAN ABSOLUTE AUTO 0.14 K/mm3 (0.00-0.10); IMMATURE GRAN PERCENT AUTO 1 % (0-1); LYMPHOCYTES ABSOLUTE AUTO 1.55 K/mm3 (0.84-5.20); LYMPHOCYTES PERCENT AUTO 11 % (21-46); MONOCYTES PERCENT AUTO 20 % (4-13); Mean Corpuscular HGB 29.5 pg (26.0-34.0); Mean Corpuscular HGB Conc 31.9 g/dL (31.5-36.5); Mean Corpuscular Volume 92 fL (80-100); Mean Platelet Volume 10.8 fL (9.1-12.4); NEUTROPHILS ABSOLUTE AUTO 9.53 K/mm3 (1.96-9.15); NEUTROPHILS PERCENT AUTO 66 % (41-73); Platelet Count 152 K/mm3 (150-400); RDW Coefficient Variation 20.8 % (11.7-14.2); RDW Standard Deviation 63.3 fL (35.1-46.3); Red Blood Cell Count 3.36 M/mm3 (3.80-5.20); White Blood Cell Count 14.37 K/mm3 (4.00-11.30)
[2019-07-25] MEDS ORDERED: OXYC5 PO (10:41)
== END 2019-07-25 14:00 | disposition home health service (06) | DRG 493 ==
LOC: ER 07:12 → PCU 07:13 → MEDS 07-22 16:07
PROVIDERS: Emergency Medicine; Hospitalist; Pharmacist; Podiatrist Foot & Ankle Surgery; ADMIT Internal Medicine
PROC: 30233N1 Transfusion of Nonautologous Red Blood Cells into Peripheral Vein, Percutaneous Approach (ICD-10-PCS; 2019-07-20)
PROC: 02H633Z Insertion of Infusion Device into Right Atrium, Percutaneous Approach (ICD-10-PCS; 2019-07-20)
PROC: 0DJ08ZZ Inspection of Upper Intestinal Tract, Via Natural or Artificial Opening Endoscopic (ICD-10-PCS; 2019-07-22)
PROC: 0QSK04Z Reposition Left Fibula with Internal Fixation Device, Open Approach (ICD-10-PCS; principal; 2019-07-22 11:00)
DX: S82.842A Displaced bimalleolar fracture of left lower leg, initial encounter for closed fracture (principal); K76.6 Portal hypertension; N39.0 Urinary tract infection, site not specified; D62 Acute posthemorrhagic anemia; I47.2 Ventricular tachycardia; W19.XXXA Unspecified fall, initial encounter; K31.89 Other diseases of stomach and duodenum; B18.2 Chronic viral hepatitis C; G47.33 Obstructive sleep apnea (adult) (pediatric); J44.9 Chronic obstructive pulmonary disease, unspecified; I10 Essential (primary) hypertension; E78.5 Hyperlipidemia, unspecified; F25.1 Schizoaffective disorder, depressive type; M79.7 Fibromyalgia; I12.9 Hypertensive chronic kidney disease with stage 1 through stage 4 chronic kidney disease, or unspecified chronic kidney disease; N18.9 Chronic kidney disease, unspecified; D63.1 Anemia in chronic kidney disease; K70.30 Alcoholic cirrhosis of liver without ascites
CPT/HCPCS: 27810; 36415; 36430; 36569; 51701; 51702; 71045; 73590; 73600; 73610; 80048; 80053; 80202; 82565; 83735; 85014; 85018; 85025; 86850; 86900; 86901; 86923; 87086; 94640; 94760; 96361-59; 96365; 96366; 96374-59; 96375; 96375-59; 96376; 97116; 97162; 99152; 99285-25; A9270-GY; C1713; C1751; C9113; G0378; J0744; J1100; J1170; J1940; J2250; J2310; J2354; J2370; J2704; J3010; J3360; J3370; J3475; J7030; J7050; J7120; P9016

== ENCOUNTER → 2019-08-27 | Outpatient (CLI) | payer OTHER ==
[~2019-08-27] MED LIST changes: +Probiotic; +ZOLP5 PO
[2019-08-27 19:14] LABS: Alanine Aminotransfer (ALT/SGP 26 U/L (12-78); Albumin, Blood 2.1 g/dL (3.4-5.0); Albumin/Globulin Ratio 0.5 (0.8-1.8); Alk Phos 146 U/L (50-136); Anion Gap 10 mmol/L (6-16); Aspartate Aminotrans (AST/SGOT 37 U/L (12-37); Bilirubin, Total 0.4 mg/dL (0.1-1.0); Blood Urea Nitrogen 8 mg/dL (8-24); Bun/Creatinine Ratio 9.9 (12.0-20.0); CO2, Blood 18 mmol/L (21-32); Calcium, Blood 7.9 mg/dL (8.5-10.1); Chloride, Blood 112 mmol/L (98-108); Creatinine, Blood 0.81 mg/dL (0.40-1.00); Globulin, Blood 4.1 g/dL (2.2-4.0); Glomerular Filtration Rate >60 (60-); Glucose, Blood 78 mg/dL (70-99); Potassium, Blood 3.4 mmol/L (3.5-5.5); Sodium, Blood 140 mmol/L (136-145); Total Protein, Blood 6.2 g/dL (6.4-8.2)
== END | disposition home or self-care (01) ==
LOC: LAB SHORT 11:30 → LAB 11:30
PROVIDERS: Nurse Practitioner
DX: D50.9 Iron deficiency anemia, unspecified (principal)
CPT/HCPCS: 80053

== ENCOUNTER 2019-09-04 20:43 | Inpatient (IN) | payer OTHER ==
[~2019-09-04] VITALS: Ht 177.8 cm; Wt 73.1 kg
[2019-09-04 21:16] LABS: BASOPHILS ABSOLUTE AUTO 0.02 K/mm3 (0.00-0.23); BASOPHILS PERCENT AUTO 0 % (0-2); EOSINOPHILS ABSOLUTE AUTO 0.45 K/mm3 (0.00-0.68); EOSINOPHILS PERCENT AUTO 5 % (0-6); Hematocrit 18.7 % (33.0-51.0); IMMATURE GRAN ABSOLUTE AUTO 0.03 K/mm3 (0.00-0.10); IMMATURE GRAN PERCENT AUTO 0 % (0-1); LYMPHOCYTES ABSOLUTE AUTO 1.13 K/mm3 (0.84-5.20); LYMPHOCYTES PERCENT AUTO 13 % (21-46); MONOCYTES ABSOLUTE AUTO 1.27 K/mm3 (0.16-1.47); MONOCYTES PERCENT AUTO 14 % (4-13); Mean Corpuscular HGB 27.5 pg (26.0-34.0); Mean Corpuscular HGB Conc 28.3 g/dL (31.5-36.5); Mean Corpuscular Volume 97 fL (80-100); Mean Platelet Volume 11.1 fL (9.1-12.4); NEUTROPHILS ABSOLUTE AUTO 5.91 K/mm3 (1.96-9.15); NEUTROPHILS PERCENT AUTO 67 % (41-73); Platelet Count 298 K/mm3 (150-400); RDW Coefficient Variation 20.2 % (11.7-14.2); RDW Standard Deviation 70.9 fL (35.1-46.3); Red Blood Cell Count 1.93 M/mm3 (3.80-5.20); White Blood Cell Count 8.81 K/mm3 (4.00-11.30)
[2019-09-04 21:17] LABS: Hemoglobin 5.3 g/dL (11.5-16.0)
[2019-09-04] MEDS ORDERED: FUROSEMIDE40 MG PO (21:23)
[2019-09-04] MEDS ORDERED: WIXELA 100-501 EACH INH (21:24)
[2019-09-04] MEDS ORDERED: Prilosec Otc20 MG PO (21:26)
[2019-09-04] MEDS ORDERED: SUCRALFATE1 GM PO (21:28)
[2019-09-04 21:29] LABS: International Normalized Ratio 1.02; Prothrombin Time Results 10.9 Sec (9.7-11.5)
[2019-09-04] MEDS ORDERED: GABAPENTIN600 MG PO (21:29)
[2019-09-04] MEDS ORDERED: TRAZ100 PO (21:31)
[2019-09-04] MEDS ORDERED: Robaxin750 MG PO (21:32)
[2019-09-04 21:33] LABS: Albumin, Blood 1.9 g/dL (3.4-5.0); Albumin/Globulin Ratio 0.5 (0.8-1.8); Bilirubin, Total 0.5 mg/dL (0.1-1.0); Calcium, Blood 7.8 mg/dL (8.5-10.1); Creatinine, Blood 1.5 mg/dL (0.40-1.00); Globulin, Blood 4.1 g/dL (2.2-4.0)
--- NOTE | 2019-09-05 00:10 | NUR ---
PT ARRIVES TO ICU FROM ER VIA GURNEY FOR DX OF ACUTE ENCEPHALOPATHY, SHE IS ALERT AND ORIENTED ON ARRIVAL HOWEVER WHEN ANSWERING QUESTIONS REGARDING TIMELINE OF EVENTS PRECEDING HOSPITAL ADMISSION PT IS NOTED TO HAVE DIFFICULTY WITH ANSWERS. SHE FIRST STATES THAT HER LAST DRINK OF WINE WAS 1 WEEK AGO AND THAT DR HURLEY TOLD HER THAT IT WOULD KILL HER AT THE TIME SHE HAD HER ANKLE ORIF WHICH WAS DONE 1 MONTH AGO. THIS IS CLARIFIED WITH PT HOWEVER ANSWER IS NOTED TO CONTINUE TO VARY BETWEEN 1 WEEK AND 1 MONTH, SHE HAS DIFFICULTY WITH MEDICATIONS THAT SHE IS TAKING OTHER THAN SHE IS ABLE TO REMEMBER THAT SHE TAKES AN OXYCODONE TABLET FOR PAIN. SHE IS SPEAKING IN FULL SENTENCES WITHOUT VISIBLE INCREASED WORK OF BREATHING, SATS ARE HIGH 90S ON ROOM AIR, LUNGS ARE CLEAR THROUGHOUT. HRR, SINUS ON MONITOR, RATE 60S, PRESSURES ARE MAINTAINING AT THIS TIME, PULSES FULL X 4 EXTREMITIES, SKIN IS WARM AND DRY, 2+ GENERALIZED EDEMA IS NOTED. ABD DISTENDED, ASCITES IS NOTED, HYPOACTIVE BOWEL TONES, NONTENDER TO PALP, ABD SOFT. PT IS ABLE TO VOID CLEAR YELLOW URINE IN BEDPAN WITHOUT DIFFICULTY. WALKING BOOT IN PLACE TO LEFT LOWER EXTREMITY, PT STATES THAT SHE NEVER TAKES THIS OFF BUT THAT SHE HAS TO REMOVE IT ONCE PER DAY FOR DRESSING CHANGES. BOOT REMOVED AND UNSTAGEABLE PRESSURE ULCER IS NOTED TO LEFT LATERAL PLANTAR SURFACE, SEE PHOTOS, MEPILEX PLACED. INCISION IS NOTED CONTINUES TO BE OPEN, CLEANSED WITH SKINTEGRITY AND PATTED DRY WITH 4X4 GAUZE, DRESSING APPLIED, SEE PHOTO. IV ACCESS IS 22 GUAGE TO RIGHT FOREARM AND 20 TO LEFT FOREARM, NS AND PROTONIX GTT INITIATED TO RIGHT FOREARM IV, RESIDENT HALL DIRECTOR TO BEDSIDE FOR ADDITIONAL IV ACCESS PT HAS PRBC, LEVAQUIN, PROTONIX GTT, NS @ 75 ML/HR, AND ALBUMIN ORDERED, RESIDENT HALL DIRECTOR IS UNABLE TO LOCATE SUITABLE ACCESS SITE, CALL PLACED TO PCU CHARGE.
[2019-09-05 00:59] LABS: Hematocrit 23.5 % (33.0-51.0); Hemoglobin 7.1 g/dL (11.5-16.0)
--- NOTE | 2019-09-05 01:00 | NUR ---
PCU GENERAL MILLING SUPERINTENDENT IS UNABLE TO LOCATE SUITABLE IV ACCESS SITE, DR REYES NOTIFIED, WILL ROUND ON PT AND PLANS FOR CENTRAL LINE PLACEMENT.
--- NOTE | 2019-09-05 02:30 | NUR ---
CENTRAL LINE PLACED BY DR REYES TO RIGHT IJ, PT TOLERATED WELL.
[2019-09-05 06:34] LABS: BASOPHILS ABSOLUTE AUTO 0.03 K/mm3 (0.00-0.23); BASOPHILS PERCENT AUTO 1 % (0-2); EOSINOPHILS ABSOLUTE AUTO 0.23 K/mm3 (0.00-0.68); EOSINOPHILS PERCENT AUTO 4 % (0-6); Hematocrit 22.3 % (33.0-51.0); Hemoglobin 7.1 g/dL (11.5-16.0); IMMATURE GRAN ABSOLUTE AUTO 0.03 K/mm3 (0.00-0.10); IMMATURE GRAN PERCENT AUTO 1 % (0-1); LYMPHOCYTES ABSOLUTE AUTO 0.68 K/mm3 (0.84-5.20); LYMPHOCYTES PERCENT AUTO 11 % (21-46); MONOCYTES ABSOLUTE AUTO 0.72 K/mm3 (0.16-1.47); MONOCYTES PERCENT AUTO 12 % (4-13); Mean Corpuscular HGB Conc 31.8 g/dL (31.5-36.5); Mean Platelet Volume 10.8 fL (9.1-12.4); NEUTROPHILS ABSOLUTE AUTO 4.53 K/mm3 (1.96-9.15); NEUTROPHILS PERCENT AUTO 73 % (41-73); NRBC ABSOLUTE 0.02 K/mm3 (0.00-0.02); NRBC Auto 0.3 /100 WBC (0.0-0.2); Platelet Count 200 K/mm3 (150-400); RDW Coefficient Variation 16.9 % (11.7-14.2); RDW Standard Deviation 55.5 fL (35.1-46.3); Red Blood Cell Count 2.45 M/mm3 (3.80-5.20); White Blood Cell Count 6.22 K/mm3 (4.00-11.30)
--- NOTE | 2019-09-05 06:35 | NUR ---
PT RESTING QUIETLY AND WATCHING TV AT THIS TIME, HAS DENIED N/V, DENIED CP/PRESSURE, ADMITS TO PAIN TO LEFT ANKLE AND INTERMITTENT HEADACHE RATES 8/10, CONTROLLED WITH POSITION CHANGES AND REST OF THIS TIME. SHE STATES THAT HER LAST BOWEL MOVEMENT WAS 2 DAYS PRIOR TO ADMIT AND THAT IT WAS DARK BROWN/BLACK IN COLOR AND HARD. PT IS NOTED ABLE TO FULLY LIFT BUTTOCKS OFF OF BED FOR BEDPAN PLACEMENT HOWEVER FREQUENTLY POSITIONS SELF SUPINE, DISCUSSED INCREASED RISK OF PRESSURE ULCERS WITH BEDREST, PT HAS BEEN NOTED TO INCREASE TURNS TO SIDES FOLLOWING DISCUSSION. CENTRAL LINE PLACED TO RIGHT IJ BY DR REYES, DRESSING CHANGED THIS AM SECONDARY TO PULLING LOOSE AT SUPERIOR ASPECT OF DRESSING. PRESSURES REMAIN STABLE, EDEMA CONTINUES, HEART RATE REMAINS 60-70S. LUNGS REMAIN CLEAR THROUGHOUT, SATS MID TO HIGH 90S ON ROOM AIR. ABD REMAINS DISTENDED, NO N/V.
[2019-09-05 06:37] LABS: Mean Corpuscular Volume 91 fL (80-100)
[2019-09-05 07:08] LABS: Albumin, Blood 2.3 g/dL (3.4-5.0); Albumin/Globulin Ratio 0.7 (0.8-1.8); Bilirubin, Total 2.6 mg/dL (0.1-1.0); Bun/Creatinine Ratio 16.2 (12.0-20.0); Calcium, Blood 7.9 mg/dL (8.5-10.1); Creatinine, Blood 1.11 mg/dL (0.40-1.00); Globulin, Blood 3.5 g/dL (2.2-4.0); Potassium, Blood 4.1 mmol/L (3.5-5.5); Total Protein, Blood 5.8 g/dL (6.4-8.2)
--- NOTE | 2019-09-05 07:16 | NUR ---
ASSUMED CARE: PT RESTING IN BED, C/O LEFT ANKLE PAIN. ANKLE PROPPED UP ON PILLOW. WILL CONTINUE TO TRY NO PHARMOCOLOGICAL METHODS FIRST. VSS AT THIS TIME. NS AND PROTONIX GTT RUNNING. NO ACUTE NEEDS OR CONCERNS AT THIS TIME.
--- NOTE | 2019-09-05 08:30 | NUR ---
DR SANTILLAN CAME TO SEE PT. AWARE THAT PT IS NPO AND THAT WE ARE WAITING FOR DR LAM TO SEE PT FOR GI RECOMMENDATIONS. AWARE OF PT'S H AND H AFTER [address] SANTILLAN LOOKED AT PT'S LEFT ANKLE AND GAVE WOUND CARE INSTRUCTIONS. NO PODIATRY AVAILABLE FOR THE REST OF THE MONTH. HOSPITALIST MANAGEMENT AT THIS TIME. MADE AWARE OF PT'S PROLONGED QT. MEDICATIONS TO AFFECT THIS WERE DC'D. DR AWARE OF PT'S ANKLE PAIN AND PAIN MEDS ORDERED. NO FURTHER NEEDS OR CONCERNS AT THIS TIME.
[2019-09-05 09:16] LABS: Hematocrit 22.1 % (33.0-51.0); Hemoglobin 7.1 g/dL (11.5-16.0)
[2019-09-05 13:16] LABS: Hematocrit 20.9 % (33.0-51.0); Hemoglobin 6.7 g/dL (11.5-16.0)
--- NOTE | 2019-09-05 13:23 | NUR ---
DR LAM CAME TO DO BEDSIDE EGD. MULTIPLE SITES CAUTERIZED. DR CHANGED PROTONIX ORDER AND DIET ORDER CHANGED. DR STATES THAT IF H AND H STABLE TOMORROW SHE COULD GO HOME. LATEST H AND H DOWN FROM PRIOR. DR LAM AWARE AND ORDERED A UNIT OF BLOOD. PT'S VSS AT THIS TIME.
--- NOTE | 2019-09-05 13:23 | NUR ---
09/05/19 1323 LUCA KIM LATE ENTRY 1230 UNABLE TO CHART UNTIL NOW DUE TO ANESTHESIOLOGIST REQUEST TO MONTIOR PT'S VITAL SIGNS DURING PROCEDURE. COMPUTER WAS NOT WITHIN REACH. History, Chart, Medications and Allergies reviewed before start of procedure. 3-LEAD EKG REVIEWED WITH PHYSICIAN PRIOR TO START OF PROCEDURE. MONITOR INTACT WITH CONTINUOUS PULSE OXIMETRY AND INTERMITTENT BP. O2 VIA N/C INTACT THROUGHOUT SEDATION/PROCEDURE. MAC WITH DR. CANADA.
--- NOTE | 2019-09-05 15:31 | NUR ---
BLOOD STARTED PER ORDERS. REPORT CALLED TO BARBARA KERR. DR SANTILLAN CAME TO SEE PT AND WAS UPDATED ON DR LAM'S FINDINGS. AGREED WITH H AND H AFTER UNIT AND AGAIN IN AM. NO ACUTE NEEDS OR CONCERNS.
--- NOTE | 2019-09-05 15:49 | NUR ---
ASSUME CARE PT TRANSFERRED FROM ICU 5 TO PCU 6, REPORT RECEIVED FROM MARCELINO KERR. PT CURRENTLY HAS ONGOING BLOOD TRANSFUSING ON RIGHT IJ LINE. VITALS STABLE HRR NSR ON THE 70'S BP SYSTOLIC 106. PT ALERT AND ORIENTED AT BASELINE PER REPORT, ABLE TO STATE HER NAME AND , KNOWS WHERE SHE'S AT, UNSURE OF DATE AND TIME. PT HAS RECENT ANKLE FX ELASTIC WRAP IN PLACE WITH MEPILEX ON THE SOLE OF THE FOOT HAS OPEN WOUND PER REPORT. PT CURRENTLY BED REST, ON CLEAR LIQUID DIET, POST ENDOSCOPY WITH CAUTERIZATION. H&H ORDERED POST BLOOD TRANSFUSION AND IN AM. PT CURRENTLY RESTING IN BED CALL LIGHTS WITHIN REACH WILL MONITOR
[2019-09-05 19:16] LABS: Hematocrit 23.9 % (33.0-51.0); Hemoglobin 7.6 g/dL (11.5-16.0)
--- NOTE | 2019-09-05 21:23 | NUR ---
ASSUMED CARE OF PATIENT AT APPROXIMATELY 1900 FROM BARBARA Archuleta RN. PATIENT ALERT AND ORIENTED TO SELF, AND LOCATION. VERY FORGETFUL; FORGETS CONVERSATION FROM MINUTES BEFORE. PRESSURE ULCER TO LEFT HEEL OF FOOT PAINFUL TO PATIENT; MEDICATED PER EMAR BEFORE SHIFT CHANGE. PATIENT DENIES NUMBNESS, TINGLING, DIZZINESS OR NAUSEA. CENTRAL LINE TO RIGHT IJ S/L. HGB 7.6 AFTER RBC; SCOPE TODAY. NO LABS IN AM; WILL CALL HOSPITALIST TO REQUEST AM LABS. PATIENT ASSISTS WITH TURNS; REFUSES AT TIMES. VSS. NSR ON TELE W/ PROLONGED QT; OXYGEN SATURATION ABOVE 90% ON ROOM AIR. PER DAYSHIFT HOSPITALIST AWARE. PATIENT CURRENTLY RESTING IN BED; CALL LIGHT IN REACH; BED IN LOWEST POSISTION; BED ALARM ON; WILL CONTINUE TO MONITOR AND ASSESS UNTIL END OF SHIFT.
--- NOTE | 2019-09-05 21:43 | NUR ---
CALLED QING STEINER REGARDING NO AM LABS IN AM; ORDERS FOR CBC IN AM
[2019-09-06 03:18] LABS: BASOPHILS ABSOLUTE AUTO 0.03 K/mm3 (0.00-0.23); BASOPHILS PERCENT AUTO 0 % (0-2); EOSINOPHILS ABSOLUTE AUTO 0.33 K/mm3 (0.00-0.68); EOSINOPHILS PERCENT AUTO 4 % (0-6); Hematocrit 24.8 % (33.0-51.0); Hemoglobin 8.1 g/dL (11.5-16.0); IMMATURE GRAN ABSOLUTE AUTO 0.03 K/mm3 (0.00-0.10); IMMATURE GRAN PERCENT AUTO 0 % (0-1); LYMPHOCYTES ABSOLUTE AUTO 1.08 K/mm3 (0.84-5.20); LYMPHOCYTES PERCENT AUTO 14 % (21-46); MONOCYTES ABSOLUTE AUTO 1.32 K/mm3 (0.16-1.47); MONOCYTES PERCENT AUTO 17 % (4-13); Mean Corpuscular HGB Conc 32.7 g/dL (31.5-36.5); Mean Corpuscular Volume 89 fL (80-100); Mean Platelet Volume 10.5 fL (9.1-12.4); NEUTROPHILS PERCENT AUTO 63 % (41-73); Platelet Count 195 K/mm3 (150-400); RDW Coefficient Variation 17.2 % (11.7-14.2); RDW Standard Deviation 55.4 fL (35.1-46.3); Red Blood Cell Count 2.79 M/mm3 (3.80-5.20); White Blood Cell Count 7.59 K/mm3 (4.00-11.30)
--- NOTE | 2019-09-06 06:15 | NUR ---
PATIENT SLEPT OFF AND ON FOR ABOUT SIX HOURS; PATIENT HAD MULTIPLE BMS LAST NIGHT; MEDICATED FOR PAIN T/O SHIFT. VSS. HGB UP TO 8.1. WILL CONTINUE TO MONITOR AND ASSESS UNTIL END OF SHIFT.
[2019-09-06] MEDS ORDERED: Levaquin500 MG PO (10:02)
== END 2019-09-06 13:10 | disposition home or self-care (01) | DRG 441 ==
LOC: ER 20:43 → ERHOLD 23:06 → ICUE 23:06 → PCU 09-05 15:41
PROVIDERS: Emergency Medicine; Nurse Practitioner Acute Care; Student in an Organized Health Care Education/Training Program; ADMIT Internal Medicine
PROC: 0D568ZZ Destruction of Stomach, Via Natural or Artificial Opening Endoscopic (ICD-10-PCS; 2019-09-05)
PROC: 02HV33Z Insertion of Infusion Device into Superior Vena Cava, Percutaneous Approach (ICD-10-PCS; principal; 2019-09-05 12:45)
PROC: B5181ZA Fluoroscopy of Superior Vena Cava using Low Osmolar Contrast, Guidance (ICD-10-PCS; 2019-09-05 12:45)
DX: K76.6 Portal hypertension (principal); K31.811 Angiodysplasia of stomach and duodenum with bleeding; G92 Toxic encephalopathy; N17.9 Acute kidney failure, unspecified; D62 Acute posthemorrhagic anemia; K70.30 Alcoholic cirrhosis of liver without ascites; J44.9 Chronic obstructive pulmonary disease, unspecified; E78.5 Hyperlipidemia, unspecified; F32.9 Major depressive disorder, single episode, unspecified; E88.09 Other disorders of plasma-protein metabolism, not elsewhere classified; F25.1 Schizoaffective disorder, depressive type
CPT/HCPCS: 36415; 36430; 36556; 71045; 80053; 82140; 82272; 85014; 85018; 85025; 85610; 86850; 86900; 86901; 86923; 93005; 93010; 94640; 94760; 96374; 99285-25; C1751; C9113; J1956; J2310; J2704; J2916; J3010; J7030; J7050; J7120; P9016; P9046

== ENCOUNTER 2019-12-12 17:36 | Emergency (ER) | payer OTHER ==
[~2019-12-12] VITALS: Ht 157.5 cm; Wt 73.5 kg
[~2019-12-12 17:36] MED LIST changes: +GABAPENTIN600 MG PO; +Klor-Con 1010 MEQ PO; +LACTULOSE10 GM/152 PO; +Levaquin500 MG PO; +PRAZOSIN HCL1 M2 PO; +Prilosec Otc20 MG PO; +SUCRALFATE1 G1 PO; +VITAMIN D31000 UNI1 PO; -VITAMIN D350 MCG PO; +WIXELA 100-501 EAC1 INH; +WIXELA 100-501 EACH INH
== END 2019-12-12 20:26 | disposition home or self-care (01) ==
LOC: ER 17:36
DX: M20.12 Hallux valgus (acquired), left foot (principal); M21.612 Bunion of left foot; I10 Essential (primary) hypertension; F41.9 Anxiety disorder, unspecified; F32.9 Major depressive disorder, single episode, unspecified; F20.9 Schizophrenia, unspecified; J44.9 Chronic obstructive pulmonary disease, unspecified; K70.30 Alcoholic cirrhosis of liver without ascites; Z88.1 Allergy status to other antibiotic agents; Z88.0 Allergy status to penicillin; Z88.2 Allergy status to sulfonamides; Z88.6 Allergy status to analgesic agent; Z88.4 Allergy status to anesthetic agent; Z91.041 Radiographic dye allergy status; Z79.899 Other long term (current) drug therapy
CPT/HCPCS: 73620; 99283-25; J7512

== ENCOUNTER 2019-12-16 23:06 | Emergency (ER) | payer OTHER ==
[~2019-12-16] VITALS: Ht 157.5 cm; Wt 72.6 kg
[~2019-12-16 23:06] MED LIST changes: +FURO80 PO
[2019-12-16 23:33] LABS: BASOPHILS ABSOLUTE AUTO 0.01 K/mm3 (0.00-0.23); BASOPHILS PERCENT AUTO 0 % (0-2); EOSINOPHILS ABSOLUTE AUTO 0.04 K/mm3 (0.00-0.68); EOSINOPHILS PERCENT AUTO 0 % (0-6); Hematocrit 26.9 % (33.0-51.0); Hemoglobin 8.6 g/dL (11.5-16.0); IMMATURE GRAN ABSOLUTE AUTO 0.07 K/mm3 (0.00-0.10); IMMATURE GRAN PERCENT AUTO 1 % (0-1); LYMPHOCYTES ABSOLUTE AUTO 1.48 K/mm3 (0.84-5.20); LYMPHOCYTES PERCENT AUTO 10 % (21-46); MONOCYTES ABSOLUTE AUTO 2.03 K/mm3 (0.16-1.47); MONOCYTES PERCENT AUTO 14 % (4-13); Mean Corpuscular HGB 30.7 pg (26.0-34.0); Mean Corpuscular Volume 96 fL (80-100); Mean Platelet Volume 10.9 fL (9.1-12.4); NEUTROPHILS ABSOLUTE AUTO 10.61 K/mm3 (1.96-9.15); NEUTROPHILS PERCENT AUTO 74 % (41-73); Platelet Count 233 K/mm3 (150-400); RDW Coefficient Variation 15.8 % (11.7-14.2); RDW Standard Deviation 56.2 fL (35.1-46.3); White Blood Cell Count 14.24 K/mm3 (4.00-11.30)
[2019-12-16 23:53] LABS: International Normalized Ratio 1.02; Prothrombin Time Results 10.9 Sec (9.7-11.5)
[2019-12-17] LABS: Alanine Aminotransfer (ALT/SGP 57 U/L (12-78); Albumin, Blood 2.7 g/dL (3.4-5.0); Albumin/Globulin Ratio 0.7 (0.8-1.8); Alk Phos 114 U/L (50-136); Anion Gap 7 mmol/L (6-16); Aspartate Aminotrans (AST/SGOT 50 U/L (12-37); Bilirubin, Total 0.6 mg/dL (0.1-1.0); Blood Urea Nitrogen 42 mg/dL (8-24); Bun/Creatinine Ratio 33.3 (12.0-20.0); CO2, Blood 28 mmol/L (21-32); Calcium, Blood 8.7 mg/dL (8.5-10.1); Chloride, Blood 96 mmol/L (98-108); Creatinine, Blood 1.26 mg/dL (0.40-1.00); Globulin, Blood 3.7 g/dL (2.2-4.0); Glomerular Filtration Rate 47 (60-); Glucose, Blood 88 mg/dL (70-99); Potassium, Blood 4.3 mmol/L (3.5-5.5); Sodium, Blood 131 mmol/L (136-145); Total Protein, Blood 6.4 g/dL (6.4-8.2)
[2019-12-17 00:05] LABS: Source, Urine Clean Catch
[2019-12-17 00:06] LABS: Bilirubin, Urine Neg (Neg); Blood, Urine Neg (Neg); Glucose Qualitative, Urine Neg (Neg); Ketones, Urine Neg (Neg); Leukocyte Esterase, Urine Neg (Neg); Nitrite, Urine Neg (Neg); Protein, Urine Neg (Neg); Specific Gravity, Urine 1.005 (1.003-1.022); Urobilinogen, Urine NORM (Normal); pH, Urine 6.5 (5.0-8.0)
[2019-12-17 00:07] LABS: Appearance, Urine Clear (Clear); Color, Urine Yellow (P-Yellow)
[2019-12-17 00:09] LABS: Ethanol (Alcohol), Blood, Med <3 mg/dL
[2019-12-17] MEDS ORDERED: METO5 PO (17:53)
[2019-12-17] MEDS ORDERED: ALLO100 PO (17:54)
[2019-12-17] MEDS ORDERED: CYCL10 PO (17:56)
[2019-12-17] MEDS ORDERED: PANT40 PO (17:57)
[2019-12-17] MEDS ORDERED: MAGNESIUM OXID500 MG PO (17:58)
[2019-12-17] MEDS ORDERED: HYDROCODONE-AC1 EAC8 PO (18:00)
[2019-12-17] MEDS ORDERED: METPRE4DP PO (18:00)
[2019-12-17] MEDS ORDERED: Dicyclomine HCl10 MG PO (18:05)
[2019-12-17] MEDS ORDERED: DICLOFENAC SOD100 G1 TOP (18:05)
== END 2019-12-17 01:35 | disposition home or self-care (01) ==
LOC: ER 23:06
PROVIDERS: Emergency Medicine
DX: D50.0 Iron deficiency anemia secondary to blood loss (chronic) (principal); E86.0 Dehydration; K70.30 Alcoholic cirrhosis of liver without ascites; I10 Essential (primary) hypertension; F41.9 Anxiety disorder, unspecified; F32.9 Major depressive disorder, single episode, unspecified; F40.9 Phobic anxiety disorder, unspecified; F20.9 Schizophrenia, unspecified; Z79.899 Other long term (current) drug therapy
CPT/HCPCS: 36415; 80053; 81003; 83735; 85025; 85610; 85730; 86850; 86900; 86901; 93005; 93010; 96374; 99285-25; G0480; J2310; P9612

== ENCOUNTER 2019-12-17 14:40 | Observation (INO) | payer OTHER ==
[~2019-12-17] VITALS: Ht 157.5 cm; Wt 72.6 kg
[2019-12-17 15:44] LABS: BASOPHILS ABSOLUTE AUTO 0.03 K/mm3 (0.00-0.23); BASOPHILS PERCENT AUTO 0 % (0-2); EOSINOPHILS ABSOLUTE AUTO 0.24 K/mm3 (0.00-0.68); EOSINOPHILS PERCENT AUTO 2 % (0-6); IMMATURE GRAN ABSOLUTE AUTO 0.06 K/mm3 (0.00-0.10); IMMATURE GRAN PERCENT AUTO 0 % (0-1); LYMPHOCYTES ABSOLUTE AUTO 2.36 K/mm3 (0.84-5.20); LYMPHOCYTES PERCENT AUTO 17 % (21-46); MONOCYTES ABSOLUTE AUTO 2.17 K/mm3 (0.16-1.47); MONOCYTES PERCENT AUTO 16 % (4-13); Mean Corpuscular HGB Conc 32.3 g/dL (31.5-36.5); Mean Corpuscular Volume 96 fL (80-100); Mean Platelet Volume 10.9 fL (9.1-12.4); NEUTROPHILS ABSOLUTE AUTO 8.96 K/mm3 (1.96-9.15); NEUTROPHILS PERCENT AUTO 65 % (41-73); Platelet Count 244 K/mm3 (150-400); RDW Coefficient Variation 15.7 % (11.7-14.2); RDW Standard Deviation 55.4 fL (35.1-46.3); Red Blood Cell Count 3.23 M/mm3 (3.80-5.20); White Blood Cell Count 13.82 K/mm3 (4.00-11.30)
[2019-12-17 16:03] LABS: Alanine Aminotransfer (ALT/SGP 47 U/L (12-78); Albumin, Blood 2.9 g/dL (3.4-5.0); Albumin/Globulin Ratio 0.8 (0.8-1.8); Alk Phos 114 U/L (50-136); Anion Gap 5 mmol/L (6-16); Aspartate Aminotrans (AST/SGOT 40 U/L (12-37); Bilirubin, Total 0.9 mg/dL (0.1-1.0); Blood Urea Nitrogen 41 mg/dL (8-24); Bun/Creatinine Ratio 32.5 (12.0-20.0); CO2, Blood 34 mmol/L (21-32); Calcium, Blood 8.9 mg/dL (8.5-10.1); Chloride, Blood 94 mmol/L (98-108); Creatinine, Blood 1.26 mg/dL (0.40-1.00); Ethanol (Alcohol), Blood, Med <3 mg/dL; Globulin, Blood 3.8 g/dL (2.2-4.0); Glomerular Filtration Rate 47 (60-); Glucose, Blood 70 mg/dL (70-99); Potassium, Blood 3.6 mmol/L (3.5-5.5); Sodium, Blood 133 mmol/L (136-145); Total Protein, Blood 6.7 g/dL (6.4-8.2)
[2019-12-17] MEDS ORDERED: METO5 PO (17:53)
[2019-12-17] MEDS ORDERED: ALLO100 PO (17:54)
[2019-12-17] MEDS ORDERED: CYCL10 PO (17:56)
[2019-12-17] MEDS ORDERED: PANT40 PO (17:57)
[2019-12-17] MEDS ORDERED: MAGNESIUM OXID500 MG PO (17:58)
[2019-12-17] MEDS ORDERED: HYDROCODONE-AC1 EAC8 PO (18:00)
[2019-12-17] MEDS ORDERED: METPRE4DP PO (18:00)
[2019-12-17] MEDS ORDERED: Dicyclomine HCl10 MG PO (18:05)
[2019-12-17] MEDS ORDERED: DICLOFENAC SOD100 G1 TOP (18:05)
[2019-12-17 20:23] LABS: International Normalized Ratio 1.03
--- NOTE | 2019-12-18 04:32 | NUR ---
HUMAN FACTORS ADVISOR LEAD SUMMARY ASSUMED CARE AT 2150. PT SLOW TO RESPOND AT THAT TIME. CONTINOUS IV FLUIDS WERE INITIATED. SHE IS ABLE TO COMMUNICATE MORE EFFECTIVELY AT THIS TIME. ALERT AND ORIENTED X3. NO ACUTE DISTRESS NOTED. BREATHING IS UNLABORED. STANDBY ASSIST TO THE BSC. CURRENTLY APPEARS TO BE SLEEPING COMFORTABLY. BED IN LOWEST POSITION WITH CALL LIGHT IN REACH. WILL CONTINUE TO MONITOR AND REPORT TO ONCOMING RN.
[2019-12-18 05:07] LABS: BASOPHILS ABSOLUTE AUTO 0.05 K/mm3 (0.00-0.23); BASOPHILS PERCENT AUTO 0 % (0-2); EOSINOPHILS ABSOLUTE AUTO 0.26 K/mm3 (0.00-0.68); EOSINOPHILS PERCENT AUTO 2 % (0-6); Hematocrit 33.1 % (33.0-51.0); Hemoglobin 10.6 g/dL (11.5-16.0); IMMATURE GRAN ABSOLUTE AUTO 0.05 K/mm3 (0.00-0.10); IMMATURE GRAN PERCENT AUTO 0 % (0-1); LYMPHOCYTES PERCENT AUTO 15 % (21-46); MONOCYTES ABSOLUTE AUTO 1.54 K/mm3 (0.16-1.47); MONOCYTES PERCENT AUTO 13 % (4-13); Mean Corpuscular HGB 30.5 pg (26.0-34.0); Mean Corpuscular Volume 95 fL (80-100); Mean Platelet Volume 10.4 fL (9.1-12.4); NEUTROPHILS ABSOLUTE AUTO 8.42 K/mm3 (1.96-9.15); NEUTROPHILS PERCENT AUTO 70 % (41-73); Platelet Count 212 K/mm3 (150-400); RDW Coefficient Variation 15.7 % (11.7-14.2); RDW Standard Deviation 54.5 fL (35.1-46.3); Red Blood Cell Count 3.48 M/mm3 (3.80-5.20); White Blood Cell Count 12.12 K/mm3 (4.00-11.30)
[2019-12-18 06:38] LABS: Albumin, Blood 2.9 g/dL (3.4-5.0); Albumin/Globulin Ratio 0.7 (0.8-1.8); Bun/Creatinine Ratio 30.8 (12.0-20.0); Calcium, Blood 8.9 mg/dL (8.5-10.1); Creatinine, Blood 1.07 mg/dL (0.40-1.00); Globulin, Blood 3.9 g/dL (2.2-4.0); Potassium, Blood 3.9 mmol/L (3.5-5.5); Total Protein, Blood 6.8 g/dL (6.4-8.2)
--- NOTE | 2019-12-18 19:14 | NUR ---
SHIFT SUMMARY: NO ACUTE CHANGES TO REPORT THIS SHIFT. PT A&O; CALM AND COOPERATIVE WITH CARE. IV REHYDRATION COMPLETE. LACTULOSE FOR 2-3 BMs/DAY; PER HOSPITALIST (DR EMERSON) PT IS MEDICALLY STABLE FOR DISCHARGE; PT IS EXPECTED TO D/C TO HOME 12/18 IN AM. REPORT GIVEN TO ONCOMING RN.
--- NOTE | 2019-12-19 04:09 | NUR ---
MANAGER PROFESSIONAL DEVELOPMENT SUMMARY ALERT AND ORIENTED X3. CALM AND COOPERATIVE WITH CARE. NO CHANGES TO REPORT THIS SHIFT. NO ACUTE DISTRESS NOTED. BREATHING IS UNLABORED. REPORTS PAIN R/T RECENT DENTAL PROCEDURE, MEDICATED PER EMAR. VSS. BED IN LOWEST POSITION WITH CALL LIGHT IN REACH. WILL CONTINUE TO MONITOR AND REPORT TO ONCOMING RN.
== END 2019-12-19 09:35 | disposition home or self-care (01) ==
LOC: ER 14:40 → MEDS 14:41 → ENPENDDIS 12-18 18:47 → MEDS 12-19 09:35
PROVIDERS: Emergency Medicine; ADMIT Internal Medicine
DX: K72.00 Acute and subacute hepatic failure without coma (principal); K70.30 Alcoholic cirrhosis of liver without ascites; K76.6 Portal hypertension; I12.9 Hypertensive chronic kidney disease with stage 1 through stage 4 chronic kidney disease, or unspecified chronic kidney disease; N18.3 Chronic kidney disease, stage 3 (moderate); D63.1 Anemia in chronic kidney disease; E78.5 Hyperlipidemia, unspecified; F20.9 Schizophrenia, unspecified; Z79.899 Other long term (current) drug therapy; Z88.0 Allergy status to penicillin; Z88.1 Allergy status to other antibiotic agents; Z88.2 Allergy status to sulfonamides; Z88.8 Allergy status to other drugs, medicaments and biological substances
CPT/HCPCS: 36415; 80053; 82140; 83735; 85025; 85610; 93005; 93010; 96361; 96372; 96374; 96375; 99285-25; A9270-GY; G0378; G0480; J1650; J2310; J3010; J7030

== ENCOUNTER 2020-01-08 22:22 | Emergency (ER) | payer OTHER ==
[~2020-01-08] VITALS: Ht 157.5 cm; Wt 73.9 kg
[~2020-01-08 22:22] MED LIST changes: +ALLO100 PO; +DICLOFENAC SOD100 G1 TOP; +HYDROCODONE-AC1 EAC8 PO; +METO5 PO; +METPRE4DP PO
[2020-01-09 00:18] LABS: BASOPHILS ABSOLUTE AUTO 0.01 K/mm3 (0.00-0.23); BASOPHILS PERCENT AUTO 0 % (0-2); EOSINOPHILS ABSOLUTE AUTO 0.01 K/mm3 (0.00-0.68); EOSINOPHILS PERCENT AUTO 0 % (0-6); Hematocrit 26.5 % (33.0-51.0); Hemoglobin 8.4 g/dL (11.5-16.0); IMMATURE GRAN ABSOLUTE AUTO 0.07 K/mm3 (0.00-0.10); IMMATURE GRAN PERCENT AUTO 1 % (0-1); LYMPHOCYTES ABSOLUTE AUTO 0.83 K/mm3 (0.84-5.20); LYMPHOCYTES PERCENT AUTO 6 % (21-46); MONOCYTES ABSOLUTE AUTO 2.19 K/mm3 (0.16-1.47); MONOCYTES PERCENT AUTO 16 % (4-13); Mean Corpuscular HGB 29.3 pg (26.0-34.0); Mean Corpuscular HGB Conc 31.7 g/dL (31.5-36.5); Mean Corpuscular Volume 92 fL (80-100); Mean Platelet Volume 10.2 fL (9.1-12.4); NEUTROPHILS ABSOLUTE AUTO 10.42 K/mm3 (1.96-9.15); NEUTROPHILS PERCENT AUTO 77 % (41-73); NRBC ABSOLUTE 0.02 K/mm3 (0.00-0.02); NRBC Auto 0.1 /100 WBC (0.0-0.2); Platelet Count 355 K/mm3 (150-400); RDW Coefficient Variation 16.1 % (11.7-14.2); RDW Standard Deviation 54.2 fL (35.1-46.3); Red Blood Cell Count 2.87 M/mm3 (3.80-5.20); White Blood Cell Count 13.53 K/mm3 (4.00-11.30)
[2020-01-09 00:42] LABS: Albumin, Blood 2.9 g/dL (3.4-5.0); Albumin/Globulin Ratio 0.9 (0.8-1.8); Bilirubin, Total 0.7 mg/dL (0.1-1.0); Bun/Creatinine Ratio 28.4 (12.0-20.0); Calcium, Blood 8.5 mg/dL (8.5-10.1); Creatinine, Blood 1.94 mg/dL (0.40-1.00); Globulin, Blood 3.4 g/dL (2.2-4.0); Potassium, Blood 4.2 mmol/L (3.5-5.5); Total Protein, Blood 6.3 g/dL (6.4-8.2)
[2020-01-09 00:44] LABS: Magnesium, Blood 2.5 mg/dL (1.6-2.4); Troponin I <0.015 ng/mL (0.000-0.040)
[2020-01-09 00:57] LABS: Source, Urine Clean Catch
[2020-01-09 01:06] LABS: Appearance, Urine Clear (Clear); Bilirubin, Urine Neg (Neg); Blood, Urine Neg (Neg); Color, Urine Yellow (P-Yellow); Glucose Qualitative, Urine Neg (Neg); Ketones, Urine Neg (Neg); Leukocyte Esterase, Urine 2+ (Neg); Nitrite, Urine Neg (Neg); Protein, Urine Neg (Neg); Specific Gravity, Urine 1.005 (1.003-1.022); Urobilinogen, Urine NORM (Normal)
[2020-01-09 01:16] LABS: International Normalized Ratio 1.03
[2020-01-09 01:19] LABS: Bacteria Mod /hpf; Red Blood Cells, Urine Rare /hpf (0-2); Squamous Epithelial Cells Few /hpf (Few)
== END 2020-01-09 02:04 | disposition home or self-care (01) ==
LOC: ER 22:22
PROVIDERS: Emergency Medicine
DX: E86.0 Dehydration (principal); N28.9 Disorder of kidney and ureter, unspecified; K70.30 Alcoholic cirrhosis of liver without ascites; J44.9 Chronic obstructive pulmonary disease, unspecified; I10 Essential (primary) hypertension; F41.9 Anxiety disorder, unspecified; F32.9 Major depressive disorder, single episode, unspecified; F20.9 Schizophrenia, unspecified; Z88.0 Allergy status to penicillin; Z88.2 Allergy status to sulfonamides; Z88.1 Allergy status to other antibiotic agents; Z88.6 Allergy status to analgesic agent; Z91.041 Radiographic dye allergy status; Z88.4 Allergy status to anesthetic agent; Z79.899 Other long term (current) drug therapy
CPT/HCPCS: 36415; 80053; 81001; 82140; 83690; 83735; 84484; 85025; 85610; 86850; 86900; 86901; 93005; 93010; 96361; 96374; 99284-25; G0480; J7030

== ENCOUNTER 2020-01-26 14:13 | Emergency (ER) | payer OTHER ==
[~2020-01-26] VITALS: Ht 157.5 cm; Wt 69.4 kg
[2020-01-26] MEDS ORDERED: OXYACE7.5T PO (16:56)
== END 2020-01-26 17:42 | disposition home or self-care (01) ==
LOC: ER 14:13
DX: S52.572A Other intraarticular fracture of lower end of left radius, initial encounter for closed fracture (principal); S16.1XXA Strain of muscle, fascia and tendon at neck level, initial encounter; M54.5 Low back pain; G89.29 Other chronic pain; K70.30 Alcoholic cirrhosis of liver without ascites; I10 Essential (primary) hypertension; F41.9 Anxiety disorder, unspecified; F32.9 Major depressive disorder, single episode, unspecified; F20.9 Schizophrenia, unspecified; Z88.1 Allergy status to other antibiotic agents; Z88.0 Allergy status to penicillin; Z88.2 Allergy status to sulfonamides; Z88.6 Allergy status to analgesic agent; Z91.041 Radiographic dye allergy status; Z79.899 Other long term (current) drug therapy; W10.9XXA Fall (on) (from) unspecified stairs and steps, initial encounter
CPT/HCPCS: 29125; 72040; 72100; 73090; 73110; 99283

== ENCOUNTER 2020-01-28 18:00 | Emergency (ER) | payer OTHER ==
[~2020-01-28] VITALS: Ht 157.5 cm; Wt 73.9 kg
[~2020-01-28 18:00] MED LIST changes: +OXYACE7.5T PO
[2020-01-28 18:33] LABS: Hematocrit 26.8 % (33.0-51.0); Mean Corpuscular HGB 27.7 pg (26.0-34.0); Mean Corpuscular HGB Conc 29.9 g/dL (31.5-36.5); Mean Corpuscular Volume 93 fL (80-100); Mean Platelet Volume 10.8 fL (9.1-12.4); NRBC ABSOLUTE 0.02 K/mm3 (0.00-0.02); NRBC Auto 0.1 /100 WBC (0.0-0.2); Platelet Count 122 K/mm3 (150-400); RDW Coefficient Variation 17.9 % (11.7-14.2); RDW Standard Deviation 60.5 fL (35.1-46.3); Red Blood Cell Count 2.89 M/mm3 (3.80-5.20); White Blood Cell Count 15.23 K/mm3 (4.00-11.30)
[2020-01-28 18:46] LABS: Albumin, Blood 2.6 g/dL (3.4-5.0); Albumin/Globulin Ratio 0.9 (0.8-1.8); Bilirubin, Total 0.9 mg/dL (0.1-1.0); Bun/Creatinine Ratio 15.3 (12.0-20.0); Calcium, Blood 8.5 mg/dL (8.5-10.1); Creatinine, Blood 2.42 mg/dL (0.40-1.00); Globulin, Blood 2.9 g/dL (2.2-4.0); Potassium, Blood 3.2 mmol/L (3.5-5.5); Total Protein, Blood 5.5 g/dL (6.4-8.2)
[2020-01-28 19:04] LABS: BAND PERCENT MAN 20 % (0-8); BASOPHILS PERCENT MAN 0 % (0-2); EOSINOPHILS PERCENT MAN 4 % (0-6); LYMPHOCYTES ABSOLUTE MAN 0.45 K/mm3 (0.84-5.20); LYMPHOCYTES PERCENT MAN 3 % (21-46); MONOCYTES ABSOLUTE MAN 0.15 K/mm3 (0.16-1.47); MONOCYTES PERCENT MAN 1 % (4-13); NEUTROPHILS ABSOLUTE MAN 14.01 K/mm3 (1.96-9.15); SEG NEUTROPHILS PERCENT MAN 72 % (41-73); TOTAL CELLS COUNTED 100
== END 2020-01-28 21:31 | disposition home or self-care (01) ==
LOC: ER 18:00
PROVIDERS: Emergency Medicine
DX: S62.102A Fracture of unspecified carpal bone, left wrist, initial encounter for closed fracture (principal); R10.9 Unspecified abdominal pain; R40.0 Somnolence; I10 Essential (primary) hypertension; J44.9 Chronic obstructive pulmonary disease, unspecified; F41.9 Anxiety disorder, unspecified; F32.9 Major depressive disorder, single episode, unspecified; Z88.1 Allergy status to other antibiotic agents; Z88.0 Allergy status to penicillin; Z88.2 Allergy status to sulfonamides; Z91.041 Radiographic dye allergy status; Z88.4 Allergy status to anesthetic agent; W10.9XXA Fall (on) (from) unspecified stairs and steps, initial encounter
CPT/HCPCS: 36415; 80053; 82140; 85025; 96361; 96374; 99285-25; A9270; J2405; J7030

== ENCOUNTER 2020-01-29 14:00 | Inpatient (IN) | payer OTHER ==
[~2020-01-29] VITALS: Ht 167.6 cm; Wt 80.0 kg
[2020-01-29 14:49] LABS: BASOPHILS ABSOLUTE AUTO 0.01 K/mm3 (0.00-0.23); BASOPHILS PERCENT AUTO 0 % (0-2); EOSINOPHILS ABSOLUTE AUTO 0.28 K/mm3 (0.00-0.68); EOSINOPHILS PERCENT AUTO 2 % (0-6); Hematocrit 28.9 % (33.0-51.0); Hemoglobin 8.6 g/dL (11.5-16.0); IMMATURE GRAN ABSOLUTE AUTO 0.08 K/mm3 (0.00-0.10); IMMATURE GRAN PERCENT AUTO 1 % (0-1); LYMPHOCYTES ABSOLUTE AUTO 0.52 K/mm3 (0.84-5.20); LYMPHOCYTES PERCENT AUTO 4 % (21-46); MONOCYTES ABSOLUTE AUTO 0.65 K/mm3 (0.16-1.47); MONOCYTES PERCENT AUTO 5 % (4-13); Mean Corpuscular HGB 27.8 pg (26.0-34.0); Mean Corpuscular HGB Conc 29.8 g/dL (31.5-36.5); Mean Corpuscular Volume 94 fL (80-100); Mean Platelet Volume 10.5 fL (9.1-12.4); NEUTROPHILS ABSOLUTE AUTO 11.07 K/mm3 (1.96-9.15); NEUTROPHILS PERCENT AUTO 88 % (41-73); NRBC ABSOLUTE 0.02 K/mm3 (0.00-0.02); NRBC Auto 0.2 /100 WBC (0.0-0.2); Platelet Count 126 K/mm3 (150-400); RDW Coefficient Variation 17.8 % (11.7-14.2); RDW Standard Deviation 60.8 fL (35.1-46.3); Red Blood Cell Count 3.09 M/mm3 (3.80-5.20); White Blood Cell Count 12.61 K/mm3 (4.00-11.30)
[2020-01-29 15:07] LABS: Source, Urine Catheter
[2020-01-29 15:11] LABS: Appearance, Urine Clear (Clear); Bilirubin, Urine Neg (Neg); Blood, Urine 1+ (Neg); Color, Urine Yellow (P-Yellow); Glucose Qualitative, Urine Neg (Neg); Ketones, Urine Neg (Neg); Leukocyte Esterase, Urine 2+ (Neg); Nitrite, Urine Neg (Neg); Protein, Urine Neg (Neg); Specific Gravity, Urine 1.015 (1.003-1.022); Urobilinogen, Urine NORM (Normal)
[2020-01-29 15:12] LABS: Alanine Aminotransfer (ALT/SGP 56 U/L (12-78); Albumin, Blood 2.7 g/dL (3.4-5.0); Albumin/Globulin Ratio 0.8 (0.8-1.8); Alk Phos 96 U/L (50-136); Anion Gap 12 mmol/L (6-16); Aspartate Aminotrans (AST/SGOT 34 U/L (12-37); Bilirubin, Total 0.7 mg/dL (0.1-1.0); Blood Urea Nitrogen 49 mg/dL (8-24); Bun/Creatinine Ratio 18.6 (12.0-20.0); CO2, Blood 24 mmol/L (21-32); Calcium, Blood 8.5 mg/dL (8.5-10.1); Chloride, Blood 100 mmol/L (98-108); Creatinine, Blood 2.63 mg/dL (0.40-1.00); Globulin, Blood 3.5 g/dL (2.2-4.0); Glomerular Filtration Rate 20 (60-); Glucose, Blood 138 mg/dL (70-99); Potassium, Blood 3.4 mmol/L (3.5-5.5); Sodium, Blood 136 mmol/L (136-145); Total Protein, Blood 6.2 g/dL (6.4-8.2)
[2020-01-29 15:22] LABS: Bacteria Mod /hpf; Red Blood Cells, Urine 0-2 /hpf (0-2); Squamous Epithelial Cells Mod /hpf (Few)
[2020-01-29 15:27] LABS: U Amphetamine Screen Not Detected; U Barbituate Screen Not Detected; U Benzodiazapine Screen Not Detected; U Buprenorphine Screen Not Detected; U Cannabinoids Screen Not Detected; U Cocaine Screen Not Detected; U Methadone Screen Not Detected; U Methamphetamine Screen Not Detected; U Opiates Screen Not Detected; U Oxycodone Screen DETECTED; U Phencyclidine Screen Not Detected; U Propoxyphene Screen Not Detected
[2020-01-29 15:48] LABS: Base Excess Venous -1.9 mmol/L; Bicarbonate Venous 22.8 mmol/L (24.0-30.0); PCO2 Venous 41.3 mmHg (38-42); PO2 Venous 54.9 mmHg (38-42); pH Blood Venous 7.36 (7.34-7.37)
[2020-01-29 20:28] LABS: Ethanol (Alcohol), Blood, Med <3 mg/dL
[2020-01-29 20:41] LABS: Acetaminophen, Random <2.0 ug/mL (10.0-30.0)
--- NOTE | 2020-01-30 01:28 | NUR ---
pt lost iv acess in right forearm as it had infiltrated. able to use 22 g in right foot currently running iv ns at 100ml due to smaller bore. Thersea icu devulcanizer charger unable to find vein for powerglide. dr. toro notified of pt's critial lactic acid level and limited iv access. she says it is okay to run ns at 100ml vs 500ml/hr due to smaller bore. foot iv is securly wrapped.
[2020-01-30 05:34] LABS: BASOPHILS ABSOLUTE AUTO 0.02 K/mm3 (0.00-0.23); BASOPHILS PERCENT AUTO 0 % (0-2); EOSINOPHILS ABSOLUTE AUTO 0.03 K/mm3 (0.00-0.68); EOSINOPHILS PERCENT AUTO 0 % (0-6); IMMATURE GRAN PERCENT AUTO 1 % (0-1); LYMPHOCYTES ABSOLUTE AUTO 0.52 K/mm3 (0.84-5.20); LYMPHOCYTES PERCENT AUTO 4 % (21-46); MONOCYTES ABSOLUTE AUTO 0.89 K/mm3 (0.16-1.47); MONOCYTES PERCENT AUTO 7 % (4-13); Mean Corpuscular Volume 90 fL (80-100); NEUTROPHILS PERCENT AUTO 88 % (41-73); Platelet Count 156 K/mm3 (150-400); RDW Coefficient Variation 18.1 % (11.7-14.2); RDW Standard Deviation 59.2 fL (35.1-46.3); Red Blood Cell Count 3.22 M/mm3 (3.80-5.20); White Blood Cell Count 12.96 K/mm3 (4.00-11.30)
[2020-01-30 05:51] LABS: Albumin, Blood 2.6 g/dL (3.4-5.0); Albumin/Globulin Ratio 0.7 (0.8-1.8); Bilirubin, Total 1.4 mg/dL (0.1-1.0); Bun/Creatinine Ratio 27.4 (12.0-20.0); Calcium, Blood 8.5 mg/dL (8.5-10.1); Creatinine, Blood 1.35 mg/dL (0.40-1.00); Globulin, Blood 3.5 g/dL (2.2-4.0); Magnesium, Blood 2.2 mg/dL (1.6-2.4); Potassium, Blood 3.1 mmol/L (3.5-5.5); Total Protein, Blood 6.1 g/dL (6.4-8.2)
--- NOTE | 2020-01-30 07:01 | NUR ---
shift stacker summary pt arrived to unit via stretcher at 2207. minimally verbal, able to say "yes" or "no" and state name. somnolent, arousible to verbal stimuli. pt has not opened her eyes for me. she is very stiff. cont ns running at 100ml in left foot. no sob noted. set up and charger aware of need for central line. pt has had 2 very loose brown bm's after lactulose enema was given. multiple bladder incontient episodes. tele placed after labetalol was given. bed alarm on, call light within reach, bed in lowest position. will give report to oncoming rn.
--- NOTE | 2020-01-30 11:59 | NUR ---
PLACED RECTAL TUBE- PT HAVING FREQUENT LOOSE STOOLS RECIEVING LACTULOSE ENEMA SHE IS OBTUNDED, DIFFICULT TO KEEP BED CLEAN AND DRY. RECIEVED ORDER FOR RECTAL TUBE PLACEMENT WHILE PT IS OBTUNDED. PT MOANS WHEN ROLLED BUT SEEMED TO TOLLERATE THE ENEMA WELL. PT UNABLE TO TAKE THE LAST 100ML OF THE ENEMA BEFORE LEAKING OCCURRED. PLACED RECTAL TUBE CLAMPED AFTER THE ENEMA. PER DR ORDER LEAVE CLAMPED FOR 30 MIN. WILL RELEASE THE CLAMP SHORTLY. PT HAS A 20 G IV IN HER RIGHT INNER WRIST PT STATES OW WHEN TOUCHED BUT WHEN THE IV IS FLUSHED SHE HAS NO PAIN RESPONSE. NO SIGNS OF INFILTRATION. IVF CURRENTLY RUNNING IN THE PT L FOOT IV. CENTRAL LINE NEEDED IN THIS PT.
--- NOTE | 2020-01-30 13:26 | NUR ---
PT LAYING ON HER LEFT SIDE RECTAL TUBE IN PLACE PATENT AND DRAINING LIQUID WITH SOME SOLID PIECES. PT HAS STILL NOT COME AROUND AND BEGAN COMMUNICATING WITH STAFF SHE REMAINS OBTUNDED. SHE IS ABLE TO LAY ON HER LEFT SIDE AND SEEMS TO PREFER THAT POSSITION. RIGHT LEG ELEVATED ON 2 PILLOWS BETWEEN THE KNEES. RIGHT LEG IS RED AND HOT TO TOUCH. IV IN THE LEFT FOOT PATENT AND RUNNING MAINTENANCE FLUIDS. PT PO MEDS STILL BEING HELD D/T UNABLE TO WAKE AT THIS TIME WILL CTM.
--- NOTE | 2020-01-30 14:13 | NUR ---
CALLED DR LOPEZ- BLOOD CULTURES CAME BACK POSSITIVE FOR GRAM+ COCCI IN [place]. ORDER RECIEVED TO START IV VANCO STAT. PT HAS MINIMAL IV ACCESS CALLED ZULEMA WRIGHT THE ONLY PERSON AVAILABLETO PLACE A CENTRAL LINE TODAY AND SHE IS UNAVAILABLE UNTIL 5PM. ORDER PLACED FOR PHARMACY TO DOSE VANCO STAT. WILL CALL THE DR BACK ABOUT IV ACCESS ISSUE.
--- NOTE | 2020-01-30 19:36 | NUR ---
SHIFT SUMMARY- CALLED DR LOPEZ ABOUT POSSITIVE BLOOD CULTURES THIS EVENING AND RECIEVED AN ORDER FOR IV VANCO. IV ACCESS NOT APPROPRIATE FOR THIS, ROUGE MIXER ABLE TO GET A 20G PG TO THE JOSE [facility]IS. VANCO WAS GIVEN. CALLED DR LOPEZ AGAIN THIS EVENING AND SPOKE ABOUT THE LACTULOSE ENEMA. STATED TO GIVE A SECOND ENEMA 8 HOURS AFTER THE FIRST AND THEN DC THE ORDER. IF PT IS STILL UNABLE TO SAFELY TAKE PO LACTULOSE THEN RN SHOULD CONTACT THE DR FOR FURTHER ORDERS.
--- NOTE | 2020-01-30 20:56 | NUR ---
PT A/O X1, NEEDS LOTS OF PROMPING. FOR EXAMPLE PT COULDN'T ANSWER WHEN I ASKED FOR HER FULL NAME, HOWEVER WHEN I ASKED FOR HER FIRST NAME SHE ANSWERED CORRECTLY AND THEN ANSWERED CORRECTLY AGAIN WHEN I ASKED FOR HER LAST NAME. PT'S EYES OPEN SPONTANEOUSLY AND MORE WIGGLY IN BED WHEN BEING CHANGED. PT MORE VERBAL AND ABLE TO SAY A WORD OR TWO, HOWEVER STILL APPEARSA SEDATED. I DON'T THINK SHE COMPREHENDS A LOT OF WHAT I AM SAYING TO HER. BED ALARM ON, BED IN LOWEST POSITION, CALL LIGHT WITHIN REACH.
[2020-01-31 05:27] LABS: Hematocrit 24.5 % (33.0-51.0); Hemoglobin 7.4 g/dL (11.5-16.0); Mean Corpuscular HGB 27.4 pg (26.0-34.0); Mean Corpuscular HGB Conc 30.2 g/dL (31.5-36.5); Mean Corpuscular Volume 91 fL (80-100); Mean Platelet Volume 9.9 fL (9.1-12.4); Platelet Count 165 K/mm3 (150-400); RDW Coefficient Variation 18.6 % (11.7-14.2); RDW Standard Deviation 61.2 fL (35.1-46.3); White Blood Cell Count 11.73 K/mm3 (4.00-11.30)
[2020-01-31 05:46] LABS: Anion Gap 10 mmol/L (6-16); Blood Urea Nitrogen 22 mg/dL (8-24); Bun/Creatinine Ratio 23.9 (12.0-20.0); CO2, Blood 23 mmol/L (21-32); Calcium, Blood 8.6 mg/dL (8.5-10.1); Chloride, Blood 118 mmol/L (98-108); Creatinine, Blood 0.92 mg/dL (0.40-1.00); Glomerular Filtration Rate >60 (60-); Glucose, Blood 161 mg/dL (70-99); Potassium, Blood 3.3 mmol/L (3.5-5.5); Sodium, Blood 151 mmol/L (136-145)
--- NOTE | 2020-01-31 07:29 | NUR ---
PT IS MUCH MORE ALERT THIS MORNING. PT IS A/O X3 TO SELF, PLACE, AND MONTH. SHE IS ABLE TO SPEAK CLEAR FULL SENTENCES AND MAKES SENSE. I WAS ABLE TO GIVE HER SCHEDULED PO MED WITH APPLESAUCE AND SHE HAD NO TROUBLE SWOLLOWING IT. ABLE TO FOLLOW DIRECTIONS WELL. PT REQUESTED TO SIT UP IN BED THIS MORNING. CURRENTLY SITTING UP WITH HOB RAISED AND IS AWAKE. PT OCCASIONALLY WILL HAVE TO THINK ABOUT HER ANSWER FOR SOMETIME BEFORE ANSWERING IT. TELE SR IN THE 80'S TO 90'S. NOT MUCH BM OUTPUT VIA RECTAL TUBE TONIGHT. FREQUENT REPOSITIONING PROVIDED. BED ALARM ON, CALL LIGHT WITHIN REACH, BED IN LOWEST POSITION. REPORT GIVEN TO AM RN.
--- NOTE | 2020-01-31 16:23 | NUR ---
Initial spiritual care note: Nic awakens easily to voice. She appeared confused. All she wanted was a drink of water. She is on fluid restrictions, so I could not provide it. She was fixated on drinking water and could not focus on anything else. Offered prayer. Father Mike will be providing prayer/spiritual support as Nic is rastafarian albeit non-active. I will remain available.
[2020-01-31 17:31] LABS: U Amphetamine Screen Not Detected; U Barbituate Screen Not Detected; U Benzodiazapine Screen Not Detected; U Buprenorphine Screen Not Detected; U Cannabinoids Screen Not Detected; U Cocaine Screen Not Detected; U Methadone Screen Not Detected; U Methamphetamine Screen Not Detected; U Opiates Screen Not Detected; U Oxycodone Screen Not Detected; U Phencyclidine Screen Not Detected; U Propoxyphene Screen Not Detected
--- NOTE | 2020-01-31 18:21 | NUR ---
SUMMARY PT HAS BEEN FATIGUED T/O DAY, SHE DOES AROUSE TO VERBAL STIM, A/O X1-2, SHE STATE MENTATION CONTINUES FOGGY. HER SPOKE w HER BY PHONE, STATE SHE IS NOT BASELINE, CONTINUES CONFUSED. DX ACUTE ENCEPHALOPATHY, HX CIRRHOSIS. DR LOPEZ STATE HER AMMONIA @ ADMIT >90. SHE IS GETTING ORAL LACTULOSE QID. STOOLS ARE LIQUID, RECTAL TUBE CONTINUES. DR LOPEZ ORDER UTOX WHICH WAS NEGATIVE. HER L ARM IS IN HARD SPLINT D/T RECENT FALL & FX @ HOME, HER R HAND HAS LRG HEMATOMA, THERE ARE LRG SCATTERED BRUISES T/O. STATE FROM FALLS @ HOME. BED ALARM ON. NA+ WAS ELEVATED THIS AM 151, DR LOPEZ ORDER D5 INFUSION, NA+ IMPROVED THIS AFTERNOON, DR WINN RATE TO 50 ML/HR. DR WOODWARD CONSULTED D/T ?BACTEREMIA, IV ANTIBX CONTINUE. SINCE MENTATION HAS IMPROVED DR URI ESPINALE DIET, SHE REQUIRES ASSIST TO EAT. VSS/AFEBRILE. SHE CONTINUES ON BEDREST.
--- NOTE | 2020-02-01 05:18 | NUR ---
SHIFT SUMMARY AOX3, ORIGIONALLY UNAWARE PLACE- ASKS "WHERE ARE WE" BUT CAN STATE SHE'S IN [place] & ANSWER ORIENTATION QUESTIONS APPROPRIATE. FORGETFUL & CONFUSED @TIMES. FOLLOWS DIRECTIONS. VSS. TELE ST 113-125 AFTER REPOSITIONING & FIXING RECTAL TUBE. RECTAL TUBE WAS FOUND LEAKING, RE-INSERTED. HAS BEEN PATENT & DRAINING A MODERATE AMOUNT GREEN/BROWN LIQUID BOWEL SINCE. NOTIFIED OF +BLOOD CULTURES, INFORMED DR PEDERSEN & NO NEW ORDERS GIVEN. RECIEVING IV VANCO. L WRIST IN HARD CAST c FELISA WRAP FOR FX, DENIES PAIN. R HAND +2 EDEMA c HEMATOMA, HX FALLS @HOME. CALL LIGHT IN REACH.
[2020-02-01 09:24] LABS: Hematocrit 25.1 % (33.0-51.0); Hemoglobin 7.6 g/dL (11.5-16.0); Mean Corpuscular HGB 27.6 pg (26.0-34.0); Mean Corpuscular HGB Conc 30.3 g/dL (31.5-36.5); Mean Corpuscular Volume 91 fL (80-100); Mean Platelet Volume 9.7 fL (9.1-12.4); Platelet Count 123 K/mm3 (150-400); RDW Coefficient Variation 18.6 % (11.7-14.2); RDW Standard Deviation 61.5 fL (35.1-46.3); Red Blood Cell Count 2.75 M/mm3 (3.80-5.20); White Blood Cell Count 9.64 K/mm3 (4.00-11.30)
[2020-02-01 09:41] LABS: Anion Gap 8 mmol/L (6-16); Blood Urea Nitrogen 20 mg/dL (8-24); Bun/Creatinine Ratio 20.5 (12.0-20.0); CO2, Blood 21 mmol/L (21-32); Chloride, Blood 109 mmol/L (98-108); Creatinine, Blood 0.98 mg/dL (0.40-1.00); Glomerular Filtration Rate >60 (60-); Glucose, Blood 143 mg/dL (70-99); Potassium, Blood 3.4 mmol/L (3.5-5.5); Sodium, Blood 138 mmol/L (136-145)
[2020-02-01 09:48] LABS: Vancomycin, Trough 21.3 ug/mL (5.0-10.0)
--- NOTE | 2020-02-01 11:03 | NUR ---
Will follow up with team and family. pt still sleepy and on lactulose.
--- NOTE | 2020-02-01 19:36 | NUR ---
SUMMARY PT MENTATION CONTINUES TO IMPROVE TODAY. SHE IS A/O X3, AFFECT SOMEWHAT FLAT, SPEECH SLOW--HX SCHIZO AFFECTIVE. SHE HAS NOT C/O PAIN, GENERALLY COMFORTABLE, HAVE REPOSITIONED & SUPPORTED w PILLOWS. SHE GOT COMPLETE BEDBATH TODAY. LIQUID STOOLS HAVE SLOWED, RECTAL TUBE D/C'D. DR LOPEZ DECREASE LACTULOSE DOSE. NA+ HAS CORRECTED, DR DECREASE D5 INFUSION RATE. GOOD APPETITE EATING 100% PUREE DIET. R HAND HEMATOMA CONTINUES SWOLLEN, REMOVED 2 RINGS & PUT IN PT'S BACKPACK. L ARM IN CAST, PT UNABLE TO USE EITHER HAND SO REQUIRES ASSIST w EATING, FLUIDS, MAKING PHONE CALLS ETC. SHE HAS TALKED w [facility] FAMILY MEMBERS TODAY, EASING ANXIETY. SHE HAD MRI BACK TODAY TO ASSESS FOR ABCESS, NOT R/O, SHE CONTINUES ON IV ANTIBX. VSS.
[2020-02-02 06:23] LABS: Hematocrit 22.7 % (33.0-51.0); Hemoglobin 6.9 g/dL (11.5-16.0); Mean Corpuscular HGB 27.4 pg (26.0-34.0); Mean Corpuscular HGB Conc 30.4 g/dL (31.5-36.5); Mean Corpuscular Volume 90 fL (80-100); Mean Platelet Volume 9.9 fL (9.1-12.4); NRBC ABSOLUTE 0.03 K/mm3 (0.00-0.02); NRBC Auto 0.3 /100 WBC (0.0-0.2); Platelet Count 125 K/mm3 (150-400); RDW Coefficient Variation 18.6 % (11.7-14.2); RDW Standard Deviation 61.2 fL (35.1-46.3); Red Blood Cell Count 2.52 M/mm3 (3.80-5.20); White Blood Cell Count 8.66 K/mm3 (4.00-11.30)
[2020-02-02 06:38] LABS: Bun/Creatinine Ratio 19.3 (12.0-20.0); Calcium, Blood 8.1 mg/dL (8.5-10.1); Creatinine, Blood 1.14 mg/dL (0.40-1.00)
--- NOTE | 2020-02-02 07:34 | NUR ---
SHIFT SUMMARY AOX3-FORGETFUL/CONFUSED @TIMES. YELLS OUT FREQUENTLY. ABLE TO STATE NEEDS & ANSWER ORIENTATION QUESTIONS APPROPRIATE, JUST FORGETS WHY SHE CAME TO THE HOSPITAL. VITALS STABLE EXCEPT HR TACHY. TELE ST @117-120'S. RECEIVING LACTALOSE, HAD 1 LRG SOFT/MUSHY YELLOW BM. CONT OF URINE THIS AM & USED BEDPAN. REPORTED HEADACHE & WAS GIVEN 1X DOSE OF TYLENOL PER ORDERS, PT STATED RELIEF. PLAN FOR POSSIBLE DC TO SNF FOR IV ANTIBIOTICS. CALL LIGHT IN REACH.
--- NOTE | 2020-02-02 13:18 | NUR ---
Pt. is doing much better encouraged pt. and prayed for pt.
--- NOTE | 2020-02-02 17:25 | NUR ---
SHIFT SUMMARY- PT IS ALERT, CONFUSED, AND PLESANT. SHE RECIEVED A BLOOD TRANSFUSION THIS SHIFT AND TOLERATED WELL. LUNGS SOUNDS REMAINED CLEAR THROUGHOUT HER BLOOD PRESSURE AND PULSE WERE ELEVATED THIS AFTERNOON AND CALLED DR. LOPEZ. IV LASIX ORDERED ALONG WITH PO BP MEDS. SHE IS EATING AND DRINKING WELL. HELD AFTERNOON LACTULOSE DUE TO DIARRHEA. SHE WILL FREQUENTLY CALL OUT "[facility]" AND REQUEST FOR THE BLANKETS TO BE ADJUSTED, ROMOVED OR ADDED TO. SHE SPOKE OF SHE SON COMMITING SUCIDE RECENTLY AND LATER SAID HE WAS IN THE HOSPITAL FOR FOOT WOUNDS DUE TO DIABETES. DR. SANTANA CONSULTED.
[2020-02-03 03:19] LABS: Hematocrit 23.9 % (33.0-51.0); Hemoglobin 7.4 g/dL (11.5-16.0); Mean Corpuscular HGB 27.4 pg (26.0-34.0); Mean Corpuscular Volume 89 fL (80-100); Mean Platelet Volume 9.9 fL (9.1-12.4); NRBC ABSOLUTE 0.05 K/mm3 (0.00-0.02); NRBC Auto 0.3 /100 WBC (0.0-0.2); Platelet Count 119 K/mm3 (150-400); RDW Standard Deviation 56.4 fL (35.1-46.3); White Blood Cell Count 14.77 K/mm3 (4.00-11.30)
[2020-02-03 03:33] LABS: Anion Gap 7 mmol/L (6-16); Blood Urea Nitrogen 21 mg/dL (8-24); Bun/Creatinine Ratio 20.8 (12.0-20.0); CO2, Blood 24 mmol/L (21-32); Calcium, Blood 8.1 mg/dL (8.5-10.1); Chloride, Blood 106 mmol/L (98-108); Creatinine, Blood 1.01 mg/dL (0.40-1.00); Glomerular Filtration Rate >60 (60-); Glucose, Blood 120 mg/dL (70-99); Potassium, Blood 3.6 mmol/L (3.5-5.5); Sodium, Blood 137 mmol/L (136-145)
[2020-02-03 03:35] LABS: Vancomycin, Trough 19.4 ug/mL (5.0-10.0)
[2020-02-04 05:05] LABS: Hematocrit 23.6 % (33.0-51.0); Hemoglobin 7.3 g/dL (11.5-16.0); Mean Corpuscular HGB 27.7 pg (26.0-34.0); Mean Corpuscular HGB Conc 30.9 g/dL (31.5-36.5); Mean Corpuscular Volume 89 fL (80-100); Mean Platelet Volume 10.8 fL (9.1-12.4); Platelet Count 116 K/mm3 (150-400); RDW Coefficient Variation 18.6 % (11.7-14.2); RDW Standard Deviation 59.2 fL (35.1-46.3); Red Blood Cell Count 2.64 M/mm3 (3.80-5.20); White Blood Cell Count 12.22 K/mm3 (4.00-11.30)
[2020-02-04 05:19] LABS: Calcium, Blood 8.2 mg/dL (8.5-10.1); Creatinine, Blood 1.05 mg/dL (0.40-1.00); Potassium, Blood 3.7 mmol/L (3.5-5.5)
--- NOTE | 2020-02-04 06:27 | NUR ---
SHIFT SUMMARY PATIENT ALERT AND ANSWERES ORIENTATION QUESTIONS APROPRIATELY. THIS RN RECEIVED REPORTS FROM THE SWIMMING INSTRUCTOR THAT THE PATIENT HAD BEEN HAVING REPEATED EPISODES WHERE HER HEART RATE HAD DROPPED INTO THE 30'S AND 40'S FOR A COUPLE SECONDS. CONTACTED THE COMMAND AND CONTROL PHYSICIAN, DR REYES, TO INFORM HIM OF THE SITUATION. HE SAID TO MONITOR THE PATIENT. PATIENT HAD NO COMPLAINTS OF PAIN OR SHORTNESS OF BREATH. POWERGLIDE PATENT AND FLUSHED. BED IN LOWEST POSITION WITH WHEELS LOCKED AND ALARM ON. CALL LIGHT WITHIN REACH. REPORT GIVEN TO ONCOMING RN.
--- NOTE | 2020-02-04 13:04 | NUR ---
Pt. is in bed resting and doing much better prayed for her
[2020-02-05 03:47] LABS: Hematocrit 22.7 % (33.0-51.0); Hemoglobin 6.7 g/dL (11.5-16.0); Mean Corpuscular HGB 27.2 pg (26.0-34.0); Mean Corpuscular HGB Conc 29.5 g/dL (31.5-36.5); Mean Corpuscular Volume 92 fL (80-100); Mean Platelet Volume 10.7 fL (9.1-12.4); Platelet Count 126 K/mm3 (150-400); RDW Coefficient Variation 19.1 % (11.7-14.2); RDW Standard Deviation 60.8 fL (35.1-46.3); Red Blood Cell Count 2.46 M/mm3 (3.80-5.20); White Blood Cell Count 9.52 K/mm3 (4.00-11.30)
[2020-02-05 04:12] LABS: Vancomycin, Trough 20.7 ug/mL (5.0-10.0)
--- NOTE | 2020-02-05 08:15 | NUR ---
AT RISK PARAPROFESSIONAL SUMMARY Kendall had a restful night waking twice to ask for bedpan, and once to be freshened up after an incontinence. Minimal complaint of headache pain shich resolved with cool cloth and lights out. Patient has nothing on her MAR for discomfort. One loose stool on bedpan last night. Tolerating IV antibiotics. Dose of Vancomycin decreased due to elevated trough this morning
--- NOTE | 2020-02-05 11:13 | NUR ---
pt sleeping will return. Palliative care has been working with yen on an inpatient and out patient bases for over a year now. Mostly supportive and to assist with managing her chronic illness.
--- NOTE | 2020-02-05 13:14 | NUR ---
NOTIFIED DR. KILPATRICK OF PT H&H AT [id number]
--- NOTE | 2020-02-05 18:35 | NUR ---
SHIFT SUMMARY- PT SLEPT INTERMITENTLY THROUGHOUT THIS SHIFT. SHE IS ALERT WITH SOME CONFUSION. SHE IS EATING AND DRINKING WELL. SHE IS USING THE BED RIVER. HER H&H WAS LOW. SHE RECIEVED A BLOOD TRANSFUSION AND IS TOLERATING WELL. SHE IS RECIEVING IV ANTIBIOTICS.
--- NOTE | 2020-02-05 21:27 | NUR ---
bLOOD COMPLETE AT 2109. pATIENT TOLERATED WELL. TOTAL PRBC DELIVERED 397ML. VS FOLLOWS; TEMP 99.4, BP 157/78, 02 94RA, HR 98 RR 16. WILL CONTACT FOR TYLENOL ORDER FOR TEMP
[2020-02-06] MEDS ORDERED: Methocarbamol500 MG PO (04:00)
[2020-02-06] MEDS ORDERED: Inderal 20 mg T20 MG PO (04:03)
[2020-02-06] MEDS ORDERED: MONT10T PO (04:06)
[2020-02-06] MEDS ORDERED: POTA10T PO (04:07)
[2020-02-06] MEDS ORDERED: OLAN7.5 PO (04:08)
[2020-02-06] MEDS ORDERED: OMEP20ER PO (04:09)
[2020-02-06] MEDS ORDERED: VENL150ER PO (04:11)
[2020-02-06] MEDS ORDERED: CYCL10 PO (04:13)
[2020-02-06 06:32] LABS: BASOPHILS ABSOLUTE AUTO 0.05 K/mm3 (0.00-0.23); BASOPHILS PERCENT AUTO 1 % (0-2); EOSINOPHILS ABSOLUTE AUTO 0.14 K/mm3 (0.00-0.68); EOSINOPHILS PERCENT AUTO 2 % (0-6); Hematocrit 29.2 % (33.0-51.0); Hemoglobin 8.9 g/dL (11.5-16.0); IMMATURE GRAN ABSOLUTE AUTO 0.15 K/mm3 (0.00-0.10); IMMATURE GRAN PERCENT AUTO 2 % (0-1); LYMPHOCYTES ABSOLUTE AUTO 1.18 K/mm3 (0.84-5.20); LYMPHOCYTES PERCENT AUTO 14 % (21-46); MONOCYTES ABSOLUTE AUTO 1.13 K/mm3 (0.16-1.47); MONOCYTES PERCENT AUTO 13 % (4-13); Mean Corpuscular HGB 27.9 pg (26.0-34.0); Mean Corpuscular HGB Conc 30.5 g/dL (31.5-36.5); Mean Corpuscular Volume 92 fL (80-100); Mean Platelet Volume 10.8 fL (9.1-12.4); NEUTROPHILS ABSOLUTE AUTO 5.86 K/mm3 (1.96-9.15); NEUTROPHILS PERCENT AUTO 69 % (41-73); Platelet Count 153 K/mm3 (150-400); RDW Coefficient Variation 19.6 % (11.7-14.2); RDW Standard Deviation 60.1 fL (35.1-46.3); Red Blood Cell Count 3.19 M/mm3 (3.80-5.20); White Blood Cell Count 8.51 K/mm3 (4.00-11.30)
[2020-02-06 06:47] LABS: Albumin, Blood 2.1 g/dL (3.4-5.0); Albumin/Globulin Ratio 0.5 (0.8-1.8); Bilirubin, Total 2.3 mg/dL (0.1-1.0); Bun/Creatinine Ratio 14.9 (12.0-20.0); Creatinine, Blood 1.41 mg/dL (0.40-1.00); Globulin, Blood 3.9 g/dL (2.2-4.0); Potassium, Blood 4.5 mmol/L (3.5-5.5)
--- NOTE | 2020-02-06 07:40 | NUR ---
SHOPPER MARKETING MANAGER SUMMARY Nic slept almost all night after finishing with the PRBC. Temp of 99.6 after blood was completed resolved quickly with two tylenol. No complaints of discomfort. Two small loose stools overnight. Patient refused her HS lactulose last night and stated she takes her second dose in the mid afternoon.
[2020-02-07 04:35] LABS: BASOPHILS ABSOLUTE AUTO 0.04 K/mm3 (0.00-0.23); BASOPHILS PERCENT AUTO 1 % (0-2); EOSINOPHILS ABSOLUTE AUTO 0.14 K/mm3 (0.00-0.68); EOSINOPHILS PERCENT AUTO 2 % (0-6); Hematocrit 27.6 % (33.0-51.0); Hemoglobin 8.2 g/dL (11.5-16.0); IMMATURE GRAN ABSOLUTE AUTO 0.16 K/mm3 (0.00-0.10); IMMATURE GRAN PERCENT AUTO 2 % (0-1); LYMPHOCYTES ABSOLUTE AUTO 1.07 K/mm3 (0.84-5.20); LYMPHOCYTES PERCENT AUTO 13 % (21-46); MONOCYTES ABSOLUTE AUTO 1.03 K/mm3 (0.16-1.47); MONOCYTES PERCENT AUTO 13 % (4-13); Mean Corpuscular HGB 27.6 pg (26.0-34.0); Mean Corpuscular HGB Conc 29.7 g/dL (31.5-36.5); Mean Corpuscular Volume 93 fL (80-100); Mean Platelet Volume 10.5 fL (9.1-12.4); NEUTROPHILS ABSOLUTE AUTO 5.63 K/mm3 (1.96-9.15); NEUTROPHILS PERCENT AUTO 70 % (41-73); Platelet Count 153 K/mm3 (150-400); RDW Coefficient Variation 19.7 % (11.7-14.2); RDW Standard Deviation 63.9 fL (35.1-46.3); Red Blood Cell Count 2.97 M/mm3 (3.80-5.20); White Blood Cell Count 8.07 K/mm3 (4.00-11.30)
[2020-02-07 04:59] LABS: Alanine Aminotransfer (ALT/SGP 25 U/L (12-78); Albumin, Blood 1.9 g/dL (3.4-5.0); Albumin/Globulin Ratio 0.5 (0.8-1.8); Alk Phos 120 U/L (50-136); Anion Gap 4 mmol/L (6-16); Aspartate Aminotrans (AST/SGOT 24 U/L (12-37); Blood Urea Nitrogen 25 mg/dL (8-24); Bun/Creatinine Ratio 13.5 (12.0-20.0); CO2, Blood 21 mmol/L (21-32); Calcium, Blood 7.7 mg/dL (8.5-10.1); Chloride, Blood 113 mmol/L (98-108); Creatinine, Blood 1.85 mg/dL (0.40-1.00); Globulin, Blood 3.7 g/dL (2.2-4.0); Glomerular Filtration Rate 30 (60-); Glucose, Blood 67 mg/dL (70-99); Potassium, Blood 4.8 mmol/L (3.5-5.5); Sodium, Blood 138 mmol/L (136-145); Total Protein, Blood 5.6 g/dL (6.4-8.2)
--- NOTE | 2020-02-07 05:11 | NUR ---
CHARGER OPERATOR HELPER SUMMARY Patient much more comfortable overnight after receiving oxycodone for bilateral arm pain as well as abdominal pain. Abd seems a little firmer than last two nights. Patient has been continent of urine about 50% in bedpan overnight. No further changes noted overnight
[2020-02-07 05:36] LABS: Vancomycin, Trough 33.3 ug/mL (5.0-10.0)
--- NOTE | 2020-02-07 06:32 | NUR ---
THIS MORNING AROUND 0630, POLICE ARRIVED TO INFORM US THAT RACHEL'S EX WHO WAS STILL AN ACTIVE PART OF HER FAMILY AT HIS HOME THIS MORNING. PATIENT WAS TEARFUL BUT VERBALIZED THAT HE WAS FINALLY AT [facility]. POLICE STATED BODY WAS TAKEN TO [facility] IN [place] AND THAT PERSONAL BELONGINGS COULD BE FOUND AT [place] POLICE DEPARTMENT.
--- NOTE | 2020-02-07 11:42 | NUR ---
report received, a+o, calllight in reach and used frequently, stated that other pt's did not exist and she needed to be the only one being taken care of by the nurse, medicated for pain as prescribed, took medication with assist r/arm strength, stated she was at peace about exhusbands but had many questions r/his belongings, will continue to treat as appropriate
--- NOTE | 2020-02-07 12:38 | NUR ---
Spiritual care visit conducted. After receiving a call from our on-call Manager Marketing Communication Ovidio with a request from [facility] that then needed to talk to patient, I visit patient. Patient tells me about the events of the morning and the events concern her 's (ex-'s) . Her is known to this fha underwriter. I call [facility], hand the phone to patient and start in motion some of the paper work that they need from patient. I provide grief support and prayer. I will also return to patient once I receive via e-mail the form from [facility] that the patient has already agreed to sign. I will continue to provide grief support and help facilitate the information with [facility].
--- NOTE | 2020-02-07 12:54 | NUR ---
ran covid rapid test to lab, tolerated well, cn confirmed need for test during stay prior to snl placement
--- NOTE | 2020-02-07 14:14 | NUR ---
Pt. is lying in bed and her nurse in the room attending to her needs prayed for pt.
--- NOTE | 2020-02-07 16:16 | NUR ---
I, along with Patient Advocate Sandra Shrestha, brought a form to patient for her signiture and to be witnessed by two witnesses, to appoint [facility] to handle patient's 's arrangements. Form signed and witnessed and faxed to [facility]. (see also earlier Spiritual care note).
--- NOTE | 2020-02-07 18:49 | NUR ---
likes to use call light, arm still painful, used bed pyle until aid assisted her to bsc, pt insisted on eating food brought in by family, discussed possible issues, gave sbar report to pt and noc staff
--- NOTE | 2020-02-08 04:34 | NUR ---
BLENDING PLANT OPERATOR SUMMARY PT HAS HAD AN UNEVENTFUL NIGHT RESTING FOR MOST OF THE SHIFT COMFORTABLY W CALL LIGHT WITHIN REACH. PT USES CALL LIGHT APPROPRIATLEY DESPITE BEING MODERATELY CONFUSED.
[2020-02-08 05:31] LABS: Vancomycin, Random 26.3 ug/mL
--- NOTE | 2020-02-08 15:13 | NUR ---
Pt. is lying in bed and resting and is doing fine prayed for pt.
--- NOTE | 2020-02-08 15:46 | NUR ---
Spiritual care visit conducted. Patient is much more clear today and is able to talk about her feelings about the expiration of her ex-, Roberto, She shares about her emotional ups and downs since the news of his , her tumultuous relationship with Roberto, his emotional and addictive struggles and about how she will manage going forward. We talk about healthy ways to do the work of bereavement for her and their children. I normalize patient's reactions, reinforce helpful attitudes and practices and provide therapeutic listening, grief support and prayer. Patient responds well and displays evidence of catharsis and being comforted. I will continue to remain available to patient and family.
--- NOTE | 2020-02-08 18:29 | NUR ---
SHIFT SUMMARY PT IS AO TO SELF, FAMILY, AND FOLLOWING DIRECTIONS. PT DENIES N/V, SOB. PT MEDICATED FOR PAIN X3 THIS SHIFT. PT WORKED WITH PT AND IS A ONE PERSON ASSIST TO BCC. PT DAUGHTER VISITED TODAY. PLAN IS TO DC TO SNF. TELE DC'D TODAY. DIET ADVANCED TO SOFT BITE-SIZED AND PT TOLERATING WELL. PT IS IN BED, CALL LIGHT IN REACH, BED IN LOW POSITION WITH ALARM ON.
--- NOTE | 2020-02-09 04:14 | NUR ---
RAILROAD SURVEYOR SUMMARY PT A&O TO SELF AND FAMILY, ABLE TO MAKE NEEDS KNOWN, ABLE TO FOLLOW DIRECTIONS. PLEASANT AND COOPERATIVE TO CARES. PT HAS NO C/O PAIN OR ANY DISCOMFORT THIS SHIFT. COMFORTABLE AND RESTING IN BED. NO C/O N&V, NO SOB, NO C/O CP. BED IN LOWEST POSITION, CALL LIGHT WITHIN REACH.
--- NOTE | 2020-02-09 04:49 | NUR ---
THIS NURSE AND CIRILO WATERS WAS NOTIFIED BY EXCAVATING MACHINE OPERATOR THE SHE NOTED A RASH ON PT. UPON ASSESSMENT, SCATTERED RASH NOTED ON BACK, CHEST AND SIDES. NO SOB, PT REPORTS ITCHYNESS TO AFFECTED AREAS. WILL NOTIFY ONCOMING RN.
[2020-02-09 04:56] LABS: Hematocrit 26.6 % (33.0-51.0); Hemoglobin 7.9 g/dL (11.5-16.0); Mean Corpuscular HGB 27.5 pg (26.0-34.0); Mean Corpuscular HGB Conc 29.7 g/dL (31.5-36.5); Mean Corpuscular Volume 93 fL (80-100); Mean Platelet Volume 10.7 fL (9.1-12.4); Platelet Count 189 K/mm3 (150-400); RDW Coefficient Variation 19.4 % (11.7-14.2); RDW Standard Deviation 64.3 fL (35.1-46.3); Red Blood Cell Count 2.87 M/mm3 (3.80-5.20); White Blood Cell Count 8.55 K/mm3 (4.00-11.30)
[2020-02-09 05:21] LABS: Magnesium, Blood 2.3 mg/dL (1.6-2.4)
[2020-02-09 05:33] LABS: Alanine Aminotransfer (ALT/SGP 23 U/L (12-78); Albumin, Blood 1.9 g/dL (3.4-5.0); Albumin/Globulin Ratio 0.5 (0.8-1.8); Alk Phos 120 U/L (50-136); Anion Gap 7 mmol/L (6-16); Aspartate Aminotrans (AST/SGOT 22 U/L (12-37); Bilirubin, Total 0.7 mg/dL (0.1-1.0); Blood Urea Nitrogen 41 mg/dL (8-24); CO2, Blood 20 mmol/L (21-32); Calcium, Blood 7.9 mg/dL (8.5-10.1); Chloride, Blood 109 mmol/L (98-108); Creatinine, Blood 2.92 mg/dL (0.40-1.00); Globulin, Blood 3.8 g/dL (2.2-4.0); Glomerular Filtration Rate 18 (60-); Glucose, Blood 90 mg/dL (70-99); Sodium, Blood 136 mmol/L (136-145); Total Protein, Blood 5.7 g/dL (6.4-8.2); Vancomycin, Random 21.2 ug/mL
[2020-02-09 05:41] LABS: Potassium, Blood 6.1 mmol/L (3.5-5.5)
[2020-02-09 11:29] LABS: Bun/Creatinine Ratio 14.4 (12.0-20.0); Calcium, Blood 8.1 mg/dL (8.5-10.1); Creatinine, Blood 2.98 mg/dL (0.40-1.00); Potassium, Blood 5.7 mmol/L (3.5-5.5)
--- NOTE | 2020-02-09 12:05 | NUR ---
Met. pt. sitting up on her beds and her therapist in the room attending to her needs, pt. report to be doing well prayed for pt.
--- NOTE | 2020-02-09 17:48 | NUR ---
SHIFT SUMMARY PT IS AO TO SELF, FAMILY, AND EVENT. PT IS SLEEPY THIS AM. RASH HAS INCREASED AND BENADRYL ORDER OBTAINED. PT ON IV FLUIDS AND RECEIVED IV ALBUMIN. TELE PUT BACK ON DUE TO K+ OF 6.1, NOW 5.7 OF 1100. PT DENIES N/V, SOB AND C/O LEFT ARM PAIN. PT UP WITH ONE ASSIST AND WORKED WITH PT TODAY IN THE ROOM AND HALLS. PLAN IS TO DC TO SNF. PICC ORDER IN DUE TO DIFFICULTY INFUSING INTO POWERGLIDE. SON VISITED THIS MICHAEL. PT IS IN CHAIR, CALL LIGHT IN REACH WITH ALARM ON.
[2020-02-10 04:50] LABS: BASOPHILS ABSOLUTE AUTO 0.01 K/mm3 (0.00-0.23); BASOPHILS PERCENT AUTO 0 % (0-2); EOSINOPHILS PERCENT AUTO 0 % (0-6); Hematocrit 26.1 % (33.0-51.0); Hemoglobin 7.9 g/dL (11.5-16.0); IMMATURE GRAN ABSOLUTE AUTO 0.04 K/mm3 (0.00-0.10); IMMATURE GRAN PERCENT AUTO 0 % (0-1); LYMPHOCYTES ABSOLUTE AUTO 0.53 K/mm3 (0.84-5.20); LYMPHOCYTES PERCENT AUTO 6 % (21-46); MONOCYTES ABSOLUTE AUTO 0.29 K/mm3 (0.16-1.47); MONOCYTES PERCENT AUTO 3 % (4-13); Mean Corpuscular HGB 27.9 pg (26.0-34.0); Mean Corpuscular HGB Conc 30.3 g/dL (31.5-36.5); Mean Corpuscular Volume 92 fL (80-100); NEUTROPHILS ABSOLUTE AUTO 8.38 K/mm3 (1.96-9.15); NEUTROPHILS PERCENT AUTO 91 % (41-73); Platelet Count 193 K/mm3 (150-400); RDW Coefficient Variation 19.2 % (11.7-14.2); RDW Standard Deviation 64.1 fL (35.1-46.3); Red Blood Cell Count 2.83 M/mm3 (3.80-5.20); White Blood Cell Count 9.25 K/mm3 (4.00-11.30)
--- NOTE | 2020-02-10 05:10 | NUR ---
ADJUNCT PSYCHOLOGY FACULTY MEMBER SUMMARY PT A&O TO SELF, ABLE TO MAKE NEEDS KNOWN, FORGETFUL AT TIMES, PLEASANT AND COOPERATIVE TO CARE. PT HAD NO C/O PAIN THIS SHIFT. PT CONT TO HAVE A RASH ON BACK AND SIDES. PRN BENADRYL ADMINISTERED FOR ITCHYNESS ORDERED. PT REPORTED RELIEF. PT CALM AND RESTED IN BED MOST OF THE SHIFT. ON TELE SR 82 BPM. NO C/O CHEST PAIN, DENIES SOB, DENIES N&V. BED AT LOWEST POSITION, CALL LIGHT WITHIN REACH.
[2020-02-10 05:31] LABS: Magnesium, Blood 2.4 mg/dL (1.6-2.4)
[2020-02-10 05:51] LABS: Alanine Aminotransfer (ALT/SGP 24 U/L (12-78); Albumin, Blood 2.8 g/dL (3.4-5.0); Albumin/Globulin Ratio 0.8 (0.8-1.8); Alk Phos 118 U/L (50-136); Anion Gap 8 mmol/L (6-16); Aspartate Aminotrans (AST/SGOT 22 U/L (12-37); Bilirubin, Total 0.9 mg/dL (0.1-1.0); Blood Urea Nitrogen 49 mg/dL (8-24); Bun/Creatinine Ratio 14.3 (12.0-20.0); CO2, Blood 20 mmol/L (21-32); Calcium, Blood 8.2 mg/dL (8.5-10.1); Chloride, Blood 104 mmol/L (98-108); Creatinine, Blood 3.42 mg/dL (0.40-1.00); Globulin, Blood 3.5 g/dL (2.2-4.0); Glomerular Filtration Rate 15 (60-); Glucose, Blood 154 mg/dL (70-99); Potassium, Blood 6.8 mmol/L (3.5-5.5); Sodium, Blood 132 mmol/L (136-145); Total Protein, Blood 6.3 g/dL (6.4-8.2); Vancomycin, Random 17.8 ug/mL
[2020-02-10 14:16] LABS: Bun/Creatinine Ratio 15.2 (12.0-20.0); Calcium, Blood 8.9 mg/dL (8.5-10.1); Creatinine, Blood 3.61 mg/dL (0.40-1.00); Potassium, Blood 6.3 mmol/L (3.5-5.5)
--- NOTE | 2020-02-10 14:21 | NUR ---
Spiritual care visit conducted. Patient is sitting up in bed and tells me about plans for her to go to [facility]. Patient looks forward to this for many reasons. Patient talks at length about the of her ex-. She states that even up to the day he they still talked to each other almost daily and that she will miss hearing his voice. Patient also shares about how their 19yr old son, Wilver, has his dad's picture by his bed and cries himself to sleep. I normalize their grief experience, reinforce healthy healing activities and provide therapeutic listening, grief support and prayer. Patient responds well and and appears to be comforted. I will continue to remain available to patient and family.
--- NOTE | 2020-02-10 17:44 | NUR ---
SHIFT SUMMARY PT IS AO BUT FORGETFUL. PT MEDICATED FOR PAIN X1 THIS SHIFT. PT DENIES SOB, N/V. PT POTASSIUM CRITICAL HIGH 6.6 AT 0915, 6.3 AT 1414, AND 5.8 AT 1700. PHILLIP IS CONSULTED AND INVOLVED IN HER CARE. PICC LINE PLACED TODAY IN JOSE LUIS AND POWERGLIDE REMOVED FROM JOSE LUIS. PLAN IS TO DC TO SNF FOR REHAB AND MEDICATIONS. MEDICATIONS ADMINISTERED FOR RENAL FUNCTION AND POTASSIUM LEVELS PER EMAR. PT UP TO [facility] THROUGHOUT SHIFT. TELE RUNNING AT SINUS 88. PT IS IN BED, CALL LIGHT IN REACH, ALARM ON, LOW POSITION.
--- NOTE | 2020-02-11 04:41 | NUR ---
ROCKET ENGINE COMPONENT MECHANIC SUMMARY PT A&O TO SELF AND FAMILY, ABLE TO MAKE NEEDS KNOWN, PLEASANT AND COOPERATIVE TO CARE. NO C/O PAIN THIS SHIFT. NO C/O CP, SOB OR N&V. PT ON TELE SR 76 BPM. PT RESTED IN BED T/O SHIFT. BED AT LOWEST POSITION, USES BSC WITH ASSISTANCE FROM STAFF, CALL LIGHT WITHIN REACH.
[2020-02-11 05:18] LABS: BASOPHILS ABSOLUTE AUTO 0.04 K/mm3 (0.00-0.23); BASOPHILS PERCENT AUTO 0 % (0-2); EOSINOPHILS ABSOLUTE AUTO 0.09 K/mm3 (0.00-0.68); EOSINOPHILS PERCENT AUTO 1 % (0-6); Hematocrit 26.2 % (33.0-51.0); IMMATURE GRAN ABSOLUTE AUTO 0.09 K/mm3 (0.00-0.10); IMMATURE GRAN PERCENT AUTO 1 % (0-1); LYMPHOCYTES ABSOLUTE AUTO 1.09 K/mm3 (0.84-5.20); LYMPHOCYTES PERCENT AUTO 10 % (21-46); MONOCYTES ABSOLUTE AUTO 1.76 K/mm3 (0.16-1.47); MONOCYTES PERCENT AUTO 16 % (4-13); Mean Corpuscular HGB Conc 30.5 g/dL (31.5-36.5); Mean Corpuscular Volume 92 fL (80-100); Mean Platelet Volume 11.2 fL (9.1-12.4); NEUTROPHILS ABSOLUTE AUTO 8.28 K/mm3 (1.96-9.15); NEUTROPHILS PERCENT AUTO 73 % (41-73); Platelet Count 231 K/mm3 (150-400); RDW Coefficient Variation 19.5 % (11.7-14.2); RDW Standard Deviation 64.3 fL (35.1-46.3); Red Blood Cell Count 2.86 M/mm3 (3.80-5.20); White Blood Cell Count 11.35 K/mm3 (4.00-11.30)
[2020-02-11 05:52] LABS: Albumin, Blood 2.5 g/dL (3.4-5.0); Anion Gap 8 mmol/L (6-16); Blood Urea Nitrogen 61 mg/dL (8-24); CO2, Blood 25 mmol/L (21-32); Calcium, Blood 8.2 mg/dL (8.5-10.1); Chloride, Blood 104 mmol/L (98-108); Creatinine, Blood 3.59 mg/dL (0.40-1.00); Glomerular Filtration Rate 14 (60-); Glucose, Blood 75 mg/dL (70-99); Magnesium, Blood 2.6 mg/dL (1.6-2.4); Potassium, Blood 5.3 mmol/L (3.5-5.5); Sodium, Blood 137 mmol/L (136-145); Vancomycin, Random 30.2 ug/mL
--- NOTE | 2020-02-11 17:37 | NUR ---
SHIFT SUMMARY PATIENT ALERT AND COOPERATIVE WITH CARE THIS SHIFT. PATIENT IN BED MOST OF THIS SHIFT, UP TO BEDSIDE COMODE WITH FOREIGN LEGAL CONSULTANT ASSISTANCE. PATIENT SITTING UP IN BED TALKING ON THE TELEPHONE MUCH OF THIS SHIFT. PATIENT MEDICATED FOR PAIN ONCE THIS SHIFT. PATIENT CURRENTLY SITTING UP IN BED WATCHING TELEVISION.
--- NOTE | 2020-02-12 04:16 | NUR ---
SHIFT SUMMARY PATIENT HAD NO ACUTE CHANGES OBSERVED. AXOX 2 TO SELF/FAMILY. PATIENT CONFUSED ON WHAT TIME SHE COULD SLEEP AND WHEN SHE NEEDED TO WAKE UP TO SEE DOCTOR. PATIENT ORIENTED TO DAY AND TIME. PICC LINE JOSE LUIS INTACT. SPLINT ON LEFT ARM FX. SALES ACCOUNT ASSOCIATE REPORTS NSR 75. FLUID RESTRICTIONS 1,000 mL. REPORTED LEFT ARM PAIN X ONE AND OXYCODONE 5 MG GIVEN PER EMAR. VSS/AFEBRILE. DENIES SOB AND N/V. CALL LIGHT IN REACH. BED IN LOWEST POSITION. WILL CONTINUE TO MONITOR UNTIL DAY SHIFT NURSE ASSUMES CARE.
[2020-02-12 05:30] LABS: Hematocrit 25.3 % (33.0-51.0); Hemoglobin 7.8 g/dL (11.5-16.0)
[2020-02-12 05:53] LABS: Albumin, Blood 2.4 g/dL (3.4-5.0); Anion Gap 7 mmol/L (6-16); Blood Urea Nitrogen 65 mg/dL (8-24); Bun/Creatinine Ratio 18.3 (12.0-20.0); CO2, Blood 28 mmol/L (21-32); Chloride, Blood 105 mmol/L (98-108); Creatinine, Blood 3.55 mg/dL (0.40-1.00); Glomerular Filtration Rate 14 (60-); Glucose, Blood 62 mg/dL (70-99); Magnesium, Blood 2.1 mg/dL (1.6-2.4); Phosphorus, Blood 5.8 mg/dL (2.5-4.9); Potassium, Blood 4.4 mmol/L (3.5-5.5); Sodium, Blood 140 mmol/L (136-145); Vancomycin, Random 23.4 ug/mL
--- NOTE | 2020-02-12 18:42 | NUR ---
SHIFT SUMMARY: NO ACUTE CHANGES TO REPORT THIS SHIFT. PT HX CVA; ALERT; ORIENTED TO SELF AND FAMILY. NO C/O PAIN THIS SHIFT. L ARM IN SLING R/T FALL c FX. DIURETICS CONTINUING. WCTM.
--- NOTE | 2020-02-13 03:55 | NUR ---
MOLDING ENGINEER SUMMARY PT HAS BEEN VERY CONFUSED TONIGHT OFTEN CONFUSING HER CALL LIGHT FOR HER CELL PHONE. PT HAD ONE LOOSE STOOL DURING THE NIGHT AND WAS GIVEN HER 2100 DOSE OF LACTULOSE. PT REMAINED ON TELE W SINUS RYTHYM AT 70 BPM. PT HAS REMAINED STABLE ON RM AIR AND ONLY C/O PAIN IN HER LEFT WRIST, MEDICATED PER EMAR. PT FELL ASLEEP AT 0030 AND HAS SLEPT COMFORTABLY FOR MOST OF THE NIGHT. WCTM.
[2020-02-13 05:13] LABS: Hemoglobin 8.1 g/dL (11.5-16.0); Mean Corpuscular HGB 28.4 pg (26.0-34.0); Mean Corpuscular HGB Conc 31.2 g/dL (31.5-36.5); Mean Corpuscular Volume 91 fL (80-100); Mean Platelet Volume 10.8 fL (9.1-12.4); Platelet Count 224 K/mm3 (150-400); RDW Coefficient Variation 19.3 % (11.7-14.2); RDW Standard Deviation 64.3 fL (35.1-46.3); Red Blood Cell Count 2.85 M/mm3 (3.80-5.20); White Blood Cell Count 7.57 K/mm3 (4.00-11.30)
[2020-02-13 05:31] LABS: Albumin, Blood 2.3 g/dL (3.4-5.0); Anion Gap 8 mmol/L (6-16); Blood Urea Nitrogen 67 mg/dL (8-24); Bun/Creatinine Ratio 19.1 (12.0-20.0); CO2, Blood 26 mmol/L (21-32); Calcium, Blood 8.2 mg/dL (8.5-10.1); Chloride, Blood 107 mmol/L (98-108); Creatinine, Blood 3.51 mg/dL (0.40-1.00); Glomerular Filtration Rate 14 (60-); Glucose, Blood 64 mg/dL (70-99); Phosphorus, Blood 6.3 mg/dL (2.5-4.9); Potassium, Blood 4.2 mmol/L (3.5-5.5); Sodium, Blood 141 mmol/L (136-145); Vancomycin, Random 19.7 ug/mL
--- NOTE | 2020-02-13 19:15 | NUR ---
SHIFT SUMMARY: FELTON CUTE CHANGES TO REPORT THIS SHIFT. PT HX CVA; A&O X2-3; CONFUSED. MEDICATED FOR PAIN PER EMAR. TELE IN PLACE; SR @ 64 PER VOLTAGE REGULATOR ASSEMBLER. LACTULOSE TID; LARGE BM THIS SHIFT. REPORT GIVEN TO ONCOMING RN.
--- NOTE | 2020-02-14 04:50 | NUR ---
SHIFT SUMMARY PATIENT HAD NO ACUTE CHANGES OBSERVED. AXOX 2 SELF/FAMILY. PICC LINE JOSE LUIS INTACT. SPLINT ON LEFT ARM. DENIES PAIN, SOB, AND N/V. FUEL OIL TRUCK DRIVER REPORTS NSR 72. FLUID RESTRICTIONS 1,000 mL. LOOSE STOOLS ON LACTULOSE. HYPERTENSIVE AND NOW STARTING NORVASC 5 MG THIS SHIFT. CONFUSED T/O SHIFT. CALL LIGHT IN REACH. BED IN LOWEST POSITION. WILL CONTINUE TO MONITOR UNTIL DAY SHIFT NURSE ASSUMES CARE.
[2020-02-14 05:32] LABS: Hematocrit 26.3 % (33.0-51.0); Hemoglobin 8.1 g/dL (11.5-16.0)
[2020-02-14 05:55] LABS: Albumin, Blood 2.2 g/dL (3.4-5.0); Anion Gap 7 mmol/L (6-16); Blood Urea Nitrogen 68 mg/dL (8-24); Bun/Creatinine Ratio 19.8 (12.0-20.0); CO2, Blood 28 mmol/L (21-32); Calcium, Blood 8.5 mg/dL (8.5-10.1); Chloride, Blood 109 mmol/L (98-108); Creatinine, Blood 3.43 mg/dL (0.40-1.00); Glomerular Filtration Rate 15 (60-); Glucose, Blood 85 mg/dL (70-99); Magnesium, Blood 2.1 mg/dL (1.6-2.4); Phosphorus, Blood 6.4 mg/dL (2.5-4.9); Potassium, Blood 3.6 mmol/L (3.5-5.5); Sodium, Blood 144 mmol/L (136-145); Vancomycin, Random 15.1 ug/mL
--- NOTE | 2020-02-14 13:29 | NUR ---
Met pt. in bed resting, she reports to be doing better today, encouraged pt.and offered prayers .
--- NOTE | 2020-02-14 18:24 | NUR ---
03/03/20 1800 picc line dressing changed after pt had bled form the site and soaked the dressing off and bleed onto bed.. while dressing was off site didnt bleed sterilly new dressing was applied and 5 cm from site to stat lock
--- NOTE | 2020-02-14 18:38 | NUR ---
PICC LINE OOZING AND NOSE BLEED OCCURED. BOTH AREAS STOPPED BLEEDING SHORTLY AFTER. PICC LINE REDRESSED BY CIRILO GREY. MINIMAL OOZING OCCURED. NOSE BLEED WAS JUST A TRICKLE OF BLOOD FROM NOSE. DR. LOPEZ NOTIFIED. NO NEW ORDERS.
--- NOTE | 2020-02-15 04:06 | NUR ---
SHIFT SUMMARY ADMITTED FOR ACUTE ENCEPHALOPATHY. FULL CODE. SHE HAS A LEFT ARM FRACTURE THAT IS SPLINTED. PLAN IS FOR SNF PLACEMENT AT [facility] WHEN DISCHARGED. TELEMETRY: NSR @ 77 BPM. SHE HAS A PICC LINE IN RT UPPER ARM. 1000 ML/DAY FLUID RESTRICTION. 6 WEEKS OF VANCO RECOMMENDED. ON CONTACT PRECAUTIONS FOR MRSA/BACTEREMIA. HX: CLESBL 06/30 & MRSA IN NARES AND URINE 07/01. HX OF FALLS, CIRRHOSIS, SCHIZOPHRENIA. LACTULOSE IS SCHEDULED.
[2020-02-15 04:52] LABS: Hematocrit 26.2 % (33.0-51.0); Hemoglobin 8.1 g/dL (11.5-16.0)
[2020-02-15 05:12] LABS: Albumin, Blood 2.2 g/dL (3.4-5.0); Anion Gap 7 mmol/L (6-16); Blood Urea Nitrogen 65 mg/dL (8-24); Bun/Creatinine Ratio 18.9 (12.0-20.0); CO2, Blood 28 mmol/L (21-32); Calcium, Blood 8.4 mg/dL (8.5-10.1); Chloride, Blood 108 mmol/L (98-108); Creatinine, Blood 3.44 mg/dL (0.40-1.00); Glomerular Filtration Rate 15 (60-); Glucose, Blood 102 mg/dL (70-99); Phosphorus, Blood 6.3 mg/dL (2.5-4.9); Potassium, Blood 3.3 mmol/L (3.5-5.5); Sodium, Blood 143 mmol/L (136-145)
--- NOTE | 2020-02-15 13:35 | NUR ---
Spiritual care visit conducted. Patient tells me that she is very tired today but she would still like me to visit with her. Patient talks about how she is grieving the loss of her , about her concern for her children who are trying to manage without her and about what it is like trying to live on the streets. Patient shares her hopes centered around being placed in a rehab. facility so she can continue to get her strength back. I provide therapeutic listening, grief support and prayer. Patient responds well and shows signs of beng encouraged. I will remain available to patient and family.
--- NOTE | 2020-02-15 14:57 | NUR ---
Pt.s doing fine her nurse is in the attending to her needs prayed for pt.
--- NOTE | 2020-02-15 18:35 | NUR ---
SHIFT SUMMARY PATIENT MEDICATED X1 FOR PAIN. DENIES NAUSEA AND SHORTNESS OF BREATH. UP SBA TO BSC. NAPPING OFF AND ON DURING SHIFT. PLEASANT AND COOPERATIVE WITH CARE. VISITED WITH SPIRITUAL CARE TODAY.
--- NOTE | 2020-02-15 23:15 | NUR ---
CALLED CONSULT CALLED CONSULT DR FISHER TO ASK ABOUT HOLDING LOKELMA. LOKELMA IS NOW DC'D WHILE POTASSIUM IS LOW.
[2020-02-16 05:11] LABS: Hematocrit 26.2 % (33.0-51.0); Hemoglobin 8.1 g/dL (11.5-16.0)
[2020-02-16 05:31] LABS: Albumin, Blood 2.3 g/dL (3.4-5.0); Anion Gap 11 mmol/L (6-16); Blood Urea Nitrogen 62 mg/dL (8-24); Bun/Creatinine Ratio 16.1 (12.0-20.0); CO2, Blood 25 mmol/L (21-32); Calcium, Blood 8.5 mg/dL (8.5-10.1); Chloride, Blood 107 mmol/L (98-108); Creatinine, Blood 3.85 mg/dL (0.40-1.00); Glomerular Filtration Rate 13 (60-); Glucose, Blood 80 mg/dL (70-99); Phosphorus, Blood 6.3 mg/dL (2.5-4.9); Potassium, Blood 3.4 mmol/L (3.5-5.5); Sodium, Blood 143 mmol/L (136-145)
--- NOTE | 2020-02-16 05:57 | NUR ---
SHIFT SUMMARY DURING ASSESSMENT THIS RN NOTICED BLEEDED AT PICC INSERTION SITE, CHARGE NURSE NOTIFIED AND CONTINUED TO MONITOR. PT SLEPT WELL T/O NIGHT AFTER KPAD APPLIED FOR NECK PAIN. THIS AM INCREASED BLEEDING NOTED AT PICC INSERTION SITE, DRESSING CHANGED WITH STERILE GAUZE PLACED. PT IS LAYING IN BED WITH EYES CLOSED EVEN AND UNLABORED RESPIRATIONS. BED IN LOWERED POSITION WITH BED ALARM ON. CALL LIGHT AND PERSONAL ITEMS WITHIN REACH. NO APPARENT NEEDS OR DISTRESS AT THIS TIME, WILL CONTINUE TO MONITOR UNTIL REPORT GIVEN TO DAY RN.
--- NOTE | 2020-02-16 13:17 | NUR ---
Pt. is in bed resting, her nurse in the room attending to her needs and pt. is doing fine
--- NOTE | 2020-02-16 17:42 | NUR ---
SHIFT SUMMARY PATIENT MEDICATED X1 FOR PAIN THIS SHIFT. DENIES NAUSEA AND SHORTNESS OF BREATH. WORKED WITH PT. UP SBA W/FWW TO BR. PICC LINE DRESSING CHANGED. PATIENT NAPPING OFF AND ON DURING SHIFT. MUCH LESS DROWSY TODAY.
--- NOTE | 2020-02-17 04:09 | NUR ---
SHIFT SUMMARY ADMITTED FOR ACUTE ENCEPHALOPATHY. FULL CODE. 1000 ML FLUID RESTRICTION. LACTULOSE SCHEDULED TID. PICC LINE IN RUE IS PATENT, NOT LEAKING BLOOD THIS SHIFT. LR IS INFUSING @ 125 ML/HR. PLAN IS FOR SNF PLACEMENT TO [facility]. WE ARE DIURESING THIS PT AND MONITORING HER K+ LABS. SHE HAS AN ORTHO CONSULT, DR MONTOYA, WHO HAS ORDERED HER NPO @ BREAKFAST TODAY. HER LEFT ARM IS FRACTURED AND IN A SPLINT. SHE MAY NEED 6 WEEKS OF VANCO THERAPY. PERTINENT HX: CIRROSIS, GI BLEEDS, HEP C, SCHIZO-AFFECTIVE DISORDER. CONTACT PRECAUTIONS FOR MRSA IN URINE/NARES, ESBL IN URINE, BACTEREMIA.
[2020-02-17 05:27] LABS: Hematocrit 24.5 % (33.0-51.0); Hemoglobin 7.6 g/dL (11.5-16.0)
[2020-02-17 05:48] LABS: Albumin, Blood 2.1 g/dL (3.4-5.0); Anion Gap 8 mmol/L (6-16); Blood Urea Nitrogen 62 mg/dL (8-24); Bun/Creatinine Ratio 15.8 (12.0-20.0); CO2, Blood 26 mmol/L (21-32); Calcium, Blood 8.9 mg/dL (8.5-10.1); Chloride, Blood 109 mmol/L (98-108); Creatinine, Blood 3.92 mg/dL (0.40-1.00); Glomerular Filtration Rate 13 (60-); Glucose, Blood 83 mg/dL (70-99); Phosphorus, Blood 5.2 mg/dL (2.5-4.9); Potassium, Blood 3.9 mmol/L (3.5-5.5); Sodium, Blood 143 mmol/L (136-145); Vancomycin, Random 17.9 ug/mL
--- NOTE | 2020-02-17 17:43 | NUR ---
SHIFT SUMMARY PATIENT ALERT AND ORIENTED THIS SHIFT. PATIENT SEEN BY ORTHOPEDICS THIS AFTERNOON, WITH ORDERS FOR FELISA WRAP REMOVAL TO LEFT WRIST AND VELCRO BRACE PLACED. PATIENT NPO THIS SHIFT FOR PERMACATH PLACEMENT, AWAITING PROCEDURE. PATIENT IN BED MUCH OF THIS SHIFT, UP IN RECLINER FOR A SHORT PERIOD AROUND NOON. PATIENT MEDICATED 1X FOR PAIN. PATIENT CURRENTLY SITTING UP IN BED WATCHING TELEVISION, SON AT BEDSIDE.
--- NOTE | 2020-02-18 04:16 | NUR ---
DIRECTOR OF GRADUATE MEDICAL EDUCATION SUMMARY PT A&O TO SELF AND PLACE, ABLE TO MAKE NEEDS KNOWN. PLEASANT AND COOPERATIVE TO CARE. DRESSING TO NEW PERMA CATH ON R UPPER CHEST CDI. PT HAS NO C/O PAIN OR DISCOMFORT THIS SHIFT. PT HOB MAINTAINED AT 45 DEG ORDERED. VELCO BRACE ON L WRIST IN PLACE. PT HAS NO C/O CP, SOB, OR N&V THIS SHIFT. CALM AND RESTED IN BED T/O SHIFT. PT IS 1 PERSON ASSIST TO THE BSC. BED AT LOWEST POSITION, CALL LIGHT WITHIN REACH.
[2020-02-18 05:20] LABS: Hematocrit 23.6 % (33.0-51.0); Hemoglobin 7.2 g/dL (11.5-16.0)
[2020-02-18 05:38] LABS: Albumin, Blood 2.1 g/dL (3.4-5.0); Anion Gap 9 mmol/L (6-16); Blood Urea Nitrogen 63 mg/dL (8-24); Bun/Creatinine Ratio 15.8 (12.0-20.0); CO2, Blood 26 mmol/L (21-32); Calcium, Blood 8.7 mg/dL (8.5-10.1); Chloride, Blood 107 mmol/L (98-108); Creatinine, Blood 3.99 mg/dL (0.40-1.00); Glomerular Filtration Rate 12 (60-); Glucose, Blood 94 mg/dL (70-99); Phosphorus, Blood 6.2 mg/dL (2.5-4.9); Sodium, Blood 142 mmol/L (136-145)
--- NOTE | 2020-02-18 17:51 | NUR ---
SHIFT SUMMARY PATIENT ALERT AND ORIENTED, OCCASIONALLY FORGETFUL. PATIENT UP IN RECLINER FOR MEALS. PATIENT REMAINS ON A 1L FLUID RESTRICTION. PATIENT MEDICATED FOR PAIN THROUGHOUT THIS SHIFT. PATIENT NAPPED MUCH OF THE AFTERNOON. PATIENT CURRENTLY SITTING UP IN RECLINER EATING DINNER.
--- NOTE | 2020-02-19 04:58 | NUR ---
JUDICIAL REPORTER SUMMARY PT A&O TO SELF AND FAMILY, FORGETFUL AT TIMES. ABLE TO MAKE NEEDS KNOWN. PLEASANT AND COOPERATIVE TO CARE. PT MEDICATED FOR PAIN PER EMAR. GIVEN DICYCLOMINE PRN FOR ABD CRAMPS AND WAS EFFECTIVE. DRESSING TO PERMACATH IN RU CHEST IS CDI. DENIES SOB, CP, AND N&V. CALM AND RESTED IN BED AT THIS TIME. 1P STANDBY ASSIST TO BSC. BED AT LOWEST POSITION. CALL LIGHT WITHIN REACH.
[2020-02-19 05:10] LABS: Hematocrit 23.2 % (33.0-51.0); Hemoglobin 7.2 g/dL (11.5-16.0)
[2020-02-19 05:29] LABS: Albumin, Blood 2.2 g/dL (3.4-5.0); Anion Gap 10 mmol/L (6-16); Blood Urea Nitrogen 63 mg/dL (8-24); Bun/Creatinine Ratio 15.9 (12.0-20.0); CO2, Blood 24 mmol/L (21-32); Calcium, Blood 8.6 mg/dL (8.5-10.1); Chloride, Blood 106 mmol/L (98-108); Creatinine, Blood 3.95 mg/dL (0.40-1.00); Glomerular Filtration Rate 12 (60-); Glucose, Blood 84 mg/dL (70-99); Phosphorus, Blood 5.9 mg/dL (2.5-4.9); Potassium, Blood 3.9 mmol/L (3.5-5.5); Sodium, Blood 140 mmol/L (136-145)
--- NOTE | 2020-02-19 18:03 | NUR ---
SHIFT SUMMARY PATIENT DENIES PAIN, NAUSEA, AND SHORTNESS OF BREATH. PATIENT UP IN CHAIR FOR MEALS, SBA W/FWW TO BR. PATIENT WORKED WITH PT TODAY, WALKER WITH ARM BRACE PROVIDED. PATIENT NAPPING OR WATCHING TV THE REST OF SHIFT. SON VISTED AT DINNERTIME.
--- NOTE | 2020-02-20 04:18 | NUR ---
SHIFT SUMMARY NO ACUTE CHANGES TO REPORT THIS SHIFT. PT HAS RESTED MOST OF THE NIGHT. MEDICATED X1 FOR PAIN. PT REMAINS EDEMATOUS TO BLE. FLUID RESTRCITION CONTINUED HAS ORDERED. PT IS FORGETFUL ABOUT HER FLUID RESTRICTION, BUT HAS BEEN COMPLIANT. VITALS TERRA STABLE. NO CHANGES IN ASSESSMENT. BED IN LOWEST POSITION, CALL LIGHT WITHIN REACH.
[2020-02-20 05:22] LABS: Hematocrit 23.8 % (33.0-51.0); Hemoglobin 7.2 g/dL (11.5-16.0)
[2020-02-20 05:45] LABS: Albumin, Blood 2.1 g/dL (3.4-5.0); Anion Gap 10 mmol/L (6-16); Blood Urea Nitrogen 60 mg/dL (8-24); Bun/Creatinine Ratio 16.2 (12.0-20.0); CO2, Blood 25 mmol/L (21-32); Calcium, Blood 8.5 mg/dL (8.5-10.1); Chloride, Blood 105 mmol/L (98-108); Creatinine, Blood 3.71 mg/dL (0.40-1.00); Glomerular Filtration Rate 13 (60-); Glucose, Blood 72 mg/dL (70-99); Magnesium, Blood 1.9 mg/dL (1.6-2.4); Potassium, Blood 3.9 mmol/L (3.5-5.5); Sodium, Blood 140 mmol/L (136-145)
--- NOTE | 2020-02-20 17:57 | NUR ---
SHIFT SUMMARY PATIENT MEDICATED X1 FOR PAIN THIS SHIFT. DENIES NAUSEA AND SHORTNESS OF BREATH. PATIENT UP SBA TO BR W/FWW. UP IN CHAIR FOR MEALS. DIALYSIS NURSE REPLACED PERMACATH DRESSING TODAY. POSSIBLE DIALYSIS TOMORROW. BETTER APPETITE TODAY.
--- NOTE | 2020-02-21 04:01 | NUR ---
SHIFT SUMMARY NO ACUTE CHANGES TO REPORT THIS SHIFT. PT HAS RESTED MOST OF THE NIGHT, AND HAS DENIED PAIN. PLAN IS FOR DIALYSIS TODAY, NEW PERMACATH PLACED TO RIGHT CHEST WALL A FEW DAYS AGO. VITALS HAVE BEEN STABLE. RESP E/U ON RA. ASSESSMENT HAS REMAINED UNCHANGED. BED IN LOWEST POSITION, CALL LIGHT WITHIN REACH.
[2020-02-21 05:20] LABS: Hematocrit 21.6 % (33.0-51.0); Hemoglobin 6.7 g/dL (11.5-16.0)
[2020-02-21 05:54] LABS: Albumin, Blood 2.3 g/dL (3.4-5.0); Anion Gap 11 mmol/L (6-16); Blood Urea Nitrogen 58 mg/dL (8-24); CO2, Blood 24 mmol/L (21-32); Calcium, Blood 8.4 mg/dL (8.5-10.1); Chloride, Blood 104 mmol/L (98-108); Creatinine, Blood 3.63 mg/dL (0.40-1.00); Glomerular Filtration Rate 14 (60-); Glucose, Blood 73 mg/dL (70-99); Phosphorus, Blood 4.8 mg/dL (2.5-4.9); Potassium, Blood 4.1 mmol/L (3.5-5.5); Sodium, Blood 139 mmol/L (136-145)
--- NOTE | 2020-02-21 06:01 | NUR ---
HGB HGB 6.[address] FISHER CALLED AND NOTIFIED, RECEIVED ORDER FOR 2 UNITS OF PRBCS TO BE GIVEN DURING DIALYSIS.
--- NOTE | 2020-02-21 13:40 | NUR ---
Pt. is in bed and is on dialysis encouraged pt. and prayed for pt.
--- NOTE | 2020-02-21 16:02 | NUR ---
CALLED DR KILPATRICK- PT HAD DIALYSIS TODAY WITH THE 2 UNITS PRBC'S INFUSED. PERMACATH DRESSING CHANGED AFTER DIALYSIS. SITE BEGAN OOZING BLOOD SLOWLY AFTER DRESSING CHANGE REINFORCED AND CALLED MOTOR POLARIZER FOR SANDBAG TO APPLY SOME PRESSURE. CALLED TO SEE IF PT NEEDED A REPEAT H&H AND PLATELETS HAVE NOT BEEN CHECKED RECENTLY. RECIEVED ORDER FOR COMPLETE CBC.
[2020-02-21 16:34] LABS: BASOPHILS ABSOLUTE AUTO 0.08 K/mm3 (0.00-0.23); BASOPHILS PERCENT AUTO 0 % (0-2); EOSINOPHILS ABSOLUTE AUTO 0.45 K/mm3 (0.00-0.68); EOSINOPHILS PERCENT AUTO 2 % (0-6); Hematocrit 29.7 % (33.0-51.0); Hemoglobin 9.4 g/dL (11.5-16.0); IMMATURE GRAN ABSOLUTE AUTO 0.38 K/mm3 (0.00-0.10); IMMATURE GRAN PERCENT AUTO 2 % (0-1); LYMPHOCYTES ABSOLUTE AUTO 1.37 K/mm3 (0.84-5.20); LYMPHOCYTES PERCENT AUTO 7 % (21-46); MONOCYTES ABSOLUTE AUTO 2.59 K/mm3 (0.16-1.47); MONOCYTES PERCENT AUTO 13 % (4-13); Mean Corpuscular HGB 28.7 pg (26.0-34.0); Mean Corpuscular HGB Conc 31.6 g/dL (31.5-36.5); Mean Corpuscular Volume 91 fL (80-100); Mean Platelet Volume 9.5 fL (9.1-12.4); NEUTROPHILS ABSOLUTE AUTO 15.76 K/mm3 (1.96-9.15); NEUTROPHILS PERCENT AUTO 76 % (41-73); Platelet Count 248 K/mm3 (150-400); RDW Coefficient Variation 19.3 % (11.7-14.2); RDW Standard Deviation 60.9 fL (35.1-46.3); Red Blood Cell Count 3.28 M/mm3 (3.80-5.20); White Blood Cell Count 20.63 K/mm3 (4.00-11.30)
--- NOTE | 2020-02-21 17:24 | NUR ---
CALLED DR KILPATRICK- CBC CAME BACK AND SHOWED ELEVATED WHITE COUNT 20. HGB ABOVE 9 PLATELETS WNL. IS AWARE. CBC ORDERED FOR MORNING LABS. PT DID HAVE A LOW GRADE TEMP 99.5 AFTER DIALYSIS, MEDICATED WITH TYLENOL, FOLLOW UP TEMP WNL.
--- NOTE | 2020-02-21 19:25 | NUR ---
SHIFT SUMMARY- PT ALERT AND ORIENTED INDEPENDENT IN THE ROOM. PT ON HEPARIN DRIP RECIEVEING COUMADIN, PHARMACY TITRATING DOSE, ONCE THE PT IS THERAPUDIC THE PLAN IS TO DC HIM HOME PER REPORT RECIEVED AT THE TIME OF TRANSFER FROM PCU. PT ON ROOM AIR WITH NO S&S OF DISTRESS AT THE TIME OF SHIFT CHANGE. BEDSIDE REPORT COMPLETED WITH GAYLE RN. SPOUSE AT THE BEDSIDE.
--- NOTE | 2020-02-22 04:55 | NUR ---
PATIENT'S HEART RATE TACHYCARDIC AT 118 WITH O2 SAT AT 90. PATIENT PLACED ON 2 LITERS OF OXYGEN. WILL REASSESS PATIENT.
[2020-02-22 05:03] LABS: BASOPHILS ABSOLUTE AUTO 0.13 K/mm3 (0.00-0.23); BASOPHILS PERCENT AUTO 0 % (0-2); EOSINOPHILS ABSOLUTE AUTO 0.02 K/mm3 (0.00-0.68); EOSINOPHILS PERCENT AUTO 0 % (0-6); Hematocrit 31.7 % (33.0-51.0); IMMATURE GRAN ABSOLUTE AUTO 0.48 K/mm3 (0.00-0.10); IMMATURE GRAN PERCENT AUTO 1 % (0-1); LYMPHOCYTES ABSOLUTE AUTO 0.91 K/mm3 (0.84-5.20); LYMPHOCYTES PERCENT AUTO 2 % (21-46); MONOCYTES ABSOLUTE AUTO 1.74 K/mm3 (0.16-1.47); MONOCYTES PERCENT AUTO 4 % (4-13); Mean Corpuscular HGB 28.8 pg (26.0-34.0); Mean Corpuscular HGB Conc 31.5 g/dL (31.5-36.5); Mean Corpuscular Volume 91 fL (80-100); Mean Platelet Volume 9.5 fL (9.1-12.4); NEUTROPHILS ABSOLUTE AUTO 40.59 K/mm3 (1.96-9.15); NEUTROPHILS PERCENT AUTO 93 % (41-73); NRBC ABSOLUTE 0.02 K/mm3 (0.00-0.02); Platelet Count 269 K/mm3 (150-400); RDW Coefficient Variation 20.1 % (11.7-14.2); RDW Standard Deviation 63.2 fL (35.1-46.3); Red Blood Cell Count 3.47 M/mm3 (3.80-5.20); White Blood Cell Count 43.87 K/mm3 (4.00-11.30)
--- NOTE | 2020-02-22 06:01 | NUR ---
PHYSICIAN COMMUNICATION CONTACTED ANIMAL CARE SERVICE WORKER PHYSICIAN, DR REYES, TO NOTIFY HIM THAT THE PATIENT'S HEART RATE HAS BEEN SUSTAINING AROUND 120. ALSO THAT THE PATIENT'S WBC WAS UP 23 POINTS FROM YESTERDAY, THE PATIENT'S TEMPERATURE WAS 99.2 AND THAT SHE NEEDED SUPPLIMENTAL OXYGEN THAT SHE WASN'T ON BEFORE. DR REYES ORDERED 5 MG IV LOPRESSOR NOW ALONG WITH TELEMETRY MONITORING. HE SAID TO MONITOR THE OTHER SYMPTOMS.
--- NOTE | 2020-02-22 07:15 | NUR ---
SHIFT SUMMARY PATIENT ALERT AND ORIENTED BUT FORGETFUL AT TIMES. PATIENT WAS PLACED ON TELEMETRY SO THAT SHE COULD RECEIVE 5 MG IV LOPRESSOR DUE TO HER HEART RATE SUSTAINING AROUND 120. PATIENT COMPLAINS OF ABDOMINAL PAIN AND WAS MEDICATED PER EMAR. SHE DID NOT HAVE A BOWEL MOVEMENT OVERNIGHT. HER PERMACATH SITE IS STILL OOZING BLOOD, EVEN WITH A WEIGHT PLACED ON THE SITE TO APPLY PRESSURE. PICC LINE DRESSING CHANGED, LINE IS PATENT AND FLUSHED. BED IN LOWEST POSITION WITH WHEELS LOCKED AND ALARM ON. CALL LIGHT WITHIN REACH. REPORT GIVEN TO ONCOMING RN.
[2020-02-22 08:55] LABS: Albumin, Blood 2.2 g/dL (3.4-5.0); Anion Gap 8 mmol/L (6-16); Blood Urea Nitrogen 39 mg/dL (8-24); Bun/Creatinine Ratio 13.5 (12.0-20.0); CO2, Blood 28 mmol/L (21-32); Calcium, Blood 8.5 mg/dL (8.5-10.1); Chloride, Blood 105 mmol/L (98-108); Creatinine, Blood 2.89 mg/dL (0.40-1.00); Glomerular Filtration Rate 18 (60-); Glucose, Blood 90 mg/dL (70-99); Potassium, Blood 4.1 mmol/L (3.5-5.5); Sodium, Blood 141 mmol/L (136-145)
--- NOTE | 2020-02-22 09:15 | NUR ---
PATIENT OFF UNIT TO DIALYSIS VIA HER BED. SLEEPING, AROUSES TO SPEECH. NO PO MEDS GIVEN. BRIEFLY DISCUSSED PATIENT'S CHANGE IN CONDITION WITH DR. RITCHIE.
--- NOTE | 2020-02-22 14:36 | NUR ---
Pt. is in bed resting and is doing much better prayed for her .
--- NOTE | 2020-02-22 19:44 | NUR ---
SHIFT SUMMARY: PT MORE AWAKE THIS EVENING, A&O X 2, SOME INTERMITTENT CONFUSION. HAD DIALYSIS THIS MORNING, TOLERATED WELL. PERMACATH IN RU CHEST NO LONGER BLEEDING. SINUS RHYTHM 90'S ON TELEMETRY. BLOOD CULTURES DRAWN FROM PERMACATH AND PICC, CXR COMPLETED. HAD 2 LARGE LOOSE BM'S THIS EVENING, SPECIMEN SENT. RECEIVED DOSE OF MEROPEMEN AFTER HD, HAD ANOTHER DOSE DUE AT 1800, BUT SPOKE TO PHARMACIST ABOUT TIMING OF SECOND DOSE SO CLOSE TO FIRST AND HE STATED TO HOLD 1800 DOSE BECAUSE SHE IS A DIALYSIS PT AND SHE WOULD NOT CLEAR THE DRUG. DENIED PAIN. APPETITE POOR, HAVING TROUBLE WITH "SOFT BITES" DIET, MAY NEED GROUND MEAT DIET INSTEAD D/T LACK OF TEETH.
[2020-02-23 00:07] LABS: HBSAG SCREEN Negative (Negative)
[2020-02-23 00:07] LABS: HBSAG SCREEN Negative (Negative); HEP A AB, IGM Negative (Negative); HEP B CORE AB, IGM Negative (Negative); HEP B CORE AB, TOT Positive (Negative); HEP C VIRUS AB 1.1 (0.0-0.9)
--- NOTE | 2020-02-23 00:22 | NUR ---
02/22/202020 PT LYING IN BED, REQUESTED AND RECIEVED PAIN MEDS FOR ABD PAIN. EDEMA ALL OVER, 1-2+ PITTING IN LE'S. NO OTHER APPARENT SIGNS OF DISTRESS. CALL LIGHT IS IN REACH.
--- NOTE | 2020-02-23 00:23 | NUR ---
02/22/20 2200 PT LYING IN BED, EYES CLOSED, APPEARS TO BE RESTING. BREATHING IS EVEN, UNLABORED. CALL LIGHT IS IN REACH. NO APPARENT SIGNS OF DISTRESS.
--- NOTE | 2020-02-23 00:24 | NUR ---
PT LYING IN BED, EYES CLOSED, APPEARS TO BE RESTING. BREATHING IS EVEN, UNLABORED. NO APPARENT SIGNS OF DISTRESS. CALL LIGHT IS IN REACH.
[2020-02-23 04:49] LABS: BASOPHILS ABSOLUTE AUTO 0.07 K/mm3 (0.00-0.23); BASOPHILS PERCENT AUTO 0 % (0-2); EOSINOPHILS ABSOLUTE AUTO 0.62 K/mm3 (0.00-0.68); EOSINOPHILS PERCENT AUTO 2 % (0-6); Hematocrit 27.9 % (33.0-51.0); IMMATURE GRAN ABSOLUTE AUTO 0.24 K/mm3 (0.00-0.10); IMMATURE GRAN PERCENT AUTO 1 % (0-1); LYMPHOCYTES ABSOLUTE AUTO 1.62 K/mm3 (0.84-5.20); LYMPHOCYTES PERCENT AUTO 6 % (21-46); MONOCYTES ABSOLUTE AUTO 2.37 K/mm3 (0.16-1.47); MONOCYTES PERCENT AUTO 9 % (4-13); Mean Corpuscular HGB 29.4 pg (26.0-34.0); Mean Corpuscular HGB Conc 32.3 g/dL (31.5-36.5); Mean Corpuscular Volume 91 fL (80-100); Mean Platelet Volume 9.6 fL (9.1-12.4); NEUTROPHILS ABSOLUTE AUTO 22.72 K/mm3 (1.96-9.15); NEUTROPHILS PERCENT AUTO 82 % (41-73); Platelet Count 189 K/mm3 (150-400); RDW Coefficient Variation 19.5 % (11.7-14.2); RDW Standard Deviation 61.9 fL (35.1-46.3); Red Blood Cell Count 3.06 M/mm3 (3.80-5.20); White Blood Cell Count 27.64 K/mm3 (4.00-11.30)
[2020-02-23 05:10] LABS: Albumin, Blood 2.1 g/dL (3.4-5.0); Albumin/Globulin Ratio 0.6 (0.8-1.8); Bilirubin, Total 1.9 mg/dL (0.1-1.0); Bun/Creatinine Ratio 12.4 (12.0-20.0); Calcium, Blood 8.4 mg/dL (8.5-10.1); Creatinine, Blood 2.58 mg/dL (0.40-1.00); Globulin, Blood 3.8 g/dL (2.2-4.0); Magnesium, Blood 1.9 mg/dL (1.6-2.4); Phosphorus, Blood 4.2 mg/dL (2.5-4.9); Potassium, Blood 3.4 mmol/L (3.5-5.5); Total Protein, Blood 5.9 g/dL (6.4-8.2)
--- NOTE | 2020-02-23 05:48 | NUR ---
0200 PT LYING IN BED, EYES CLOSED, APPEARS TO BE RESTING. BREATHING IS EVEN, UNLABORED. NO APPARENT SIGNS OF DISTRESS. CALL LIGHT IS IN REACH.
--- NOTE | 2020-02-23 05:49 | NUR ---
0400 PT REQUESTED HEATING PAD ON ABD, SHE HAS ONE IN HER ROOM ALREADY, PLACED IT ON HER ABD. REPORTS MILD CRAMPING STILL BY BELLY BUTTON. NO OTHER APPARENT SIGNS OF DISTRESS. CALL LIGHT IS IN REACH.
--- NOTE | 2020-02-23 05:50 | NUR ---
PT IS AAO X 4, ON RA. REPORTED MILD CRAMPING BY BELLY BUTTON GOT TYLENOL X 1 AT HS AND USING HEATHING PAD. TELE NSR.
--- NOTE | 2020-02-23 06:50 | NUR ---
PT LYING IN BED, EYES CLOSED, APPEARS TO BE RESTING. BREATHING IS EVEN, UNLABORED. NO APPARENT SIGNS OF DISTRESS. CALL LIGHT IS IN REACH. NO OTHER CHANGES THIS SHIFT.
--- NOTE | 2020-02-23 12:55 | NUR ---
Spiritual care visit conducted. Patient is in the Dialysis center and is alert. Patient tells me about her grieving process, her family concerns and her concerns about her health. She explains about some of the complications that she wishes she could have sorted out for her children. I listen empathically, normalize the struggle, encourage self-care and provide grief support and prayer. Patient responds well and shows signs of being comforted. I will continue to remain available to patient and family.
--- NOTE | 2020-02-23 14:34 | NUR ---
Spiritual care visit conducted. Patient is lying in bed and restless with eyes wide open and thrashing her arms around. Patient is moved to comfort care. I provide prayer and then I provide therapeutic type soft guitar music for several songs while patient continues to stare at the ceiling wide eyed. Comfort medications are given while I play and patient visibly relaxes her body and then a few somgs more and patient closes her eyes and loses the grimace and rests. I continue to remain available to patient and family.
--- NOTE | 2020-02-23 15:05 | NUR ---
Met pt. in bed resting and reports to be doing much better encouraged and offered prayers for the pt.
[2020-02-23 15:13] LABS: Appearance, Urine Cloudy (Clear); Blood, Urine 5+ (Neg); Color, Urine Amber (P-Yellow); Glucose Qualitative, Urine Neg (Neg); Ketones, Urine 2+ (Neg); Leukocyte Esterase, Urine 3+ (Neg); Nitrite, Urine Neg (Neg); Protein, Urine 3+ (Neg); Specific Gravity, Urine 1.015 (1.003-1.022); Urobilinogen, Urine 1+ (Normal)
[2020-02-23 15:51] LABS: Bilirubin, Urine 2+ (Neg)
[2020-02-23 15:52] LABS: Red Blood Cells, Urine 25-50 /hpf (0-2)
[2020-02-23 15:53] LABS: Bacteria Mod /hpf; Hyaline Casts 0-2 /lpf (0-2); Squamous Epithelial Cells Many /hpf (Few)
[2020-02-23 15:54] LABS: Other Crystals Many /hpf
--- NOTE | 2020-02-23 19:27 | NUR ---
SHIFT SUMMARY: NO ACUTE EVENTS THIS SHIFT. C/O PAIN IN NECK AND ABDOMEN; MEDICATED PER EMAR. NO EVENTS ON TELEMETRY, SR 90'S. NO LONGER USING OXYGEN. DIET CHANGED TO [facility] SOFT/GROUND MEAT PT HAS NO TEETH. REFUSING SCD'S D/T LEG DISCOMFORT WHEN THEY'RE ON. PHYSICAL THERAPY HAS ATTEMPTED TO SEE PATIENT THE PAST FEW DAYS BUT THEY COME WHILE SHE'S AT DIALYSIS, AND THEY DON'T COME BACK IN THE AFTERNOON. URINE SPECIMEN SENT. APPETITE POOR, BUT IS COMPLIANT WITH FLUID RESTRICTION. TOLERATING ABX, NO RASH NOTED.
--- NOTE | 2020-02-24 08:09 | NUR ---
DIRECTOR WRITING SUMMARY Patient was uncomfortable in evening with complaints of pain in right shoulder and abdomen. Roxycodone given with good relief and tums relieved stomach bloating and gas. Patient prefers her meds ground in applesauce if possible. No further complaints of discomfort
[2020-02-24 09:30] LABS: BASOPHILS ABSOLUTE AUTO 0.06 K/mm3 (0.00-0.23); BASOPHILS PERCENT AUTO 0 % (0-2); EOSINOPHILS ABSOLUTE AUTO 0.49 K/mm3 (0.00-0.68); EOSINOPHILS PERCENT AUTO 2 % (0-6); Hematocrit 29.3 % (33.0-51.0); IMMATURE GRAN ABSOLUTE AUTO 0.32 K/mm3 (0.00-0.10); IMMATURE GRAN PERCENT AUTO 2 % (0-1); LYMPHOCYTES ABSOLUTE AUTO 1.12 K/mm3 (0.84-5.20); LYMPHOCYTES PERCENT AUTO 6 % (21-46); MONOCYTES PERCENT AUTO 10 % (4-13); Mean Corpuscular HGB 28.4 pg (26.0-34.0); Mean Corpuscular HGB Conc 30.7 g/dL (31.5-36.5); Mean Corpuscular Volume 92 fL (80-100); Mean Platelet Volume 9.9 fL (9.1-12.4); NEUTROPHILS ABSOLUTE AUTO 16.43 K/mm3 (1.96-9.15); NEUTROPHILS PERCENT AUTO 80 % (41-73); Platelet Count 216 K/mm3 (150-400); RDW Coefficient Variation 19.5 % (11.7-14.2); RDW Standard Deviation 63.9 fL (35.1-46.3); Red Blood Cell Count 3.17 M/mm3 (3.80-5.20); White Blood Cell Count 20.52 K/mm3 (4.00-11.30)
[2020-02-24 09:57] LABS: Anion Gap 6 mmol/L (6-16); Blood Urea Nitrogen 33 mg/dL (8-24); Bun/Creatinine Ratio 13.3 (12.0-20.0); CO2, Blood 34 mmol/L (21-32); Chloride, Blood 96 mmol/L (98-108); Creatinine, Blood 2.48 mg/dL (0.40-1.00); Glomerular Filtration Rate 21 (60-); Glucose, Blood 127 mg/dL (70-99); Phosphorus, Blood 3.1 mg/dL (2.5-4.9); Potassium, Blood 3.6 mmol/L (3.5-5.5); Sodium, Blood 136 mmol/L (136-145)
--- NOTE | 2020-02-24 16:15 | NUR ---
SHE RECEIVED OXYCODONE AND TYLENOL THIS AM FOR HER RT. SHOULDER PAIN. SHE SLEEPS A LOT. SHE EATS A LITTLE. SHE WAS SHOWERED BY THE PICTURES EDITOR. SHE IS A 2 PERSON TRANSFER BETWEEN CHAIRS OR BED. ROUNDED ON HER TODAY. NO FEVER.
--- NOTE | 2020-02-24 18:28 | NUR ---
TELE NAHOMI'D TODAY. SHE WAS UP IN THE RECLINER CHAIR X1 AND SHOWERED. NO OTHER CHANGES.
[2020-02-25 06:19] LABS: BASOPHILS ABSOLUTE AUTO 0.07 K/mm3 (0.00-0.23); BASOPHILS PERCENT AUTO 0 % (0-2); EOSINOPHILS PERCENT AUTO 4 % (0-6); Hematocrit 27.9 % (33.0-51.0); Hemoglobin 8.9 g/dL (11.5-16.0); IMMATURE GRAN ABSOLUTE AUTO 0.35 K/mm3 (0.00-0.10); IMMATURE GRAN PERCENT AUTO 2 % (0-1); LYMPHOCYTES ABSOLUTE AUTO 1.45 K/mm3 (0.84-5.20); LYMPHOCYTES PERCENT AUTO 8 % (21-46); MONOCYTES ABSOLUTE AUTO 2.76 K/mm3 (0.16-1.47); MONOCYTES PERCENT AUTO 15 % (4-13); Mean Corpuscular HGB 29.1 pg (26.0-34.0); Mean Corpuscular HGB Conc 31.9 g/dL (31.5-36.5); Mean Corpuscular Volume 91 fL (80-100); Mean Platelet Volume 9.7 fL (9.1-12.4); NEUTROPHILS ABSOLUTE AUTO 13.15 K/mm3 (1.96-9.15); NEUTROPHILS PERCENT AUTO 71 % (41-73); Platelet Count 196 K/mm3 (150-400); RDW Coefficient Variation 19.3 % (11.7-14.2); RDW Standard Deviation 64.2 fL (35.1-46.3); Red Blood Cell Count 3.06 M/mm3 (3.80-5.20); White Blood Cell Count 18.58 K/mm3 (4.00-11.30)
[2020-02-25 06:31] LABS: Albumin, Blood 2.1 g/dL (3.4-5.0); Anion Gap 7 mmol/L (6-16); Blood Urea Nitrogen 44 mg/dL (8-24); Bun/Creatinine Ratio 15.5 (12.0-20.0); CO2, Blood 33 mmol/L (21-32); Calcium, Blood 8.3 mg/dL (8.5-10.1); Chloride, Blood 96 mmol/L (98-108); Creatinine, Blood 2.84 mg/dL (0.40-1.00); Glomerular Filtration Rate 18 (60-); Glucose, Blood 72 mg/dL (70-99); Phosphorus, Blood 3.3 mg/dL (2.5-4.9); Potassium, Blood 3.7 mmol/L (3.5-5.5); Sodium, Blood 136 mmol/L (136-145)
--- NOTE | 2020-02-25 18:37 | NUR ---
SHE IS BACK IN BED AFTER DINNER. SHE HAS A VISITOR. IV ANTIBIOTIC INFUSING. PICC PATENT. SHE HAD DIALYSIS TODAY WITHOUT ANY PROBLEMS. NO CURRENT COMPLAINTS. SHE TOOK PAIN MEDICINE AT BREAKFAST TIME.
--- NOTE | 2020-02-25 19:05 | NUR ---
ASSUMED CARE RECEIVED REPORT FROM CIRILO VELAZQUEZ. ASSUMED CARE OF PT. UP USING BSC AT THIS TIME, NO S/S ACUTE DISTRESS NOTED. DENIES NEEDS. DAUGHTER AT THE BEDSIDE. CALL LIGHT, POSSESSIONS IN REACH, WC, PROVIDE CARE T/O NIGHT.
[2020-02-26 06:06] LABS: Hematocrit 28.3 % (33.0-51.0); Hemoglobin 8.9 g/dL (11.5-16.0)
[2020-02-26 06:23] LABS: Anion Gap 3 mmol/L (6-16); Blood Urea Nitrogen 25 mg/dL (8-24); Bun/Creatinine Ratio 11.7 (12.0-20.0); CO2, Blood 35 mmol/L (21-32); Calcium, Blood 8.1 mg/dL (8.5-10.1); Chloride, Blood 99 mmol/L (98-108); Creatinine, Blood 2.14 mg/dL (0.40-1.00); Glomerular Filtration Rate 25 (60-); Glucose, Blood 64 mg/dL (70-99); Magnesium, Blood 2.2 mg/dL (1.6-2.4); Phosphorus, Blood 2.8 mg/dL (2.5-4.9); Potassium, Blood 3.8 mmol/L (3.5-5.5); Sodium, Blood 137 mmol/L (136-145)
--- NOTE | 2020-02-26 06:55 | NUR ---
SHIFT SUMMARY PT SLEPT T/O MUCH OF NIGHT, NO ACUTE EVENTS NOTED. PAIN MANAGED WITH MEDS PER EMAR, EFFECTIVE. VS REVIEWED, NO ACUTE CHANGES NOTED. PT RESTING COMFORTABLY AT THIS TIME. CALL LIGHT, POSSESSIONS IN REACH, BED IN LOW POSITION WITH ALARMS ON. REPORT GIVEN TO CIRILO ISAACS.
[2020-02-27 05:03] LABS: Hematocrit 28.4 % (33.0-51.0); Hemoglobin 8.9 g/dL (11.5-16.0)
[2020-02-27 05:18] LABS: Albumin, Blood 2.2 g/dL (3.4-5.0); Anion Gap 5 mmol/L (6-16); Blood Urea Nitrogen 24 mg/dL (8-24); Bun/Creatinine Ratio 11.9 (12.0-20.0); CO2, Blood 35 mmol/L (21-32); Calcium, Blood 8.3 mg/dL (8.5-10.1); Chloride, Blood 94 mmol/L (98-108); Creatinine, Blood 2.01 mg/dL (0.40-1.00); Glomerular Filtration Rate 27 (60-); Glucose, Blood 64 mg/dL (70-99); Magnesium, Blood 1.9 mg/dL (1.6-2.4); Phosphorus, Blood 2.6 mg/dL (2.5-4.9); Potassium, Blood 3.8 mmol/L (3.5-5.5); Sodium, Blood 134 mmol/L (136-145)
--- NOTE | 2020-02-27 18:41 | NUR ---
PT DID NOT RECEIVE DIALYSIS TODAY, SHE IS HOPING FOR A BED TO BE AVAILABLE AT [facility] TOMORROW FOR DISCHARGE, DIALYSIS AT [facility] ON FRI/FRI/SAT AT 1535 BEEN ARRANGED FOR HER. NO ACUTE CHANGES NOTED THIS SHIFT, WILL CONTINUE TO MONITOR AND REPORT TO ONCOMING RN
--- NOTE | 2020-02-27 19:20 | NUR ---
ASSUMED CARE RECEIVED REPORT FROM CIRILO ISAACS. ASSUMED CARE OF PT. RESTING COMFORTABLY AT THIS TIME, NO S/S ACUTE DISTRESS NOTED. DENIES NEEDS. CALL LIGHT, POSSESSIONS IN REACH, BED IN LOW POSITION WITH ALARMS ON. TM.
[2020-02-28 05:51] LABS: BASOPHILS ABSOLUTE AUTO 0.07 K/mm3 (0.00-0.23); BASOPHILS PERCENT AUTO 1 % (0-2); EOSINOPHILS ABSOLUTE AUTO 0.99 K/mm3 (0.00-0.68); EOSINOPHILS PERCENT AUTO 7 % (0-6); Hematocrit 27.4 % (33.0-51.0); Hemoglobin 8.6 g/dL (11.5-16.0); IMMATURE GRAN ABSOLUTE AUTO 0.33 K/mm3 (0.00-0.10); IMMATURE GRAN PERCENT AUTO 2 % (0-1); LYMPHOCYTES ABSOLUTE AUTO 1.26 K/mm3 (0.84-5.20); LYMPHOCYTES PERCENT AUTO 9 % (21-46); MONOCYTES ABSOLUTE AUTO 1.66 K/mm3 (0.16-1.47); MONOCYTES PERCENT AUTO 11 % (4-13); Mean Corpuscular HGB 29.1 pg (26.0-34.0); Mean Corpuscular HGB Conc 31.4 g/dL (31.5-36.5); Mean Corpuscular Volume 93 fL (80-100); Mean Platelet Volume 10.3 fL (9.1-12.4); NEUTROPHILS ABSOLUTE AUTO 10.33 K/mm3 (1.96-9.15); NEUTROPHILS PERCENT AUTO 71 % (41-73); Platelet Count 147 K/mm3 (150-400); RDW Coefficient Variation 19.1 % (11.7-14.2); RDW Standard Deviation 64.3 fL (35.1-46.3); Red Blood Cell Count 2.96 M/mm3 (3.80-5.20); White Blood Cell Count 14.64 K/mm3 (4.00-11.30)
[2020-02-28 06:07] LABS: Albumin, Blood 1.8 g/dL (3.4-5.0); Anion Gap 4 mmol/L (6-16); Blood Urea Nitrogen 34 mg/dL (8-24); Bun/Creatinine Ratio 13.1 (12.0-20.0); CO2, Blood 33 mmol/L (21-32); Chloride, Blood 96 mmol/L (98-108); Creatinine, Blood 2.59 mg/dL (0.40-1.00); Glomerular Filtration Rate 20 (60-); Glucose, Blood 66 mg/dL (70-99); Magnesium, Blood 2.2 mg/dL (1.6-2.4); Phosphorus, Blood 3.8 mg/dL (2.5-4.9); Potassium, Blood 3.8 mmol/L (3.5-5.5); Sodium, Blood 133 mmol/L (136-145)
--- NOTE | 2020-02-28 07:20 | NUR ---
SHIFT SUMMARY PT RESTING, NO S/S ACUTE DISTRESS NOTED, WAS MONITORED EVERY 1-2 HOURS WITH NEEDS MET, DENIES NEEDS AT THIS TIME. VS REVIEWED, NO ACUTE CHANGES IN CONDITION NOTED. PAIN MANAGED WITH MEDS PER EMAR, WITH ADEQUATE RELIEF. CALL LIGHT, POSSESSIONS IN REACH, BED IN LOW POSITION WITH ALARMS ON. REPORT GIVEN TO ABIGAIL RN.
--- NOTE | 2020-02-28 09:00 | NUR ---
PT ON DIALYSIS AT 0900
--- NOTE | 2020-02-28 12:00 | NUR ---
PT CAME BACK ON DIALYSIS VSS
[2020-02-28] MEDS ORDERED: BUME2 PO (12:11)
[2020-02-28] MEDS ORDERED: ACET325 PO (12:14)
[2020-02-28] MEDS ORDERED: AMLO5 PO (12:15)
[2020-02-28] MEDS ORDERED: TUMS500 MG PO (12:16)
[2020-02-28] MEDS ORDERED: CLON.1 PO (12:17)
[2020-02-28] MEDS ORDERED: CUBICIN500 MG IV (12:21)
[2020-02-28] MEDS ORDERED: MEROPENEM IV (12:22)
[2020-02-28] MEDS ORDERED: SEVEC800 PO (12:23)
[2020-02-28] MEDS ORDERED: OXYC5 PO (12:23)
[2020-02-28] MEDS ORDERED: VISBIOME PROBIOTIC PO (12:24)
--- NOTE | 2020-02-28 12:27 | NUR ---
Met pt. lying in bed and is on dialysis , doing much better prayed for pt. and gave spiritual support.
--- NOTE | 2020-02-28 15:29 | NUR ---
Spiritual care visit conducted. Patient immediately talks about the recent of her and how she feels him with her in little ways and encouraging her to keep going and not lose hope. Patient tells me that she has good news in that she will be possibly going home tomorrow instead of having to go to a rehab. center. She says that she is getting stronger the more she walks although she fears the longer walks to the bank and store after she will DC. I encourage self-care, and provide grief support, pastoral financial services counselor and prayer. Patient responds well and displays evidence of being encouraged. I will continue to remain available to patient and family.
[2020-02-29] MEDS ORDERED: Bentyl10 MG PO (20:50)
--- NOTE | 2020-03-01 04:09 | NUR ---
REVIEWED INFORMATION R/T CURRENT ADMISSION
== END 2020-02-28 18:53 | disposition home health service (06) | DRG 871 ==
LOC: ER 14:00 → MEDS 14:01 → ENPENDDIS 02-28 12:16 → MEDS 02-28 13:31
PROVIDERS: Emergency Medicine; Internal Medicine; Internal Medicine Nephrology; Pharmacist; ADMIT Internal Medicine
PROC: 30233N1 Transfusion of Nonautologous Red Blood Cells into Peripheral Vein, Percutaneous Approach (ICD-10-PCS; principal; 2020-02-02)
PROC: 0JH63XZ Insertion of Tunneled Vascular Access Device into Chest Subcutaneous Tissue and Fascia, Percutaneous Approach (ICD-10-PCS; 2020-02-17)
PROC: 02HV33Z Insertion of Infusion Device into Superior Vena Cava, Percutaneous Approach (ICD-10-PCS; 2020-02-17)
PROC: 5A1D70Z Performance of Urinary Filtration, Intermittent, Less than 6 Hours Per Day (ICD-10-PCS; 2020-02-21)
PROC: 5A1D70Z Performance of Urinary Filtration, Intermittent, Less than 6 Hours Per Day (ICD-10-PCS; 2020-02-22)
PROC: 5A1D70Z Performance of Urinary Filtration, Intermittent, Less than 6 Hours Per Day (ICD-10-PCS; 2020-02-23)
PROC: 5A1D70Z Performance of Urinary Filtration, Intermittent, Less than 6 Hours Per Day (ICD-10-PCS; 2020-02-25)
PROC: 5A1D70Z Performance of Urinary Filtration, Intermittent, Less than 6 Hours Per Day (ICD-10-PCS; 2020-02-26)
PROC: 5A1D70Z Performance of Urinary Filtration, Intermittent, Less than 6 Hours Per Day (ICD-10-PCS; 2020-02-28)
DX: A41.02 Sepsis due to Methicillin resistant Staphylococcus aureus (principal); J18.9 Pneumonia, unspecified organism; N17.0 Acute kidney failure with tubular necrosis; E87.0 Hyperosmolality and hypernatremia; J98.11 Atelectasis; N39.0 Urinary tract infection, site not specified; E87.1 Hypo-osmolality and hyponatremia; J44.0 Chronic obstructive pulmonary disease with (acute) lower respiratory infection; Z51.5 Encounter for palliative care; R65.20 Severe sepsis without septic shock; K70.30 Alcoholic cirrhosis of liver without ascites; Z20.828 Contact with and (suspected) exposure to other viral communicable diseases; D63.8 Anemia in other chronic diseases classified elsewhere; N18.30 Chronic kidney disease, stage 3 unspecified; K72.90 Hepatic failure, unspecified without coma; B18.2 Chronic viral hepatitis C; I10 Essential (primary) hypertension; F25.1 Schizoaffective disorder, depressive type; G89.4 Chronic pain syndrome; S62.102D Fracture of unspecified carpal bone, left wrist, subsequent encounter for fracture with routine healing; E87.6 Hypokalemia; E83.39 Other disorders of phosphorus metabolism; E88.09 Other disorders of plasma-protein metabolism, not elsewhere classified
CPT/HCPCS: 36415; 36430; 36558; 36569; 70450; 71045; 72156; 72157; 72158; 73100; 76705; 76770; 76937; 77001; 80048; 80053; 80069; 80074; 80202; 81001; 82140; 82550; 82803; 83605; 83735; 83880; 84100; 84132; 84145; 84295; 85014; 85018; 85025; 85027; 85651; 86317; 86704; 86850; 86900; 86901; 86923; 87040; 87077; 87086; 87147; 87186; 87340; 87493; 93005; 93010; 93306; 96374-59; 97110; 97116; 97161; 97530; 99152; 99291-25; A9270; A9270-GY; A9579; C1750; C1751; C1769; C1894; C9113; G0480; J0610; J0878; J0881; J1644; J1815; J1940; J1956; J2185; J2250; J2310; J2405; J2930; J3010; J3370; J3480; J7030; J7040; J7050; J7070; J7120; P9016; P9046; P9612; Q0163; U0003

== ENCOUNTER 2020-02-29 19:13 | Inpatient (IN) | payer OTHER ==
[~2020-02-29] VITALS: Ht 157.5 cm; Wt 77.4 kg
[~2020-02-29 19:13] MED LIST changes: +ACET325 PO; +AMLO5 PO; +CLON.1 PO; +CUBICIN500 MG IV; +MEROPENEM IV; +Methocarbamol500 MG PO; +OMEP20ER PO; +SEVEC800 PO; +TUMS500 MG PO; +VISBIOME PROBIOTIC PO
[2020-02-29 20:38] LABS: BASOPHILS ABSOLUTE AUTO 0.08 K/mm3 (0.00-0.23); BASOPHILS PERCENT AUTO 1 % (0-2); EOSINOPHILS ABSOLUTE AUTO 0.52 K/mm3 (0.00-0.68); EOSINOPHILS PERCENT AUTO 4 % (0-6); Hematocrit 30.3 % (33.0-51.0); Hemoglobin 9.6 g/dL (11.5-16.0); IMMATURE GRAN ABSOLUTE AUTO 0.16 K/mm3 (0.00-0.10); IMMATURE GRAN PERCENT AUTO 1 % (0-1); LYMPHOCYTES PERCENT AUTO 12 % (21-46); MONOCYTES ABSOLUTE AUTO 2.77 K/mm3 (0.16-1.47); MONOCYTES PERCENT AUTO 19 % (4-13); Mean Corpuscular HGB 28.9 pg (26.0-34.0); Mean Corpuscular HGB Conc 31.7 g/dL (31.5-36.5); Mean Corpuscular Volume 91 fL (80-100); NEUTROPHILS ABSOLUTE AUTO 9.22 K/mm3 (1.96-9.15); NEUTROPHILS PERCENT AUTO 63 % (41-73); Platelet Count 209 K/mm3 (150-400); RDW Coefficient Variation 18.6 % (11.7-14.2); RDW Standard Deviation 62.5 fL (35.1-46.3); Red Blood Cell Count 3.32 M/mm3 (3.80-5.20); White Blood Cell Count 14.55 K/mm3 (4.00-11.30)
[2020-02-29] MEDS ORDERED: Bentyl10 MG PO (20:50)
[2020-02-29 20:51] LABS: Albumin, Blood 2.3 g/dL (3.4-5.0); Albumin/Globulin Ratio 0.5 (0.8-1.8); Bilirubin, Total 1.5 mg/dL (0.1-1.0); Bun/Creatinine Ratio 7.8 (12.0-20.0); Calcium, Blood 8.4 mg/dL (8.5-10.1); Creatinine, Blood 1.03 mg/dL (0.40-1.00); Globulin, Blood 4.2 g/dL (2.2-4.0); Potassium, Blood 3.3 mmol/L (3.5-5.5); Total Protein, Blood 6.5 g/dL (6.4-8.2)
--- NOTE | 2020-03-01 02:57 | NUR ---
Transfer report from Esperance HOSE BUILDER on PT just DC yesterday to home & reported had weakness after 5 hour dialysis & called EMS because she couldn't climb 3 fights of stairs to get to her apartment. PT has chronic GI bleed, MRSA, ESBL, VRE, cirrhosis, falls, encephalopathy, schitzophrenia, depression, fractures from falls of ankle & arm, closed head injury,UTI, chronic bacteriuria, anemia. Multiple medical problems being admitted OBS status. Full code. Await admission Will be in contact nteric precautions GI panel with CDIFF rule out RX.
[2020-03-01 05:08] LABS: BASOPHILS ABSOLUTE AUTO 0.08 K/mm3 (0.00-0.23); BASOPHILS PERCENT AUTO 1 % (0-2); EOSINOPHILS ABSOLUTE AUTO 0.65 K/mm3 (0.00-0.68); EOSINOPHILS PERCENT AUTO 6 % (0-6); Hematocrit 27.8 % (33.0-51.0); Hemoglobin 8.8 g/dL (11.5-16.0); IMMATURE GRAN ABSOLUTE AUTO 0.11 K/mm3 (0.00-0.10); IMMATURE GRAN PERCENT AUTO 1 % (0-1); LYMPHOCYTES ABSOLUTE AUTO 1.24 K/mm3 (0.84-5.20); LYMPHOCYTES PERCENT AUTO 11 % (21-46); MONOCYTES ABSOLUTE AUTO 1.71 K/mm3 (0.16-1.47); MONOCYTES PERCENT AUTO 15 % (4-13); Mean Corpuscular HGB 29.2 pg (26.0-34.0); Mean Corpuscular HGB Conc 31.7 g/dL (31.5-36.5); Mean Corpuscular Volume 92 fL (80-100); Mean Platelet Volume 10.1 fL (9.1-12.4); NEUTROPHILS PERCENT AUTO 68 % (41-73); Platelet Count 201 K/mm3 (150-400); Red Blood Cell Count 3.01 M/mm3 (3.80-5.20); White Blood Cell Count 11.69 K/mm3 (4.00-11.30)
[2020-03-01 05:24] LABS: Bun/Creatinine Ratio 8.8 (12.0-20.0); Calcium, Blood 8.1 mg/dL (8.5-10.1); Creatinine, Blood 1.37 mg/dL (0.40-1.00); Potassium, Blood 3.2 mmol/L (3.5-5.5)
--- NOTE | 2020-03-01 07:15 | NUR ---
54 YEAR OLD FEMALE WITH MULTIPLE MEDICAL PROBLEMS INCLUDING DIALYSIS & mrsa VRE FALLS WITH FRACTURES, CIRRHOSIS, GI BLEED, HEP C, SCHITZOPHRENIA dEPRESSION ENCEPHALOPATHY. pt JUST DC YESTERDAY UNABLE TO FILL DC RX DUE TO COST. hAD OUTPT IV THERAPY SEP UP FOR SHORT TERM IV ANTIBIOTIC TO TREAT vre, mrsa, OUTPT DIALYSIS YESTERDAY, TOO WEAK AFTER DIALYSIS TO CLIMB 3 SETS OF STAIRS TO APARTMENT. ON LACTULOSE NO STOOL FOR COLLECTION GI PANEL RULE OUT cdIFF. CONFUSED HIGH FALL RISK. CONTINUE TO ASSESS.
--- NOTE | 2020-03-01 14:00 | NUR ---
Patient is sitting up in bed and alert. Patient immediately gets tearful when I enter and tells me that she feels like she failed. She talks about how sweet her children were when she was home and how good it was to be out of the hospital and with her family. Patient explains about how hard the struggle was to manage without having the physical strength or endurace. We talk about the courage it took to make a run at it and about what the blessings were from being home even if it was just for one night. I listen empathically, reinforce helpful attitudes and provide pastoral certified rehabilitation counselor and prayer. Patient responds well and shows signs of being encouraged. I will continue to remain available to patient and family.
--- NOTE | 2020-03-01 16:47 | NUR ---
Patient is pleasant and cooperative with staff. Continues on IV abx and protonix drip per emar without s/sx of adverse reactions noted or reported. Vitals have been stable and WNL. Patient has been tired and sleeping the majority of the shift. Calls for staff assist apporpriately. PICC line dressing changed. Dr Smith just consulted with patient; patient to be NPO at midnight in prep for a GI scope. Patient continues to sleep in bed at this time. will continue to monitor and provide care as needed.
[2020-03-01 18:57] LABS: Influenza A, PCR Negative (NEGATIVE); Influenza B, PCR Negative (NEGATIVE); Resp Syncytial Virus, PCR Negative (NEGATIVE); SARS-Cov-2 (COVID-19) PCR, MMC Negative (NEGATIVE)
--- NOTE | 2020-03-02 06:51 | NUR ---
SALVAGE SUPERVISOR SUMMARY PT A/O X4. PLEASANT AND COOPERATIVE. VSS. MEDICATED ONCE FOR INSOMINIA AND PAIN. CONT. PROTONIX DRIP RUNNING. PT STATES SHE DID NOT HAVE A BM OVERNIGHT. NPO SINCE MIDNIGHT PER ORDER. NO ACUTE CHANGES. BED ALARM ON, CALL LIGHT WITHIN REACH. WILL GIVE REPORT TO ONCOMING RN.
[2020-03-02 08:02] LABS: Hematocrit 26.9 % (33.0-51.0); Hemoglobin 8.5 g/dL (11.5-16.0); Mean Corpuscular HGB Conc 31.6 g/dL (31.5-36.5); Mean Corpuscular Volume 92 fL (80-100); Mean Platelet Volume 9.8 fL (9.1-12.4); Platelet Count 208 K/mm3 (150-400); RDW Coefficient Variation 18.7 % (11.7-14.2); RDW Standard Deviation 63.2 fL (35.1-46.3); Red Blood Cell Count 2.93 M/mm3 (3.80-5.20); White Blood Cell Count 13.43 K/mm3 (4.00-11.30)
[2020-03-02 08:19] LABS: Bun/Creatinine Ratio 8.8 (12.0-20.0); Calcium, Blood 7.9 mg/dL (8.5-10.1); Creatinine, Blood 1.94 mg/dL (0.40-1.00); Potassium, Blood 3.3 mmol/L (3.5-5.5)
[2020-03-02 10:13] LABS: Stool Occult Blood Guaiac 1 Pos (Neg)
--- NOTE | 2020-03-02 17:49 | NUR ---
Patient confirms NPO status and agrees with scheduled surgery. Pre-Op teaching done. Pt verbalizes understanding.
--- NOTE | 2020-03-02 18:13 | NUR ---
03/02/20 1813 Sandor Stern See Anesthesia record. O2 VIA N/C INTACT THROUGHOUT SEDATION/PROCEDURE.MONITOR INTACT WITH CONTINUOUS PULSE OXIMETRY AND INTERMITTENT BP.
--- NOTE | 2020-03-02 18:43 | NUR ---
SHIFT SUMMARY PT AxOx4. PLEASANT AND COOPERATIVE WITH CARE TODAY. C/O R SHOULDER AND L WRIST PAIN. MEDICATED PER EMAR. WORKED WITH PT AND OT TODAY. SBA. CASE MANAGEMENT REINFORCED NEED FOR THERAPY COOPERATION FOR PLACEMENT. PT INFORMED. PLAN IS PENDING SNF PLACEMENT. NO DIALYSIS TODAY. PER CATH DRESSING C/D/I. PT NPO TODAY WAITING FOR EGD. DAY SURG PICKED UP PATIENT AFTER 1700. VITALS REVIEWED. PT STILL IN DAY SURGERY AT THIS TIME. WILL RELAY INFO TO DIE FINISHER FORGING.
--- NOTE | 2020-03-02 19:00 | NUR ---
PT RETURNED TO MEDICAL FLOOR FROM DAY SURGERY BY CIRILO MULLIGAN APPROX 1900. PT STABLE. REQUESTING PAIN MEDS. POST OP VITALS INITIATED. PROCEDURE REPORT RELAYED TO NIGHT NURSEPILY.
[2020-03-02 22:07] LABS: ADENOVIRUS F 40/41 Not Detected (Not Detected); ASTROVIRUS Not Detected (Not Detected); C DIFFICILE TOXIN A/B Not Detected (Not Detected); CAMPYLOBACTER Not Detected (Not Detected); CRYPTOSPORIDIUM Not Detected (Not Detected); CYCLOSPORA CAYETANENSIS Not Detected (Not Detected); ENTAMOEBA HISTOLYTICA Not Detected (Not Detected); ENTEROAGGREGATIVE E COLI Not Detected (Not Detected); ENTEROPATHOGENIC E COLI Not Detected (Not Detected); ENTEROTOXIGENIC E COLI Not Detected (Not Detected); GIARDIA LAMBLIA Not Detected (Not Detected); NOROVIRUS GI/GII Not Detected (Not Detected); PLESIOMONAS SHIGELLOIDES Not Detected (Not Detected); ROTAVIRUS A Not Detected (Not Detected); SALMONELLA Not Detected (Not Detected); SAPOVIRUS Not Detected (Not Detected); SHIGA-TOXIN-PRODUCING E COLI Not Detected (Not Detected); SHIGELLA/ENTEROINVASIVE E COLI Not Detected (Not Detected); VIBRIO Not Detected (Not Detected); VIBRIO CHOLERAE Not Detected (Not Detected); YERSINIA ENTEROCOLITICA Not Detected (Not Detected)
--- NOTE | 2020-03-03 04:43 | NUR ---
PT A/O X4, PLEASANT AND COOPERATIVE. PT STATES HER PAIN TOLERABLE. SLEPT WELL TONIGHT. VSS. ABLE TO TOLERATE CLEAR LIQUIDS WELL. STAFF NOTICIED BOWEL MOVEMENT IN TOLIET IN BATHROOM. PER PT SHE HAD THE STOOL IN THE DAY TIME BEFORE HER EGD PROCEDURE. SMALL BLACK AND TARRY. PT TRANSFERRED TO ROOM 328 AT 0420. REPORT GIVEN TO ISAMAR Tobias RN WHO WILL ASSUME PT CARE.
--- NOTE | 2020-03-03 04:48 | NUR ---
TRANSFER NOTE PT TRANSFERED FROM SCU TO ROOM 328. HANDOFF RECEIVED FROM NURSE CORTÉS. PERSONAL POSSESSIONS WITH PT. PT ORIENTED TO ROOM. CALL LIGHT WITHIN REACH
--- NOTE | 2020-03-03 05:13 | NUR ---
SHIFT SUMMARY ADMITTED FOR MELENA. FULL CODE. PT TRANSFERED FROM SCU TO ROOM 328 AT THE END OF THIS SHIFT. UNDERWENT EGD 03/02. FOUND TO HAVE G.A.V.E[facility] DIEULAFOY'S LESION - REPAIRS MADE. AWAITING MORNING LABS. RT PERMACATH IN PLACE. ADVANCE DIET TOLERATED. WORK WITH PT/OT TO REGAIN STRENGTH. RECOMMENDATIONS; SUPPLEMENTAL IRON, PPI BID, ANTIB RX FOR [address] DAIGLE AND DR FISHER ARE CONSULTS. ESRD. HOME MEDS ARE NOT COMPLETELY ENTERED IN EMAR - HOSPITALIST AWARE
[2020-03-03 05:40] LABS: Hematocrit 26.4 % (33.0-51.0); Hemoglobin 8.3 g/dL (11.5-16.0)
[2020-03-03 06:17] LABS: Anion Gap 6 mmol/L (6-16); Blood Urea Nitrogen 22 mg/dL (8-24); Bun/Creatinine Ratio 9.7 (12.0-20.0); CO2, Blood 30 mmol/L (21-32); Calcium, Blood 7.7 mg/dL (8.5-10.1); Chloride, Blood 99 mmol/L (98-108); Creatinine, Blood 2.26 mg/dL (0.40-1.00); Glomerular Filtration Rate 24 (60-); Glucose, Blood 64 mg/dL (70-99); Magnesium, Blood 1.8 mg/dL (1.6-2.4); Phosphorus, Blood 4.6 mg/dL (2.5-4.9); Potassium, Blood 3.9 mmol/L (3.5-5.5); Sodium, Blood 135 mmol/L (136-145)
--- NOTE | 2020-03-03 18:51 | NUR ---
very cooperative if talked to nicely, mediated as prescribed, no bleeding, eating well and sitting up in bed watching tv, able to use call light and make needs known, will continue to monitor and treat until share report with noc nurse
--- NOTE | 2020-03-04 03:12 | NUR ---
SHIFT SUMMARY HAS BEEN RESTING QUIETLY WITH FEW INTERRUPTIONS THIS SHIFT. CALL LIGHT IN REACH. NO NOTED ACUTE DISTRESS
[2020-03-04 05:58] LABS: Hematocrit 24.3 % (33.0-51.0); Hemoglobin 8.1 g/dL (11.5-16.0)
[2020-03-04 06:14] LABS: Bun/Creatinine Ratio 10.2 (12.0-20.0); Calcium, Blood 7.4 mg/dL (8.5-10.1); Creatinine, Blood 2.46 mg/dL (0.40-1.00); Potassium, Blood 4.1 mmol/L (3.5-5.5)
--- NOTE | 2020-03-04 10:00 | NUR ---
ROUNDING: DR FISHER IN TO SEE PATIENT. PLAN FOR DIALYSIS TOMORROW.
--- NOTE | 2020-03-04 18:23 | NUR ---
PT HAS BEEN STABLE THIS SHIFT. COOPERATIVE TO CARE. PAIN MANAGED WITH PRN MEDS. PT OOB WITH MIN ASSIST. PT VOIDS RARELY. PLAN FOR DIALYSIS TOMORROW. TOLERATING CLEAR DIET. NO STOOLS THIS SHIFT. PT HAD BATH AND NYSTATIN PLACED TO YEAST IN GROIN. AM LABS ORDERED. PT CALLS APPROPRIATELY NEEDED.
--- NOTE | 2020-03-05 05:13 | NUR ---
SHIFT SUMMARY- PT. A&O, PLEASANT, AND COOPERATIVE WITH CARE. CALLS APPROPRIATELY. MEDICATED THIS SHIFT X2 FOR C/O BACK, SHOULDER, AND LT WRIST PAIN. PT. REPORTED GOOD EFFECT. ASLEEP T/O MOST OF THE NIGHT, NO APPARENT DISTRESS NOTED. PT. UP TO BSC W/MINIMAL ASSIST, TOLERATED WELL. NO OTHER NEEDS DURING THE NIGHT. CALL LIGHT WITHIN REACH AND SIDE RAILS UP X2. WILL CONT TO MONITOR.
[2020-03-05 05:34] LABS: BASOPHILS ABSOLUTE AUTO 0.04 K/mm3 (0.00-0.23); BASOPHILS PERCENT AUTO 0 % (0-2); EOSINOPHILS ABSOLUTE AUTO 0.72 K/mm3 (0.00-0.68); EOSINOPHILS PERCENT AUTO 7 % (0-6); Hematocrit 26.6 % (33.0-51.0); Hemoglobin 8.4 g/dL (11.5-16.0); IMMATURE GRAN ABSOLUTE AUTO 0.09 K/mm3 (0.00-0.10); IMMATURE GRAN PERCENT AUTO 1 % (0-1); LYMPHOCYTES ABSOLUTE AUTO 1.15 K/mm3 (0.84-5.20); LYMPHOCYTES PERCENT AUTO 11 % (21-46); MONOCYTES ABSOLUTE AUTO 1.92 K/mm3 (0.16-1.47); MONOCYTES PERCENT AUTO 18 % (4-13); Mean Corpuscular HGB 28.9 pg (26.0-34.0); Mean Corpuscular HGB Conc 31.6 g/dL (31.5-36.5); Mean Corpuscular Volume 91 fL (80-100); Mean Platelet Volume 10.4 fL (9.1-12.4); NEUTROPHILS ABSOLUTE AUTO 6.82 K/mm3 (1.96-9.15); NEUTROPHILS PERCENT AUTO 64 % (41-73); Platelet Count 241 K/mm3 (150-400); RDW Coefficient Variation 17.7 % (11.7-14.2); Red Blood Cell Count 2.91 M/mm3 (3.80-5.20); White Blood Cell Count 10.74 K/mm3 (4.00-11.30)
[2020-03-05 05:54] LABS: Albumin, Blood 1.8 g/dL (3.4-5.0); Albumin/Globulin Ratio 0.5 (0.8-1.8); Bilirubin, Total 0.9 mg/dL (0.1-1.0); Bun/Creatinine Ratio 11.2 (12.0-20.0); Calcium, Blood 7.6 mg/dL (8.5-10.1); Creatinine, Blood 2.5 mg/dL (0.40-1.00); Globulin, Blood 3.9 g/dL (2.2-4.0); Magnesium, Blood 1.6 mg/dL (1.6-2.4); Potassium, Blood 3.4 mmol/L (3.5-5.5); Total Protein, Blood 5.7 g/dL (6.4-8.2)
--- NOTE | 2020-03-05 14:44 | NUR ---
PATIENT HAD DIALYSIS THIS MORNING. NO NEW COMPLAINTS TODAY. SHE GETS UP TO THE BSC. TOLERATING CLEAR LIQUID DIET. BROWN, LOOSE BM TODAY. WILL CONTINUE TO MONITOR
--- NOTE | 2020-03-05 17:57 | NUR ---
PATIENT IS ALERT AND ORIENTED AND COOPERATIVE WITH CARE. SHE HAD DIALYSIS TODAY. SHE IS 1PA UP TO THE BSC. MEDICATED FOR PAIN THIS AFTERNOON. VSS. WILL CONTINUE TO MONITOR
--- NOTE | 2020-03-06 04:01 | NUR ---
SHIFT SUMMARY- PT. HAD A RESTFUL NIGHT. NO APPARENT DISTRESS NOTED. MEDICATED FOR PAIN X1 THIS SHIFT WITH GOOD EFFECT. PT. HAD MEDIUM AMOUNT OF LOOSE BM LAST NIGHT, NO BLOOD NOTED IN STOOL. REPOSITIONED IN BED FOR COMFORT AND PRN. VSS. PT. APPEARS TO BE RESTING COMFORTABLY IN BED. CALL LIGHT WITHIN REACH AND SIDE RAILS UPX2. WILL CONT TO MONITOR.
[2020-03-06 05:33] LABS: Hematocrit 23.9 % (33.0-51.0); Hemoglobin 7.5 g/dL (11.5-16.0)
[2020-03-06 05:49] LABS: Albumin, Blood 1.7 g/dL (3.4-5.0); Anion Gap 5 mmol/L (6-16); Blood Urea Nitrogen 15 mg/dL (8-24); Bun/Creatinine Ratio 7.4 (12.0-20.0); CO2, Blood 31 mmol/L (21-32); Calcium, Blood 7.7 mg/dL (8.5-10.1); Chloride, Blood 100 mmol/L (98-108); Creatinine, Blood 2.04 mg/dL (0.40-1.00); Glomerular Filtration Rate 27 (60-); Glucose, Blood 70 mg/dL (70-99); Magnesium, Blood 1.5 mg/dL (1.6-2.4); Phosphorus, Blood 3.5 mg/dL (2.5-4.9); Potassium, Blood 3.7 mmol/L (3.5-5.5); Sodium, Blood 136 mmol/L (136-145)
--- NOTE | 2020-03-06 11:11 | NUR ---
Pt. is in bed resting reports to be doing much better today encouraged pt. and prayed for her.
--- NOTE | 2020-03-06 18:10 | NUR ---
PATIENT IS ALERT AN DORIENTED AND COOPERATIVE WITH CARE. STARTED A RENAL DIET TODAY. COMPLAINS OF PAIN IN HER RIGHT SHOULDER, LIDOCAINE PATCH IS IN PLACE. COMPLAINS OF PAIN IN BACK AND LEFT WRIST, TREATED PER EMAR. PATIENT IS UP TO THE BSC WITH MINIMAL ASSIST. LOOSE STOOL. NO DIALYSIS TODAY. PATIENT WORKED WITH PT TODAY AND GOT UP THE RECLINER THIS AFTERNOON. WILL CONTINUE TO MONITOR.
--- NOTE | 2020-03-06 21:19 | NUR ---
HOSPITALIST DR. PEDERSEN SAYS ORDER TO HOLD MINIPRESS TONIGHT.
[2020-03-06 22:35] LABS: BASOPHILS ABSOLUTE AUTO 0.03 K/mm3 (0.00-0.23); BASOPHILS PERCENT AUTO 0 % (0-2); EOSINOPHILS ABSOLUTE AUTO 0.53 K/mm3 (0.00-0.68); EOSINOPHILS PERCENT AUTO 5 % (0-6); Hematocrit 24.7 % (33.0-51.0); Hemoglobin 7.7 g/dL (11.5-16.0); IMMATURE GRAN ABSOLUTE AUTO 0.06 K/mm3 (0.00-0.10); IMMATURE GRAN PERCENT AUTO 1 % (0-1); LYMPHOCYTES ABSOLUTE AUTO 1.26 K/mm3 (0.84-5.20); LYMPHOCYTES PERCENT AUTO 12 % (21-46); MONOCYTES ABSOLUTE AUTO 2.45 K/mm3 (0.16-1.47); MONOCYTES PERCENT AUTO 24 % (4-13); Mean Corpuscular HGB 28.6 pg (26.0-34.0); Mean Corpuscular HGB Conc 31.2 g/dL (31.5-36.5); Mean Corpuscular Volume 92 fL (80-100); Mean Platelet Volume 10.6 fL (9.1-12.4); NEUTROPHILS ABSOLUTE AUTO 6.05 K/mm3 (1.96-9.15); NEUTROPHILS PERCENT AUTO 58 % (41-73); Platelet Count 255 K/mm3 (150-400); RDW Coefficient Variation 17.9 % (11.7-14.2); RDW Standard Deviation 59.9 fL (35.1-46.3); Red Blood Cell Count 2.69 M/mm3 (3.80-5.20); White Blood Cell Count 10.38 K/mm3 (4.00-11.30)
--- NOTE | 2020-03-07 03:50 | NUR ---
MOTION PICTURE EQUIPMENT MACHINIST SUMMARY PT A/O X4. MEDICATED ONCE FOR PAIN OVERNIGHT. VSS. PT HAS NOT HAD A BM TONIGHT. VSS. CALLS APPROPRIATELY. NO ACUTE CHANGES. BED ALARM IN PLACE, CALL LIGHT WITHIN REACH.
[2020-03-07 06:22] LABS: Albumin, Blood 1.7 g/dL (3.4-5.0); Anion Gap 4 mmol/L (6-16); Blood Urea Nitrogen 20 mg/dL (8-24); Bun/Creatinine Ratio 7.7 (12.0-20.0); CO2, Blood 31 mmol/L (21-32); Calcium, Blood 7.6 mg/dL (8.5-10.1); Chloride, Blood 100 mmol/L (98-108); Glomerular Filtration Rate 20 (60-); Glucose, Blood 79 mg/dL (70-99); Magnesium, Blood 1.8 mg/dL (1.6-2.4); Phosphorus, Blood 3.6 mg/dL (2.5-4.9); Potassium, Blood 3.3 mmol/L (3.5-5.5); Sodium, Blood 135 mmol/L (136-145)
--- NOTE | 2020-03-07 15:14 | NUR ---
Pt.is doing much better encouraged pt and prayed for her.
--- NOTE | 2020-03-07 17:53 | NUR ---
SHIFT SUMMARY PT HAD DIALYSIS THIS AM. MEDICATED FOR PAIN X2 PER EMAR. PT UP WITH STAND-BY ASSIST. PT HAS HAD A GOOD APPETITE THIS SHIFT. NO ACUTE CHANGES. WAITING FOR PLACEMENT. CALL LIGHT IN REACH WILL CONTINUE TO MONITOR AND REPORT TO ONCOMING RN.
[2020-03-08 05:24] LABS: Hematocrit 24.7 % (33.0-51.0); Hemoglobin 7.7 g/dL (11.5-16.0)
--- NOTE | 2020-03-08 05:50 | NUR ---
SHIFT SUMMARY- NO ACUTE EVENTS OVERNIGHT. PT. MEDICATED FOR RT SHOULDER AND LT WRIST PAIN PER EMAR. REPORTED GOOD RELIEF. ASLEEP T/O THE NIGHT, NO APPARENT DISTRESS NOTED. VSS. CALL LIGHT WITHIN REACH AND SIDE RAILS UPX2. WILL CONT TO MONITOR.
[2020-03-08 05:57] LABS: Albumin, Blood 1.7 g/dL (3.4-5.0); Anion Gap 5 mmol/L (6-16); Blood Urea Nitrogen 13 mg/dL (8-24); Bun/Creatinine Ratio 6.8 (12.0-20.0); CO2, Blood 32 mmol/L (21-32); Calcium, Blood 7.9 mg/dL (8.5-10.1); Chloride, Blood 100 mmol/L (98-108); Glomerular Filtration Rate 29 (60-); Glucose, Blood 95 mg/dL (70-99); Magnesium, Blood 1.8 mg/dL (1.6-2.4); Phosphorus, Blood 2.8 mg/dL (2.5-4.9); Potassium, Blood 3.5 mmol/L (3.5-5.5); Sodium, Blood 137 mmol/L (136-145)
--- NOTE | 2020-03-08 19:09 | NUR ---
SHIFT SUMMARY PT DENIES N/V, SOB. PT MEDICATED FOR PAIN X1 THIS SHIFT PER EMAR. PT HAD SON VISIT THIS EVENING. PT UP FOR MEALS. PT IS IN BED, CALL LIGHT IN REACH, BED IN LOW POSITION.
[2020-03-09 04:57] LABS: Hematocrit 23.7 % (33.0-51.0); Hemoglobin 7.5 g/dL (11.5-16.0)
[2020-03-09 05:23] LABS: Albumin, Blood 1.7 g/dL (3.4-5.0); Anion Gap 5 mmol/L (6-16); Blood Urea Nitrogen 17 mg/dL (8-24); CO2, Blood 31 mmol/L (21-32); Calcium, Blood 7.9 mg/dL (8.5-10.1); Chloride, Blood 101 mmol/L (98-108); Creatinine, Blood 2.13 mg/dL (0.40-1.00); Glomerular Filtration Rate 25 (60-); Glucose, Blood 72 mg/dL (70-99); Magnesium, Blood 1.6 mg/dL (1.6-2.4); Phosphorus, Blood 3.4 mg/dL (2.5-4.9); Potassium, Blood 3.4 mmol/L (3.5-5.5); Sodium, Blood 137 mmol/L (136-145)
--- NOTE | 2020-03-09 06:30 | NUR ---
SHIFT SUMMARY- NO ACUTE EVENTS OVERNIGHT. PT. RESTED QUIETLY T/O THE NIGHT, NO APPARENT DISTRESS NOTED. MEDICATED 2X FOR RT SHOULDER PAIN PER EMAR, PT. REPORTED GOOD RELIEF. NO OTHER C/O THIS SHIFT. CALL LIGHT WITHIN REACH AND SIDE RAILS UPX2. WILL CONT TO MONITOR.
--- NOTE | 2020-03-09 16:03 | NUR ---
PATIENT HAS BEEN PLEASANT AND COOPERATIVE WITH STAFF. IV IRON ADMINISTERED PER EMAR WITHOUT S/SX OF INFECTION. VITALS STABLE AND WNL. PATIENT CALLS APPROPRIATE FOR STAFF ASSIST NEEDED. NO ACUTE CHANGES TO REPORT OF AT THIS TIME. WILL CONTINUE TO MONITOR AND PROVIDE CARE NEEDED,
--- NOTE | 2020-03-10 05:09 | NUR ---
SHIFT SUMMARY NO ACUTE CHANGES TO REPORT THIS SHIFT. PT HAS RESTED WELL T/O THE NIGHT. SHE HAS DENIED NEEDS MOST OF THE NIGHT. A/OX4, MAKES NEEDS KNOWN. AMBULATES WELL TO THE BATHROOM WITH 1 PA. MEDICATED X1 FOR PAIN WITH AFFECT. ASSESSMENT HAS REMAINED UNCHANGED. BED IN LOWEST POSITION, CALL LIGHT WITHIN REACH.
[2020-03-10 05:58] LABS: Hematocrit 21.8 % (33.0-51.0); Hemoglobin 6.9 g/dL (11.5-16.0)
[2020-03-10 06:23] LABS: Albumin, Blood 1.6 g/dL (3.4-5.0); Anion Gap 4 mmol/L (6-16); Blood Urea Nitrogen 20 mg/dL (8-24); Bun/Creatinine Ratio 7.9 (12.0-20.0); CO2, Blood 30 mmol/L (21-32); Calcium, Blood 7.6 mg/dL (8.5-10.1); Chloride, Blood 104 mmol/L (98-108); Creatinine, Blood 2.54 mg/dL (0.40-1.00); Glomerular Filtration Rate 21 (60-); Glucose, Blood 97 mg/dL (70-99); Magnesium, Blood 1.5 mg/dL (1.6-2.4); Phosphorus, Blood 3.9 mg/dL (2.5-4.9); Potassium, Blood 3.6 mmol/L (3.5-5.5); Sodium, Blood 138 mmol/L (136-145)
--- NOTE | 2020-03-10 06:23 | NUR ---
HGB PT HGB 6.9, DR. FISHER CALLED AND NOTIFIED. 1 UNIT OF PRBC'S TO BE GIVEN WITH DIALYSIS.
--- NOTE | 2020-03-10 09:00 | NUR ---
PT IN DIALYSIS
--- NOTE | 2020-03-10 12:00 | NUR ---
PT NOW BACK IN THE ROOM AFTER DIALYSIS
--- NOTE | 2020-03-10 17:38 | NUR ---
SHIFT SUMMARY PT ALERT ORIENTED, AND CALLS APPROPRIATELY. PT HAD DIALYSIS THIS AM AND TRANSFUSED 1 UNIT OF BLOOD. PT C/O GENERALIZED PAIN; MEDICATED PER EMAR. PT ON RA. PT VERY EDEMATOUS ON HER BILATERAL UPPER EXTREMITIESS AND BLE; ENCOURAGE TO ELEVATE THE SITE; DIURETICS WAS GIVEN LATER IN THE AFTERNOON; AND DR GAVIRIA. HELD THE DIURETICS FOR AM DUE TO LOW BP BEFORE DIALYSIS. BED IS IN THE LOWEST POSITION AND CALL LIGHTS WITHIN REACH.
--- NOTE | 2020-03-11 03:49 | NUR ---
CLIENT EXPERIENCE ADMINISTRATOR SUMMARY PT A&OX3, ABLE TO MAKE NEEDS KNOWN. FORGETFUL AT TIMES. PLEASANT AND COOPERATIVE TO CARE. PT MEDICATED FOR PAIN PER EMAR X1. NO C/O CP, SOB, OR N&V. BLE AND RUE EDEMA, AA ELEVATED. PT CALM AND RESTED IN BED T/O SHIFT. PT 1P ASSIST W/ FWW. PT ON PO CIPRO, NO ASE NOTED. BED AT LOWEST POSITION. CALL LIGHT WITHIN REACH.
[2020-03-11 05:07] LABS: Hematocrit 25.2 % (33.0-51.0); Hemoglobin 7.9 g/dL (11.5-16.0)
[2020-03-11 05:36] LABS: Albumin, Blood 1.6 g/dL (3.4-5.0); Anion Gap 3 mmol/L (6-16); Blood Urea Nitrogen 12 mg/dL (8-24); Bun/Creatinine Ratio 6.5 (12.0-20.0); CO2, Blood 34 mmol/L (21-32); Calcium, Blood 7.8 mg/dL (8.5-10.1); Chloride, Blood 103 mmol/L (98-108); Creatinine, Blood 1.84 mg/dL (0.40-1.00); Glomerular Filtration Rate 30 (60-); Glucose, Blood 60 mg/dL (70-99); Magnesium, Blood 1.8 mg/dL (1.6-2.4); Phosphorus, Blood 2.8 mg/dL (2.5-4.9); Potassium, Blood 3.7 mmol/L (3.5-5.5); Sodium, Blood 140 mmol/L (136-145)
--- NOTE | 2020-03-11 17:28 | NUR ---
SHIFT SUMMARY PT AxOx4 WITH OCCASIONAL CONFUSION. PLEASANT AND COOPERATIVE WITH CARE. PT HAD 3-4 DIARRHEA BM'S TODAY. C/O PAIN IN R SHOULDER AND L WRIST. MEDICATED PER EMAR. DECLINED ICE PACKS. MILD BUE DEPENDENT EDEMA, ELEVATED WITH PILLOWS. SCD'S IN PLACE. NO DIALYSIS TODAY. PT AMBULATING WELL TO BATHROOM WITH 1 PERSON ASSIST WITH FWW. GOOD APPETITE. VITALS REVIEWED. PT RESTING IN BED WITH CALL LIGHT IN REACH. DENIES ANY NEEDS AT THIS TIME.
[2020-03-12 05:59] LABS: Hematocrit 23.6 % (33.0-51.0); Hemoglobin 7.5 g/dL (11.5-16.0)
[2020-03-12 06:15] LABS: Albumin, Blood 1.6 g/dL (3.4-5.0); Anion Gap 4 mmol/L (6-16); Blood Urea Nitrogen 18 mg/dL (8-24); Bun/Creatinine Ratio 7.8 (12.0-20.0); CO2, Blood 32 mmol/L (21-32); Calcium, Blood 7.9 mg/dL (8.5-10.1); Chloride, Blood 102 mmol/L (98-108); Creatinine, Blood 2.31 mg/dL (0.40-1.00); Glomerular Filtration Rate 23 (60-); Glucose, Blood 61 mg/dL (70-99); Magnesium, Blood 1.6 mg/dL (1.6-2.4); Phosphorus, Blood 3.5 mg/dL (2.5-4.9); Potassium, Blood 3.8 mmol/L (3.5-5.5); Sodium, Blood 138 mmol/L (136-145)
--- NOTE | 2020-03-12 06:16 | NUR ---
SHIFT SUMMARY LYING IN LOW FOWLERS WITH EYES CLOSED, HAS RESTED WELL. MILD CONFUSION NOTED WHEN WAKING, BUT IS EASILY REORIENTED. NO ACUTE CHANGES NOTED THROUGHOUT SHIFT. DENIES PAIN, DISCOMFORT, OR FURTHER NEEDS AT THIS ITME. SAFETY MEASURES IN PLACE. WILL CONTINUE TO MONITOR AND GIVE HAND OFF TO ONCOMING SHIFT USING SBAR.
--- NOTE | 2020-03-12 17:49 | NUR ---
SHIFT SUMMARY PT RECIEVED DIALYSIS THIS SHIFT. ENULOSE GIVEN AFTER DIALYSIS. DC PLANNING TO WORK ON DC WITH HOME HEALTH AND POSSIBLE TO MOTEL PER THE PT. NO ACUTE CHANGES IN ASSESSMENT AT THIS TIME. PAIN MEDS ADMINISTERED TWICE THIS SHIFT. VS REVIEWED. WILL CONTINUE TO MONITOR UNTIL TURNOVER IS COMPLETE.
[2020-03-13 05:43] LABS: Hematocrit 23.5 % (33.0-51.0); Hemoglobin 7.4 g/dL (11.5-16.0)
[2020-03-13 05:59] LABS: Albumin, Blood 1.6 g/dL (3.4-5.0); Anion Gap 3 mmol/L (6-16); Blood Urea Nitrogen 10 mg/dL (8-24); Bun/Creatinine Ratio 6.1 (12.0-20.0); CO2, Blood 33 mmol/L (21-32); Calcium, Blood 7.8 mg/dL (8.5-10.1); Chloride, Blood 104 mmol/L (98-108); Creatinine, Blood 1.65 mg/dL (0.40-1.00); Glomerular Filtration Rate 34 (60-); Glucose, Blood 70 mg/dL (70-99); Magnesium, Blood 1.6 mg/dL (1.6-2.4); Phosphorus, Blood 2.4 mg/dL (2.5-4.9); Potassium, Blood 3.5 mmol/L (3.5-5.5); Sodium, Blood 140 mmol/L (136-145)
--- NOTE | 2020-03-13 06:17 | NUR ---
SUMMARY PT HAD NO ISSUES NOTED. PT HAS SLEPT T/O SHIFT. PT PAIN MANAGED PER EMAR. PT CURRENTLY SLEEPING IN NO DISTRESS. CALL LIGHT IN REACH.
--- NOTE | 2020-03-13 11:11 | NUR ---
Pt. is in bed resting pt. reports to be dong fine with slow improvement encouraged and prayed for pt.
--- NOTE | 2020-03-13 16:01 | NUR ---
Spiritual care visit conducted. Patient is lying in bed and alert. PAtient tells me about the plan to DC tomorrow and the stress she feels based on her last DC. Patient also shares about her bereavement process and how she feels her touch her shoulder everyday. We talk about her family unit complications. I listen empathically and provide, grief support, pastoral mental health counselor and prayer. Patient responds well and voices her appreciation for the visit. I will continue to remain available to patient and family.
--- NOTE | 2020-03-13 17:57 | NUR ---
Shift Summary A/Ox3, pleasant and cooperative with care. Up to bathroom x 1 assist, calls appropriately for needs. Medicated x 1 for r shoulder pain and l wrist pain, this provided adequate relief. Patient had a bowel movement today, small brown and formed. There appeared to be some browish/maroonish tinge to the toilet water with the bowel movement. No ethel/red blood or black tarry stools noted. Bed in lowest position, bed alarm on, call light nearby. WCTM and report to oncoming RN.
[2020-03-14 04:57] LABS: Hematocrit 22.1 % (33.0-51.0); Hemoglobin 7.1 g/dL (11.5-16.0)
[2020-03-14 05:19] LABS: Albumin, Blood 1.5 g/dL (3.4-5.0); Anion Gap 5 mmol/L (6-16); Blood Urea Nitrogen 14 mg/dL (8-24); Bun/Creatinine Ratio 6.4 (12.0-20.0); CO2, Blood 30 mmol/L (21-32); Calcium, Blood 7.5 mg/dL (8.5-10.1); Chloride, Blood 105 mmol/L (98-108); Creatinine, Blood 2.18 mg/dL (0.40-1.00); Glomerular Filtration Rate 25 (60-); Glucose, Blood 71 mg/dL (70-99); Magnesium, Blood 1.5 mg/dL (1.6-2.4); Phosphorus, Blood 3.3 mg/dL (2.5-4.9); Potassium, Blood 3.3 mmol/L (3.5-5.5); Sodium, Blood 140 mmol/L (136-145)
--- NOTE | 2020-03-14 06:28 | NUR ---
SHIFT SUMMARY: VSS. AFEB. AAOX3. ABLE TO COMMUNICATE NEEDS. MED X 2 FOR C/O R SHOULDER PAIN. VERY MINIMAL ROM IN R SHOULER. +2 PITTING EDEMA X4. PERMACATH TO R UPPER CHEST W/ DRESSING CDI. NO ERYTHEMA. DR. FISHER CURRENT REVIEWING PT ABNORMAL LABS AND ADDING ORDERS. NO ACUTE CHANGES W/ PT OVERNIGHT. WILL CONT TO MONITOR.
[2020-03-14] MEDS ORDERED: FURO40 PO (11:50)
--- NOTE | 2020-03-14 13:33 | NUR ---
Pt. in bed sleeping , left pt. in her sleep ,but prayed for pt
--- NOTE | 2020-03-14 14:51 | NUR ---
PT DISCHARGED FROM THE UNIT. PICC LINE REMOVED. FOLLOW UP INSTRUCTIONS REVIEWED. NO NEW MEDICATIONS. PT LEFT WITH TRANSPORT VIA WHEEL CHIAR AT 1450. PT WENT TO DIALYSIS TODAY. FOLLOW UP APT CALLED IN LEFT MESSAGE. SPOKE WITH LATHMAKER TO FOLLOW UP ON APT
--- NOTE | 2020-03-14 21:50 | NUR ---
REVIEWED PT'S INFO TO CALL AND LET THEM KNOW HER CANE WAS LEFT BEHIND. SPOKE WITH PT'S SON CHEN, HE SAID THEY WILL COME AND PICK IT UP TOMORROW.
[2020-03-19] MEDS ORDERED: OXYC5 PO (13:59)
== END 2020-03-14 14:49 | disposition home health service (06) | DRG 377 ==
LOC: ER 19:13 → ERHOLD 19:14 → MEDS 19:14 → ERHOLD 19:14 → MEDS 03-01 03:05
PROVIDERS: Emergency Medicine; Internal Medicine; Internal Medicine Nephrology; Student in an Organized Health Care Education/Training Program; ADMIT Family Medicine
PROC: 0D568ZZ Destruction of Stomach, Via Natural or Artificial Opening Endoscopic (ICD-10-PCS; principal; 2020-03-02 10:30)
PROC: 5A1D70Z Performance of Urinary Filtration, Intermittent, Less than 6 Hours Per Day (ICD-10-PCS; 2020-03-05)
PROC: 5A1D70Z Performance of Urinary Filtration, Intermittent, Less than 6 Hours Per Day (ICD-10-PCS; 2020-03-07)
PROC: 5A1D70Z Performance of Urinary Filtration, Intermittent, Less than 6 Hours Per Day (ICD-10-PCS; 2020-03-10)
PROC: 5A1D70Z Performance of Urinary Filtration, Intermittent, Less than 6 Hours Per Day (ICD-10-PCS; 2020-03-12)
PROC: 5A1D70Z Performance of Urinary Filtration, Intermittent, Less than 6 Hours Per Day (ICD-10-PCS; 2020-03-14)
DX: K31.811 Angiodysplasia of stomach and duodenum with bleeding (principal); J18.9 Pneumonia, unspecified organism; N18.6 End stage renal disease; N17.9 Acute kidney failure, unspecified; J44.0 Chronic obstructive pulmonary disease with (acute) lower respiratory infection; N25.81 Secondary hyperparathyroidism of renal origin; K76.6 Portal hypertension; D62 Acute posthemorrhagic anemia; Q27.8 Other specified congenital malformations of peripheral vascular system; E87.6 Hypokalemia; K70.30 Alcoholic cirrhosis of liver without ascites; G47.33 Obstructive sleep apnea (adult) (pediatric); F25.1 Schizoaffective disorder, depressive type; S62.102A Fracture of unspecified carpal bone, left wrist, initial encounter for closed fracture; B18.2 Chronic viral hepatitis C; Z99.2 Dependence on renal dialysis; E88.09 Other disorders of plasma-protein metabolism, not elsewhere classified; Z20.828 Contact with and (suspected) exposure to other viral communicable diseases; D63.8 Anemia in other chronic diseases classified elsewhere; Y92.9 Unspecified place or not applicable
CPT/HCPCS: 0097U; 0241U; 36415; 36430; 80048; 80053; 80069; 82272; 82728; 83540; 83550; 83735; 85014; 85018; 85025; 85027; 86850; 86900; 86901; 86923; 94760; 96365; 96366; 96367; 96376; 97110; 97110-CO; 97116; 97161; 97165; 97530; 97535; 97535-CO; 99285-25; A9270; A9270-GY; C9113; G0378; J0878; J2185; J2405; J2704; J2916; J3475; J3480; J7050; J7060; P9016